=== PATIENT | female | born 1980 | race Caucasian/White ===

== ENCOUNTER → 2021-04-03 14:08 | Outpatient (BNVA) | payer MEDICAID, SELFPAY | PROVIDERS: PCP Nurse Practitioner Family; Visit Provider Nurse Practitioner Family ==

== ENCOUNTER 2021-04-04 10:14 | Outpatient (REF) | payer OTHER, SELFPAY ==
[2021-04-04 12:09] LABS: Hematocrit 38.2 % (37-47); Hemoglobin 12.6 g/dl (12.0-16.0); Mean Corpuscular Hemoglobin 31.1 pg (27.0-33.0); Mean Corpuscular Volume 94.3 fL (80-98); Mean Platelet Volume 12.5 fL (9.4-12.3); Platelet Count 119 X10*3/uL (160-400); Red Blood Count 4.05 X10*6/uL (4.20-5.50); White Blood Count 9.5 X10*3/uL (4.8-10.8)
[2021-04-04 12:19] LABS: Estimated Average Glucose 111 mg/dL; Hemoglobin A1c % 5.5 %
[2021-04-04 12:59] LABS: TSH reflex Free T4 1.53 uIU/mL (0.32-4.0)
[2021-04-04 13:25] LABS: Carbon Dioxide 26 mmol/L (22-29)
[2021-04-04 13:26] LABS: Alanine Aminotransferase 176 U/L (0-31); Albumin Level 3.8 g/dL (3.5-5.0); Alkaline Phosphatase 69 U/L (39-117); Anion Gap 12 (12-20); Aspartate Amino Transferase 150 U/L (5-31); Bilirubin Total 0.4 mg/dL (0.0-1.0); Blood Urea Nitrogen 12 mg/dL (9-16); Calcium 8.7 mg/dL (8.4-10.2); Chloride 103 mmol/L (96-108); Estimated Glomerular Filt Rate > 60; Glucose Random 134 mg/dL (60-115); Lipase 25 U/L (8-78); Potassium 3.5 mmol/L (3.3-5.1); Sodium 137 mmol/L (135-145); Total Protein 6.5 g/dL (6.5-8.0)
[2021-04-05 22:37] LABS: Transglutaminase Ab IgG 1 U/mL; Transglutaminase IgA 1 U/mL
== END 2021-04-04 10:15 | disposition home or self-care (01) ==
LOC: HO.LAB 10:14
PROVIDERS: Visit Provider Nurse Practitioner Family
DX: R10.11 Right upper quadrant pain (principal); E11.9 Type 2 diabetes mellitus without complications; R19.7 Diarrhea, unspecified; K21.9 Gastro-esophageal reflux disease without esophagitis; Z11.0 Encounter for screening for intestinal infectious diseases; Z83.79 Family history of other diseases of the digestive system
CPT/HCPCS: 36415; 80053; 83036; 83516; 83690; 84443; 85027; 87338

== ENCOUNTER → 2021-05-31 13:24 | Outpatient (BNVA) | payer MEDICAID, SELFPAY | PROVIDERS: PCP Nurse Practitioner Family; Visit Provider Nurse Practitioner Family ==

== ENCOUNTER 2021-07-31 09:32 | Outpatient (REF) | payer MEDICAID, SELFPAY ==
[2021-07-31 11:32] LABS: Prothrombin Time 11.7 SEC (9.9-13.0)
[2021-07-31 11:52] LABS: C Reactive Protein 1.76 mg/dL (< or = 0.50)
[2021-07-31 12:54] LABS: Ferritin 181 ng/mL (10-250)
[2021-08-01 08:32] LABS: HBS Num1 0.41 mIU/mL (0-7.99); HBc Num1 0.06 S/CO (0.00-0.79); HIV AB/AG Nonreactive (Nonreactive); HIV Num 1 0.06 S/CO (0.00-0.99); Hepatitis B Core Antibody Nonreactive (Nonreactive); ~Hepatitis B Surface Antibody NONREACTIVE (Nonreactive); ~Hepatitis C Antibody Nonreactive (Nonreactive)
[2021-08-01 08:33] LABS: HBsAGNum1 0.15 S/CO (0.00-0.99); Hepatitis B Surface Antigen Negative (Negative)
[2021-08-02 08:11] LABS: Hepatitis A Antibody IgM 0.12 Index (0-0.79); ~Hepatitis A Antibody IgM Nonreactive (Nonreactive)
[2021-08-02 13:46] LABS: Ceruloplasmin 35 mg/dL (18-53)
[2021-08-05 13:27] LABS: Alpha Fetoprotein 5.5 ng/mL
[2021-08-05 14:52] LABS: Mitochondrial Antibodies NEGATIVE (NEGATIVE)
[2021-08-05 21:26] LABS: Smooth Muscle Antibody <20 U (<20)
== END 2021-07-31 09:33 | disposition home or self-care (01) ==
LOC: HO.LAB 09:32
PROVIDERS: PCP Registered Nurse Community Health; Referring Provider Registered Nurse Community Health; Visit Provider Nurse Practitioner Family
DX: R74.8 Abnormal levels of other serum enzymes (principal); R14.0 Abdominal distension (gaseous); R79.89 Other specified abnormal findings of blood chemistry; K58.9 Irritable bowel syndrome, unspecified
CPT/HCPCS: 36415; 82105; 82390; 82728; 85610; 86140; 86255; 86256; 86704; 86706; 86709; 86803; 87340; 87389; 99212

== ENCOUNTER 2021-08-21 09:33 | Outpatient (REF) | payer MEDICAID, SELFPAY ==
--- NOTE | ~2021-08-21 | US_ITS ---
EXAMINATION: US COMPLETE ABDOMEN WITH LIVER ELASTOGRAPHY CLINICAL INFORMATION: Abnormal liver function tests. COMPARISON: None. TECHNIQUE: Real-time imaging of the abdominal viscera. Noninvasive ultrasound liver fibrosis assessment is performed using Guido ElastPQ point quantification shear wave elastography (pSWE) with a C5-2 MHz transducer. Multiple elastography samples are obtained. FINDINGS: PANCREAS: The visualized pancreatic head and body are normal in appearance. The remainder of the pancreas is obscured from visualization by the overlying bowel gas. ABDOMINAL AORTA: The proximal, middle, and distal aortic segments are normal in caliber. INFERIOR VENA CAVA: Visualized portions are normal. LIVER: Liver echotexture is increased. The liver is enlarged. The liver contour is normal. No focal lesion or intrahepatic biliary duct dilatation. The right lobe measures 20 cm in length. The left lobe measures 14 cm in length. Portal flow is normal/hepatopedal Shear wave liver elastography median stiffness is 1.2 m/s (reference: normal median stiffness is 1.3 m/s or less). IQR/median stiffness to assess sampling precision is 0.13 (reference: good quality data set is IQR/median stiffness of 0.15 or less). GALLBLADDER: Normal. The gallbladder is physiologically distended without evidence of stones, sludge, polyps, wall thickening or pericholecystic fluid. COMMON BILE DUCT: Normal in caliber measuring 0.5 cm in diameter. RIGHT KIDNEY: Normal. No hydronephrosis. No renal calculi or focal parenchymal lesions. The kidney measures 11 cm in maximum dimension. LEFT KIDNEY: Normal. No hydronephrosis. No renal calculi or focal parenchymal lesions. The kidney measures 11 cm in maximum dimension. SPLEEN: Normal. The spleen measures 10 cm in maximum dimension. FREE FLUID: None. US/US abdomen comp w elastography IMPRESSION: 1. Impression: Enlarged echogenic liver probably representing fatty infiltration. Limited visualization of the tail of the pancreas. 2. Liver elastography: Adequate liver sampling. Normal liver stiffness. REFERENCE: Society of Radiologists in Ultrasound Liver Stiffness Thresholds (2020): LIVER STIFFNESS THRESHOLDS: *Liver Stiffness equal or less than 1.3 m/s: High probability of being normal. *Liver Stiffness less than 1.7 m/s: In the absence of other known clinical signs, rules out compensated advanced chronic liver disease. *Liver Stiffness 1.7-2.1 m/s: Suggestive of compensated advanced chronic liver disease but need further test for confirmation. *Liver Stiffness over 2.1 m/s: Rules in compensated advanced chronic liver disease. *Liver Stiffness over 2.4 m/s: Suggestive of clinically significant portal hypertension. QUALITY OF DATA SET: *IQR/Median value equal or less than 0.15 implies a quality data set. *IQR/Median value over 0.15 implies a poor quality data set. SIGNIFICANT CHANGE FROM PRIOR EXAM: Significant change if liver stiffness measurement is 10% or greater from prior exam. OTHER CONSIDERATIONS: The stage of liver fibrosis may be overestimated in the setting of acute hepatitis, liver inflammation, elevated liver function tests, hepatic vascular congestion, obstructive cholestasis, non-fasting state, and infiltrative diseases such as amyloidosis and lymphoma. In some patients with NAFLD, the liver stiffness thresholds for compensated advanced chronic liver disease may be lower. In causes other than viral hepatitis and NAFLD, liver stiffness thresholds are not well established.
== END 2021-08-21 09:34 | disposition home or self-care (01) ==
LOC: HO.US 09:33
PROVIDERS: PCP Registered Nurse Community Health; Visit Provider Surgery
DX: R79.89 Other specified abnormal findings of blood chemistry (principal)
CPT/HCPCS: 76705; 76981

== ENCOUNTER → 2021-09-11 09:55 | Outpatient (BNVA) | payer MEDICAID, SELFPAY | PROVIDERS: PCP Registered Nurse Community Health; Referring Provider Registered Nurse Community Health; Visit Provider Nurse Practitioner Family | DX: K59.04 Chronic idiopathic constipation (principal); K58.1 Irritable bowel syndrome with constipation; K21.9 Gastro-esophageal reflux disease without esophagitis; R06.02 Shortness of breath; R07.89 Other chest pain | CPT/HCPCS: 99212 ==

== ENCOUNTER 2021-10-22 09:42 | Outpatient (REF) | payer MEDICAID, SELFPAY ==
[2021-10-22 11:10] LABS: MANUAL DIFF FLAG NO
[2021-10-22 11:35] LABS: Basophils Absolute Auto 0.1 X10*3/uL (0.0-0.2); Basophils Percent Auto 0.6 % (0-2); Eosinophils Absolute Auto 0.1 X10*3/uL (0.0-0.4); Eosinophils Percent Auto 0.8 % (0-4); Hematocrit 44.7 % (37.0-47.0); Hemoglobin 14.6 g/dl (12.0-16.0); Imm Gran Abs Auto 0.04 X10*3/uL (0.00-0.03); Imm Gran Pct Auto 0.4 % (0.0-0.4); Lymphocytes Percent Auto 18.1 % (20-40); Mean Corpuscular HGB Conc 32.7 g/dl (31.0-35.0); Mean Corpuscular Hemoglobin 30.4 pg (27.0-33.0); Mean Corpuscular Volume 93.1 fL (80.0-98.0); Mean Platelet Volume 11.8 fL (9.4-12.3); Monocytes Absolute Auto 0.6 X10*3/uL (0.1-1.2); Monocytes Percent Auto 5.5 % (2-11); Neutrophils Absolute Auto 8.4 x10*3/uL (2.0-8.3); Neutrophils Percent Auto 74.6 % (45-73); Platelet Count 253 X10*3/uL (160-400); White Blood Count 11.2 X10*3/uL (4.8-10.8)
[2021-10-22 12:22] LABS: Anion Gap 15 (12-20); Blood Urea Nitrogen 7 mg/dL (9-16); Calcium 9.3 mg/dL (8.4-10.2); Carbon Dioxide 23 mmol/L (22-29); Chloride 105 mmol/L (96-108); Estimated Glomerular Filt Rate > 60; Glucose Random 123 mg/dL (60-115); Iron 60 mcg/dL (30-160); Percent Iron Saturation 13 % (15-50); Sodium 139 mmol/L (135-145); Total Iron Binding Capacity 452 mcg/dL (228-428); Unsaturated Iron Binding 392 ug/dL
[2021-10-22 12:39] LABS: TSH reflex Free T4 1.31 uIU/mL (0.32-4.0)
[2021-10-22 12:48] LABS: Erythrocyte Sedimentation Rate 7 MM/HR (0-20)
[2021-10-22 12:51] LABS: Ferritin 165 ng/mL (10-250)
== END 2021-10-22 09:43 | disposition home or self-care (01) ==
LOC: HO.LAB 09:42
PROVIDERS: PCP Registered Nurse Community Health; Visit Provider Hospitalist
DX: Z23 Encounter for immunization (principal); R40.0 Somnolence; R53.82 Chronic fatigue, unspecified; J45.40 Moderate persistent asthma, uncomplicated; G47.33 Obstructive sleep apnea (adult) (pediatric)
CPT/HCPCS: 36415; 80048; 82728; 82785; 83540; 84443; 85025; 85652; 86003; 90686; 99202

== ENCOUNTER 2021-11-14 14:42 | Outpatient (REF) | payer OTHER, SELFPAY | END 2021-11-14 14:43 | disposition home or self-care (01) | LOC: HO.LAB 14:42 | PROVIDERS: Visit Provider Internal Medicine | DX: Z13.89 Encounter for screening for other disorder (principal) ==

== ENCOUNTER 2021-12-03 10:30 | Outpatient (REF) | payer MEDICAID, SELFPAY ==
[2021-12-03 12:30] LABS: Alanine Aminotransferase 45 U/L (0-31); Albumin Level 4.5 g/dL (3.5-5.0); Alkaline Phosphatase 79 U/L (39-117); Aspartate Amino Transferase 30 U/L (5-31); Bilirubin Direct < 0.2 mg/dL (0.0-0.5); Bilirubin Total 0.4 mg/dL (0.0-1.0); Total Protein 7.9 g/dL (6.5-8.0)
== END 2021-12-03 10:31 | disposition home or self-care (01) ==
LOC: HO.LAB 10:30
PROVIDERS: PCP Registered Nurse Community Health; Referring Provider Registered Nurse Community Health; Visit Provider Nurse Practitioner Family
DX: E66.9 Obesity, unspecified (principal); K63.89 Other specified diseases of intestine; K42.9 Umbilical hernia without obstruction or gangrene; K21.9 Gastro-esophageal reflux disease without esophagitis; R10.11 Right upper quadrant pain
CPT/HCPCS: 36415; 80076; 99212

== ENCOUNTER → 2021-12-24 09:19 | Outpatient (BNVA) | payer MEDICAID, SELFPAY | PROVIDERS: PCP Registered Nurse Community Health; Referring Provider Registered Nurse Community Health; Visit Provider Surgery | DX: R10.9 Unspecified abdominal pain (principal) | CPT/HCPCS: 99202 ==

== ENCOUNTER 2022-01-30 11:03 | Outpatient (REF) | payer MEDICAID, SELFPAY ==
--- NOTE | ~2022-01-30 | US_ITS ---
EXAMINATION: US PELVIS CLINICAL INFORMATION: Lower abdominal pain and cramping; the last menstrual period is not specified. COMPARISON: Abdominal ultrasound dated 08/21/2021. TECHNIQUE: Ultrasound of the pelvis is performed using both transabdominal and transvaginal transducers along with Doppler. Transvaginal imaging is performed due to inadequate visualization transabdominally. FINDINGS: Uterus: The uterus is surgically absent. Adnexa: The right ovary measures 3.0 x 2.5 x 1.7 cm, volume 6.7 mL. The right ovary contains a 1.9 x 1.6 x 1.4 cm simple cyst. There is normal Doppler flow to the right ovary. The left ovary is not identified. No pelvic free fluid is seen. There is no adnexal mass. US/US pelvic and transvaginal IMPRESSION: 1. The uterus is surgically absent. 2. A 1.9 cm simple right ovarian cyst is incidentally noted. This is a benign finding, for which no ultrasound follow-up is recommended. 3. The left ovary is not visualized.
== END 2022-01-30 11:04 | disposition home or self-care (01) ==
LOC: HO.US 11:03
PROVIDERS: Visit Provider Registered Nurse Community Health
DX: R10.30 Lower abdominal pain, unspecified (principal); Z90.710 Acquired absence of both cervix and uterus
CPT/HCPCS: 76830; 76856

== ENCOUNTER 2022-02-24 13:01 | Outpatient (REF) | payer MEDICAID, SELFPAY ==
--- NOTE | ~2022-02-24 | CT_ITS ---
EXAMINATION: CT ABDOMEN AND PELVIS WITH CONTRAST CLINICAL INFORMATION: Unspecified abdominal pain COMPARISON: Ultrasound abdomen 08/21/2021, ultrasound pelvis 01/30/2022 TECHNIQUE: Multidetector volumetric images were obtained from the superior aspect of the liver through the pubic symphysis following administration 85 mL of Omnipaque 350 intravenous contrast. Sagittal and coronal reformatted images were obtained on the technologist's workstation. Oral contrast: Yes This CT examination was performed using dose optimization techniques as appropriate, variously including the following: *Automated exposure control *Adjustment of mA and/or kV according to patient size (this includes techniques or standardized protocols for targeted exams where dose is matched to indication/reason for exam; i.e. extremities or head) *Use of iterative reconstruction technique DLP: 621 mGy-cm FINDINGS: LUNG BASES: The visualized lung bases are unremarkable. LIVER, GALLBLADDER, AND BILIARY TREE: The liver is mildly enlarged, 19.8 cm craniocaudal diffusely reduced in attenuation likely representing fatty infiltration. No focal hepatic lesions are identified and there is no intra or extrahepatic duct dilation. The gallbladder is surgically absent. PANCREAS: Unremarkable. SPLEEN: Unremarkable. ADRENAL GLANDS: Unremarkable. KIDNEYS AND URETERS: The kidneys are normal in size, shape, and attenuation. No hydronephrosis, hydroureter, or calculi seen. No perinephric stranding. BLADDER: Unremarkable. GASTROINTESTINAL TRACT: The small and large bowel are unremarkable. The appendix is unremarkable. ABDOMINAL WALL: No significant hernia is appreciated. There is moderate rectus diastases. LYMPH NODES: Normal. VASCULAR: Unremarkable. PELVIC VISCERA: The uterus is surgically absent. In the right adnexa there is a 2.5 cm low-attenuation structure (image 588, series 6) as well as a similar 1.5 cm structure (image 564, series 4). No left adnexal lesions. OSSEOUS STRUCTURES: There is disc degenerative change at L5-S1 and corresponding mild endplate change. There are mild degenerative changes of the sacroiliac joints. No acute or aggressive bony abnormality is identified. CT/CT abdomen pelvis w con IMPRESSION: There is hepatomegaly and steatosis. There are 2 low-attenuation structures within the right adnexa. Prior ultrasound demonstrated a single 1.9 cm cyst. Each of the structures within the adnexa measure greater than fluid attenuation. Further characterization with ultrasound could be considered if clinically warranted. Fleischner guidelines were followed.
[2022-02-24] MEDS: iohexoL 350 MG/ML 100 ML INFUS..BTL IV (16:45)
[2022-02-24] MEDS: Barium Sulfate Oral (Mocha) 450 ML ORAL.SUSP 900 ML PO (16:49)
== END 2022-02-24 13:02 | disposition home or self-care (01) ==
LOC: HO.CT 13:01
PROVIDERS: PCP Registered Nurse Community Health; Visit Provider Surgery
DX: R10.9 Unspecified abdominal pain (principal); J45.40 Moderate persistent asthma, uncomplicated; G47.33 Obstructive sleep apnea (adult) (pediatric); R40.0 Somnolence; R53.82 Chronic fatigue, unspecified
CPT/HCPCS: 74177; 99212; Q9967

== ENCOUNTER → 2022-04-21 09:06 | Outpatient (BNVA) | payer MEDICAID, SELFPAY | PROVIDERS: PCP Registered Nurse Community Health; Visit Provider Nurse Practitioner Family | DX: R10.33 Periumbilical pain (principal); K21.9 Gastro-esophageal reflux disease without esophagitis; K59.04 Chronic idiopathic constipation; K58.1 Irritable bowel syndrome with constipation; M62.08 Separation of muscle (nontraumatic), other site | CPT/HCPCS: 99212 ==

== ENCOUNTER 2022-07-23 07:20 | Day surgery (SDC) | payer MEDICAID, SELFPAY ==
[2022-07-14 11:06] VITALS: BMI 35.2
--- NOTE | 2022-07-23 06:53 | P.HPSUR_ITS ---
Pre-Procedural Eval Section A Date of Service: 07/23/22 Section B Chief Complaint: Periumbilical pain,reflux disease Relevant Family History (Specify if Yes): No Relevant Social History: Tobacco Use Present Medications: see Short Stay Collaborative assessment Medical History: Significant History (Abdominal pain Asthma Drowsiness Fatigue DAVID (obstructive sleep apnea)) History of Previous Operations: Relevant previous surgery/procedure and date(s) (History of cholecystectomy History of hysterectomy) Allergies: Allergies Allergy/AdvReac Type Severity Reaction Status Date / Time No Known Allergies Allergy Verified 04/21/22 09:42 Review of Systems Sugical H&P ROS: Negative: Constitution, Cardiovascular, Respiratory, Neurological, Psychiatric, Hem-Onc, Allergic/Immunologic, Gastrointestinal, Genitourinary, Musculoskeletal, Integumentary, Endocrine and E yes/Ears/Nose/Throat Exam Surgical H&P Exam: Normal: HEENT, Normal: Heart, Normal: Lungs, Normal: Extremities, Normal: Abdomen, Normal: Skin and Normal: Neurological Plan Diagnosis/Plan: Unchanged I have reviewed the history and physical and performed a pertinent physical examination on my patient. No changes have occurred unless specified.
[2022-07-23 07:49] VITALS: BP 132/81; PULSE 96; RESP 16; TEMP 36.1; O2SAT 97; BMI 36.8
--- NOTE | 2022-07-23 08:24 | HO.ANESPROP2 ---
[facility] Active Problems Active Problems: All Active Problems (Updated 04/21/22 @ 10:19 by [facility]) Abdominal pain (Acute) DAVID (obstructive sleep apnea) (Acute) Asthma (Acute) Drowsiness (Acute) Fatigue (Acute) Past Medical History Medical History Abdominal pain Asthma Drowsiness Fatigue DAVID (obstructive sleep apnea) Family History Family History Paternal Grandfather Liver cancer Maternal Grandfather Prostate cancer Family history of problems with anesthesia: No Surgical History Surgical History History of cholecystectomy History of hysterectomy History of Problems with Anesthesia: No Social History Social History Household Members: None Alcohol intake: current Alcohol intake frequency: holidays/special occasions only Patient Tobacco Use Status: Current everyday Tobacco user Tobacco use type: Cigarette Cigarette Packs Per Day: 3 Cigarettes Per Day: 3 Date Education Initiated: 07/23/22 Use of substances other than those prescribed or required for medical reasons: No Are you DNR?: No Advance Directives: No Advance Directives Information Provided: Yes Meds Allergies Allergy/AdvReac Type Severity Reaction Status Date / Time No Known Allergies Allergy Verified 04/21/22 09:42 Active Medications: Current Medications Lactated Ringer's (Lr) 1,000 mls @ 50 mls/hr IVCONT .Q20H FORMERLY [facility], 1928–1983 Home Medications Medication Instructions Recorded Confirmed Last Taken Type alprazolam 1 mg tablet 1 mg PO BID 04/03/21 12/24/21 Unknown History cyclobenzaprine 5 mg tablet 5 mg PO BEDTIME 04/03/21 12/24/21 Unknown History loratadine 5 mg chewable tablet 5 mg PO BID 04/03/21 12/24/21 Unknown History (Children's Claritin) nicotine 7 mg/24 hr daily 1 patch transdermal Q24H 04/03/21 12/24/21 Unknown History transdermal patch omega-3 fatty acids 1,000 mg 1,000 mg PO DAILY 04/03/21 12/24/21 Unknown History capsule (Fish Oil Concentrate) trazodone 50 mg tablet 50 mg PO DAILY 04/03/21 12/24/21 Unknown History fluoxetine 20 mg capsule (Prozac) 20 mg PO DAILY 10/22/21 12/24/21 Unknown History zolpidem 5 mg tablet (Ambien) 10 mg PO BEDTIME PRN 12/03/21 12/24/21 Unknown History Exam Exam Date and Time: July 23, 2022 0824 Height,Weight and Vital Signs: Height 5 ft 7 in Weight 106.594 kg Last Vital Signs Temp 96.9 F 07/23/22 07:49 Pulse 96 07/23/22 07:49 Resp 16 07/23/22 07:49 BP 132/81 07/23/22 07:49 Pulse Ox 97 07/23/22 07:49 O2 Del Method 07/23/22 07:49 Airway Mallampati Class: II TM Dist: >3cm Neck ROM: Full Heart: rrr Lungs: cta Assessment and Plan Assessment Anesthesia Assessment: Anesthesia Plan Discussed and Chart Reviewed Final Anesthetic Review Family History of Problems with Anesthesia: No History of Problems with Anesthesia: No NPO: Yes ASA Class: III Final Preanesthetic Review: No Changes in Pt Med Stat, Meds/Allgs Chart Reviewed and Consent Obtained/Reviewed Patient Risk: Intermediate Procedure Risk: Intermediate Anesthetic Plan Anesthetic Plan: MAC: Disposition: Standard PACU
--- NOTE | 2022-07-23 08:38 | W.PM.OPN ---
Operative Note Operative Note Date of Service: 07/23/22 Narrative: Procedure Description: EGD Indication: [] Anesthesia: MAC FLEXIBLE TRANSORAL UPPER GASTROINTESTINAL ENDOSCOPY UPPER ENDOSCOPY Consent: Indications for the procedure and potential complications of bleeding, perforation, reaction to medications and missed diagnosis were discussed with the patient and informed consent was obtained. Instrument: Olympus GIF H 190 J mid size upper endoscope Monitoring: Vital signs and clinical assessment, continuous EKG monitoring, Pulse oximetry, Carbon Dioxide monitoring and blood pressure monitoring were done throughout the procedure. Procedure: The patient was placed in the left lateral decubitis position and pre-procedure medications were administered and a bite block was placed. The endoscope was inserted into the mouth and advanced under direct vision to the third part of duodenum. A careful inspection was made as the upper endoscope was withdrawn including a retroflexed examination of the proximal stomach; Findings and interventions are described below. Findings: Larynx:normal Esophagus: GE junction at 38 cm, diaphragm hiatus at 38 cm, bx taken from GEj and random esophagus but esophagus looked normal Stomach: Patchy gastric erythema, inflammed fold close to the antrum with some superficial erosions. Biopsies were obtained. Grade 2 flap valve on retroflexed examination of the cardia. Some retained food noted in stomach. Duodenum: Normal bulb and descending duodenum, bx taken Intervention: Biopsies as noted above Impression/Findings: gastritis possible gastroparesis PLAN: await bx results consider gastric emptying study
[2022-07-23 08:58] VITALS: BP 115/72; PULSE 93; RESP 16; TEMP 36.2; O2SAT 93
[2022-07-23 09:13] VITALS: BP 121/85; PULSE 85; RESP 18; TEMP 36.6; O2SAT 96
[2022-07-23 09:50] LABS: Glucose, Whole Blood 184 mg/dL (60-115)
== END 2022-07-23 10:08 | disposition home or self-care (01) ==
PROVIDERS: PCP Registered Nurse; Visit Provider Internal Medicine Gastroenterology
PROC: 0DJ08ZZ Inspection of Upper Intestinal Tract, Via Natural or Artificial Opening Endoscopic (ICD-10-PCS; CPT 43235; principal; 2022-07-23 08:30)
DX: K21.9 Gastro-esophageal reflux disease without esophagitis (principal); K29.70 Gastritis, unspecified, without bleeding; K29.80 Duodenitis without bleeding; K44.9 Diaphragmatic hernia without obstruction or gangrene; G47.33 Obstructive sleep apnea (adult) (pediatric); J45.909 Unspecified asthma, uncomplicated; R40.0 Somnolence; R53.83 Other fatigue; Z79.899 Other long term (current) drug therapy; Z90.49 Acquired absence of other specified parts of digestive tract; F17.210 Nicotine dependence, cigarettes, uncomplicated
CPT/HCPCS: 43239; 82947; 88305; 88342

== ENCOUNTER → 2022-07-30 10:10 | Outpatient (BNVA) | payer MEDICAID, SELFPAY | PROVIDERS: PCP Registered Nurse; Visit Provider Nurse Practitioner Family | DX: K21.9 Gastro-esophageal reflux disease without esophagitis (principal); K58.1 Irritable bowel syndrome with constipation; K59.04 Chronic idiopathic constipation; R14.0 Abdominal distension (gaseous) | CPT/HCPCS: 99212 ==

== ENCOUNTER → 2022-08-15 20:30 | Outpatient (REF) | payer MEDICAID, SELFPAY | LOC: HO.SL 20:30 | PROVIDERS: Visit Provider Registered Nurse | DX: R06.83 Snoring (principal); R09.02 Hypoxemia | CPT/HCPCS: 95810 ==

== ENCOUNTER 2022-08-26 09:16 | Outpatient (REF) | payer MEDICAID, SELFPAY ==
--- NOTE | ~2022-08-26 | MR_ITS ---
EXAMINATION: MR BRAIN WITHOUT CONTRAST CLINICAL INFORMATION: Migraines with aura. COMPARISON: None. TECHNIQUE: Multiplanar, multisequence imaging of the brain was performed without contrast. FINDINGS: No diffusion abnormalities are identified to suggest an acute or subacute infarct. The ventricles are normal in size. No mass effect or midline shift is seen. No brain parenchymal signal abnormality is noted. No extra-axial fluid collections are seen. The brainstem and cerebellum are normal. The gradient refocused acquisition is normal. The craniovertebral junction, marrow signal, and midline structures are normal. The major intracranial flow voids at the level of the [place] of [place] are preserved. The dural venous sinus flow voids are maintained. The mastoid air cells and paranasal sinuses are well aerated. There is an incidental nonspecific left parietal scalp soft tissue thickening which could be correlated with findings on direct visual inspection. There is what may represent focal scar tissue also at the high left parietal vertex. MR/MR head/brain wo con IMPRESSION: Normal MRI of the brain. No acute process. Nonspecific left parietal scalp soft tissue thickening which could be correlated with findings on direct visual inspection. Additional questionable left parietal vertex scalp scarring with mild skin retraction.
== END 2022-08-26 09:17 | disposition home or self-care (01) ==
LOC: HO.MRI 09:16
PROVIDERS: Visit Provider Registered Nurse
DX: G43.009 Migraine without aura, not intractable, without status migrainosus (principal); Z91.81 History of falling
CPT/HCPCS: 70551

== ENCOUNTER → 2022-10-21 08:52 | Outpatient (BNVA) | payer MEDICAID, SELFPAY | PROVIDERS: PCP Registered Nurse; Visit Provider Physician Assistant Surgical | DX: Z13.89 Encounter for screening for other disorder (principal) ==

== ENCOUNTER → 2022-11-07 10:01 | Outpatient (BNVA) | payer MEDICAID, SELFPAY | PROVIDERS: PCP Registered Nurse; Visit Provider Physician Assistant Surgical | DX: E66.9 Obesity, unspecified (principal); Z68.36 Body mass index [BMI] 36.0-36.9, adult | CPT/HCPCS: 99202 ==

== ENCOUNTER → 2022-12-04 07:43 | Outpatient (REF) | payer MEDICAID, SELFPAY ==
--- NOTE | ~2022-12-04 | NM_ITS ---
EXAMINATION: TN RADIONUCLIDE SOLID FOOD GASTRIC EMPTYING 4-HOUR STUDY CLINICAL INFORMATION: Gastritis. CT of the abdomen and pelvis done on 02/24/2022. COMPARISON: None TECHNIQUE: A standard meal consisting of 4 oz of Egg Beaters brand tagged with 990 microcuries Tc-99m Sulfur Colloid, 8 oz water and 2 slices of toast with jelly was administered orally to the patient. Images were obtained using a dual head gamma camera in the anterior and posterior projections over of the stomach immediately post ingestion and at hourly intervals up to 4 hours post ingestion. The anterior and posterior counts at each time interval were averaged using the geometric mean and expressed as percentage of the immediate post ingestion counts. FINDINGS: There is good visualization of activity in the stomach immediately post ingestion. As the study progresses, there is rapid clearance of activity from the stomach and visualization of progressively increasing small bowel activity. By the end of the study, there is almost no retention noted in the stomach. Retention in the stomach at each time interval was: 1 hour 24% (normal 37%-90%) 2 hours 13% (normal 30%-60%) 3 hours 11% 4 hours 2% (normal 0%-10%) TN/TN gastric emptying study IMPRESSION: Abnormal study. Rapid gastric emptying. (For solid meal, rapid gastric emptying is less than 30% at 60 minutes. Delayed gastric emptying criteria is more than 60% remaining at 120 minutes or more than 10% at 240 minutes. The 4-hour value is the best discriminator of a normal or abnormal result).
== END ==
LOC: HO.NUCMED 07:43
PROVIDERS: PCP Registered Nurse; Visit Provider Nurse Practitioner Family
DX: K29.70 Gastritis, unspecified, without bleeding (principal)
CPT/HCPCS: 78264; A9541

== ENCOUNTER → 2022-12-16 13:17 | Outpatient (BNVA) | payer MEDICAID, SELFPAY | PROVIDERS: PCP Registered Nurse; Visit Provider Physician Assistant Surgical | DX: E66.9 Obesity, unspecified (principal); Z68.33 Body mass index [BMI] 33.0-33.9, adult | CPT/HCPCS: 99212 ==

== ENCOUNTER → 2022-12-23 09:46 | Outpatient (BNVA) | payer MEDICAID, SELFPAY | PROVIDERS: PCP Registered Nurse; Visit Provider Dietitian, Registered | DX: E66.9 Obesity, unspecified (principal) | CPT/HCPCS: 97802 ==

== ENCOUNTER 2023-02-06 12:13 | Emergency (ER) | payer MEDICAID, SELFPAY ==
--- NOTE | ~2023-02-06 | CT_ITS ---
EXAMINATION: CT ABDOMEN AND PELVIS WITH CONTRAST CLINICAL INFORMATION: Right lower quadrant abdominal pain. COMPARISON: CT abdomen pelvis 02/24/2022 TECHNIQUE: Multidetector volumetric images were obtained from the superior aspect of the liver through the pubic symphysis following administration 85 mL of Omnipaque 350 intravenous contrast. Sagittal and coronal reformatted images were obtained on the technologist's workstation. Oral contrast: No This CT examination was performed using dose optimization techniques as appropriate, variously including the following: *Automated exposure control *Adjustment of mA and/or kV according to patient size (this includes techniques or standardized protocols for targeted exams where dose is matched to indication/reason for exam; i.e. extremities or head) *Use of iterative reconstruction technique DLP: 740 mGy-cm FINDINGS: LUNG BASES: The visualized lung bases are unremarkable. LIVER, GALLBLADDER, AND BILIARY TREE: The liver is mildly enlarged in size, normal shape, and diffuse hypo-attenuation. Liver measures 19 seen in length. No focal hepatic lesion or biliary ductal dilatation is present. The gallbladder has been surgically removed. PANCREAS: Unremarkable. SPLEEN: Unremarkable. ADRENAL GLANDS: Unremarkable. KIDNEYS AND URETERS: The kidneys are normal in size, shape, and attenuation. No hydronephrosis, hydroureter, or calculi seen. No perinephric stranding. BLADDER: Unremarkable. GASTROINTESTINAL TRACT: There is scattered stool and gas seen throughout the colon without any significant distention. The small bowel loops are normal caliber. The stomach is nondistended. Appendix is normal caliber. No inflammatory process in the right lower quadrant. ABDOMINAL WALL: There is a small umbilical hernia containing fat. LYMPH NODES: Normal. VASCULAR: Unremarkable. PELVIC VISCERA: There is a 1.6 cm round hypodensity right adnexa likely ovarian cyst. This was present on the previous exam as well. OSSEOUS STRUCTURES: There is loss of L5-S1 disc level with vacuum disc phenomena and mild spondylosis. Rest the disc heights are normal. No aggressive lytic or sclerotic process seen. CT/CT abdomen pelvis w IV con IMPRESSION: 1. No acute intra-abdominal process seen. 2. Mild constipation. 3. Small umbilical hernia containing fat. 4. Diffuse fatty infiltration of liver with mild hepatomegaly similar findings were seen on previous study Fleischner guidelines were followed.
[2023-02-06 12:24] VITALS: BP 126/80; PULSE 92; RESP 16; TEMP 36.6; O2SAT 100; BMI 33.2
--- NOTE | 2023-02-06 12:26 | ED_ITS ---
HPI - General Adult General Chief complaint: Abdominal Pain <KIARA Craig - Last Filed: 02/06/23 12:26> Stated complaint: mulpitle complaints vomiting diarrhea headache <KIARA Craig - Last Filed: 02/06/23 12:26> Time Seen by Provider: 02/06/23 13:34 <KIARA Craig - Last Filed: 02/06/23 12:26> Source: patient <Bernabe Estrella MD - Last Filed: 02/06/23 15:27> Mode of arrival: ambulatory <Bernabe Estrella MD - Last Filed: 02/06/23 15:27> Limitations: no limitations <Bernabe Estrella MD - Last Filed: 02/06/23 15:27> History of Present Illness HPI narrative: 42-year-old female presents with abdominal pain. She has right-sided abdominal pain. The symptoms are an 8/10. She describes the pain as sharp and crampy. The pain does not radiate. She notices the pain is worse immediately when getting ready to vomit. She has had multiple episodes of nausea and vomiting. It has been nonbilious and nonbloody. She has also had some diarrhea. There has been some slight blood in the stools that is bright red. She reports history of hemorrhoids. Patient denies any fevers or chills. She denies any sick contacts. She was sent in by her primary care doctor today. Symptoms started 2 days ago <Bernabe Estrella MD - Last Filed: 02/06/23 15:27> Related Data Home medications: Previous Rx's Medication Instructions Recorded dicyclomine 20 mg tablet 20 mg PO TID PRN abdominal 02/06/23 discomfort #20 tabs famotidine 20 mg tablet 20 mg PO BID #30 tabs 02/06/23 ondansetron 4 mg disintegrating 4 mg PO Q8H PRN nausea and 02/06/23 tablet vomiting #10 tabs <KIARA Craig - Last Filed: 02/06/23 12:26> Allergies/adverse reactions: Allergies Allergy/AdvReac Type Severity Reaction Status Date / Time No Known Allergies Allergy Unverified 07/19/20 19:34 [No Known Allergies*] <KIARA Craig - Last Filed: 02/06/23 12:26> [facility] Social History Social History: Social History Advance Directives: No Advance Directives Information Provided: Yes <KIARA Craig - Last Filed: 02/06/23 12:26> Physical Exam ED Vital Signs: Vital Signs - 24 hr 02/06/23 12:24 02/06/23 12:42 Temperature 98 F 97.5 F Pulse Rate 92 84 Respiratory Rate 16 18 Blood Pressure 126/80 107/61 Pulse Oximetry 100 98 Oxygen Delivery Method Room Air Room Air BMI result Body Mass Index 33.2 <KIARA Craig - Last Filed: 02/06/23 12:26> Vital Signs - 24 hr 02/06/23 12:24 02/06/23 12:42 Temperature 98 F 97.5 F Pulse Rate 92 84 Respiratory Rate 16 18 Blood Pressure 126/80 107/61 Pulse Oximetry 100 98 Oxygen Delivery Method Room Air Room Air BMI result Body Mass Index 33.2 <Bernabe Estrella MD - Last Filed: 02/06/23 15:27> GEN: Well developed, no acute distress, alert, oriented HEENT: Normocephalic, atraumatic, normal external ears, nose appears normal, no oropharyngeal edema or exudates Eyes: Normal to appearance Neck: Supple, no lymphadenopathy Respiratory: Talks in complete sentences, no respiratory distress, clear to auscultation bilaterally Cardiovascular: Regular rate and rhythm, no murmurs rubs or gallops Abdomen: Soft, nontender, nondistended, no guarding, no rebound, negative Mckinley sign, negative McBurney's point tenderness Back: No CVA tenderness Extremities: No clubbing cyanosis or edema Neurologic: No focal neurologic deficits, cranial nerves 2-12 intact, strength is 5/5 bilaterally, gait normal Skin: No rash <Bernabe Estrella MD - Last Filed: 02/06/23 15:27> Course Course Course Narrative: RME performed by Rebeka Salas PA-C. Patient is a 42 year old assigned female at presenting to the emergency department with abdominal pain. Labs, imaging, and a swab ordered. Patient placed back in the waiting room pending room availability and results. <KIARA Craig Last Filed: 02/06/23 12:26> Reevaluation(s) Reevaluation #1: Patient is feeling better. Discussed all results with patient. Will start the patient on dicyclomine, Zofran and Pepcid. Patient will follow-up with primary care provider early next week. <Bernabe Estrella MD - Last Filed: 02/06/23 15:27> Time: 15: <Bernabe Estrella MD - Last Filed: 02/06/23 15:27> Medications Administered Discontinued Medications Generic Name Dose Route Start Last Admin Trade Name Freq PRN Reason Stop Dose Admin Iohexol 85 ml 02/06/23 13:55 02/06/23 13:57 Iohexol 350 Mg/Ml 100 Ml Infus..Btl IV 02/06/23 13:56 85 ml ONCE ONE Administration Ketorolac Tromethamine 15 mg 02/06/23 14:34 02/06/23 15:01 Ketorolac Tromethamine 15 Mg/Ml Vial IVPUSH 02/06/23 14:35 15 mg ONCE ONE Administration <KIARA Craig - Last Filed: 02/06/23 12:26> Medications Administered Discontinued Medications Generic Name Dose Route Start Last Admin Trade Name Freq PRN Reason Stop Dose Admin Iohexol 85 ml 02/06/23 13:55 02/06/23 13:57 Iohexol 350 Mg/Ml 100 Ml Infus..Btl IV 02/06/23 13:56 85 ml ONCE ONE Administration Ketorolac Tromethamine 15 mg 02/06/23 14:34 02/06/23 15:01 Ketorolac Tromethamine 15 Mg/Ml Vial IVPUSH 02/06/23 14:35 15 mg ONCE ONE Administration <Bernabe Estrella MD - Last Filed: 02/06/23 15:27> Medical Decision Making Medical Decision Making MDM Narrative: 42-year-old female presents with right-sided abdominal pain. The pain is moderate in nature. The pain does not radiate. Examination revealed negative McBurney's point tenderness negative Mckinley sign. She has no CVA tenderness no urinary complaints. Suspect gastroenteritis given the diarrhea as well. Cannot rule out appendicitis or cholecystitis cell imaging studies are complete. <Bernabe Estrella MD - Last Filed: 02/06/23 15:27> Differential Diagnosis Differential Diagnoses: The differential diagnosis associated with the presentation includes (Abdominal pain, gastroenteritis, cholecystitis, appendicitis, epiploic appendagitis, mesenteric adenitis, IBD, IBS, bacterial overgrowth) <Bernabe Estrella MD - Last Filed: 02/06/23 15:27> Admission/Observation Consideration of admission/observation: Escalation of care including admission/observation considered <Bernabe Estrella MD - Last Filed: 02/06/23 15:27> Lab Data MDM Lab Attestation statement: I reviewed the patient's lab results. <Bernabe Estrella MD - Last Filed: 02/06/23 15:27> Result Diagrams: 02/06/23 12:56 02/06/23 12:56 <KIARA Craig - Last Filed: 02/06/23 12:26> Labs: Lab Results 02/06/23 02/06/23 02/06/23 Range/Units 12:31 12:31 12:31 WBC (4.8-10.8) X10*3/uL RBC (4.20-5.50) X10*6/uL Hgb (12.0-16.0) g/dl Hct (37.0-47.0) % MCV (80.0-98.0) fL MCH (27.0-33.0) pg MCHC (31.0-35.0) g/dl RDW (11.0-16.0) % Plt Count (160-400) X10*3/uL MPV (9.4-12.3) fL Immature Gran % (Auto) (0.0-0.4) % Neut % (Auto) (45-73) % Lymph % (Auto) (20-40) % Morehouse % (Auto) (2-11) % Eos % (Auto) (0-4) % Baso % (Auto) (0-2) % Lymph # (Auto) (1.2-4.9) X10*3/uL Morehouse # (Auto) (0.1-1.2) X10*3/uL Eos # (Auto) (0.0-0.4) X10*3/uL Baso # (Auto) (0.0-0.2) X10*3/uL Abs Immat Gran (auto) (0.00-0.03) X10*3/uL Absolute Neuts (auto) (2.0-8.3) x10*3/uL Absolute Nucleated RBC (0.0-0.012) X10*3/uL Nucleated RBC % (auto) (0.0-0.2) /100WBC Sodium (135-145) mmol/L Potassium (3.3-5.1) mmol/L Chloride (96-108) mmol/L Carbon Dioxide (22-29) mmol/L Anion Gap (12-20) BUN (9-16) mg/dL Creatinine (0.5-1.4) mg/dL Estim Creat Clear Calc Estimated GFR Random Glucose (60-115) mg/dL Calcium (8.4-10.2) mg/dL Magnesium (1.6-2.6) mg/dL Total Bilirubin (0.0-1.0) mg/dL AST (5-31) U/L ALT (0-31) U/L Alkaline Phosphatase (39-117) U/L Total Protein (6.5-8.0) g/dL Albumin (3.5-5.0) g/dL Urine Color Dark Yellow Urine Appearance Cloudy Urine pH 6.0 (5.0-9.0) Ur Specific Bryce 1.020 (1.005-1.025) Urine Protein Negative (Neg-Trace) mg/dL Urine Glucose (UA) Negative (Negative) mg/dL Urine Ketones 15 (Negative) mg/dL Urine Blood Negative (Negative) Urine Nitrite Negative (Negative) Ur Leukocyte Esterase Negative (Negative) Urine Test NEGATIVE (NEGATIVE) COVID-19 (ARLYN) Negative (Negative) COVID-19 Clin Com See Note 02/06/23 02/06/23 Range/Units 12:56 12:56 WBC 11.5 H (4.8-10.8) X10*3/uL RBC 4.68 (4.20-5.50) X10*6/uL Hgb 14.0 (12.0-16.0) g/dl Hct 42.5 (37.0-47.0) % MCV 90.8 (80.0-98.0) fL MCH 29.9 (27.0-33.0) pg MCHC 32.9 (31.0-35.0) g/dl RDW 14.9 (11.0-16.0) % Plt Count 268 (160-400) X10*3/uL MPV 11.5 (9.4-12.3) fL Immature Gran % (Auto) 0.4 (0.0-0.4) % Neut % (Auto) 78.8 H (45-73) % Lymph % (Auto) 14.5 L (20-40) % Morehouse % (Auto) 4.8 (2-11) % Eos % (Auto) 0.7 (0-4) % Baso % (Auto) 0.8 (0-2) % Lymph # (Auto) 1.7 (1.2-4.9) X10*3/uL Morehouse # (Auto) 0.6 (0.1-1.2) X10*3/uL Eos # (Auto) 0.1 (0.0-0.4) X10*3/uL Baso # (Auto) 0.1 (0.0-0.2) X10*3/uL Abs Immat Gran (auto) 0.05 H (0.00-0.03) X10*3/uL Absolute Neuts (auto) 9.1 H (2.0-8.3) x10*3/uL Absolute Nucleated RBC 0.000 (0.0-0.012) X10*3/uL Nucleated RBC % (auto) 0.0 (0.0-0.2) /100WBC Sodium 139 (135-145) mmol/L Potassium 4.0 (3.3-5.1) mmol/L Chloride 99 (96-108) mmol/L Carbon Dioxide 28 (22-29) mmol/L Anion Gap 16 (12-20) BUN 6 L (9-16) mg/dL Creatinine 0.74 (0.5-1.4) mg/dL Estim Creat Clear Calc 115.5 Estimated GFR > 60 Random Glucose 125 H (60-115) mg/dL Calcium 8.9 (8.4-10.2) mg/dL Magnesium 2.0 (1.6-2.6) mg/dL Total Bilirubin 0.8 (0.0-1.0) mg/dL AST 55 H (5-31) U/L ALT 52 H (0-31) U/L Alkaline Phosphatase 84 (39-117) U/L Total Protein 7.1 (6.5-8.0) g/dL Albumin 4.2 (3.5-5.0) g/dL Urine Color Urine Appearance Urine pH (5.0-9.0) Ur Specific Bryce (1.005-1.025) Urine Protein (Neg-Trace) mg/dL Urine Glucose (UA) (Negative) mg/dL Urine Ketones (Negative) mg/dL Urine Blood (Negative) Urine Nitrite (Negative) Ur Leukocyte Esterase (Negative) Urine Test (NEGATIVE) COVID-19 (ARLYN) (Negative) COVID-19 Clin Com <KIARA Craig - Last Filed: 02/06/23 12:26> Lab Results 02/06/23 02/06/23 02/06/23 Range/Units 12:31 12:31 12:31 WBC (4.8-10.8) X10*3/uL RBC (4.20-5.50) X10*6/uL Hgb (12.0-16.0) g/dl Hct (37.0-47.0) % MCV (80.0-98.0) fL MCH (27.0-33.0) pg MCHC (31.0-35.0) g/dl RDW (11.0-16.0) % Plt Count (160-400) X10*3/uL MPV (9.4-12.3) fL Immature Gran % (Auto) (0.0-0.4) % Neut % (Auto) (45-73) % Lymph % (Auto) (20-40) % Morehouse % (Auto) (2-11) % Eos % (Auto) (0-4) % Baso % (Auto) (0-2) % Lymph # (Auto) (1.2-4.9) X10*3/uL Morehouse # (Auto) (0.1-1.2) X10*3/uL Eos # (Auto) (0.0-0.4) X10*3/uL Baso # (Auto) (0.0-0.2) X10*3/uL Abs Immat Gran (auto) (0.00-0.03) X10*3/uL Absolute Neuts (auto) (2.0-8.3) x10*3/uL Absolute Nucleated RBC (0.0-0.012) X10*3/uL Nucleated RBC % (auto) (0.0-0.2) /100WBC Sodium (135-145) mmol/L Potassium (3.3-5.1) mmol/L Chloride (96-108) mmol/L Carbon Dioxide (22-29) mmol/L Anion Gap (12-20) BUN (9-16) mg/dL Creatinine (0.5-1.4) mg/dL Estim Creat Clear Calc Estimated GFR Random Glucose (60-115) mg/dL Calcium (8.4-10.2) mg/dL Magnesium (1.6-2.6) mg/dL Total Bilirubin (0.0-1.0) mg/dL AST (5-31) U/L ALT (0-31) U/L Alkaline Phosphatase (39-117) U/L Total Protein (6.5-8.0) g/dL Albumin (3.5-5.0) g/dL Urine Color Dark Yellow Urine Appearance Cloudy Urine pH 6.0 (5.0-9.0) Ur Specific Bryce 1.020 (1.005-1.025) Urine Protein Negative (Neg-Trace) mg/dL Urine Glucose (UA) Negative (Negative) mg/dL Urine Ketones 15 (Negative) mg/dL Urine Blood Negative (Negative) Urine Nitrite Negative (Negative) Ur Leukocyte Esterase Negative (Negative) Urine Test NEGATIVE (NEGATIVE) COVID-19 (ARLYN) Negative (Negative) COVID-19 Clin Com See Note 02/06/23 02/06/23 Range/Units 12:56 12:56 WBC 11.5 H (4.8-10.8) X10*3/uL RBC 4.68 (4.20-5.50) X10*6/uL Hgb 14.0 (12.0-16.0) g/dl Hct 42.5 (37.0-47.0) % MCV 90.8 (80.0-98.0) fL MCH 29.9 (27.0-33.0) pg MCHC 32.9 (31.0-35.0) g/dl RDW 14.9 (11.0-16.0) % Plt Count 268 (160-400) X10*3/uL MPV 11.5 (9.4-12.3) fL Immature Gran % (Auto) 0.4 (0.0-0.4) % Neut % (Auto) 78.8 H (45-73) % Lymph % (Auto) 14.5 L (20-40) % Morehouse % (Auto) 4.8 (2-11) % Eos % (Auto) 0.7 (0-4) % Baso % (Auto) 0.8 (0-2) % Lymph # (Auto) 1.7 (1.2-4.9) X10*3/uL Morehouse # (Auto) 0.6 (0.1-1.2) X10*3/uL Eos # (Auto) 0.1 (0.0-0.4) X10*3/uL Baso # (Auto) 0.1 (0.0-0.2) X10*3/uL Abs Immat Gran (auto) 0.05 H (0.00-0.03) X10*3/uL Absolute Neuts (auto) 9.1 H (2.0-8.3) x10*3/uL Absolute Nucleated RBC 0.000 (0.0-0.012) X10*3/uL Nucleated RBC % (auto) 0.0 (0.0-0.2) /100WBC Sodium 139 (135-145) mmol/L Potassium 4.0 (3.3-5.1) mmol/L Chloride 99 (96-108) mmol/L Carbon Dioxide 28 (22-29) mmol/L Anion Gap 16 (12-20) BUN 6 L (9-16) mg/dL Creatinine 0.74 (0.5-1.4) mg/dL Estim Creat Clear Calc 115.5 Estimated GFR > 60 Random Glucose 125 H (60-115) mg/dL Calcium 8.9 (8.4-10.2) mg/dL Magnesium 2.0 (1.6-2.6) mg/dL Total Bilirubin 0.8 (0.0-1.0) mg/dL AST 55 H (5-31) U/L ALT 52 H (0-31) U/L Alkaline Phosphatase 84 (39-117) U/L Total Protein 7.1 (6.5-8.0) g/dL Albumin 4.2 (3.5-5.0) g/dL Urine Color Urine Appearance Urine pH (5.0-9.0) Ur Specific Bryce (1.005-1.025) Urine Protein (Neg-Trace) mg/dL Urine Glucose (UA) (Negative) mg/dL Urine Ketones (Negative) mg/dL Urine Blood (Negative) Urine Nitrite (Negative) Ur Leukocyte Esterase (Negative) Urine Test (NEGATIVE) COVID-19 (ARLYN) (Negative) COVID-19 Clin Com <Bernabe Estrella MD - Last Filed: 02/06/23 15:27> Independent Interpretation I performed an independent interpretation of an: CT Scan <Bernabe Estrella MD - Last Filed: 02/06/23 15:27> Radiology Impression Discussion of test interpretation with radiology: I have reviewed the radiologist's reading. <Bernabe Estrella MD - Last Filed: 02/06/23 15:27> Tests considered The following testing was considered but not selected: Ultrasound <Bernabe Estrella MD - Last Filed: 02/06/23 15:27> Prescription Management I considered prescription management with: Pain Medication <Bernabe Estrella MD - Last Filed: 02/06/23 15:27> Discharge Plan Discharge Clinical Impression: Abdominal pain, Hernia, umbilical, Fatty liver <KIARA Craig - Last Filed: 02/06/23 12:26> Patient Disposition: Home, Self-Care <KIARA Craig - Last Filed: 02/06/23 12:26> Instructions: Umbilical Hernia (ED), Non-Alcoholic Fatty Liver Disease (ED), Abdominal Pain (ED) <KIARA Craig - Last Filed: 02/06/23 12:26> Prescriptions: New famotidine 20 mg tablet 20 mg PO BID Qty: 30 0RF ondansetron 4 mg tablet,disintegrating 4 mg PO Q8H PRN (Reason: nausea and vomiting) Qty: 10 0RF dicyclomine 20 mg tablet 20 mg PO TID PRN (Reason: abdominal discomfort) Qty: 20 0RF <KIARA Craig - Last Filed: 02/06/23 12:26> Referrals: Physician,Unknown J [Primary Care Provider] - 3 days <KIARA Craig - Last Filed: 02/06/23 12:26>
[2023-02-06 12:42] VITALS: BP 107/61; PULSE 84; RESP 18; TEMP 36.4; O2SAT 98
[2023-02-06 13:00] LABS: MANUAL DIFF FLAG NO
[2023-02-06 13:03] LABS: Appearance Urine Cloudy; Color Urine Dark Yellow; Glucose Urine UA Negative (Negative); Leukocyte Esterase Urine Negative (Negative); Nitrite Urine Negative (Negative); Urine Blood Negative (Negative); Urine Ketones 15 mg/dL (Negative); Urine Protein Negative (Neg-Trace)
[2023-02-06 13:04] LABS: Basophils Absolute Auto 0.1 X10*3/uL (0.0-0.2); Basophils Percent Auto 0.8 % (0-2); Eosinophils Absolute Auto 0.1 X10*3/uL (0.0-0.4); Eosinophils Percent Auto 0.7 % (0-4); Hematocrit 42.5 % (37.0-47.0); Imm Gran Abs Auto 0.05 X10*3/uL (0.00-0.03); Imm Gran Pct Auto 0.4 % (0.0-0.4); Lymphocytes Absolute Auto 1.7 X10*3/uL (1.2-4.9); Lymphocytes Percent Auto 14.5 % (20-40); Mean Corpuscular HGB Conc 32.9 g/dl (31.0-35.0); Mean Corpuscular Hemoglobin 29.9 pg (27.0-33.0); Mean Corpuscular Volume 90.8 fL (80.0-98.0); Mean Platelet Volume 11.5 fL (9.4-12.3); Monocytes Absolute Auto 0.6 X10*3/uL (0.1-1.2); Monocytes Percent Auto 4.8 % (2-11); Neutrophils Absolute Auto 9.1 x10*3/uL (2.0-8.3); Neutrophils Percent Auto 78.8 % (45-73); Platelet Count 268 X10*3/uL (160-400); Red Blood Count 4.68 X10*6/uL (4.20-5.50); Red Cell Distribution Width 14.9 % (11.0-16.0); White Blood Count 11.5 X10*3/uL (4.8-10.8)
[2023-02-06 13:18] LABS: COVID-19 Test Negative (Negative); IDNOW Serial# 08D9AD1C; UPreg QC Valid YES; Urine Pregnancy NEGATIVE (NEGATIVE)
--- OUTSIDE RECORDS SUMMARY | 2023-02-06 13:21 | XMS_ITS | Continuity of Care Document ---
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 Name Role Phone Esther Tang DO Primary Care Julian bustillos Encounter [facility] [place] Date(s): 03/10/20 - 03/10/[address] [address]- [facility] Encounter Diagnosis Suspected COVID-19 virus infection(Final) - 03/10/20 Discharge Disposition: A-D/C Home Attending Physician: Andrew Clement DO Admitting Physician: Andrew Clement DO Referring Physician: Not on Staff, Referring MD Allergies, Adverse Reactions, Alerts No Known Medication Allergies Substance Reaction Severity Status NKA Active Immunizations Given and Recorded Vaccine Date Status Refusal Reason tetanus/diphtheria/pertussis, acel(Tdap) 11/04/18 Given pneumococcal 23-valent vaccine 04/01/18 Given Pneumococcal Vaccine (oldterm) 11/29/07 Given influenza virus vaccine, inactivated 11/29/07 Give n Medications Zofran 4 mg oral tablet 1 tablet = 4 mg, By Mouth, Every 8 hours, # 9 tablet, 0 Refills, Maintenance, 03/10/20 15:51:00 EDT, Tablet, [id number], 170.2, cm, 04/01/18 11:11:00 EDT, Height, 91.2, kg, 11/07/18 15:59:00 EST, Dry Weight Start Date: 03/10/20 Stop Date: 03/13/20 Status: Ordered Vital Signs Most recent to oldest [Reference Range]: 1 2 3 Oxygen Saturation [94-100 %] 96 % (03/10/20 4:31 PM) 99 % (03/10/20 3:47 PM) 97 % (03/10/20 2:20 PM) Pulse Rate [55-90 bpm] 67 bpm (03/10/20 4:31 PM) 54 bpm *L* (03/10/20 3:47 PM) 61 bpm (03/10/20 2:20 PM) Blood Pressure [90-138/55-84 mm Hg] 123/61mm Hg (03/10/20 4:31 PM) 106/74mm Hg (03/10/20 3:47 PM) 114/79mm Hg (03/10/20 2:20 PM) Respiratory Rate [16-30 br/min] 18 br/min (03/10/20 4:31 PM) 20 br/min (03/10/20 3:47 PM) 14 br/min *L* (03/10/20 2:20 PM) Temperature [96.8-100.4 DegF] 98.1 DegF (03/10/20 4:31 PM) 98.8 DegF (03/10/20 12:25 PM) Mode of Delivery (Oxygen) Room air (03/10/20 4:31 PM) Room air (03/10/20 3:47 PM) Room air (03/10/20 2:20 PM) Blood pressure sites Arm, left (03/10/20 3:47 PM) Arm, right (03/10/20 2:20 PM) Arm, left (03/10/20 12:25 PM) Temperature Route Oral (03/10/20 4:31 PM) Oral (03/10/20 12:25 PM)
--- OUTSIDE RECORDS SUMMARY | 2023-02-06 13:21 | XMS_ITS | Continuity of Care Document ---
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 Name Role Phone Chantell CoeanaEsther cochran DO Primary Care Julian bustillos [id number] Date(s): [facility]/14[facility] - 01[facility]21/[facility]e Sw[facility] [address] [place] [address]- Attending Physician: Klarissa DOWNS, Liz Toro Referring Physician: Tamiko Aceves NP Allergies, Adverse Reactions, Alerts No Known Allergies Immunizations Given and Recorded Vaccine Date Status Refusal Reason influenza virus vaccine, inactivated 12/31/20 Give n influenza virus vaccine, inactivated 11/29/07 Give n tetanus/diphtheria/pertussis, acel(Tdap) 11/04/18 Given pneumococcal 23-valent vaccine 04/01/18 Given Pneumococcal Vaccine (oldterm) 11/29/07 Given Medications ALPRAZolam 1 mg oral tablet TAKE 1 TABLET BY MOUTH THREE TIMES DAILY NEEDED Start Date: 12/31/21 Status: Ordered Ambien 5 mg oral tablet 1 tablet = 5 mg, By Mouth, Daily at bedtime, PRN as needed for insomnia, 0 Refills, Maintenance, 05/27/21 10:48:00 EDT, Tablet, Partial fill upon patient request if the prescription is for a scheduleII opioid drug. Start Date: 05/27/21 Status: Ordered FLUoxetine 20 mg oral capsule TAKE 3 CAPSULES BY MOUTH EVERY MORNING Start Date: 12/31/21 Status: Ordered folic acid 1 mg oral tablet 1 mg, 1, tablet, By Mouth, Daily, Refills 0, Maintenance, 05/27/21 10:45:00 EDT, Partial fill upon patient request if the prescription is for a schedule II opioid drug. Start Date: 05/27/21 Status: Ordered omeprazole 20 mg oral enteric coated capsule TAKE 1 CAPSULE BY MOUTH ONCE DAILY - JOHN UN COMPRIMIDO CADA MANANA 30 MINUTOS ANTES DEL DESAYUNO Start Date: 12/31/21 Status: Ordered prazosin 1 mg oral capsule 1 mg, 1, capsule, By Mouth, 3 times a day, Refills 0, Maintenance, 05/27/21 10:47:00 EDT, Partial fill upon patient request if the prescription is for a schedule II opioid drug. Start Date: 05/27/21 Status: Ordered prazosin 1 mg oral capsule TAKE 1 CAPSULE BY MOUTH AT BEDTIME Start Date: 12/31/21 Status: Ordered sucralfate 1 gm oral tablet 1 Gm, 1, tablet, By Mouth, 3 times a day before meals and bedtime, Refills 0, Maintenance, 05/27/2110:45:00 EDT, Partial fill upon patient request if the prescription is for a schedule II opioid drug. Start Date: 05/27/21 Status: Ordered Topamax 25 mg oral tablet 2 tablet = 50 mg, By Mouth, Daily, # 60 tablet, 0 Refills, Maintenance, 05/27/21 10:45:00 EDT, Tablet, Partial fill upon patient request if the prescription is for a schedule II opioid drug. Start Date: 05/27/21 Status: Ordered traZODone 100 mg oral tablet 100 mg, 1, tablet, By Mouth, 2 times a day, Refills 0, Maintenance, 05/27/21 10:47:00 EDT, Partial fill upon patient request if the prescription is for a schedule II opioid drug. Start Date: 05/27/21 Status: Ordered traZODone 100 mg oral tablet TAKE 2 TABLETS BY MOUTH AT BEDTIME NEEDED Start Date: 12/31/21 Status: Ordered Problem List Condition Confirmation Course Effective Dates Status Health St atus Informant Diabetes Confirmed Active Psychogenic nonepileptic seizure Confirmed Active High cholesterol Confirmed Active Obese class I Confirmed Active Procedures Procedure Date Related Diagnosis Body Site Status Bilateral tubal ligation Completed Insertion of single incision mid-urethral mini-sling Completed Vital Signs Most recent to oldest [Reference Range]: 1 Height 170 cm (01/14/23 11:15 AM) Weight 98.18 kg (01/14/23 11:15 AM) Body Mass Index [18.5-24.99 kg/m2] 33.97 kg/m2 *>HHI* (01/14/23 11:15 AM) Blood Pressure [90-138/55-84 mm Hg] 100/ 70mm Hg (01/14/23 11:15 AM) Blood pressure sites Arm, left (01/14/23 11:15 AM) Weight Obtained Via Standing scale (01/14/23 11:15 AM) Social History Social History Type Response Smoking Status Never (less than 100 in lifetime) entered on: 12/31/21 Sex Patient Care team information Care Team Personnel Name: Anna Marie Johnson RN Position: [facility] AMB Nurse Member Role: Primary Care Nurse Name: Esther Tang DO Position: [facility] Physician (General Medicine) Member Role: PCP Address: Address: [address] [place] [address] Name: Annemarie Victoria RN Position: [facility] RN Member Role: Primary Care Nurse Name: Danny Victoria RN Position: [facility] RN Member Role: Primary Care Nurse Care Team Related Persons Name: BAYLEE STERLING Address: home [address] [place] [address] Name: DARIN STERLING Address: [place] [address] Name: CLARK BUTLER Address: [place] [address] Name: NANCY FRIEDMAN Address: home [address] [place] [address] Name: ADRIANA MELCHOR Address: home [address] [place] [address]
--- OUTSIDE RECORDS SUMMARY | 2023-02-06 13:21 | XMS_ITS | Continuity of Care Document ---
Author Name Unknown Organization [facility] ter Address [address] [place] [address]- Care Team Providers Care Organic Lab Worker Name Role Phone AndersonEsther Martini DO Primary Care Julian bustillos Encounter [facility] [place] Date(s): 12/29/20 - 12/31/[address] [address] Discharge Disposition: A-D/C Home Attending Physician: Maria Isabel Orantes MD Admitting Physician: Jared Garcia MD Referring Physician: Not on Staff, Referring MD Allergies, Adverse Reactions, Alerts No Known Medication Allergies Substance Reaction Severity Status NKA Active Immunizations Given and Recorded Vaccine Date Status Refusal Reason influenza virus vaccine, inactivated 12/31/20 Give n influenza virus vaccine, inactivated 11/29/07 Give n tetanus/diphtheria/pertussis, acel(Tdap) 11/04/18 Given pneumococcal 23-valent vaccine 04/01/18 Given Pneumococcal Vaccine (oldterm) 11/29/07 Given Medications vancomycin 125 mg oral capsule 1 capsule = 125 mg, By Mouth, Every 6 hours, for 10 days, # 40 capsule, 0 Refills, Acute 01/10/21 9:05:00 EST, 12/31/20 9:05:00 EST, Capsule, [facility] #[id number], Partial fill upon patient request if the prescription is for a schedule II opioi... Start Date: 12/31/20 Stop Date: 01/10/21 Status: Ordered Zofran 4 mg oral tablet 1 tablet = 4 mg, By Mouth, Every 8 hours, # 9 tablet, 0 Refills, Maintenance, 03/10/20 15:51:00 EDT, Tablet, [email or web address] #[id number], 170.2, cm, 04/01/18 11:11:00 EDT, Height, 91.2, kg, 11/07/18 15:59:00 EST, Dry Weight Start Date: 03/10/20 Stop Date: 03/13/20 Status: Ordered Results Orders for Microbiology Reports Name Date Stool Culture 12/29/20 Microbiology Reports TEST:Stool Culture STATUS:Unauthenticated BODY SITE: SOURCE:STOOL COLLECTED DATE/TIME:12/30/20 1:14 AM Stool Culture SPECIMEN DESCRIPTION : STOOL NOT IN RAFIA DAGOBERTO PRESERVATIVE SPECIAL REQUESTS : NONE CULTURE : SPECIMEN NOT RECEIVED IN [facility]SP[facility]IA, UNABLE TO TEST FOR SHIGA TOXIN. CONTACT [facility] FOR COLLECTION AND TRANSPORT INSTRUCTION AND SUPPLIES NORMAL SO FAR REPORT STATUS : PRELIMINARY REPORT Radiology Reports * Exam Date Time Procedure Performing Provider Status 12/29/20 11:04 AM Chest Portable Johann Villa (Verified) Notes: (Chest Portable) Reason For Exam: Shortness of Breath RESULT: Chest Portable Chest Portable HX OF PRESENT ILLNESS: n v d abdominal painx x 2 days with acute onset chest pain today; Reason: Shortness of Breath; Clinical Question(s): CHF / CHF COMPARISON: 03/17/2019 FINDINGS: LINES AND TUBES: None. LUNGS AND PLEURA: Clear lungs. Normal pulmonary vascularity. No pleural effusion. No pneumothorax. HEART, MEDIASTINUM AND DAYSI: Heart is normal in size. Normal mediastinal and hilar contour. BONES AND SOFT TISSUES: No acute abnormality. IMPRESSION: No evidence of acute abnormality. WSN: [id number] Ordering Physician: Lurdes Maldonado Dictated By: Sundeep Garcia MD Dictated Date/Time: 12/29/20 11:24 a Reviewed By: Sundeep Garcia MD Signed By: Sundeep Garcia MD Signed Date/Time: 12/29/20 11:24 am Transcribed By: JONI Transcribed Date/Time: 12/29/20 11:23 am Vital Signs Most recent to oldest [Reference Range]: 1 2 3 Height 170 cm (12/31/20 8:54 AM) 170 cm (12/31/20 4:00 AM) 170 cm (12/30/20 8:27 PM) Weight 95 kg (12/30/20 1:11 PM) 95 kg (12/30/20 10:06 AM) 95 kg (12/30/20 7:19 AM) Oxygen Saturation [94-100 %] 100 % (12/31/20 8:54 AM) 100 % (12/31/20 4:00 AM) 100 % (12/30/20 8:27 PM) Pulse Rate [55-90 bpm] 87 bpm (12/31/20 8:54 AM) 88 bpm (12/31/20 4:00 AM) 95 bpm *H* (12/30/20 8:27 PM) Body Mass Index [18.5-24.99] 32.87 *>HHI* (12/30/20 1:11 PM) 32.87 *>HHI* (12/30/20 10:06 AM) 32.87 *>HHI* (12/30/20 7:19 AM) Blood Pressure [90-138/55-84 mm Hg] 114/87mm Hg (12/31/20 8:54 AM) 118/62mm Hg (12/31/20 4:00 AM) 124/75mm Hg (12/30/20 8:27 PM) Respiratory Rate [16-30 br/min] 18 br/min (12/31/20 8:54 AM) 18 br/min (12/31/20 4:00 AM) 18 br/min (12/30/20 8:27 PM) Temperature [96.8-100.4 DegF] 98.1 DegF (12/31/20 8:54 AM) 98.1 DegF (12/31/20 4:00 AM) 98.4 DegF (12/30/20 8:27 PM) Mode of Delivery (Oxygen) Room air (12/31/20 8:54 AM) Room air (12/31/20 4:00 AM) Room air (12/30/20 8:27 PM) Blood pressure sites Arm, left (12/31/20 8:54 AM) Arm, left (12/31/20 4:00 AM) Arm, left (12/30/20 8:27 PM) Temperature Route Oral (12/31/20 8:54 AM) Oral (12/31/20 4:00 AM) Oral (12/30/20 8:27 PM) Dry Weight 95 kg (12/30/20 1:11 PM) 95 kg (12/30/20 10:06 AM) 95 kg (12/30/20 7:19 AM)
--- OUTSIDE RECORDS SUMMARY | 2023-02-06 13:21 | XMS_ITS | Continuity of Care Document ---
Author Name Unknown Organization [facility] Address [address] [place] [address]- Care Team Providers Care Sql Programmer Name Role Phone BobwalkerEsther Dumont DO Primary Care Julian bustillos Encounter [facility] Date(s): 03/07/21 - 04/06/21 [facility] De Becky [address] [place] [address]- Allergies, Adverse Reactions, Alerts No Known Medication Allergies Substance Reaction Severity Status NKA Active Immunizations Given and Recorded Vaccine Date Status Refusal Reason influenza virus vaccine, inactivated 12/31/20 Give n influenza virus vaccine, inactivated 11/29/07 Give n tetanus/diphtheria/pertussis, acel(Tdap) 11/04/18 Given pneumococcal 23-valent vaccine 04/01/18 Given Pneumococcal Vaccine (oldterm) 11/29/07 Given Medications Zofran 4 mg oral tablet 1 tablet = 4 mg, By Mouth, Every 8 hours, # 9 tablet, 0 Refills, Maintenance, 03/10/20 15:51:00 EDT, Tablet, [facility] #[id number], 170.2, cm, 04/01/18 11:11:00 EDT, Height, 91.2, kg, 11/07/18 15:59:00 EST, Dry Weight Start Date: 03/10/20 Stop Date: 03/13/20 Status: Ordered
--- OUTSIDE RECORDS SUMMARY | 2023-02-06 13:21 | XMS_ITS | Continuity of Care Document ---
Author Name Unknown Organization [facility] ter Address [address] [place] [address]- Care Team Providers Care Palliative Care Physician Name Role Phone Esther Tang DO Primary Care Julian bustillos [place] [facility] [place] Date(s): 03/20/20 - 03/20/[address] [address] [facility] Discharge Disposition: A-D/C Walkout Attending Physician: Not on Staff, Attending MD Admitting Physician: Not on Staff, Admitting MD Referring Physician: Not on Staff, Referring [...] 0 Refills, Maintenance, 03/10/20 15:51:00 EDT, Tablet, [facility] #[id number], 170.2, cm, 04/01/18 11:11:00 EDT, Height, 91.2, kg, 11/07/18 15:59:00 EST, Dry Weight Start Date: 03/10/20 Stop Date: 03/13/20 Status: Ordered Vital Signs Most recent to oldest [Reference Range]: 1 Oxygen Saturation [94-100 %] 97 % (03/20/20 6:21 PM) Pulse Rate [55-90 bpm] 101 bpm *H* (03/20/20 6:21 PM) Blood Pressure [90-138/55-84 mm Hg] 115/ 75mm Hg (03/20/20 6:21 PM) Respiratory Rate [16-30 br/min] 18 br/mi n (03/20/20 6:21 PM) Temperature [96.8-100.4 DegF] 98.1 DegF (03/20/20 6:21 PM) Mode of Delivery (Oxygen) Room air (03/20/20 6:21 PM) Blood pressure sites Arm, left (03/20/20 6:21 PM) Temperature Route Oral (03/20/20 6:21 PM)
--- OUTSIDE RECORDS SUMMARY | 2023-02-06 13:21 | XMS_ITS | Continuity of Care Document ---
Author Name Unknown Organization [facility] ter Address [address] [place] [address]- Care Team Providers Care Diamond Mounter Name Role Phone Not on Staff, PCP Primary Care Physician Unavail able Encounter [facility] [place] Date(s): 12/30/21 - 01/01/[address] [address]- Discharge Disposition: A-D/C Home Attending Physician: Carmencita Melissa MD Admitting Physician: Chayito Lozano MD Referring Physician: Not on Staff, Referring MD Allergies, Adverse Reactions, Alerts No Known Medication Allergies Medications ALPRAZolam 1 mg oral tablet TAKE 1 TABLET BY MOUTH THREE TIMES DAILY NEEDED Start Date: 12/31/21 Status: Ordered FLUoxetine 20 mg oral capsule TAKE 3 CAPSULES BY MOUTH EVERY MORNING Start Date: 12/31/21 Status: Ordered Linzess 145 mcg oral capsule TAKE 1 CAPSULE BY MOUTH DAILY Start Date: 12/31/21 Status: Ordered omeprazole 20 mg oral enteric coated capsule TAKE 1 CAPSULE BY MOUTH ONCE DAILY - JOHN UN COMPRIMIDO CADA MANANA 30 MINUTOS ANTES DEL DESAYUNO Start Date: 12/31/21 Status: Ordered prazosin 1 mg oral capsule TAKE 1 CAPSULE BY MOUTH AT BEDTIME Start Date: 12/31/21 Status: Ordered traZODone 100 mg oral tablet TAKE 2 TABLETS BY MOUTH AT BEDTIME NEEDED Start Date: 12/31/21 Status: Ordered Problem List Condition Effective Dates Status Health Status Inform ant Obese class II(Confirmed) Active Procedures Procedure Date Related Diagnosis Body Site Status Cholecystectomy Completed Hysterectomy Completed Vital Signs Most recent to oldest [Reference Range]: 1 2 3 Height 170 cm (01/01/22 7:53 AM) 170 cm (01/01/22 3:32 AM) 170 cm (12/31/21 10:28 PM) Weight 102 kg (12/31/21 9:48 AM) Oxygen Saturation [94-100 %] 100 % (01/01/22 7:53 AM) 100 % (01/01/22 3:32 AM) 95 % (12/31/21 10:28 PM) Pulse Rate [55-90 bpm] 77 bpm (01/01/22 7:53 AM) 80 bpm (01/01/22 3:32 AM) 57 bpm (12/31/21 10:28 PM) Body Mass Index [18.5-24.99] 35.29 *>HHI* (12/31/21 9:48 AM) Blood Pressure [90-138/55-84 mm Hg] 106/66mm Hg (01/01/22 7:53 AM) 133/89mm Hg (01/01/22 3:32 AM) 113/78mm Hg (12/31/21 10:28 PM) Respiratory Rate [16-30 br/min] 18 br/min (01/01/22 8:49 AM) 18 br/min (01/01/22 7:53 AM) 18 br/min (01/01/22 3:32 AM) Temperature [96.8-100.4 DegF] 98.3 DegF (01/01/22 7:53 AM) 98.0 DegF (01/01/22 3:32 AM) 98.3 DegF (12/31/21 10:28 PM) Mode of Delivery (Oxygen) Room air (01/01/22 7:53 AM) Room air (01/01/22 3:32 AM) Room air (12/31/21 10:28 PM) Blood pressure sites Arm, left (01/01/22 7:53 AM) Arm, right (01/01/22 3:32 AM) Arm, right (12/31/21 10:28 PM) Temperature Route Oral (01/01/22 7:53 AM) Oral (01/01/22 3:32 AM) Oral (12/31/21 10:28 PM) Dry Weight 102 kg (12/31/21 9:48 AM) Social History Social History Type Response Smoking Status Never (less than 100 in lifetime) entered on: 12/31/21 Sex
--- OUTSIDE RECORDS SUMMARY | 2023-02-06 13:21 | XMS_ITS | Continuity of Care Document ---
Author Name Unknown Organization [facility] ter Address [address] [place] [address]- Care Team Providers Care Counter Intelligence Agent Name Role Phone Esther Tang DO Primary Care Julian bustillos [place] [facility] [place] 03/13/20 - 03/13/[address] [address]- [facility] Discharge Disposition: A-D/C Walkout Attending Physician: Not [...] 0 Refills, Maintenance, 03/10/20 15:51:00 EDT, Tablet, [facility] #[id number], 170.2, cm, 04/01/18 11:11:00 EDT, Height, 91.2, kg, 11/07/18 15:59:00 EST, Dry Weight Start Date: 03/10/20 Stop Date: 03/13/20 Status: Ordered Vital Signs Most recent to oldest [Reference Range]: 1 Oxygen Saturation [94-100 %] 99 % (03/13/20 12:59 PM) Pulse Rate [55-90 bpm] 80 bpm (03/13/20 12:59 PM) Mode of Delivery (Oxygen) Room air (03/13/20 12:59 PM)
--- OUTSIDE RECORDS SUMMARY | 2023-02-06 13:21 | XMS_ITS | Continuity of Care Document ---
Author Name Unknown Organization [facility] Address [address] [place] [address]- Care Team Providers Care Modular Home Crew Member Name Role Phone BoblaurenEsther Martini DO Primary Care Julian bustillos Encounter [facility] [place] Date(s): 03/11/21 - 05/30/21 [facility]/[address] [address]- Attending Physician: Not on Staff, Attending MD Allergies, Adverse Reactions, Alerts No Known Medication Allergies Substance Reaction Severity Status NKA Active Immunizations Given and Recorded Vaccine Date Status Refusal Reason influenza virus vaccine, inactivated 12/31/20 Give n influenza virus vaccine, inactivated 11/29/07 Give n tetanus/diphtheria/pertussis, acel(Tdap) 11/04/18 Given pneumococcal 23-valent vaccine 04/01/18 Given Pneumococcal Vaccine (oldterm) 11/29/07 Given Medications Ambien 5 mg oral tablet 1 tablet = 5 mg, By Mouth, Daily at bedtime, PRN as needed for insomnia, 0 Refills, Maintenance, 05/27/21 10:48:00 EDT, Tablet, Partial fill upon patient request if the prescription is for a scheduleII opioid drug. Start Date: 05/27/21 Status: Ordered benzonatate 100 mg oral capsule 1 capsule = 100 mg, By Mouth, 3 times a day, 0 Refills, Maintenance, 05/27/21 10:44:00 EDT, Partialfill upon patient request if the prescription is for a schedule II opioid drug. Start Date: 05/27/21 Status: Ordered BuSpar 10 mg oral tablet 10 mg, By Mouth, 2 times a day, Refills 0, Maintenance, 05/27/21 10:48:00 EDT, Partial fill upon patient request if the prescription is for a schedule II opioid drug. Start Date: 05/27/21 Status: Ordered folic acid 1 mg oral tablet 1 mg, 1, tablet, By Mouth, Daily, Refills 0, Maintenance, 05/27/21 10:45:00 EDT, Partial fill upon patient request if the prescription is for a schedule II opioid drug. Start Date: 05/27/21 Status: Ordered omeprazole 20 mg oral enteric coated capsule 1 capsule = 20 mg, By Mouth, Daily, 0 Refills, Maintenance, 05/27/21 10:45:00 EDT, Partial fill upon patient request if the prescription is for a schedule II opioid drug. Start Date: 05/27/21 Status: Ordered PARoxetine 10 mg oral tablet 10 mg, 1, tablet, By Mouth, Daily, Refills 0, Maintenance, 05/27/21 10:47:00 EDT, Partial fill uponpatient request if the prescription is for a schedule II opioid drug. Start Date: 05/27/21 Status: Ordered prazosin 1 mg oral capsule 1 mg, 1, capsule, By Mouth, 3 times a day, Refills 0, Maintenance, 05/27/21 10:47:00 EDT, Partial fill upon patient request if the prescription is for a schedule II opioid drug. Start Date: 05/27/21 Status: Ordered sucralfate 1 gm oral tablet 1 Gm, 1, tablet, By Mouth, 3 times a day before meals and bedtime, Refills 0, Maintenance, 05/27/2110:45:00 EDT, Partial fill upon patient request if the prescription is for a schedule II opioid drug. Start Date: 05/27/21 Status: Ordered thiamine 100 mg oral tablet 100 mg, 1, tablet, By Mouth, Daily, Refills 0, Maintenance, 05/27/21 10:44:00 EDT, Partial fill upon patient request if [...] opioid drug. Start Date: 05/27/21 Status: Ordered Xanax 1 mg oral tablet 1 tablet = 1 mg, By Mouth, 3 times a day, 0 Refills, Maintenance, 05/27/21 10:47:00 EDT, Partial fill upon patient request if the prescription is for a schedule II opioid drug. Start Date: 05/27/21 Status: Ordered Zofran 4 mg oral tablet 1 tablet = 4 mg, By Mouth, Every 8 hours, PRN as needed for nausea/vomiting, 0 Refills, Maintenance, 05/27/21 10:48:00 EDT, Tablet, Partial fill upon patient request if the prescription is for a schedule II opioid drug. Start Date: 05/27/21 Status: Ordered Zofran 4 mg oral tablet 1 tablet = 4 mg, By Mouth, Every 8 hours, # 9 tablet, 0 Refills, Maintenance, 03/10/20 15:51:00 EDT, Tablet, [facility] #[id number], 170.2, cm, 04/01/18 11:11:00 EDT, Height, 91.2, kg, 11/07/18 15:59:00 EST, Dry Weight Start Date: 03/10/20 Stop Date: 03/13/20 Status: Ordered
--- OUTSIDE RECORDS SUMMARY | 2023-02-06 13:21 | XMS_ITS | Continuity of Care Document ---
Author Name Unknown Organization [facility] ter Address [address] [place] [address]- Care Team Providers Care Metal Washing Machine Operator Name Role Phone BoblaurenEsther Martini DO Primary Care Julian bustillos [place] [facility] [place] Date(s): 02/21/21 - 02/21/[address] [address]- Discharge Disposition: A-D/C Walkout Attending Physician: Not [...] 0 Refills, Maintenance, 03/10/20 15:51:00 EDT, Tablet, [facility] #[id number], 170.2, cm, 04/01/18 11:11:00 EDT, Height, 91.2, kg, 11/07/18 15:59:00 EST, Dry Weight Start Date: 03/10/20 Stop Date: 03/13/20 Status: Ordered Vital Signs Most recent to oldest [Reference Range]: 1 2 Oxygen Saturation [94-100 %] 97 % (02/21/21 11:06 AM) 100 % (02/21/21 10:51 AM) Pulse Rate [55-90 bpm] 86 bpm (02/21/21 11:06 AM) 90 bpm (02/21/21 10:51 AM) Blood Pressure [90-138/55-84 mm Hg] 114/ 66mm Hg (02/21/21 11:06 AM) Respiratory Rate [16-30 br/min] 16 br/mi n (02/21/21 11:06 AM) Temperature [96.8-100.4 DegF] 98.2 DegF (02/21/21 11:06 AM) Mode of Delivery (Oxygen) Room air (02/21/21 11:06 AM) Blood pressure sites Arm, right (02/21/21 11:06 AM) Temperature Route Oral (02/21/21 11:06 AM)
--- OUTSIDE RECORDS SUMMARY | 2023-02-06 13:21 | XMS_ITS | Continuity of Care Document ---
Author Name Unknown Organization [facility] ter Address [address] [place] [address]- Care Team Providers Care Glass Furnace Operator Name Role Phone BoblaurenEsther Martini DO Primary Care Julian bustillos En[place] [facility] [place] Date(s): 05/27/21 - 05/27/[address] [address]- Encounter Diagnosis Migraine(Final) - 05/27/21 Discharge Disposition: A-D/C Home Attending Physician: Caroline Coburn MD Admitting Physician: Caroline Coburn MD Referring Physician: Not on Staff, Referring [...] 0 Refills, Maintenance, 03/10/20 15:51:00 EDT, Tablet, [facility] #[id number], 170.2, cm, 04/01/18 11:11:00 EDT, Height, 91.2, kg, 11/07/18 15:59:00 EST, Dry Weight Start Date: 03/10/20 Stop Date: 03/13/20 Status: Ordered Results Radiology Reports * Exam Date Time Procedure Performing Provider Status 05/27/21 10:46 AM Chest 2 Views Frontal and Lat Inocencia Heaton; Auth (Verified) Notes: (Chest 2 Views Frontal and Lat) Reason For Exam: Angina RESULT: Chest 2 Views Frontal and Lat Chest 2 Views Frontal and Lat INDICATION/CLINICAL QUESTION: Chest pressure. TECHNIQUE: Frontal and lateral views of the chest. COMPARISON: 12/29/2020. FINDINGS: LINES AND TUBES: None. LUNGS AND PLEURA: RIGHT CHEST: The right lung is clear and there is no right effusion. LEFT CHEST: The left lung is clear and there is no left effusion. HEART, MEDIASTINUM AND NAYLA: The heart is of normal size. The mediastinum and nayla are normal. BONES AND SOFT TISSUES: No acute bony abnormality. IMPRESSION: 1. No active disease in chest. WSN: [id number] Ordering Physician: Hipolito Ramirez Dictated By: Dontrell Ovalle MD Dictated Date/Time: 05/27/21 10:47 a Reviewed By: Dontrell Ovalle MD Signed By: Dontrell Ovalle MD Signed Date/Time: 05/27/21 10:47 am Transcribed By: JONI Transcribed Date/Time: 05/27/21 10:46 am Vital Signs Most recent to oldest [Reference Range]: 1 Weight 98 kg (05/27/21 10:21 AM) Oxygen Saturation [94-100 %] 94 % (05/27/21 10:21 AM) Pulse Rate [55-90 bpm] 88 bpm (05/27/21 10:21 AM) Blood Pressure [90-138/55-84 mm Hg] 111/ 75mm Hg (05/27/21 10:21 AM) Respiratory Rate [16-30 br/min] 16 br/mi n (05/27/21 10:21 AM) Temperature [96.8-100.4 DegF] 98.4 DegF (05/27/21 10:21 AM) Mode of Delivery (Oxygen) Nasal cannula (05/27/21 10:21 AM) Blood pressure sites Arm, left (05/27/21 10:21 AM) Temperature Route Oral (05/27/21 10:21 AM)
--- OUTSIDE RECORDS SUMMARY | 2023-02-06 13:21 | XMS_ITS | Continuity of Care Document ---
Author Name Unknown Organization [facility] Loree wilkinsons [facility] Address [address], [address] [place] [address]- Care Team Providers Care Surveyor Geodetic Name Role Phone BoblaurenEsther Martini DO Primary Care Julian bustillos [id number] Date(s[facility] 12/22/22 - 01/21/23 [facility] [address], [address] [place] [address]- Allergies, Adverse Reactions, Alerts No Known Allergies [...] Confirmed Active Obese class I Confirmed Active Social History Social History Type Response Smoking Status Never (less than 100 in lifetime) entered on: 12/31/21 Sex Patient Care team information Care Team Personnel Name: Anna Marie Johnson RN Position: [facility] AMB Nurse Member Role: Primary Care Nurse Name: Esther Tang DO Position: [facility] Physician (General Medicine) Member Role: PCP Address: Address: [address] [place] [address]- [place] Name: Annemarie Victoria RN Position: S RN Member Role: Primary Care Nurse Name: Danny Victoria RN Position: S RN Member Role: Primary Care Nurse Care Team Related Persons Name: BAYLEE STERLING Address: home [address] [place] [address] Name: DARIN STERLING Address: [place] [address] Name: CLARK BUTLER Address: [place] [address] Name: NANCY FRIEDMAN Address: home [address] [place] [address] Name: ADRIANA MELCHOR Address: home [address] [place] [address]
--- OUTSIDE RECORDS SUMMARY | 2023-02-06 13:21 | XMS_ITS | Continuity of Care Document ---
Author Name Unknown Organization [facility] ter Address [address] [place] [address]- Care Team Providers Care Watch Supervisor Name Role Phone Chantell Librado IVORY Esther Primary Care Juilan bustillos [place] [facility] [place] - 08/19/[address] [address]- Discharge Disposition: A-D/C Walkout Attending Physician: Not on Staff, Attending MD Admitting Physician: Not on Staff, Admitting MD Referring Physician: Not on Staff, Referring MD Allergies, Adverse Reactions, Alerts No Known Allergies [...] opioid drug. Start Date: 05/27/21 Status: Ordered Linzess 145 mcg oral capsule [...] DEL DESAYUNO Start Date: 12/31/21 Status: Ordered PARoxetine 10 mg oral tablet [...] BEDTIME NEEDED Start Date: 12/31/21 Status: Ordered Xanax 1 mg oral tablet [...] 0 Refills, Maintenance, 03/10/20 15:51:00 EDT, Tablet, [facility] #[id number], 170.2, cm, 04/01/18 11:11:00 EDT, Height, 91.2, kg, 11/07/18 15:59:00 EST, Dry Weight Start Date: 03/10/20 Stop Date: 03/13/20 Status: Ordered Problem List Condition Confirmation Course Effective Dates Status Health St atus Informant Obese class II Confirmed Active Vital Signs Most recent to oldest [Reference Range]: 1 2 3 Oxygen Saturation [94-100 %] 100 % (08/19/22 12:50 PM) 99 % (08/19/22 11:01 AM) 98 % (08/19/22 9:09 AM) Pulse Rate [55-90 bpm] 99 bpm *H* (08/19/22 12:50 PM) 108 bpm *H* (08/19/22 11:01 AM) 98 bpm *H* (08/19/22 9:09 AM) Blood Pressure [90-138/55-84 mm Hg] 134/90mm Hg (08/19/22 12:50 PM) 136/83mm Hg (08/19/22 11:01 AM) 140/81mm Hg *H* (08/19/22 9:09 AM) Respiratory Rate [16-30 br/min] 18 br/min (08/19/22 12:50 PM) 18 br/min (08/19/22 11:01 AM) 18 br/min (08/19/22 9:09 AM) Temperature [96.8-100.4 DegF] 99.8 DegF (08/19/22 12:50 PM) 99.3 DegF (08/19/22 11:01 AM) 98.7 DegF (08/19/22 9:09 AM) Mode of Delivery (Oxygen) Room air (08/19/22 12:50 PM) Room air (08/19/22 11:01 AM) Room air (08/19/22 9:09 AM) Blood pressure sites Arm, left (08/19/22 12:50 PM) Arm, left (08/19/22 11:01 AM) Arm, left (08/19/22 9:09 AM) Temperature Route Oral (08/19/22 12:50 PM) Oral (08/19/22 11:01 AM) Oral (08/19/22 9:09 AM) Social History Social History Type Response Smoking Status Never (less than 100 in lifetime) entered on: 12/31/21 Sex Patient Care team information Personnel Name: Esther Tang DO Address: Address: [address] [place] [address]
--- OUTSIDE RECORDS SUMMARY | 2023-02-06 13:21 | XMS_ITS | Continuity of Care Document ---
Author Name Unknown Organization [facility] ter Address [address] [place] [id number] Care Team Providers Care Residential Leasing Manager Name Role Phone Esther Tang DO Primary Care Julian bustillos [place] [facility] [place] - 11/26/[address] [id number]- [facility] Encounter Diagnosis Abscess(Final) - 11/26/19 Discharge Disposition: A-D/C Home Attending Physician: Gregg Curran MD Admitting Physician: Gregg Curran MD Referring Physician: Not on Staff, Referring MD Allergies, Adverse Reactions, Alerts No Known Medication Allergies Substance Reaction Severity Status NKA Active Immunizations Given and Recorded Vaccine Date Status Refusal Reason tetanus/diphtheria/pertussis, acel(Tdap) 11/04/18 Given pneumococcal 23-valent vaccine 04/01/18 Given Pneumococcal Vaccine (oldterm) 11/29/07 Given influenza virus vaccine, inactivated 11/29/07 Give n Medications Bactrim DS 800 mg-160 mg oral tablet 1 tablet, By Mouth, 2 times a day, for 5 days, # 10 tablet, 0 Refills, Acute 12/01/19 19:04:00 EST,11/26/19 19:04:00 EST, Tablet, [facility] [address], 1 tablet By Mouth 2 times a day,x5 days, 170.2, cm, 04/01/18 11:11:00 EDT, Height, 91.2, kg, 0... Start Date: 11/26/19 Stop Date: 12/01/19 Status: Ordered Vital Signs Most recent to oldest [Reference Range]: 1 2 Oxygen Saturation [94-100 %] 98 % (11/26/19 5:55 PM) 95 % (11/26/19 12:18 PM) Pulse Rate [55-90 bpm] 94 bpm *H* (11/26/19 5:55 PM) 94 bpm *H* (11/26/19 12:18 PM) Blood Pressure [90-138/55-84 mm Hg] 126/ 68mm Hg (11/26/19 5:55 PM) 111/81mm Hg (11/26/19 12:18 PM) Respiratory Rate [16-30 br/min] 18 br/mi n (11/26/19 5:55 PM) 18 br/min (11/26/19 12:18 PM) Temperature [96.8-100.4 DegF] 98.7 DegF (11/26/19 5:55 PM) 98.3 DegF (11/26/19 12:18 PM) Mode of Delivery (Oxygen) Room air (11/26/19 5:55 PM) Room air (11/26/19 12:18 PM) Blood pressure sites Arm, right (11/26/19 5:55 PM) Arm, right (11/26/19 12:18 PM) Temperature Route Oral (11/26/19 5:55 PM) Oral (11/26/19 12:18 PM)
[2023-02-06 13:23] LABS: Alanine Aminotransferase 52 U/L (0-31); Albumin Level 4.2 g/dL (3.5-5.0); Alkaline Phosphatase 84 U/L (39-117); Anion Gap 16 (12-20); Aspartate Amino Transferase 55 U/L (5-31); Bilirubin Total 0.8 mg/dL (0.0-1.0); Blood Urea Nitrogen 6 mg/dL (9-16); Calcium 8.9 mg/dL (8.4-10.2); Carbon Dioxide 28 mmol/L (22-29); Chloride 99 mmol/L (96-108); Creatinine Clr Calc Pharmacy 115.5; Estimated Glomerular Filt Rate > 60; Glucose Random 125 mg/dL (60-115); Sodium 139 mmol/L (135-145); Total Protein 7.1 g/dL (6.5-8.0)
[2023-02-06] MEDS: iohexoL 350 MG/ML 100 ML INFUS..BTL 85 ML IV (13:57)
[2023-02-06] MEDS: Ketorolac Tromethamine 15 MG/ML VIAL IVPUSH (15:01)
== END 2023-02-06 16:01 | disposition home or self-care (01) ==
PROVIDERS: Physician Assistant Medical; Emergency Provider Emergency Medicine
DX: K42.9 Umbilical hernia without obstruction or gangrene (principal); K76.0 Fatty (change of) liver, not elsewhere classified; Z20.822 Contact with and (suspected) exposure to COVID-19; Z20.828 Contact with and (suspected) exposure to other viral communicable diseases; Z79.899 Other long term (current) drug therapy
CPT/HCPCS: 74177; 80053; 81003; 81025; 83735; 85025; 87635; 96374; 99283; 99284; J1885; Q9967

== ENCOUNTER 2023-07-17 16:12 | Inpatient (IN) | payer MEDICAID, SELFPAY ==
--- NOTE | ~2023-07-17 | XR_ITS ---
EXAMINATION: XR FOOT, LEFT CLINICAL INFORMATION: Infection, prior injury. COMPARISON: None available. TECHNIQUE: AP, lateral, and oblique views of the left foot. FINDINGS: No evidence of acute fractures or subluxation. No focal erosive changes or cortical disruption to suspect osteomyelitis by radiograph. No unexpected radiopaque foreign bodies. Nonspecific diffuse soft tissue thickening. XR/XR foot LT min 3V IMPRESSION: 1. No acute fractures or subluxation. 2. No definite radiographic evidence of osteomyelitis. However, early osteomyelitis can be radiographically occult and if clinical suspicious for osteomyelitis, correlation with an MR is recommended.
--- NOTE | ~2023-07-17 | MR_ITS ---
EXAMINATION: MR left foot without and with contrast. CLINICAL INFORMATION: Osteomyelitis. Clinical history of infection, prior injury. COMPARISON: X-ray 07/17/2023 TECHNIQUE: MRI in a high-field magnet without and with contrast. 10 cc gadolinium. FINDINGS: Soft tissue swelling on the dorsal aspect of the foot. In the dorsal subcutaneous tissues, is an area of bright T2, low T1 signal with peripheral enhancement. This is in the midfoot, extending proximally from the level of the navicular, to the level of the mid metatarsal. This measures approximately 6.5 cm in length, measuring up to approximately 0.5 m transverse, 1.2 cm AP. Findings are suspicious for abscess. There could be a component of phlegmon present. There is otherwise dorsal soft tissue swelling and subcutaneous tenderness edema/cellulitis. No evidence of acute fracture. Bony alignment is anatomic. Tarsometatarsal alignment is maintained. No MRI findings to suggest definite osteomyelitis. Visualized tendons intact. No appreciable tenosynovitis. Visualized plantar aponeurosis is intact. MR/MR foot LT wo/w con IMPRESSION: Complex fluid collection with peripheral enhancement in the dorsal soft tissue/subcutaneous tissues measuring 6.5 x 2.5 x 1.2 cm, suspicious for an abscess/phlegmon.. Clinically correlate and manage. No MRI findings to suggest definite osteomyelitis.
[2023-07-17 16:36] VITALS: BP 106/68; BP 108/80; PULSE 88; PULSE 95; RESP 17; TEMP 36.1; O2SAT 97; O2SAT 98; BMI 33.8
--- NOTE | 2023-07-17 16:38 | ED_ITS ---
HPI - General Adult General Chief complaint: Wound/Laceration Stated complaint: POSSIBLE L FOOT INFECTION Time Seen by Provider: 07/17/23 21:27 Source: patient Mode of arrival: ambulatory Limitations: no limitations History of Present Illness HPI narrative: Patient diabetic with history of hypertension and epilepsy ability injured her left foot about a month ago she had the seizure initially had only bruise which got infected 10 days of antibiotic without much response now she comes in with open which is not healing with purulent discharge also feel numbness of the 3 toes no fever no chills Related Data Home Medications Medication Instructions Recorded Confirmed alprazolam 1 mg tablet 1 mg PO BID 04/03/21 07/17/23 trazodone 50 mg tablet 100 mg PO DAILY 04/03/21 07/17/23 zolpidem 5 mg tablet (Ambien) 5 mg PO BEDTIME PRN Insomnia 12/03/21 07/17/23 metformin 500 mg tablet 500 mg PO BID 10/21/22 07/17/23 citalopram 10 mg tablet 10 mg PO QAM 07/17/23 07/17/23 hydroxyzine pamoate 25 mg capsule 25 mg PO BEDTIME PRN Anxiety 07/17/23 07/17/23 prazosin 1 mg capsule 1 mg PO BEDTIME 07/17/23 07/17/23 Previous Rx's Medication Instructions Recorded fluticasone propionate 50 2 spray intranasal DAILY 30 days 02/24/22 mcg/actuation nasal #15.8 mL spray,suspension atorvastatin 20 mg tablet 20 mg PO DAILY #1 tab 10/21/22 losartan 50 mg tablet 50 mg PO DAILY #1 tab 10/21/22 Allergies Allergy/AdvReac Type Severity Reaction Status Date / Time No Known Allergies Allergy Verified 07/17/23 23:31 Review of Systems 2 Review of Systems: Yes all other systems are reviewed and are negative [facility] Past Medical History Medical History Abdominal pain DAVID (obstructive sleep apnea) Asthma Drowsiness Fatigue Surgical History History of esophagogastroduodenoscopy (EGD) History of cholecystectomy History of hysterectomy Family History Family History Paternal Grandfather Liver cancer Maternal Grandfather Prostate cancer Social History Social History Household Members: None Alcohol intake: never Patient Tobacco Use Status: Never used Tobacco Tobacco use type: Cigarette Cigarette Packs Per Day: 3 Cigarettes Per Day: 3 Smoked in Last 30 Days: Yes Use of substances other than those prescribed or required for medical reasons: No Advance Directives: No Advance Directives Information Provided: No Nutrition Risks: No Nutritional Risk Patient : No Physical Exam ED Vital Signs: Vital Signs - 24 hr 07/17/23 16:36 07/17/23 20:20 07/17/23 21:30 Temperature 96.9 F 97.9 F Pulse Rate 95 89 89 Respiratory Rate 17 14 12 Blood Pressure 106/68 103/66 119/72 Pulse Oximetry 97 98 96 Oxygen Delivery Method Room Air Room Air BMI result Body Mass Index 33.8 Appearance: Alert. Oriented X3. No acute distress. Eyes: PERRLA, No Nystagmus ENT: Pharynx normal. Oral Mucosa moist Neck: Normal inspection. Neck supple. CVS: Normal heart rate and rhythm. Pulses normal. Respiratory: No respiratory distress. Equal air entry bilateral, no wheezing/rales/rhonchi Abdomen: Soft and nontender. Bowel sounds are present, no mass palpable, no CVA tenderness Skin: Skin warm and dry. Normal skin color. Normal skin turgor. Extremities: No lower extremity edema. No calf tenderness Neuro: Oriented X 3. No motor deficit. No sensory deficit.No cerebellar signs , cranial nerves II-XII intact Course Course Course Narrative: This is a rapid medical exam: Additional HPI, ROS, PE not included below will be deferred to primary provider. Patient is a 43-year-old female with history of DM, HTN, HLD, DAVID, asthma presenting with complaint of 10/10 left foot pain. Fell down the stairs on 06/16 and was seen at [facility], had negative x-ray and CT at that time. Developed subsequent infection 10 days after initial injury and was started on a 14 day course of Augmentin but complains of ongoing redness, pain, swelling and purulent drainage. Patient has open wound to dorsum of left foot draining purulent fluid with surrounding erythema, pitting edema. Plan: x-ray, labs including blood cultures and lactic Medications Administered Generic Name Dose Route Start Last Admin Trade Name Freq PRN Reason Stop Dose Admin Enoxaparin Sodium 40 mg 07/17/23 23:00 07/17/23 23:19 Enoxaparin Sodium 40 Mg/0.4 Ml Syringe SUBCUT 40 mg Q24H PRANEETH Administration Sodium Chloride 3 ml 07/18/23 00:00 07/17/23 23:23 0.9 % Sodium Chloride Flush 3 Ml Syringe IVFLUSH Not Given QSHIFT PRANEETH Discontinued Medications Generic Name Dose Route Start Last Admin Trade Name Freq PRN Reason Stop Dose Admin Piperacillin Sod/Tazobactam 50 mls @ 100 mls/hr 07/17/23 22:32 07/17/23 23:44 Sod 3.375 gm/ Sodium Chloride IV 07/17/23 23:01 Infused ONCE ONE Infusion Vancomycin HCl 2,000 mg in 500 mls @ 250 mls/hr 07/17/23 22:45 07/17/23 23:22 Vancomycin/Ns IV 07/18/23 00:44 250 mls/hr ONCE ONE Administration Sodium Chloride 1,000 mls @ 999 mls/hr 07/17/23 23:00 07/18/23 00:23 Ns IV 07/18/23 00:00 Infused .Q1H1M PRANEETH Infusion Medical Decision Making Medical Decision Making [facility] Narrative: Patient nonhealing wound on the left dorsum of the foot failed outpatient antibiotics will admit patient for IV antibiotics x-ray negative for bone erosion Differential Diagnosis Differential Diagnoses: The differential diagnosis associated with the presentation includes Cellulitis/osteomyelitis/necrotizing fasciitis Admission/Observation Consideration of admission/observation: Escalation of care including admission/observation considered Consult Healthcare Provider Management of the patient was discussed with: Hospitalist Lab Data [facility] Lab Attestation statement: I reviewed the patient's lab results. 07/17/23 18:27 07/17/23 18:27 Labs: Lab Results 07/17/23 07/17/23 07/17/23 Range/Units 17:51 18:27 21:37 WBC 13.9 H (4.8-10.8) X10*3/uL RBC 4.66 (4.20-5.50) X10*6/uL Hgb 14.2 (12.0-16.0) g/dl Hct 43.2 (37.0-47.0) % MCV 92.7 (80.0-98.0) fL MCH 30.5 (27.0-33.0) pg MCHC 32.9 (31.0-35.0) g/dl RDW 14.5 (11.0-16.0) % Plt Count 341 D (160-400) X10*3/uL MPV 11.6 (9.4-12.3) fL Immature Gran % (Auto) 0.6 H (0.0-0.4) % Neut % (Auto) 70.3 (45-73) % Lymph % (Auto) 21.5 (20-40) % [place] % (Auto) 5.3 (2-11) % Eos % (Auto) 1.4 (0-4) % Baso % (Auto) 0.9 (0-2) % Lymph # (Auto) 3.0 (1.2-4.9) X10*3/uL [place] # (Auto) 0.7 (0.1-1.2) X10*3/uL Eos # (Auto) 0.2 (0.0-0.4) X10*3/uL Baso # (Auto) 0.1 (0.0-0.2) X10*3/uL Abs Immat Gran (auto) 0.09 H (0.00-0.03) X10*3/uL Absolute Neuts (auto) 9.8 H (2.0-8.3) x10*3/uL Absolute Nucleated RBC 0.000 (0.0-0.012) X10*3/uL Nucleated RBC % (auto) 0.0 (0.0-0.2) /100WBC Sodium 139 (135-145) mmol/L Potassium 4.2 (3.3-5.1) mmol/L Chloride 102 (96-108) mmol/L Carbon Dioxide 26 (22-29) mmol/L Anion Gap 15 (12-20) BUN 10 (9-16) mg/dL Creatinine 0.68 (0.5-1.4) mg/dL Estim Creat Clear Calc 125.5 Estimated GFR > 60 POC Glucose 156 H 273 H (60-115) mg/dL Random Glucose 129 H (60-115) mg/dL Lactic Acid 2.0 (0.5-2.0) mmol/L Calcium 10.0 D (8.4-10.2) mg/dL Total Bilirubin 0.2 (0.0-1.0) mg/dL AST 65 H (5-31) U/L ALT 64 H (0-31) U/L Alkaline Phosphatase 87 (39-117) U/L Total Protein 7.8 (6.5-8.0) g/dL Albumin 4.2 (3.5-5.0) g/dL Discharge Plan Discharge Clinical Impression: Infected wound, Cellulitis Patient Disposition: Admitted As Inpatient
[2023-07-17 17:55] LABS: Glucose, Whole Blood 156 mg/dL (60-115)
[2023-07-17 18:39] LABS: MANUAL DIFF FLAG NO
[2023-07-17 18:42] LABS: Basophils Absolute Auto 0.1 X10*3/uL (0.0-0.2); Basophils Percent Auto 0.9 % (0-2); Eosinophils Absolute Auto 0.2 X10*3/uL (0.0-0.4); Eosinophils Percent Auto 1.4 % (0-4); Hematocrit 43.2 % (37.0-47.0); Hemoglobin 14.2 g/dl (12.0-16.0); Imm Gran Abs Auto 0.09 X10*3/uL (0.00-0.03); Imm Gran Pct Auto 0.6 % (0.0-0.4); Lymphocytes Percent Auto 21.5 % (20-40); Mean Corpuscular HGB Conc 32.9 g/dl (31.0-35.0); Mean Corpuscular Hemoglobin 30.5 pg (27.0-33.0); Mean Corpuscular Volume 92.7 fL (80.0-98.0); Mean Platelet Volume 11.6 fL (9.4-12.3); Monocytes Absolute Auto 0.7 X10*3/uL (0.1-1.2); Monocytes Percent Auto 5.3 % (2-11); Neutrophils Absolute Auto 9.8 x10*3/uL (2.0-8.3); Neutrophils Percent Auto 70.3 % (45-73); Platelet Count 341 X10*3/uL (160-400); Red Blood Count 4.66 X10*6/uL (4.20-5.50); Red Cell Distribution Width 14.5 % (11.0-16.0); White Blood Count 13.9 X10*3/uL (4.8-10.8)
[2023-07-17 18:54] LABS: Alanine Aminotransferase 64 U/L (0-31); Albumin Level 4.2 g/dL (3.5-5.0); Alkaline Phosphatase 87 U/L (39-117); Anion Gap 15 (12-20); Aspartate Amino Transferase 65 U/L (5-31); Bilirubin Total 0.2 mg/dL (0.0-1.0); Blood Urea Nitrogen 10 mg/dL (9-16); Carbon Dioxide 26 mmol/L (22-29); Chloride 102 mmol/L (96-108); Creatinine Clr Calc Pharmacy 125.5; Estimated Glomerular Filt Rate > 60; Glucose Random 129 mg/dL (60-115); Potassium 4.2 mmol/L (3.3-5.1); Sodium 139 mmol/L (135-145); Total Protein 7.8 g/dL (6.5-8.0)
[2023-07-17 20:20] VITALS: BP 103/66; PULSE 89; RESP 14; O2SAT 98
--- NOTE | 2023-07-17 20:24 | PC.NURSE ---
according to NETWORK INTELLIGENCE ANALYST- ok for patient to take her own medication
[2023-07-17 21:30] VITALS: BP 119/72; PULSE 89; RESP 12; TEMP 36.6; O2SAT 96
[2023-07-17 21:40] LABS: Glucose, Whole Blood 273 mg/dL (60-115)
--- NOTE | 2023-07-17 22:07 | PC.NURSE ---
20g iv placed in RH
--- NOTE | 2023-07-17 22:51 | P.HPHOSP_ITS ---
History of Present Illness Date of Service: 07/17/23 Chief Complaint: Foot infection This is a 43-year-old female with pertinent history mood disorder, onl-ummsbll-wouiunpst diabetes mellitus, mixed hyperlipidemia, essential hypertension, gastroesophageal reflux disease who presents to the emergency department for evaluation of left foot infection. Patient states that about a month ago she had a seizure when she fell and hit her left foot. Initially it was bruised which subsequently got infected. Patient completed a ten-day course of Augmentin prescribed by PCP. Patient states the p.o. antibiotic did not help and she have progressed. It is also associated with intermittent foul-smelling purulent discharge. Admits fevers and chills. No nausea, vomiting, chest discomfort, palpitations, shortness of breath, abdominal pain, changes in urinary or bowel habits. In the emergency department, patient was found to be septic and x-ray concerning for osteomyelitis. Review of Systems 2 Constitutional: Constitutional: Reports chills, Reports fatigue and Reports fever(s) Cardiovascular: Cardiovascular: Reports no additional cardiovascular complaints Respiratory: Respiratory: Reports no additional respiratory complaints Gastrointestinal: Gastrointestinal: Reports no additional gastrointestinal complaints Genitourinary: Genitourinary: Reports no additional female genitourinary complaints Endocrine: Endocrine: Reports fatigue PMFSH Medical History Abdominal pain DAVID (obstructive sleep apnea) Asthma Drowsiness Fatigue Family History Paternal Grandfather Liver cancer Maternal Grandfather Prostate cancer Surgical History History of esophagogastroduodenoscopy (EGD) History of cholecystectomy History of hysterectomy Social History Household Members: None Alcohol intake: never Patient Tobacco Use Status: Never used Tobacco Tobacco use type: Cigarette Cigarette Packs Per Day: 3 Cigarettes Per Day: 3 Smoked in Last 30 Days: Yes Use of substances other than those prescribed or required for medical reasons: No Advance Directives: No Advance Directives Information Provided: No Nutrition Risks: No Nutritional Risk Patient : No Meds Allergies Allergy/AdvReac Type Severity Reaction Status Date / Time No Known Allergies Allergy Verified 07/17/23 23:31 Active Medications: Current Medications Piperacillin Sod/Tazobactam (Sod 3.375 gm/ Sodium Chloride) 50 mls @ 100 mls/hr IV ONCE ONE Stop: 07/17/23 23:01 Vancomycin HCl (Vancomycin/Ns) 2,000 mg in 500 mls @ 250 mls/hr IV ONCE ONE Stop: 07/18/23 00:44 Home Medications Medication Instructions Recorded Confirmed Last Taken Type alprazolam 1 mg tablet 1 mg PO BID 04/03/21 07/17/23 07/16/23 History trazodone 50 mg tablet 100 mg PO DAILY 04/03/21 07/17/23 07/16/23 History zolpidem 5 mg tablet (Ambien) 5 mg PO BEDTIME PRN Insomnia 12/03/21 07/17/23 07/16/23 History metformin 500 mg tablet 500 mg PO BID 10/21/22 07/17/23 07/16/23 History citalopram 10 mg tablet 10 mg PO QAM 07/17/23 07/17/23 07/16/23 History hydroxyzine pamoate 25 mg capsule 25 mg PO BEDTIME PRN Anxiety 07/17/23 07/17/23 07/16/23 History prazosin 1 mg capsule 1 mg PO BEDTIME 07/17/23 07/17/23 07/16/23 History Physical Exam 2 Vital Signs and Narrative: Vital Signs: Last Vital Signs Temp 97.9 F 07/17/23 21:30 Pulse 89 07/17/23 21:30 Resp 12 07/17/23 21:30 BP 119/72 07/17/23 21:30 Pulse Ox 96 07/17/23 21:30 O2 Del Method Room Air 07/17/23 21:30 BMI result Body Mass Index 33.8 Middle-aged female lying in bed in no distress Neck supple, no JVD Regular rate and rhythm, S1-S2 heard Regular breath sounds bilaterally, no wheezing or crackles appreciated Abdomen soft nontender, no guarding, no rigidity Patient is awake, alert and oriented to self, place, time and person ; no focal motor deficit Musculoskeletal: Left foot with erythema, purulent discharge from open wound, warmth Psych: Normal mood No pedal edema Results Labs 07/17/23 18:27 07/17/23 18:27 Labs: Laboratory Results - last 24 hr 07/17/23 07/17/23 07/17/23 17:51 18:27 21:37 MCV 92.7 MCH 30.5 MCHC 32.9 RDW 14.5 Plt Count 341 D MPV 11.6 Immature Gran % (Auto) 0.6 H Neut % (Auto) 70.3 Lymph % (Auto) 21.5 [place] % (Auto) 5.3 Eos % (Auto) 1.4 Baso % (Auto) 0.9 Lymph # (Auto) 3.0 [place] # (Auto) 0.7 Eos # (Auto) 0.2 Baso # (Auto) 0.1 Abs Immat Gran (auto) 0.09 H Absolute Neuts (auto) 9.8 H Absolute Nucleated RBC 0.000 Nucleated RBC % (auto) 0.0 Anion Gap 15 Estim Creat Clear Calc 125.5 Estimated GFR > 60 POC Glucose 156 H 273 H Random Glucose 129 H Lactic Acid 2.0 Calcium 10.0 D Total Bilirubin 0.2 AST 65 H ALT 64 H Alkaline Phosphatase 87 Total Protein 7.8 Albumin 4.2 Imaging Radiologist's Impressions: Impressions Foot X-Ray 07/17/23 17:16 IMPRESSION: 1. No acute fractures or subluxation. 2. No definite radiographic evidence of osteomyelitis. However, early osteomyelitis can be radiographically occult and if clinical suspicious for osteomyelitis, correlation with an MR is recommended. Assessment and Plan (1) Sepsis due to cellulitis: Status: Acute Plan This is a 43-year-old female with pertinent history mood disorder, ydc-ufcddno-nbhjjszfx diabetes mellitus, mixed hyperlipidemia, essential hypertension, gastroesophageal reflux disease who presents to the emergency department for evaluation of left foot infection #. Sepsis due to diabetic foot infection and purulent cellulitis. Imaging concerning for osteomyelitis. Will admit patient and initiate empiric IV antibiotics. Resuscitated with IV crystalloids. Lactic acid obtained. Blood culture pending. Obtaining MRI of the foot to delineate underlying anatomy. #. Essential hypertension. Hold antihypertensives in the setting of sepsis. Resume as appropriate #. Mixed hyperlipidemia. On statin #. Mood disorder. Continue home mood stabilizers #. Hmg-slrwyvf-ozpydzcun diabetes mellitus with hyperglycemia. Initiating Accu-Cheks with sliding scale insulin DVT prophylaxis: Lico Full code Admit as inpatient and will require two night minimum hospital stay for IV antibiotics Time Spent With Patient Time: Total time managing care of this patient today ____ minutes. Quality Stroke Does the patient have a stroke diagnosis?: No VTE Prior VTE?: No VTE Risk Level:: Medical - moderate - high VTE Device Contraindication: Treatment Not Indicated VTE Drug Contraindication: N/A - Med Ordered
[2023-07-17] MEDS: Piperacillin Sodium/Tazobactam 3.375 GM in 0.9 % Sodium Chloride 50 ML IV (22:56)
[2023-07-17] MEDS: Enoxaparin Sodium 40 MG/0.4 ML SYRINGE SUBCUT (23:19)
[2023-07-17] MEDS: 0.9 % Sodium Chloride 1,000 ML 999 ML IV (23:21)
[2023-07-17] MEDS: vancomycin/NS 2,000 MG/500 ML PLAST..BAG 250 MG IV (23:22)
[2023-07-17 23:25] VITALS: BP 115/79; PULSE 81; RESP 19; TEMP 36.6; O2SAT 97
--- NOTE | 2023-07-18 02:27 | PC.NURSE ---
patient sleeping at this time, respirations even and unlabored, skin pwd, no apparent distress. awaiting bed assignment
[2023-07-18] MEDS: oxyCODONE HCl Immed Release 5 MG TABLET PO (04:05)
[2023-07-18 04:34] VITALS: BP 94/56; PULSE 90; RESP 20; TEMP 36.6; O2SAT 97
[2023-07-18 05:46] LABS: Alanine Aminotransferase 45 U/L (0-31); Albumin Level 3.3 g/dL (3.5-5.0); Alkaline Phosphatase 75 U/L (39-117); Anion Gap 12 (12-20); Aspartate Amino Transferase 39 U/L (5-31); Bilirubin Total 0.2 mg/dL (0.0-1.0); Blood Urea Nitrogen 9 mg/dL (9-16); Calcium 8.8 mg/dL (8.4-10.2); Carbon Dioxide 24 mmol/L (22-29); Chloride 106 mmol/L (96-108); Estimated Glomerular Filt Rate > 60; Glucose Random 242 mg/dL (60-115); Potassium 3.8 mmol/L (3.3-5.1); Sodium 138 mmol/L (135-145); Total Protein 6.3 g/dL (6.5-8.0)
[2023-07-18] MEDS: Piperacillin Sodium/Tazobactam 4.5 GM in 0.9 % Sodium Chloride 100 ML IV ×3 (06:43→22:15)
[2023-07-18 07:52] LABS: Glucose, Whole Blood 162 mg/dL (60-115)
[2023-07-18 07:58] VITALS: BP 101/63; PULSE 78; RESP 18; TEMP 36.1; O2SAT 97
--- NOTE | 2023-07-18 08:47 | PHA.MEDREC ---
Pharmacy Consult ? Medication Reconciliation Pharmacy has completed the medication reconciliation.
[2023-07-18] MEDS: 0.9 % Sodium Chloride Flush 3 ML SYRINGE IVFLUSH ×3 (08:50→21:22)
--- NOTE | 2023-07-18 09:52 | P.PNIM_ITS ---
Subjective Subjective Date of Service: 07/18/23 Review of Systems Follow up left foot cellulitis slowly improving pain with ambulation Physical Exam 2 Vital Signs: Vital Signs: Last Vital Signs Temp 97.0 F 07/18/23 07:58 Pulse 78 07/18/23 07:58 Resp 18 07/18/23 07:58 BP 101/63 07/18/23 07:58 Pulse Ox 97 07/18/23 07:58 O2 Del Method Room Air 07/18/23 07:58 BMI result Body Mass Index 33.8 Appearing in no acute distress lung sounds are clear to auscultation heart regular rate rhythm, clear S1, S2 positive bowel sounds, abdomen is soft, nontender neuro patient is alert x3, no focal deficits Objective Data Active Medications Acetaminophen (Acetaminophen 325 Mg Tablet) 650 mg PO Q6H PRN PRN Reason: Pain, Mild (Pain Scale 1-3) Acetaminophen (Acetaminophen Supp 650 Mg Supp.Rect) 650 mg [place] Q6H PRN PRN Reason: Pain, Mild (Pain Scale 1-3) Dextrose (Dextrose 50 % 25 Gm/50 Ml Syringe) 25 gm IVPUSH Q15M PRN; Protocol PRN Reason: per Hypoglycemia Standing Ord. Enoxaparin Sodium (Enoxaparin Sodium 40 Mg/0.4 Ml Syringe) 40 mg SUBCUT Q24H [facility] Last Admin: 07/17/23 23:19 Dose: 40 mg Documented By: RADHA Glucose (Glucose Gel 15 Gm Gel..Gram.) 15 gm PO Q15M PRN; Protocol PRN Reason: per Hypoglycemia Standing Ord. Piperacillin Sod/Tazobactam (Sod 4.5 gm/ Sodium Chloride) 100 mls @ 200 mls/hr IV Q6H [facility] Last Infusion: 07/18/23 07:40 Dose: Infused Documented By: WALI Insulin Human Lispro (Insulin Lispro 100 Unit/Ml 3 Ml Vial) 0 unit SUBCUT QIDACHS [facility]; Protocol Last Admin: 07/18/23 08:51 Dose: Not Given Documented By: WALI Non-Admin Reason: pt. refused med Melatonin (Melatonin 3 Mg Tablet) 6 mg PO BEDTIME PRN PRN Reason: Insomnia Pharmacy Consult (Consult Rx Vancomycin Dosing) 1 each MISCELLANE DAILY PRN PRN Reason: Consult order Sodium Chloride (0.9 % Sodium Chloride Flush 3 Ml Syringe) 3 ml IVFLUSH QSHIFT [facility] Last Admin: 07/18/23 08:50 Dose: 3 ml Documented By: WALI Labs 07/17/23 18:27 07/18/23 04:49 Labs: Laboratory Results - last 24 hr 07/17/23 07/17/23 07/17/23 17:51 18:27 21:37 MCV 92.7 MCH 30.5 MCHC 32.9 RDW 14.5 Plt Count 341 D MPV 11.6 Immature Gran % (Auto) 0.6 H Neut % (Auto) 70.3 Lymph % (Auto) 21.5 [place] % (Auto) 5.3 Eos % (Auto) 1.4 Baso % (Auto) 0.9 Lymph # (Auto) 3.0 [place] # (Auto) 0.7 Eos # (Auto) 0.2 Baso # (Auto) 0.1 Abs Immat Gran (auto) 0.09 H Absolute Neuts (auto) 9.8 H Absolute Nucleated RBC 0.000 Nucleated RBC % (auto) 0.0 Anion Gap 15 Estim Creat Clear Calc 125.5 Estimated GFR > 60 POC Glucose 156 H 273 H Random Glucose 129 H Lactic Acid 2.0 Calcium 10.0 D Total Bilirubin 0.2 AST 65 H ALT 64 H Alkaline Phosphatase 87 Total Protein 7.8 Albumin 4.2 07/18/23 07/18/23 04:49 07:38 MCV MCH MCHC RDW Plt Count MPV Immature Gran % (Auto) Neut % (Auto) Lymph % (Auto) [place] % (Auto) Eos % (Auto) Baso % (Auto) Lymph # (Auto) [place] # (Auto) Eos # (Auto) Baso # (Auto) Abs Immat Gran (auto) Absolute Neuts (auto) Absolute Nucleated RBC Nucleated RBC % (auto) Anion Gap 12 Estim Creat Clear Calc 122.0 Estimated GFR > 60 POC Glucose 162 H Random Glucose 242 H Lactic Acid Calcium 8.8 D Total Bilirubin 0.2 AST 39 H ALT 45 H Alkaline Phosphatase 75 Total Protein 6.3 L Albumin 3.3 L Assessment and Plan (1) Cellulitis: Status: Acute Plan This is a 43-year-old female with pertinent history mood disorder, pio-kipzsib-niliwjzig diabetes mellitus, mixed hyperlipidemia, essential hypertension, gastroesophageal reflux disease who presents to the emergency department for evaluation of left foot infection Sepsis due to diabetic foot infection and purulent cellulitis. Imaging concerning for osteomyelitis. empiric IV antibiotics. Resuscitated with IV crystalloids. Blood culture pending. MRI of the foot to delineate underlying anatomy pending Essential hypertension. Hold antihypertensives in the setting of sepsis and low BP Mixed hyperlipidemia. On statin Mood disorder. Continue home mood stabilizers Vzy-pazncdi-ttnxobsgc diabetes mellitus with hyperglycemia. ss, ada diet DVT prophylaxis: Lovenox attending Dr. Olivier Full code Continue hospitalization for treatment of sepsis secondary to diabetic foot infection requiring IV antibiotics Time Spent With Patient Time: Total time managing care of this patient today ____ minutes. Quality Stroke Does the patient have a stroke diagnosis?: No VTE Prior VTE?: No VTE Risk Level:: Medical - moderate - high VTE Device Contraindication: Treatment Not Indicated VTE Drug Contraindication: N/A - Med Ordered
--- NOTE | 2023-07-18 10:35 | PHA.PROG ---
Admission Date/Time: July 17, 2023 22:50 Indication: skin/sepsis Weight in k.976 kg Adjusted body weight in Kg: [place] body weight in Kg: Obesity Dosing Indication % IBW: Serum Creatinine - Last 168 Hours 07/17/23 07/18/23 18:27 04:49 Creatinine 0.68 0.70 Estimated CrCl and GFR - Last 168 Hours 07/17/23 07/18/23 18:27 04:49 Estim Creat Clear Calc 125.5 122.0 Estimated GFR > 60 > 60 Vancomycin Loading Dose: 2000mg Current Vancomycin Dosing Regimen: 1250mg Q12H Vancomycin Monitoring using AUC goal of 400 - 600 range with trough as surrogate marker: 461 mg/L Date and Time for next Vancomycin Level to be drawn: 07/19 @0900 Pharmacist Comments on Vancomycin Plan: Will continue to monitor renal function and adjust accordingly Vancomycin dosing will take advantage of [employer] as a clinical decision support tool that uses Bayesian modeling to calculate individual patient's pharmacokinetic parameters and forecast the patient's drug concentration time course with the target goal AUC 24 range of 400 - 600 mg/L/hr.
[2023-07-18 11:29] LABS: Glucose, Whole Blood 138 mg/dL (60-115)
[2023-07-18] MEDS: Loratadine 10 MG TABLET PO (11:58)
[2023-07-18] MEDS: Escitalopram Oxalate 5 MG TABLET PO (11:58)
[2023-07-18] MEDS: Omeprazole 20 MG CAPSULE.DR PO ×2 (11:58→17:07)
[2023-07-18] MEDS: vancomycin HCL 1,250 MG in 0.9 % Sodium Chloride 250 ML 166.67 MG IV ×2 (11:58→23:31)
[2023-07-18] MEDS: gadobutroL 10 ML VIAL IVPUSH (13:59)
[2023-07-18 15:14] LABS: MRSA Nasal PCR NEGATIVE (Negative); SA Nasal PCR NEGATIVE (Negative)
[2023-07-18 15:48] VITALS: BP 116/67; PULSE 67; RESP 18; TEMP 36.6; O2SAT 96
[2023-07-18 16:55] LABS: Glucose, Whole Blood 141 mg/dL (60-115)
[2023-07-18] MEDS: Acetaminophen 325 MG TABLET 650 MG PO (17:08)
[2023-07-18 19:50] VITALS: BP 109/63; PULSE 75; RESP 20; TEMP 36.3; O2SAT 95
--- NOTE | 2023-07-18 20:41 | P.EN_ITS ---
Event Note Date of Service: 07/18/23 Event Note: Foot MRI concerning for abscess. Will consult surgery. Patient on broad- spectrum antibiotics Time Spent With Patient Time: Total time managing care of this patient today ____ minutes.
[2023-07-18 21:01] LABS: Glucose, Whole Blood 175 mg/dL (60-115)
[2023-07-18] MEDS: traMADoL HCL 50 MG TABLET PO (21:21)
[2023-07-18] MEDS: Prazosin HCL 1 MG CAPSULE PO (21:21)
[2023-07-18] MEDS: Melatonin 3 MG TABLET 6 MG PO (21:21)
[2023-07-18] MEDS: ALPRAZolam 0.5 MG TABLET 1 MG PO (21:22)
[2023-07-18] MEDS: Albuterol Sulfate 90 MCG 8 GM INHALER 2 PUFF INHALE (23:19)
[2023-07-18 23:20] VITALS: PULSE 92; RESP 18; O2SAT 94
[2023-07-18] MEDS: Enoxaparin Sodium 40 MG/0.4 ML SYRINGE SUBCUT (23:44)
[2023-07-19 03:50] VITALS: BP 104/62; PULSE 67; RESP 20; TEMP 36.6; O2SAT 95
[2023-07-19] MEDS: Piperacillin Sodium/Tazobactam 4.5 GM in 0.9 % Sodium Chloride 100 ML IV ×4 (04:30→21:29)
[2023-07-19] MEDS: Omeprazole 20 MG CAPSULE.DR PO ×2 (05:40→16:22)
[2023-07-19 06:37] LABS: Creatinine Clr Calc Pharmacy 133.4; Estimated Glomerular Filt Rate > 60
[2023-07-19 07:39] VITALS: BP 110/57; PULSE 78; RESP 18; TEMP 36.4; O2SAT 98
[2023-07-19 07:41] LABS: Glucose, Whole Blood 145 mg/dL (60-115)
[2023-07-19] MEDS: Albuterol Sulfate 90 MCG 8 GM INHALER 2 PUFF INHALE (08:24)
[2023-07-19 08:27] VITALS: PULSE 78; RESP 18; O2SAT 98
[2023-07-19] MEDS: Loratadine 10 MG TABLET PO (09:21)
[2023-07-19] MEDS: 0.9 % Sodium Chloride Flush 3 ML SYRINGE IVFLUSH ×3 (09:21→21:23)
[2023-07-19] MEDS: ALPRAZolam 0.5 MG TABLET 1 MG PO ×2 (09:21→21:22)
[2023-07-19] MEDS: Acetaminophen 325 MG TABLET 650 MG PO ×2 (09:21→16:22)
[2023-07-19] MEDS: Escitalopram Oxalate 5 MG TABLET PO (09:22)
[2023-07-19 09:40] LABS: Vancomycin Trough 12.2 mcg/mL (10.0-20.0)
[2023-07-19 11:07] LABS: Glucose, Whole Blood 248 mg/dL (60-115)
--- NOTE | 2023-07-19 11:41 | P.PNIM_ITS ---
Subjective Subjective Date of Service: 07/19/23 Review of Systems Follow up left foot cellulitis slowly improving pain with ambulation Physical Exam 2 Vital Signs: Vital Signs: Last Vital Signs Temp 97.6 F 07/19/23 07:39 Pulse 78 07/19/23 08:27 Resp 18 07/19/23 08:27 BP 110/57 L 07/19/23 07:39 Pulse Ox 98 07/19/23 07:39 O2 Del Method Room Air 07/19/23 07:39 BMI result Body Mass Index 33.8 Appearing in no acute distress lung sounds are clear to auscultation heart regular rate rhythm, clear S1, S2 positive bowel sounds, abdomen is soft, nontender neuro patient is alert x3, no focal deficits Objective Data Active Medications Acetaminophen (Acetaminophen 325 Mg Tablet) 650 mg PO Q6H PRN PRN Reason: Pain, Mild (Pain Scale 1-3) Last Admin: 07/19/23 09:21 Dose: 650 mg Documented By: WALI Acetaminophen (Acetaminophen Supp 650 Mg Supp.Rect) 650 mg [place] Q6H PRN PRN Reason: Pain, Mild (Pain Scale 1-3) Albuterol Sulfate (Albuterol Sulfate 90 Mcg 8 Gm Inhaler) 2 puff INHALE RQ4H [facility] Last Admin: 07/19/23 11:18 Dose: Not Given Documented By: ALEXYS Non-Admin Reason: Patient Refused Alprazolam (Alprazolam 0.5 Mg Tablet) 1 mg PO BID [facility] Last Admin: 07/19/23 09:21 Dose: 1 mg Documented By: WALI Dextrose (Dextrose 50 % 25 Gm/50 Ml Syringe) 25 gm IVPUSH Q15M PRN; Protocol PRN Reason: per Hypoglycemia Standing Ord. Enoxaparin Sodium (Enoxaparin Sodium 40 Mg/0.4 Ml Syringe) 40 mg SUBCUT Q24H [facility] Last Admin: 07/18/23 23:44 Dose: 40 mg Documented By: SEBASTIÁN Escitalopram Oxalate (Escitalopram Oxalate 5 Mg Tablet) 5 mg PO DAILY [facility] Last Admin: 07/19/23 09:22 Dose: 5 mg Documented By: WALI Fluticasone Propionate (Fluticasone Propionate Nasal 16 Gm [place]) 2 spray NOSTRIL-B DAILY [facility] Last Admin: 07/19/23 09:30 Dose: Not Given Documented By: WALI Non-Admin Reason: Patient Refused Glucose (Glucose Gel 15 Gm Gel..Gram.) 15 gm PO Q15M PRN; Protocol PRN Reason: per Hypoglycemia Standing Ord. Hydroxyzine HCl (Hydroxyzine Hcl 25 Mg Tablet) 25 mg PO BEDTIME PRN PRN Reason: Anxiety Vancomycin HCl 1,250 mg/ (Sodium Chloride) 250 mls @ 166.667 mls/hr IV Q12H [facility] Last Infusion: 07/19/23 01:19 Dose: Infused Documented By: SEBASTIÁN Piperacillin Sod/Tazobactam (Sod 4.5 gm/ Sodium Chloride) 100 mls @ 200 mls/hr IV Q6H [facility] Last Infusion: 07/19/23 10:23 Dose: Infused Documented By: WALI Insulin Human Lispro (Insulin Lispro 100 Unit/Ml 3 Ml Vial) 0 unit SUBCUT QIDACHS [facility]; Protocol Last Admin: 07/19/23 08:20 Dose: Not Given Documented By: WALI Non-Admin Reason: No Insulin Coverage Loratadine (Loratadine 10 Mg Tablet) 10 mg PO DAILY [facility] Last Admin: 07/19/23 09:21 Dose: 10 mg Documented By: WALI Melatonin (Melatonin 3 Mg Tablet) 6 mg PO BEDTIME PRN PRN Reason: Insomnia Last Admin: 07/18/23 21:21 Dose: 6 mg Documented By: SEBASTIÁN Nicotine (Nicotine 14 Mg Patch.Td24) 14 mg TRANSDERMA DAILY [facility] Last Admin: 07/18/23 21:36 Dose: Not Given Documented By: SEBASTIÁN Non-Admin Reason: Patient Refused Omeprazole (Omeprazole 20 Mg Capsule.) 20 mg PO BID@0630,1630 [facility] Last Admin: 07/19/23 05:40 Dose: 20 mg Documented By: SEBASTIÁN Pharmacy Consult (Consult Rx Vancomycin Dosing) 1 each MISCELLANE DAILY PRN PRN Reason: Consult order Prazosin HCl (Prazosin Hcl 1 Mg Capsule) 1 mg PO BEDTIME [facility]; Protocol Last Admin: 07/18/23 21:21 Dose: 1 mg Documented By: SEBASTIÁN Sodium Chloride (0.9 % Sodium Chloride Flush 3 Ml Syringe) 3 ml IVFLUSH QSHIFT [facility] Last Admin: 07/19/23 09:21 Dose: 3 ml Documented By: WALI Tramadol HCl (Tramadol Hcl 50 Mg Tablet) 50 mg PO Q4H PRN PRN Reason: Pain, Moderate(Pain Scale 4-6) Last Admin: 07/18/23 21:21 Dose: 50 mg Documented By: SEBASTIÁN Trazodone HCl (Trazodone Hcl 100 Mg Tablet) 200 mg PO DAILY [facility] Last Admin: 07/19/23 09:30 Dose: Not Given Documented By: WALI Non-Admin Reason: Patient Refused Zolpidem Tartrate (Zolpidem Tartrate 5 Mg Tablet) 5 mg PO BEDTIME PRN PRN Reason: Insomnia Labs 07/17/23 18:27 07/19/23 05:34 Labs: Laboratory Results - last 24 hr 07/18/23 07/18/23 07/18/23 09:16 16:51 20:56 Estim Creat Clear Calc Estimated GFR POC Glucose 141 H 175 H Nasal Screen MRSA (PCR) NEGATIVE Nasal S. aureus Screen NEGATIVE Nasal MRSA/S.aureus Interp SEE NOTE Vancomycin Trough 07/19/23 07/19/23 07/19/23 05:34 07:36 09:10 Estim Creat Clear Calc 133.4 Estimated GFR > 60 POC Glucose 145 H Nasal Screen MRSA (PCR) Nasal S. aureus Screen Nasal MRSA/S.aureus Interp Vancomycin Trough 12.2 07/19/23 10:56 Estim Creat Clear Calc Estimated GFR POC Glucose 248 H Nasal Screen MRSA (PCR) Nasal S. aureus Screen Nasal MRSA/S.aureus Interp Vancomycin Trough Microbiology Microbiology Results: Microbiology 07/17/23 18:28 Blood Culture - Preliminary Blood - Venous No growth after 24 hours. 07/17/23 18:27 Blood Culture - Preliminary Blood - Venous No growth after 24 hours. Assessment and Plan (1) Cellulitis: Status: Acute Plan This is a 43-year-old female with pertinent history mood disorder, pcr-iogbxgw-anhbarywp diabetes mellitus, mixed hyperlipidemia, essential hypertension, gastroesophageal reflux disease who presents to the emergency department for evaluation of left foot infection Sepsis due to diabetic foot infection and purulent cellulitis. Imaging concerning for osteomyelitis. continue vanco and zosyn Resuscitated with IV crystalloids. Blood culture neg after 24 hrs MRI of the foot showing abscess gen surg consult pending ID consult pending Essential hypertension. Hold antihypertensives in the setting of sepsis and low BP Mixed hyperlipidemia. On statin Mood disorder. Continue home mood stabilizers Pgy-pptumzs-irhaxkgry diabetes mellitus with hyperglycemia. ss, ada diet DVT prophylaxis: Lovenox attending Dr. Olivier Full code Continue hospitalization for treatment of sepsis secondary to diabetic foot infection requiring IV antibiotics Time Spent With Patient Time: Total time managing care of this patient today ____ minutes. Quality Stroke Does the patient have a stroke diagnosis?: No VTE Prior VTE?: No VTE Risk Level:: Medical - moderate - high VTE Device Contraindication: Treatment Not Indicated VTE Drug Contraindication: N/A - Med Ordered
[2023-07-19] MEDS: Insulin Lispro 100 UNIT/ML 3 ML VIAL SUBCUT (11:55)
[2023-07-19] MEDS: vancomycin HCL 1,250 MG in 0.9 % Sodium Chloride 250 ML 166.67 MG IV ×2 (11:55→22:03)
[2023-07-19] MEDS: traMADoL HCL 50 MG TABLET PO ×2 (14:40→21:22)
--- NOTE | 2023-07-19 15:13 | P.CONGS_ITS ---
History of Present Illness Consult details Consult date: 07/19/23 Narrative: Consult for dorsum of left foot open wound with surrounding cellulitis and edema. Patient sustained trauma to this area approximate month ago. She claims that developed into a blister which since opened and has developed this wound with surrounding redness and swelling. Chart was reviewed patient evaluated [facility] Past Medical History Medical History Abdominal pain DAVID (obstructive sleep apnea) Asthma Drowsiness Fatigue Family History Family History Paternal Grandfather Liver cancer Maternal Grandfather Prostate cancer Surgical History Surgical History History of esophagogastroduodenoscopy (EGD) History of cholecystectomy History of hysterectomy Social History Social History Household Members: None Housing: Apartment Alcohol intake: never Patient Tobacco Use Status: Never used Tobacco Tobacco use type: Cigarette Cigarette Packs Per Day: 3 Cigarettes Per Day: 3 Meds Allergies Allergy/AdvReac Type Severity Reaction Status Date / Time No Known Allergies Allergy Verified 07/17/23 23:31 Active Medications: Current Medications Acetaminophen (Acetaminophen 325 Mg Tablet) 650 mg PO Q6H PRN PRN Reason: Pain, Mild (Pain Scale 1-3) Last Admin: 07/19/23 09:21 Dose: 650 mg Acetaminophen (Acetaminophen Supp 650 Mg Supp.Rect) 650 mg [place] Q6H PRN PRN Reason: Pain, Mild (Pain Scale 1-3) Albuterol Sulfate (Albuterol Sulfate 90 Mcg 8 Gm Inhaler) 2 puff INHALE RQ4H [facility] Last Admin: 07/19/23 11:18 Dose: Not Given Alprazolam (Alprazolam 0.5 Mg Tablet) 1 mg PO BID [facility] Last Admin: 07/19/23 09:21 Dose: 1 mg Dextrose (Dextrose 50 % 25 Gm/50 Ml Syringe) 25 gm IVPUSH Q15M PRN; Protocol PRN Reason: per Hypoglycemia Standing Ord. Enoxaparin Sodium (Enoxaparin Sodium 40 Mg/0.4 Ml Syringe) 40 mg SUBCUT Q24H [facility] Last Admin: 07/18/23 23:44 Dose: 40 mg Escitalopram Oxalate (Escitalopram Oxalate 5 Mg Tablet) 5 mg PO DAILY [facility] Last Admin: 07/19/23 09:22 Dose: 5 mg Fluticasone Propionate (Fluticasone Propionate Nasal 16 Gm [place]) 2 spray NOSTRIL-B DAILY [facility] Last Admin: 07/19/23 09:30 Dose: Not Given Glucose (Glucose Gel 15 Gm Gel..Gram.) 15 gm PO Q15M PRN; Protocol PRN Reason: per Hypoglycemia Standing Ord. Hydroxyzine HCl (Hydroxyzine Hcl 25 Mg Tablet) 25 mg PO BEDTIME PRN PRN Reason: Anxiety Vancomycin HCl 1,250 mg/ (Sodium Chloride) 250 mls @ 166.667 mls/hr IV Q12H [facility] Last Infusion: 07/19/23 14:01 Dose: Infused Piperacillin Sod/Tazobactam (Sod 4.5 gm/ Sodium Chloride) 100 mls @ 200 mls/hr IV Q6H [facility] Last Infusion: 07/19/23 10:23 Dose: Infused Insulin Human Lispro (Insulin Lispro 100 Unit/Ml 3 Ml Vial) 0 unit SUBCUT QIDACHS [facility]; Protocol Last Admin: 07/19/23 11:55 Dose: 4 unit Loratadine (Loratadine 10 Mg Tablet) 10 mg PO DAILY [facility] Last Admin: 07/19/23 09:21 Dose: 10 mg Melatonin (Melatonin 3 Mg Tablet) 6 mg PO BEDTIME PRN PRN Reason: Insomnia Last Admin: 07/18/23 21:21 Dose: 6 mg Nicotine (Nicotine 14 Mg Patch.Td24) 14 mg TRANSDERMA DAILY [facility] Last Admin: 07/18/23 21:36 Dose: Not Given Nicotine (Nicotine 14 Mg Patch.Td24) 14 mg TRANSDERMA DAILY [facility] Omeprazole (Omeprazole 20 Mg Capsule.Dr) 20 mg PO BID@0630,1630 [facility] Last Admin: 07/19/23 05:40 Dose: 20 mg Pharmacy Consult (Consult Rx Vancomycin Dosing) 1 each MISCELLANE DAILY PRN PRN Reason: Consult order Prazosin HCl (Prazosin Hcl 1 Mg Capsule) 1 mg PO BEDTIME [facility]; Protocol Last Admin: 07/18/23 21:21 Dose: 1 mg Sodium Chloride (0.9 % Sodium Chloride Flush 3 Ml Syringe) 3 ml IVFLUSH QSHIFT [facility] Last Admin: 07/19/23 09:21 Dose: 3 ml Tramadol HCl (Tramadol Hcl 50 Mg Tablet) 50 mg PO Q4H PRN PRN Reason: Pain, Moderate(Pain Scale 4-6) Last Admin: 07/19/23 14:40 Dose: 50 mg Trazodone HCl (Trazodone Hcl 100 Mg Tablet) 200 mg PO DAILY [facility] Last Admin: 07/19/23 09:30 Dose: Not Given Zolpidem Tartrate (Zolpidem Tartrate 5 Mg Tablet) 5 mg PO BEDTIME PRN PRN Reason: Insomnia Home Medications Medication Instructions Recorded Confirmed Last Taken Type alprazolam 1 mg tablet 1 mg PO BID 04/03/21 07/17/23 07/16/23 History trazodone 50 mg tablet 200 mg PO DAILY 04/03/21 07/18/23 07/16/23 History zolpidem 5 mg tablet (Ambien) 5 mg PO BEDTIME PRN Insomnia 12/03/21 07/17/23 07/16/23 History metformin 500 mg tablet 500 mg PO BID 10/21/22 07/17/23 07/16/23 History citalopram 10 mg tablet 10 mg PO QAM 07/17/23 07/17/23 07/16/23 History hydroxyzine pamoate 25 mg capsule 25 mg PO BEDTIME PRN Anxiety 07/17/23 07/17/23 07/16/23 History prazosin 1 mg capsule 1 mg PO BEDTIME 07/17/23 07/17/23 07/16/23 History albuterol sulfate 90 mcg/actuation 2 puff inhalation Q4H 07/18/23 07/18/23 Unknown History aerosol inhaler (Ventolin HFA) loratadine 10 mg tablet 10 mg PO QAM 07/18/23 07/18/23 Unknown History Physical Exam 2 Vital Signs: Vital Signs: Last Vital Signs Temp 97.6 F 07/19/23 07:39 Pulse 78 07/19/23 08:27 Resp 18 07/19/23 08:27 BP 110/57 L 07/19/23 07:39 Pulse Ox 98 07/19/23 07:39 O2 Del Method Room Air 07/19/23 07:39 BMI result Body Mass Index 33.8 Extrem: Other: Dorsum left foot moderate edema. Extremities grossly neurovascularly intact. Patient has approximately quarter-sized wound with granulating tissue and mild erythema surrounding it. Wound is open and draining. No obvious necrosis or abscess. Results Labs 07/17/23 18:27 07/19/23 05:34 Labs: Abnormal lab results 07/18/23 07/18/23 07/19/23 Range/Units 16:51 20:56 07:36 POC Glucose 141 H 175 H 145 H (60-115) mg/dL 07/19/23 Range/Units 10:56 POC Glucose 248 H (60-115) mg/dL BMP 07/19/23 05:34 Creatinine 0.64 All other labs normal. Assessment and Plan (1) Cellulitis: Status: Acute Plan I reviewed case with patient's hospitalist. Current recommendation is to elevate the extremity, she may shower and actually remove the dressing and have the area clean by the shower. Dressing changes. Consider Wound Center consult. At this time, no acute surgical issues. Will follow-up p.r.n.. Time Spent With Patient Time: Total time managing care of this patient today ____ minutes. Procedures Date of Service Date of Service: 07/19/23
[2023-07-19 15:42] VITALS: BP 110/68; PULSE 65; RESP 18; TEMP 36.1; O2SAT 97
--- NOTE | 2023-07-19 15:58 | MHC.CM.PN ---
CM MET WITH PT WITH A [employer] PT REPORTS SHE LIVES ALONE AND IS INDEPENDENT WITH CARE SHE USES A CANE TO AMBULATE AND HAS NO OTHER DME PT REPORTS SHE HAS NO SERVICES BUT FEELS SHE WOULD BENEFIT FROM A [facility] PT DECLINES TO COMPLETE A HCP BUT DID ACCEPT THE INFORMATION AND BLANK DOCUMENT SHE IS AWARE CM CAN ASSIST AT ANY TIME DURING ADMISSION IF SHE DECIDES SHE WANTS TO COMPLETE A HCP PCP: BIJAN MORAES DCP: HOME ? [facility] FRIEND TO TRANSPORT
[2023-07-19] MEDS: Nicotine 14 MG PATCH.TD24 TRANSDERMA (16:22)
[2023-07-19 16:45] LABS: Glucose, Whole Blood 111 mg/dL (60-115)
[2023-07-19 19:52] VITALS: BP 134/85; PULSE 61; RESP 18; TEMP 36.7; O2SAT 98
[2023-07-19 20:05] LABS: Glucose, Whole Blood 142 mg/dL (60-115)
[2023-07-19] MEDS: Prazosin HCL 1 MG CAPSULE PO (21:23)
[2023-07-19] MEDS: Enoxaparin Sodium 40 MG/0.4 ML SYRINGE SUBCUT (22:03)
--- NOTE | 2023-07-19 23:32 | P.CNID_ITS ---
History of Present Illness Data of Consult Service Date: 07/18/23 Requesting physician: Feli Wasserman Primary Care Provider: TABBY Ardon HPI Reason for consult: left foot erythema,blister dorsum She says she had seizure and tripped and fell on 06/16. She then scraped her left foot. She says dorsum of foot had redness and blister like areas. She took 10 days Augmentin and did not improve much. On ER arrival she has WBC over 13,000 and tachycardia to 95. She did not have fever. Review of Systems 2 Review of Systems: Yes all other systems are reviewed and are negative [facility] Past Medical History Medical History Abdominal pain DAVID (obstructive sleep apnea) Asthma Drowsiness Fatigue Family History Family History Paternal Grandfather Liver cancer Maternal Grandfather Prostate cancer Family history: reviewed and not pertinent Surgical History Surgical History History of esophagogastroduodenoscopy (EGD) History of cholecystectomy History of hysterectomy Social History Social History Household Members: None Housing: Apartment Alcohol intake: never Patient Tobacco Use Status: Never used Tobacco Tobacco use type: Cigarette Cigarette Packs Per Day: 3 Cigarettes Per Day: 3 service: No Meds Allergies Allergy/AdvReac Type Severity Reaction Status Date / Time No Known Allergies Allergy Verified 07/17/23 23:31 Active Medications: Current Medications Acetaminophen (Acetaminophen 325 Mg Tablet) 650 mg PO Q6H PRN PRN Reason: Pain, Mild (Pain Scale 1-3) Last Admin: 07/19/23 16:22 Dose: 650 mg Acetaminophen (Acetaminophen Supp 650 Mg Supp.Rect) 650 mg [place] Q6H PRN PRN Reason: Pain, Mild (Pain Scale 1-3) Albuterol Sulfate (Albuterol Sulfate 90 Mcg 8 Gm Inhaler) 2 puff INHALE RQ4H [facility] Last Admin: 07/19/23 19:21 Dose: Not Given Alprazolam (Alprazolam 0.5 Mg Tablet) 1 mg PO BID [facility] Last Admin: 07/19/23 21:22 Dose: 1 mg Dextrose (Dextrose 50 % 25 Gm/50 Ml Syringe) 25 gm IVPUSH Q15M PRN; Protocol PRN Reason: per Hypoglycemia Standing Ord. Enoxaparin Sodium (Enoxaparin Sodium 40 Mg/0.4 Ml Syringe) 40 mg SUBCUT Q24H [facility] Last Admin: 07/19/23 22:03 Dose: 40 mg Escitalopram Oxalate (Escitalopram Oxalate 5 Mg Tablet) 5 mg PO DAILY [facility] Last Admin: 07/19/23 09:22 Dose: 5 mg Fluticasone Propionate (Fluticasone Propionate Nasal 16 Gm [place]) 2 spray NOSTRIL-B DAILY [facility] Last Admin: 07/19/23 09:30 Dose: Not Given Glucose (Glucose Gel 15 Gm Gel..Gram.) 15 gm PO Q15M PRN; Protocol PRN Reason: per Hypoglycemia Standing Ord. Hydroxyzine HCl (Hydroxyzine Hcl 25 Mg Tablet) 25 mg PO BEDTIME PRN PRN Reason: Anxiety Vancomycin HCl 1,250 mg/ (Sodium Chloride) 250 mls @ 166.667 mls/hr IV Q12H [facility] Last Admin: 07/19/23 22:03 Dose: 166.67 mls/hr Piperacillin Sod/Tazobactam (Sod 4.5 gm/ Sodium Chloride) 100 mls @ 200 mls/hr IV Q6H [facility] Last Infusion: 07/19/23 22:02 Dose: Infused Insulin Human Lispro (Insulin Lispro 100 Unit/Ml 3 Ml Vial) 0 unit SUBCUT QIDACHS [facility]; Protocol Last Admin: 07/19/23 21:15 Dose: Not Given Loratadine (Loratadine 10 Mg Tablet) 10 mg PO DAILY [facility] Last Admin: 07/19/23 09:21 Dose: 10 mg Melatonin (Melatonin 3 Mg Tablet) 6 mg PO BEDTIME PRN PRN Reason: Insomnia Last Admin: 07/18/23 21:21 Dose: 6 mg Nicotine (Nicotine 14 Mg Patch.Td24) 14 mg TRANSDERMA DAILY [facility] Last Admin: 07/18/23 21:36 Dose: Not Given Nicotine (Nicotine 14 Mg Patch.Td24) 14 mg TRANSDERMA DAILY [facility] Last Admin: 07/19/23 16:22 Dose: 14 mg Omeprazole (Omeprazole 20 Mg Capsule.Dr) 20 mg PO BID@0630,1630 [facility] Last Admin: 07/19/23 16:22 Dose: 20 mg Pharmacy Consult (Consult Rx Vancomycin Dosing) 1 each MISCELLANE DAILY PRN PRN Reason: Consult order Prazosin HCl (Prazosin Hcl 1 Mg Capsule) 1 mg PO BEDTIME [facility]; Protocol Last Admin: 07/19/23 21:23 Dose: 1 mg Sodium Chloride (0.9 % Sodium Chloride Flush 3 Ml Syringe) 3 ml IVFLUSH QSHIFT [facility] Last Admin: 07/19/23 21:23 Dose: 3 ml Tramadol HCl (Tramadol Hcl 50 Mg Tablet) 50 mg PO Q4H PRN PRN Reason: Pain, Moderate(Pain Scale 4-6) Last Admin: 07/19/23 21:22 Dose: 50 mg Trazodone HCl (Trazodone Hcl 100 Mg Tablet) 200 mg PO DAILY [facility] Last Admin: 07/19/23 09:30 Dose: Not Given Zolpidem Tartrate (Zolpidem Tartrate 5 Mg Tablet) 5 mg PO BEDTIME PRN PRN Reason: Insomnia Home Medications Medication Instructions Recorded Confirmed Last Taken Type alprazolam 1 mg tablet 1 mg PO BID 04/03/21 07/17/23 07/16/23 History trazodone 50 mg tablet 200 mg PO DAILY 04/03/21 07/18/23 07/16/23 History zolpidem 5 mg tablet (Ambien) 5 mg PO BEDTIME PRN Insomnia 12/03/21 07/17/23 07/16/23 History metformin 500 mg tablet 500 mg PO BID 10/21/22 07/17/23 07/16/23 History citalopram 10 mg tablet 10 mg PO QAM 07/17/23 07/17/23 07/16/23 History hydroxyzine pamoate 25 mg capsule 25 mg PO BEDTIME PRN Anxiety 07/17/23 07/17/23 07/16/23 History prazosin 1 mg capsule 1 mg PO BEDTIME 07/17/23 07/17/23 07/16/23 History albuterol sulfate 90 mcg/actuation 2 puff inhalation Q4H 07/18/23 07/18/23 Unknown History aerosol inhaler (Ventolin HFA) loratadine 10 mg tablet 10 mg PO QAM 07/18/23 07/18/23 Unknown History Physical Exam 2 Vital Signs: Vital Signs: Last Vital Signs Temp 98.0 F 07/19/23 19:52 Pulse 61 07/19/23 19:52 Resp 18 07/19/23 19:52 BP 134/85 07/19/23 19:52 Pulse Ox 98 07/19/23 19:52 O2 Del Method Room Air 07/19/23 19:52 BMI result Body Mass Index 33.8 Const: General: cooperative HEENT: Head: Yes normal to inspection Face and sinus: Yes normal facial exam Mouth: Normal oral and palatal mucosa present Teeth and gingiva: d entition normal Eyes: General: appearance normal, both eyes and all related structures P upils: Equal, round and reactive pupils present Resp: Effort & Inspection: normal respiratory effort Cardio: Rate: regular rate Rhythm: regular rhythm GI: Palpation (GI): Soft to palpation and nontender : General: Yes no CVA tenderness Back/Spine/Pelvis: Back: no CVA tenderness Skin: General skin exam: no rashes or lesions noted Neuro: General: moves all extremities Cranial nerves: Yes Equal, round and reactive pupils present Extrem: Other: left foot erythema dorsum and blister area neuropathy feet Psych: Appearance: grossly normal Results Labs 07/17/23 18:27 07/19/23 05:34 Labs: BMP 07/19/23 05:34 Creatinine 0.64 Microbiology Microbiology Results: Microbiology 07/17/23 18:27 Blood - Venous Blood Culture - Preliminary No growth after 48 hours. 07/17/23 18:28 Blood - Venous Blood Culture - Preliminary No growth after 48 hours. Assessment and Plan (1) Cellulitis: Status: Acute (2) Sepsis due to cellulitis: Status: Acute There may be some gram positive such as MRSA since not responding to Augmentin. She also could have abscess or abrasion. (3) Diabetes: Status: Acute Plan Vancomycin and Zosyn appropriate Await MRI. If no OM Linezolid preferably or Doxycycline for 10 days Follow with PCP at [facility]. Time Spent With Patient Time: Total time managing care of this patient today ____ minutes.
[2023-07-20] VITALS (8 sets, daily range): BP systolic 100–107; BP diastolic 54–72; PULSE 63–73; RESP 16–19; TEMP 35.8–36.4; O2SAT 94–96
[2023-07-20] MEDS: Piperacillin Sodium/Tazobactam 4.5 GM in 0.9 % Sodium Chloride 100 ML IV ×4 (03:38→20:36)
[2023-07-20] MEDS: Omeprazole 20 MG CAPSULE.DR PO ×2 (05:42→16:26)
[2023-07-20 06:22] LABS: Creatinine Clr Calc Pharmacy 113.8; Estimated Glomerular Filt Rate > 60
[2023-07-20 07:41] LABS: Glucose, Whole Blood 146 mg/dL (60-115)
[2023-07-20] MEDS: Albuterol Sulfate 90 MCG 8 GM INHALER 2 PUFF INHALE ×2 (08:03→20:38)
[2023-07-20] MEDS: Nicotine 14 MG PATCH.TD24 TRANSDERMA (08:10)
[2023-07-20] MEDS: Acetaminophen 325 MG TABLET 650 MG PO ×2 (08:10→15:06)
[2023-07-20] MEDS: Escitalopram Oxalate 5 MG TABLET PO (08:10)
[2023-07-20] MEDS: ALPRAZolam 0.5 MG TABLET 1 MG PO ×2 (08:10→20:39)
[2023-07-20] MEDS: Loratadine 10 MG TABLET PO (08:10)
[2023-07-20] MEDS: traMADoL HCL 50 MG TABLET PO ×3 (08:10→20:53)
[2023-07-20] MEDS: Fluticasone Propionate Nasal 16 GM SPRAY 2 SPRAY NOSTRIL-B (08:11)
[2023-07-20] MEDS: 0.9 % Sodium Chloride Flush 3 ML SYRINGE IVFLUSH ×3 (08:11→20:37)
--- NOTE | 2023-07-20 09:07 | P.PNGS_ITS ---
Subjective Subjective Date of Service: 07/20/23 Interval history: Patient complaining of persistent left foot pain. No improvement. Physical Exam 2 Vital Signs: Vital Signs: Last Vital Signs Temp 96.8 F 07/20/23 08:00 Pulse 69 07/20/23 08:05 Resp 16 07/20/23 08:05 BP 102/72 07/20/23 08:00 Pulse Ox 96 07/20/23 08:00 O2 Del Method Room Air 07/20/23 08:00 BMI result Body Mass Index 33.8 Extrem: Other: Edema and marked tenderness over eschar of dorsum left foot. Objective Data Active Medications Acetaminophen (Acetaminophen 325 Mg Tablet) 650 mg PO Q6H PRN PRN Reason: Pain, Mild (Pain Scale 1-3) Last Admin: 07/20/23 08:10 Dose: 650 mg Documented By: KENDY Acetaminophen (Acetaminophen Supp 650 Mg Supp.Rect) 650 mg IN Q6H PRN PRN Reason: Pain, Mild (Pain Scale 1-3) Albuterol Sulfate (Albuterol Sulfate 90 Mcg 8 Gm Inhaler) 2 puff INHALE RQ4H [facility] Last Admin: 07/20/23 08:03 Dose: 2 puff Documented By: KENYATTA Alprazolam (Alprazolam 0.5 Mg Tablet) 1 mg PO BID [facility] Last Admin: 07/20/23 08:10 Dose: 1 mg Documented By: KENDY Dextrose (Dextrose 50 % 25 Gm/50 Ml Syringe) 25 gm IVPUSH Q15M PRN; Protocol PRN Reason: per Hypoglycemia Standing Ord. Enoxaparin Sodium (Enoxaparin Sodium 40 Mg/0.4 Ml Syringe) 40 mg SUBCUT Q24H [facility] Last Admin: 07/19/23 22:03 Dose: 40 mg Documented By: RICARDO Escitalopram Oxalate (Escitalopram Oxalate 5 Mg Tablet) 5 mg PO DAILY [facility] Last Admin: 07/20/23 08:10 Dose: 5 mg Documented By: KENDY Fluticasone Propionate (Fluticasone Propionate Nasal 16 Gm [place]) 2 spray NOSTRIL-B DAILY [facility] Last Admin: 07/20/23 08:11 Dose: 2 spray Documented By: KENDY Glucose (Glucose Gel 15 Gm Gel..Gram.) 15 gm PO Q15M PRN; Protocol PRN Reason: per Hypoglycemia Standing Ord. Hydroxyzine HCl (Hydroxyzine Hcl 25 Mg Tablet) 25 mg PO BEDTIME PRN PRN Reason: Anxiety Vancomycin HCl 1,250 mg/ (Sodium Chloride) 250 mls @ 166.667 mls/hr IV Q12H [facility] Last Infusion: 07/19/23 23:49 Dose: Infused Documented By: RICARDO Piperacillin Sod/Tazobactam (Sod 4.5 gm/ Sodium Chloride) 100 mls @ 200 mls/hr IV Q6H [facility] Last Infusion: 07/20/23 05:06 Dose: Infused Documented By: RICARDO Insulin Human Lispro (Insulin Lispro 100 Unit/Ml 3 Ml Vial) 0 unit SUBCUT QIDACHS [facility]; Protocol Last Admin: 07/20/23 07:43 Dose: Not Given Documented By: KENDY Non-Admin Reason: No Insulin Coverage Loratadine (Loratadine 10 Mg Tablet) 10 mg PO DAILY [facility] Last Admin: 07/20/23 08:10 Dose: 10 mg Documented By: KENDY Melatonin (Melatonin 3 Mg Tablet) 6 mg PO BEDTIME PRN PRN Reason: Insomnia Last Admin: 07/18/23 21:21 Dose: 6 mg Documented By: SEBASTIÁN Nicotine (Nicotine 14 Mg Patch.Td24) 14 mg TRANSDERMA DAILY [facility] Last Admin: 07/20/23 08:11 Dose: Not Given Documented By: KENDY Non-Admin Reason: Duplicate Order Nicotine (Nicotine 14 Mg Patch.Td24) 14 mg TRANSDERMA DAILY [facility] Last Admin: 07/20/23 08:10 Dose: 14 mg Documented By: KENDY Omeprazole (Omeprazole 20 Mg Capsule.) 20 mg PO BID@0630,1630 [facility] Last Admin: 07/20/23 05:42 Dose: 20 mg Documented By: RICARDO Pharmacy Consult (Consult Rx Vancomycin Dosing) 1 each MISCELLANE DAILY PRN PRN Reason: Consult order Prazosin HCl (Prazosin Hcl 1 Mg Capsule) 1 mg PO BEDTIME [facility]; Protocol Last Admin: 07/19/23 21:23 Dose: 1 mg Documented By: RICARDO Sodium Chloride (0.9 % Sodium Chloride Flush 3 Ml Syringe) 3 ml IVFLUSH QSHIFT [facility] Last Admin: 07/20/23 08:11 Dose: 3 ml Documented By: COTDENIS Tramadol HCl (Tramadol Hcl 50 Mg Tablet) 50 mg PO Q4H PRN PRN Reason: Pain, Moderate(Pain Scale 4-6) Last Admin: 07/20/23 08:10 Dose: 50 mg Documented By: COTEMA Trazodone HCl (Trazodone Hcl 100 Mg Tablet) 200 mg PO DAILY [facility] Last Admin: 07/20/23 08:13 Dose: Not Given Documented By: COTEMA Non-Admin Reason: Patient Refused Zolpidem Tartrate (Zolpidem Tartrate 5 Mg Tablet) 5 mg PO BEDTIME PRN PRN Reason: Insomnia Labs 07/17/23 18:27 07/20/23 05:44 Labs: Laboratory Results - last 24 hr 07/19/23 07/19/23 07/19/23 09:10 10:56 16:41 Estim Creat Clear Calc Estimated GFR POC Glucose 248 H 111 Vancomycin Trough 12.2 07/19/23 07/20/23 07/20/23 19:57 05:44 07:36 Estim Creat Clear Calc 113.8 Estimated GFR > 60 POC Glucose 142 H 146 H Vancomycin Trough Microbiology Microbiology Results: Microbiology 07/17/23 18:27 Blood Culture - Preliminary Blood - Venous No growth after 48 hours. 07/17/23 18:28 Blood Culture - Preliminary Blood - Venous No growth after 48 hours. Procedures Date of Service Date of Service: 07/20/23 Progress Note: A&P Assessment and plan (1) Cellulitis: Status: Acute Plan Because of progression of symptoms, will schedule for I and D of dorsum left foot wound for today. Time Spent With Patient Time: Total time managing care of this patient today ____ minutes. Quality Stroke Does the patient have a stroke diagnosis?: No VTE Prior VTE?: No VTE Risk Level:: Medical - moderate - high VTE Device Contraindication: Treatment Not Indicated VTE Drug Contraindication: N/A - Med Ordered
[2023-07-20] MEDS: vancomycin HCL 1,250 MG in 0.9 % Sodium Chloride 250 ML 166.67 MG IV ×2 (11:08→22:40)
[2023-07-20 11:50] LABS: Glucose, Whole Blood 148 mg/dL (60-115)
--- NOTE | 2023-07-20 12:28 | P.PNIM_ITS ---
Subjective Subjective Date of Service: 07/20/23 Review of Systems Follow up left foot cellulitis slowly improving pain with ambulation Physical Exam 2 Vital Signs: Vital Signs: Last Vital Signs Temp 96.8 F 07/20/23 08:00 Pulse 69 07/20/23 08:05 Resp 16 07/20/23 08:05 BP 102/72 07/20/23 08:00 Pulse Ox 96 07/20/23 08:00 O2 Del Method Room Air 07/20/23 08:00 BMI result Body Mass Index 33.8 Appearing in no acute distress lung sounds are clear to auscultation heart regular rate rhythm, clear S1, S2 positive bowel sounds, abdomen is soft, nontender neuro patient is alert x3, no focal deficits Objective Data Active Medications Acetaminophen (Acetaminophen 325 Mg Tablet) 650 mg PO Q6H PRN PRN Reason: Pain, Mild (Pain Scale 1-3) Last Admin: 07/20/23 08:10 Dose: 650 mg Documented By: KENDY Acetaminophen (Acetaminophen Supp 650 Mg Supp.Rect) 650 mg [place] Q6H PRN PRN Reason: Pain, Mild (Pain Scale 1-3) Albuterol Sulfate (Albuterol Sulfate 90 Mcg 8 Gm Inhaler) 2 puff INHALE RQ4H [facility] Last Admin: 07/20/23 11:48 Dose: Not Given Documented By: KENYATTA Non-Admin Reason: Patient Refused Alprazolam (Alprazolam 0.5 Mg Tablet) 1 mg PO BID [facility] Last Admin: 07/20/23 08:10 Dose: 1 mg Documented By: KENDY Dextrose (Dextrose 50 % 25 Gm/50 Ml Syringe) 25 gm IVPUSH Q15M PRN; Protocol PRN Reason: per Hypoglycemia Standing Ord. Enoxaparin Sodium (Enoxaparin Sodium 40 Mg/0.4 Ml Syringe) 40 mg SUBCUT Q24H [facility] Last Admin: 07/19/23 22:03 Dose: 40 mg Documented By: RICARDO Escitalopram Oxalate (Escitalopram Oxalate 5 Mg Tablet) 5 mg PO DAILY [facility] Last Admin: 07/20/23 08:10 Dose: 5 mg Documented By: KENDY Fluticasone Propionate (Fluticasone Propionate Nasal 16 Gm [place]) 2 spray NOSTRIL-B DAILY [facility] Last Admin: 07/20/23 08:11 Dose: 2 spray Documented By: KENDY Glucose (Glucose Gel 15 Gm Gel..Gram.) 15 gm PO Q15M PRN; Protocol PRN Reason: per Hypoglycemia Standing Ord. Hydroxyzine HCl (Hydroxyzine Hcl 25 Mg Tablet) 25 mg PO BEDTIME PRN PRN Reason: Anxiety Vancomycin HCl 1,250 mg/ (Sodium Chloride) 250 mls @ 166.667 mls/hr IV Q12H [facility] Last Admin: 07/20/23 11:08 Dose: 166.67 mls/hr Documented By: KENDY Piperacillin Sod/Tazobactam (Sod 4.5 gm/ Sodium Chloride) 100 mls @ 200 mls/hr IV Q6H [facility] Last Infusion: 07/20/23 11:11 Dose: Infused Documented By: KENDY Insulin Human Lispro (Insulin Lispro 100 Unit/Ml 3 Ml Vial) 0 unit SUBCUT QIDACHS [facility]; Protocol Last Admin: 07/20/23 11:52 Dose: Not Given Documented By: KENDY Non-Admin Reason: No Insulin Coverage Loratadine (Loratadine 10 Mg Tablet) 10 mg PO DAILY [facility] Last Admin: 07/20/23 08:10 Dose: 10 mg Documented By: KENDY Melatonin (Melatonin 3 Mg Tablet) 6 mg PO BEDTIME PRN PRN Reason: Insomnia Last Admin: 07/18/23 21:21 Dose: 6 mg Documented By: SEBASTIÁN Nicotine (Nicotine 14 Mg Patch.Td24) 14 mg TRANSDERMA DAILY [facility] Last Admin: 07/20/23 08:11 Dose: Not Given Documented By: KENDY Non-Admin Reason: Duplicate Order Nicotine (Nicotine 14 Mg Patch.Td24) 14 mg TRANSDERMA DAILY [facility] Last Admin: 07/20/23 08:10 Dose: 14 mg Documented By: KENDY Omeprazole (Omeprazole 20 Mg Capsule.) 20 mg PO BID@0630,1630 [facility] Last Admin: 07/20/23 05:42 Dose: 20 mg Documented By: RICARDO Pharmacy Consult (Consult Rx Vancomycin Dosing) 1 each MISCELLANE DAILY PRN PRN Reason: Consult order Prazosin HCl (Prazosin Hcl 1 Mg Capsule) 1 mg PO BEDTIME [facility]; Protocol Last Admin: 07/19/23 21:23 Dose: 1 mg Documented By: RICARDO Sodium Chloride (0.9 % Sodium Chloride Flush 3 Ml Syringe) 3 ml IVFLUSH QSHIFT [facility] Last Admin: 07/20/23 08:11 Dose: 3 ml Documented By: KENDY Tramadol HCl (Tramadol Hcl 50 Mg Tablet) 50 mg PO Q4H PRN PRN Reason: Pain, Moderate(Pain Scale 4-6) Last Admin: 07/20/23 08:10 Dose: 50 mg Documented By: COTEMA Trazodone HCl (Trazodone Hcl 100 Mg Tablet) 200 mg PO DAILY [facility] Last Admin: 07/20/23 08:13 Dose: Not Given Documented By: COTDENIS Non-Admin Reason: Patient Refused Zolpidem Tartrate (Zolpidem Tartrate 5 Mg Tablet) 5 mg PO BEDTIME PRN PRN Reason: Insomnia Labs 07/17/23 18:27 07/20/23 05:44 Labs: Laboratory Results - last 24 hr 07/19/23 07/19/23 07/20/23 16:41 19:57 05:44 Estim Creat Clear Calc 113.8 Estimated GFR > 60 POC Glucose 111 142 H 07/20/23 07/20/23 07:36 11:46 Estim Creat Clear Calc Estimated GFR POC Glucose 146 H 148 H Microbiology Microbiology Results: Microbiology 07/17/23 18:27 Blood Culture - Preliminary Blood - Venous No growth after 48 hours. 07/17/23 18:28 Blood Culture - Preliminary Blood - Venous No growth after 48 hours. Assessment and Plan (1) Cellulitis: Status: Acute Plan This is a 43-year-old female with pertinent history mood disorder, [id number] diabetes mellitus, mixed hyperlipidemia, essential hypertension, gastroesophageal reflux disease who presents to the emergency department for evaluation of left foot infection Sepsis due to diabetic foot infection and purulent cellulitis. Imaging concerning for osteomyelitis. continue vanco and zosyn Resuscitated with IV crystalloids. Blood culture neg after 48 hrs MRI of the foot showing abscess gen surg consult> going to OR today for I&D ID consult pending Essential hypertension. Hold antihypertensives in the setting of sepsis and low BP Mixed hyperlipidemia. On statin Mood disorder. Continue home mood stabilizers Wcx-[id number] diabetes mellitus with hyperglycemia. ss, ada diet DVT prophylaxis: Lovenox attending Dr. Mccollum Full code Continue hospitalization for treatment of sepsis secondary to diabetic foot infection requiring IV antibiotics Time Spent With Patient Time: Total time managing care of this patient today ____ minutes. Quality Stroke Does the patient have a stroke diagnosis?: No VTE Prior VTE?: No VTE Risk Level:: Medical - moderate - high VTE Device Contraindication: Treatment Not Indicated VTE Drug Contraindication: N/A - Med Ordered
--- NOTE | 2023-07-20 13:43 | PC.NURSE ---
Addendum entered by Joan Eldridge RN 07/20/23 13:47: Leaking IV access was removed. No issues. Original Note: 10am Patient IV access in right hand was leaking. New IV access started today (07/20/23) #22 left forearm.
--- NOTE | 2023-07-20 14:59 | W.PM.OPN ---
Operative Note Operative Note Date of Service: 07/20/23 Narrative: Preoperative diagnosis: [] Dorsum left foot abscess Postop diagnosis: [] Dorsum left foot infected hematoma Procedure [] I and D dorsum left foot infected hematoma Surgeon: [] Maximiliano Screw Machine Setter: [] Type of Anesthesia: [] Local Indication for surgery: [] Localized collection of infected blood/abscess involving dorsum of left lateral forefoot. Cultures were obtained. Findings: [] Patient brought to the operating room, placed on operative table in supine position, after adequate level of local anesthesia was induced, after the left lower extremity is prepped and draped in usual sterile fashion. A longitudinal incision was made over the most fluctuant area of the mid lateral left forefoot. Infected hematoma was entered. Cultures were obtained. Wound was evacuated the old blood, wound was irrigated, secured hemostasis, and packed and a sterile dressing applied. Cavity measured approximately 5 x 2 cm and was superficial Patient tolerated procedure well. Sponge, needle, instrument counts reported correct. Patient tolerated procedure and emerged to recovery room stable condition. EBL minimal
[2023-07-20] MEDS: Morphine Sulfate 4 MG/ML CARTRIDGE 2 MG IVPUSH (16:25)
[2023-07-20 17:03] LABS: Glucose, Whole Blood 213 mg/dL (60-115)
[2023-07-20] MEDS: Insulin Lispro 100 UNIT/ML 3 ML VIAL SUBCUT ×2 (17:24→20:37)
[2023-07-20 20:26] LABS: Glucose, Whole Blood 206 mg/dL (60-115)
[2023-07-20] MEDS: Prazosin HCL 1 MG CAPSULE PO (20:39)
[2023-07-20 21:36] LABS: Vancomycin Trough 11.9 mcg/mL (10.0-20.0)
[2023-07-20] MEDS: Enoxaparin Sodium 40 MG/0.4 ML SYRINGE SUBCUT (22:39)
[2023-07-21] VITALS (10 sets, daily range): BP systolic 104–121; BP diastolic 59–82; PULSE 71–76; RESP 16–19; TEMP 35.8–36.1; O2SAT 92–97
[2023-07-21] MEDS: Morphine Sulfate 4 MG/ML CARTRIDGE 2 MG IVPUSH ×6 (00:19→21:49)
[2023-07-21] MEDS: Piperacillin Sodium/Tazobactam 4.5 GM in 0.9 % Sodium Chloride 100 ML IV ×2 (03:40→09:34)
[2023-07-21] MEDS: Omeprazole 20 MG CAPSULE.DR PO ×2 (05:52→16:36)
[2023-07-21 06:40] LABS: Creatinine Clr Calc Pharmacy 113.8; Estimated Glomerular Filt Rate > 60
--- NOTE | 2023-07-21 06:59 | HE.PHANOTE ---
RE VANCO INCREASED VANCO TO 1500 MG Q12H, AUC 486, TROUGH 13.7. NEXT LEVEL DUE 07/22 @0900 ELKE
[2023-07-21 07:40] LABS: Glucose, Whole Blood 142 mg/dL (60-115)
--- NOTE | 2023-07-21 08:22 | HO.PM.IMPN ---
Subjective Subjective Date of Service: 07/21/23 Review of Systems Follow up left foot cellulitis slowly improving pain with ambulation Physical Exam Vital Signs: Vital Signs: Last Vital Signs Temp 96.9 F 07/21/23 07:29 Pulse 71 07/21/23 07:29 Resp 18 07/21/23 07:29 BP 121/77 07/21/23 07:29 Pulse Ox 94 07/21/23 07:29 O2 Del Method Room Air 07/21/23 07:29 BMI result Body Mass Index 33.8 Appearing in no acute distress lung sounds are clear to auscultation heart regular rate rhythm, clear S1, S2 positive bowel sounds, abdomen is soft, nontender neuro patient is alert x3, no focal deficits Left foot dressing intact Objective Data Active Medications Acetaminophen (Acetaminophen 325 Mg Tablet) 650 mg PO Q6H PRN PRN Reason: Pain, Mild (Pain Scale 1-3) Last Admin: 07/20/23 15:06 Dose: 650 mg Documented By: JEROME Albuterol Sulfate (Albuterol Sulfate 90 Mcg 8 Gm Inhaler) 2 puff INHALE RQ4H [facility] Last Admin: 07/21/23 07:58 Dose: Not Given Documented By: OSKAR Non-Admin Reason: Patient Refused Alprazolam (Alprazolam 0.5 Mg Tablet) 1 mg PO BID [facility] Last Admin: 07/20/23 20:39 Dose: 1 mg Documented By: RICARDO Dextrose (Dextrose 50 % 25 Gm/50 Ml Syringe) 25 gm IVPUSH Q15M PRN; Protocol PRN Reason: per Hypoglycemia Standing Ord. Enoxaparin Sodium (Enoxaparin Sodium 40 Mg/0.4 Ml Syringe) 40 mg SUBCUT Q24H [facility] Last Admin: 07/20/23 22:39 Dose: 40 mg Documented By: RICARDO Escitalopram Oxalate (Escitalopram Oxalate 5 Mg Tablet) 5 mg PO DAILY [facility] Last Admin: 07/20/23 08:10 Dose: 5 mg Documented By: DESIREEEMA Fluticasone Propionate (Fluticasone Propionate Nasal 16 Gm [place]) 2 spray NOSTRIL-B DAILY [facility] Last Admin: 07/20/23 08:11 Dose: 2 spray Documented By: DESIREEEMA Glucose (Glucose Gel 15 Gm Gel..Gram.) 15 gm PO Q15M PRN; Protocol PRN Reason: per Hypoglycemia Standing Ord. Hydroxyzine HCl (Hydroxyzine Hcl 25 Mg Tablet) 25 mg PO BEDTIME PRN PRN Reason: Anxiety Piperacillin Sod/Tazobactam (Sod 4.5 gm/ Sodium Chloride) 100 mls @ 200 mls/hr IV Q6H [facility] Last Infusion: 07/21/23 04:58 Dose: Infused Documented By: RICARDO Vancomycin HCl 1,500 mg/ (Sodium Chloride) 500 mls @ 333.333 mls/hr IV Q12H [facility] Insulin Human Lispro (Insulin Lispro 100 Unit/Ml 3 Ml Vial) 0 unit SUBCUT QIDACHS [facility]; Protocol Last Admin: 07/21/23 07:50 Dose: Not Given Documented By: KENDY Non-Admin Reason: No Insulin Coverage Loratadine (Loratadine 10 Mg Tablet) 10 mg PO DAILY [facility] Last Admin: 07/20/23 08:10 Dose: 10 mg Documented By: KENDY Melatonin (Melatonin 3 Mg Tablet) 6 mg PO BEDTIME PRN PRN Reason: Insomnia Last Admin: 07/18/23 21:21 Dose: 6 mg Documented By: SEBASTIÁN Morphine Sulfate (Morphine Sulfate 4 Mg/Ml Cartridge) 2 mg IVPUSH Q4H PRN; Protocol PRN Reason: Pain, Severe (Pain Scale 7-10) Last Admin: 07/21/23 04:16 Dose: 2 mg Documented By: RICARDO Nicotine (Nicotine 14 Mg Patch.Td24) 14 mg TRANSDERMA DAILY [facility] Last Admin: 07/21/23 07:10 Dose: Not Given Documented By: KENDY Non-Admin Reason: Duplicate Order Nicotine (Nicotine 14 Mg Patch.Td24) 14 mg TRANSDERMA DAILY [facility] Last Admin: 07/20/23 08:10 Dose: 14 mg Documented By: KENDY Omeprazole (Omeprazole 20 Mg Capsule.) 20 mg PO BID@0630,1630 [facility] Last Admin: 07/21/23 05:52 Dose: 20 mg Documented By: RICARDO Pharmacy Consult (Consult Rx Vancomycin Dosing) 1 each MISCELLANE DAILY PRN PRN Reason: Consult order Prazosin HCl (Prazosin Hcl 1 Mg Capsule) 1 mg PO BEDTIME [facility]; Protocol Last Admin: 07/20/23 20:39 Dose: 1 mg Documented By: RICARDO Sodium Chloride (0.9 % Sodium Chloride Flush 3 Ml Syringe) 3 ml IVFLUSH QSHIFT [facility] Last Admin: 07/20/23 20:37 Dose: 3 ml Documented By: RICARDO Tramadol HCl (Tramadol Hcl 50 Mg Tablet) 50 mg PO Q4H PRN PRN Reason: Pain, Moderate(Pain Scale 4-6) Last Admin: 07/20/23 20:53 Dose: 50 mg Documented By: RICARDO Trazodone HCl (Trazodone Hcl 100 Mg Tablet) 200 mg PO BEDTIME [facility] Zolpidem Tartrate (Zolpidem Tartrate 5 Mg Tablet) 5 mg PO BEDTIME PRN PRN Reason: Insomnia Labs 07/17/23 18:27 07/21/23 06:15 Labs: Laboratory Results - last 24 hr 07/20/23 07/20/23 07/20/23 11:46 16:59 20:19 Estim Creat Clear Calc Estimated GFR POC Glucose 148 H 213 H 206 H Vancomycin Trough 07/20/23 07/21/23 07/21/23 21:17 06:15 07:29 Estim Creat Clear Calc 113.8 Estimated GFR > 60 POC Glucose 142 H Vancomycin Trough 11.9 Assessment and Plan (1) Cellulitis: Status: Acute Plan This is a 43-year-old female with pertinent history mood disorder, [id number]-[id number] diabetes mellitus, mixed hyperlipidemia, essential hypertension, gastroesophageal reflux disease who presents to the emergency department for evaluation of left foot infection Sepsis due to diabetic foot infection and purulent cellulitis. sepsis resolved nasal MRSA swab neg s/p vanco and zosyn Blood culture neg after 48 hrs MRI of the foot showing abscess, no osteo gen surg consult> s/p I&D 07/20/23 ID following>rec doxycycline 10 days Essential hypertension. Hold antihypertensives in the setting of sepsis and low BP Mixed hyperlipidemia. On statin Mood disorder. Continue home mood stabilizers Iia-eumteoi-wgmmllham diabetes mellitus with hyperglycemia. ss, ada diet DVT prophylaxis: [facility] attending Dr. Mccollum Full code Continue hospitalization for treatment of sepsis secondary to diabetic foot infection requiring IV antibiotics Time Spent With Patient Time: Total time managing care of this patient today ____ minutes. Quality Stroke Does the patient have a stroke diagnosis?: No VTE Prior VTE?: No VTE Risk Level:: Medical - moderate - high VTE Device Contraindication: Treatment Not Indicated VTE Drug Contraindication: N/A - Med Ordered
[2023-07-21] MEDS: ALPRAZolam 0.5 MG TABLET 1 MG PO ×2 (08:23→20:18)
[2023-07-21] MEDS: Escitalopram Oxalate 5 MG TABLET PO (08:23)
[2023-07-21] MEDS: Loratadine 10 MG TABLET PO (08:23)
[2023-07-21] MEDS: 0.9 % Sodium Chloride Flush 3 ML SYRINGE IVFLUSH ×3 (08:24→20:18)
[2023-07-21] MEDS: Nicotine 14 MG PATCH.TD24 TRANSDERMA (08:24)
[2023-07-21] MEDS: traMADoL HCL 50 MG TABLET PO (11:23)
[2023-07-21] MEDS: Acetaminophen 325 MG TABLET 650 MG PO ×2 (11:24→19:41)
[2023-07-21] MEDS: vancomycin HCL 1,500 MG in 0.9 % Sodium Chloride 500 ML 333.33 MG IV (11:24)
[2023-07-21 11:36] LABS: Glucose, Whole Blood 204 mg/dL (60-115)
--- NOTE | 2023-07-21 11:56 | P.PNGS_ITS ---
Subjective Subjective Date of Service: 07/21/23 Interval history: Patient states she is doing well but experiencing pain with walker-assisted ambulation and inability to ambulate beyond door to hallway. She has been given morphine and Tramadol as needed for pain but states Tramadol does not work as well. She did not sleep well last night due to pain and mentions discomfort with wound drainage. Disposition is uncertain at this time as patient believes she may be going to short term rehab but wishes to go home. Expresses uncertainty about dressing changes and pain management at home. Physical Exam 2 Vital Signs: Vital Signs: Last Vital Signs Temp 96.9 F 07/21/23 07:29 Pulse 71 07/21/23 07:29 Resp 19 07/21/23 08:24 BP 121/77 07/21/23 07:29 Pulse Ox 94 07/21/23 07:29 O2 Del Method Room Air 07/21/23 07:29 BMI result Body Mass Index 33.8 Const: General: cooperative, no acute distress, alert and awake O rientation/consciousness: patient oriented x3 Neuro: General: patient oriented x3 Extrem: Other: Dorsolateral aspect of left foot reveals open I&D site with packing intact and moderate drainage serosanguineous and mild erythema which is improved, no evidence of tissue necrosis. Objective Data Active Medications Acetaminophen (Acetaminophen 325 Mg Tablet) 650 mg PO Q6H PRN PRN Reason: Pain, Mild (Pain Scale 1-3) Last Admin: 07/21/23 11:24 Dose: 650 mg Documented By: KENDY Albuterol Sulfate (Albuterol Sulfate 90 Mcg 8 Gm Inhaler) 2 puff INHALE RQ4H [facility] Last Admin: 07/21/23 07:58 Dose: Not Given Documented By: OSKAR Non-Admin Reason: Patient Refused Alprazolam (Alprazolam 0.5 Mg Tablet) 1 mg PO BID [facility] Last Admin: 07/21/23 08:23 Dose: 1 mg Documented By: KENDY Dextrose (Dextrose 50 % 25 Gm/50 Ml Syringe) 25 gm IVPUSH Q15M PRN; Protocol PRN Reason: per Hypoglycemia Standing Ord. Enoxaparin Sodium (Enoxaparin Sodium 40 Mg/0.4 Ml Syringe) 40 mg SUBCUT Q24H [facility] Last Admin: 07/20/23 22:39 Dose: 40 mg Documented By: RICARDO Escitalopram Oxalate (Escitalopram Oxalate 5 Mg Tablet) 5 mg PO DAILY [facility] Last Admin: 07/21/23 08:23 Dose: 5 mg Documented By: KENDY Fluticasone Propionate (Fluticasone Propionate Nasal 16 Gm [place]) 2 spray NOSTRIL-B DAILY [facility] Last Admin: 07/21/23 08:26 Dose: Not Given Documented By: KENDY Non-Admin Reason: Patient Refused Glucose (Glucose Gel 15 Gm Gel..Gram.) 15 gm PO Q15M PRN; Protocol PRN Reason: per Hypoglycemia Standing Ord. Hydroxyzine HCl (Hydroxyzine Hcl 25 Mg Tablet) 25 mg PO BEDTIME PRN PRN Reason: Anxiety Piperacillin Sod/Tazobactam (Sod 4.5 gm/ Sodium Chloride) 100 mls @ 200 mls/hr IV Q6H [facility] Last Infusion: 07/21/23 10:16 Dose: Infused Documented By: KENDY Vancomycin HCl 1,500 mg/ (Sodium Chloride) 500 mls @ 333.333 mls/hr IV Q12H [facility] Last Admin: 07/21/23 11:24 Dose: 333.33 mls/hr Documented By: KENDY Insulin Human Lispro (Insulin Lispro 100 Unit/Ml 3 Ml Vial) 0 unit SUBCUT QIDACHS [facility]; Protocol Last Admin: 07/21/23 07:50 Dose: Not Given Documented By: KENDY Non-Admin Reason: No Insulin Coverage Loratadine (Loratadine 10 Mg Tablet) 10 mg PO DAILY [facility] Last Admin: 07/21/23 08:23 Dose: 10 mg Documented By: KENDY Melatonin (Melatonin 3 Mg Tablet) 6 mg PO BEDTIME PRN PRN Reason: Insomnia Last Admin: 07/18/23 21:21 Dose: 6 mg Documented By: SEBASTIÁN Morphine Sulfate (Morphine Sulfate 4 Mg/Ml Cartridge) 2 mg IVPUSH Q4H PRN; Protocol PRN Reason: Pain, Severe (Pain Scale 7-10) Last Admin: 07/21/23 08:24 Dose: 2 mg Documented By: KENDY Nicotine (Nicotine 14 Mg Patch.Td24) 14 mg TRANSDERMA DAILY [facility] Last Admin: 07/21/23 07:10 Dose: Not Given Documented By: HO.COTEMA Non-Admin Reason: Duplicate Order Nicotine (Nicotine 14 Mg Patch.Td24) 14 mg TRANSDERMA DAILY [facility] Last Admin: 07/21/23 08:24 Dose: 14 mg Documented By: COTEMA Omeprazole (Omeprazole 20 Mg Capsule.) 20 mg PO BID@0630,1630 [facility] Last Admin: 07/21/23 05:52 Dose: 20 mg Documented By: RICARDO Pharmacy Consult (Consult Rx Vancomycin Dosing) 1 each MISCELLANE DAILY PRN PRN Reason: Consult order Prazosin HCl (Prazosin Hcl 1 Mg Capsule) 1 mg PO BEDTIME [facility]; Protocol Last Admin: 07/20/23 20:39 Dose: 1 mg Documented By: RICARDO Sodium Chloride (0.9 % Sodium Chloride Flush 3 Ml Syringe) [address] [facility] Last Admin: 07/21/23 08:24 Dose: 3 ml Documented By: COTEMA Tramadol HCl (Tramadol Hcl 50 Mg Tablet) 50 mg PO Q4H PRN PRN Reason: Pain, Moderate(Pain Scale 4-6) Last Admin: 07/21/23 11:23 Dose: 50 mg Documented By: COTEMA Trazodone HCl (Trazodone Hcl 100 Mg Tablet) 200 mg PO BEDTIME [facility] Zolpidem Tartrate (Zolpidem Tartrate 5 Mg Tablet) 5 mg PO BEDTIME PRN PRN Reason: Insomnia Labs 07/17/23 18:27 07/21/23 06:15 Labs: Laboratory Results - last 24 hr 07/20/23 07/20/23 07/20/23 16:59 20:19 21:17 Estim Creat Clear Calc Estimated GFR POC Glucose 213 H 206 H Vancomycin Trough 11.9 07/21/23 07/21/23 07/21/23 06:15 07:29 11:27 Estim Creat Clear Calc 113.8 Estimated GFR > 60 POC Glucose 142 H 204 H Vancomycin Trough Microbiology Microbiology Results: Microbiology 07/20/23 15:08 Gram Stain - Final Foot Left Routine Culture - Preliminary No growth to date. Procedures Date of Service Date of Service: 07/21/23 Progress Note: A&P Assessment and plan (1) Cellulitis: Status: Acute Plan 43 y/o female POD 1 s/p incision and drainage of left foot abscess under local. Patient doing well at this time with complaints of moderate pain and difficulty ambulating, wound overall clean with improving surrounding cellulitis. Wound gently packed with wet to dry fluff followed by dry fluffs and kerlix roll, to be changed daily. Continue antibiotics and pain management. Continue to work with physical therapy to ambulate as tolerated. Reeval tomorrow for likely discharge to home on oral antibiotics, home vs STR. Time Spent With Patient Time: Total time managing care of this patient today ____ minutes. Quality Stroke Does the patient have a stroke diagnosis?: No VTE Prior VTE?: No VTE Risk Level:: Medical - moderate - high VTE Device Contraindication: Treatment Not Indicated VTE Drug Contraindication: N/A - Med Ordered
[2023-07-21] MEDS: Insulin Lispro 100 UNIT/ML 3 ML VIAL SUBCUT ×2 (12:37→21:50)
[2023-07-21] MEDS: Doxycycline Hyclate 100 MG in 0.9 % Sodium Chloride 250 ML 166.67 MG IV ×2 (13:05→23:54)
[2023-07-21 16:58] LABS: Glucose, Whole Blood 102 mg/dL (60-115)
[2023-07-21] MEDS: oxyCODONE HCl Immed Release 5 MG TABLET PO (19:42)
[2023-07-21] MEDS: Albuterol Sulfate 90 MCG 8 GM INHALER 2 PUFF INHALE (19:57)
[2023-07-21] MEDS: traZODone HCL 100 MG TABLET 200 MG PO (20:18)
[2023-07-21] MEDS: Prazosin HCL 1 MG CAPSULE PO (20:18)
[2023-07-21 21:39] LABS: Glucose, Whole Blood 183 mg/dL (60-115)
[2023-07-21] MEDS: Enoxaparin Sodium 40 MG/0.4 ML SYRINGE SUBCUT (21:50)
[2023-07-22] MEDS: traMADoL HCL 50 MG TABLET PO ×2 (01:34→07:34)
[2023-07-22] MEDS: Morphine Sulfate 4 MG/ML CARTRIDGE 2 MG IVPUSH ×4 (04:46→20:57)
[2023-07-22] MEDS: Omeprazole 20 MG CAPSULE.DR PO ×2 (04:47→17:45)
[2023-07-22 06:49] LABS: Creatinine Clr Calc Pharmacy 120.3; Estimated Glomerular Filt Rate > 60
[2023-07-22 06:50] LABS: Anion Gap 11 (12-20); Blood Urea Nitrogen 9 mg/dL (9-16); Calcium 9.1 mg/dL (8.4-10.2); Carbon Dioxide 26 mmol/L (22-29); Chloride 108 mmol/L (96-108); Creatinine Clr Calc Pharmacy 120.3; Estimated Glomerular Filt Rate > 60; Glucose Random 161 mg/dL (60-115); Potassium 3.7 mmol/L (3.3-5.1); Sodium 141 mmol/L (135-145)
[2023-07-22 07:11] LABS: Glucose, Whole Blood 146 mg/dL (60-115)
[2023-07-22 07:13] VITALS: BP 98/58; PULSE 79; RESP 16; TEMP 36.6; O2SAT 93
--- NOTE | 2023-07-22 07:44 | P.PNGS_ITS ---
Subjective Subjective Date of Service: 07/22/23 Interval history: Pain overall improved, able to weight bear on foot now. Using cane to ambulate. Physical Exam 2 Vital Signs: Vital Signs: Last Vital Signs Temp 97.9 F 07/22/23 07:13 Pulse 79 07/22/23 07:13 Resp 16 07/22/23 07:13 BP 98/58 L 07/22/23 07:13 Pulse Ox 93 07/22/23 07:13 O2 Del Method Room Air 07/22/23 07:13 BMI result Body Mass Index 33.8 Const: General: comfortable, no acute distress and alert O rientation/consciousness: patient oriented x3 Resp: Effort & Inspection: normal respiratory effort Skin: General skin exam: no rashes or lesions noted Neuro: General: patient oriented x3 Extrem: Other: left foot I&D site remains open, very small amount of erythema remains but has surrounding ecchymosis, some edema; no purulent drainage noted Objective Data Active Medications Acetaminophen (Acetaminophen 325 Mg Tablet) 650 mg PO Q6H PRN PRN Reason: Pain, Mild (Pain Scale 1-3) Last Admin: 07/21/23 19:41 Dose: 650 mg Documented By: HESHAM Albuterol Sulfate (Albuterol Sulfate 90 Mcg 8 Gm Inhaler) 2 puff INHALE RQ4H [facility] Last Admin: 07/22/23 07:38 Dose: Not Given Documented By: OSKAR Non-Admin Reason: Patient Refused Alprazolam (Alprazolam 0.5 Mg Tablet) 1 mg PO BID [facility] Last Admin: 07/21/23 20:18 Dose: 1 mg Documented By: HESHAM Dextrose (Dextrose 50 % 25 Gm/50 Ml Syringe) 25 gm IVPUSH Q15M PRN; Protocol PRN Reason: per Hypoglycemia Standing Ord. Enoxaparin Sodium (Enoxaparin Sodium 40 Mg/0.4 Ml Syringe) 40 mg SUBCUT Q24H [facility] Last Admin: 07/21/23 21:50 Dose: 40 mg Documented By: HESHAM Escitalopram Oxalate (Escitalopram Oxalate 5 Mg Tablet) 5 mg PO DAILY [facility] Last Admin: 07/21/23 08:23 Dose: 5 mg Documented By: KENDY Fluticasone Propionate (Fluticasone Propionate Nasal 16 Gm [place]) 2 spray NOSTRIL-B DAILY [facility] Last Admin: 07/21/23 08:26 Dose: Not Given Documented By: KENDY Non-Admin Reason: Patient Refused Glucose (Glucose Gel 15 Gm Gel..Gram.) 15 gm PO Q15M PRN; Protocol PRN Reason: per Hypoglycemia Standing Ord. Hydroxyzine HCl (Hydroxyzine Hcl 25 Mg Tablet) 25 mg PO BEDTIME PRN PRN Reason: Anxiety Doxycycline Hyclate 100 mg/ (Sodium Chloride) 250 mls @ 166.67 mls/hr IV Q12H [facility] Last Infusion: 07/22/23 01:25 Dose: Infused Documented By: HESHAM Insulin Human Lispro (Insulin Lispro 100 Unit/Ml 3 Ml Vial) 0 unit SUBCUT QIDACHS [facility]; Protocol Last Admin: 07/21/23 21:50 Dose: 2 unit Documented By: HESHAM Loratadine (Loratadine 10 Mg Tablet) 10 mg PO DAILY [facility] Last Admin: 07/21/23 08:23 Dose: 10 mg Documented By: KENDY Melatonin (Melatonin 3 Mg Tablet) 6 mg PO BEDTIME PRN PRN Reason: Insomnia Last Admin: 07/18/23 21:21 Dose: 6 mg Documented By: SEBASTIÁN Morphine Sulfate (Morphine Sulfate 4 Mg/Ml Cartridge) 2 mg IVPUSH Q4H PRN; Protocol PRN Reason: Pain, Severe (Pain Scale 7-10) Last Admin: 07/22/23 04:46 Dose: 2 mg Documented By: HESHAM Nicotine (Nicotine 14 Mg Patch.Td24) 14 mg TRANSDERMA DAILY [facility] Last Admin: 07/21/23 07:10 Dose: Not Given Documented By: KENDY Non-Admin Reason: Duplicate Order Nicotine (Nicotine 14 Mg Patch.Td24) 14 mg TRANSDERMA DAILY [facility] Last Admin: 07/21/23 08:24 Dose: 14 mg Documented By: KENDY Omeprazole (Omeprazole 20 Mg Capsule.) 20 mg PO BID@0630,1630 [facility] Last Admin: 07/22/23 04:47 Dose: 20 mg Documented By: HESHAM Oxycodone HCl (Oxycodone Hcl Immed Release 5 Mg Tablet) 5 mg PO Q4H PRN PRN Reason: Pain, Moderate(Pain Scale 4-6) Last Admin: 07/21/23 19:42 Dose: 5 mg Documented By: HESHAM Pharmacy Consult (Consult Rx Vancomycin Dosing) 1 each MISCELLANE DAILY PRN PRN Reason: Consult order Prazosin HCl (Prazosin Hcl 1 Mg Capsule) 1 mg PO BEDTIME [facility]; Protocol Last Admin: 07/21/23 20:18 Dose: 1 mg Documented By: HESHAM Sodium Chloride (0.9 % Sodium Chloride Flush 3 Ml Syringe) 3 ml IVFLUSH QSHIFT [facility] Last Admin: 07/21/23 20:18 Dose: 3 ml Documented By: HESHAM Sodium Chloride (0.9 % Sodium Chloride Flush 3 Ml Syringe) [facility] Last Admin: 07/22/23 00:36 Dose: Not Given Documented By: HESHAM Non-Admin Reason: Duplicate Order Tramadol HCl (Tramadol Hcl 50 Mg Tablet) 50 mg PO Q4H PRN PRN Reason: Pain, Moderate(Pain Scale 4-6) Last Admin: 07/22/23 07:34 Dose: 50 mg Documented By: ALFREDO Trazodone HCl (Trazodone Hcl 100 Mg Tablet) 200 mg PO BEDTIME [facility] Last Admin: 07/21/23 20:18 Dose: 200 mg Documented By: HESHAM Zolpidem Tartrate (Zolpidem Tartrate 5 Mg Tablet) 5 mg PO BEDTIME PRN PRN Reason: Insomnia Labs 07/17/23 18:27 07/22/23 05:44 Labs: Laboratory Results - last 24 hr 07/21/23 07/21/23 07/21/23 11:27 16:53 21:34 Anion Gap Estim Creat Clear Calc Estimated GFR POC Glucose 204 H 102 183 H Random Glucose Calcium 07/22/23 07/22/23 07/22/23 05:44 05:44 05:44 Anion Gap 11 L Estim Creat Clear Calc 120.3 120.3 Estimated GFR > 60 > 60 POC Glucose Random Glucose 161 H Calcium 9.1 07/22/23 06:59 Anion Gap Estim Creat Clear Calc Estimated GFR POC Glucose 146 H Random Glucose Calcium Microbiology Microbiology Results: Microbiology 07/20/23 15:08 Gram Stain - Final Foot Left Routine Culture - Preliminary No growth to date. Procedures Date of Service Date of Service: 07/22/23 Progress Note: A&P Assessment and plan (1) Cellulitis: Status: Acute Plan POD #2 s/p I&D left foot infected hematoma. Site remains open, nonpurulent drainage, overall clean appearing with improving cellulitic changes, surrounding ecchymosis. Stable for dc on PO abx with [facility] services for dressing changes if comfortable on PO analgesics, can f/u in office in 1 week. Time Spent With Patient Time: Total time managing care of this patient today ____ minutes. Quality Stroke Does the patient have a stroke diagnosis?: No VTE Prior VTE?: No VTE Risk Level:: Medical - moderate - high VTE Device Contraindication: Treatment Not Indicated VTE Drug Contraindication: N/A - Med Ordered
[2023-07-22] MEDS: Nicotine 14 MG PATCH.TD24 TRANSDERMA (08:35)
[2023-07-22] MEDS: ALPRAZolam 0.5 MG TABLET 1 MG PO ×2 (08:36→20:55)
[2023-07-22] MEDS: Escitalopram Oxalate 5 MG TABLET PO (08:37)
[2023-07-22] MEDS: Loratadine 10 MG TABLET PO (08:37)
[2023-07-22] MEDS: 0.9 % Sodium Chloride Flush 3 ML SYRINGE IVFLUSH ×3 (08:39→23:41)
[2023-07-22] MEDS: polyethylene glycoL 3350 17 GM POWD.PACK PO (08:47)
[2023-07-22] MEDS: Docusate Sodium 100 MG CAPSULE PO ×2 (08:47→20:55)
[2023-07-22 09:33] LABS: Vancomycin Random 4.9 mcg/mL (15-20)
[2023-07-22 11:03] VITALS: BP 130/76; PULSE 71; RESP 16; TEMP 36; O2SAT 91
[2023-07-22 11:04] LABS: Glucose, Whole Blood 156 mg/dL (60-115)
[2023-07-22] MEDS: Doxycycline Hyclate 100 MG in 0.9 % Sodium Chloride 250 ML 166.7 MG IV ×2 (11:33→23:35)
[2023-07-22] MEDS: Insulin Lispro 100 UNIT/ML 3 ML VIAL SUBCUT ×2 (11:54→17:39)
[2023-07-22] MEDS: oxyCODONE HCl Immed Release 5 MG TABLET PO (14:20)
[2023-07-22 15:13] VITALS: BP 100/58; PULSE 65; RESP 16; TEMP 36.3; O2SAT 94
[2023-07-22 16:14] LABS: Glucose, Whole Blood 166 mg/dL (60-115)
--- NOTE | 2023-07-22 16:55 | P.PNIM_ITS ---
Subjective Subjective Date of Service: 07/22/23 Interval History: foot cellulitis Review of Systems Follow up left foot cellulitis slowly improving pain improvin with ambulation Physical Exam 2 Vital Signs: Vital Signs: Last Vital Signs Temp 97.3 F 07/22/23 15:13 Pulse 65 07/22/23 15:13 Resp 16 07/22/23 15:13 BP 100/58 L 07/22/23 15:13 Pulse Ox 94 07/22/23 15:13 O2 Del Method Room Air 07/22/23 15:13 BMI result Body Mass Index 33.8 Appearing in no acute distress lung sounds are clear to auscultation heart regular rate rhythm, clear S1, S2 positive bowel sounds, abdomen is soft, nontender neuro patient is alert x3, no focal deficits foot area -left foot I&D site remains open, very small amount of erythema remains but has surrounding ecchymosis, some edema. Left foot dressing intact Objective Data Active Medications Acetaminophen (Acetaminophen 325 Mg Tablet) 650 mg PO Q6H PRN PRN Reason: Pain, Mild (Pain Scale 1-3) Last Admin: 07/21/23 19:41 Dose: 650 mg Documented By: HESHAM Albuterol Sulfate (Albuterol Sulfate 90 Mcg 8 Gm Inhaler) 2 puff INHALE RQ4H [facility] Last Admin: 07/22/23 15:47 Dose: Not Given Documented By: OSKAR Non-Admin Reason: Patient Refused Alprazolam (Alprazolam 0.5 Mg Tablet) 1 mg PO BID [facility] Last Admin: 07/22/23 08:36 Dose: 1 mg Documented By: ALFREDO Dextrose (Dextrose 50 % 25 Gm/50 Ml Syringe) 25 gm IVPUSH Q15M PRN; Protocol PRN Reason: per Hypoglycemia Standing Ord. Docusate Sodium (Docusate Sodium 100 Mg Capsule) 100 mg PO BID [facility] Last Admin: 07/22/23 08:47 Dose: 100 mg Documented By: ALFREDO Enoxaparin Sodium (Enoxaparin Sodium 40 Mg/0.4 Ml Syringe) 40 mg SUBCUT Q24H [facility] Last Admin: 07/21/23 21:50 Dose: 40 mg Documented By: HESHAM Escitalopram Oxalate (Escitalopram Oxalate 5 Mg Tablet) 5 mg PO DAILY [facility] Last Admin: 07/22/23 08:37 Dose: 5 mg Documented By: ALFREDO Fluticasone Propionate (Fluticasone Propionate Nasal 16 Gm [place]) 2 spray NOSTRIL-B DAILY [facility] Last Admin: 07/22/23 10:32 Dose: Not Given Documented By: ALFREDO Non-Admin Reason: Patient Refused Glucose (Glucose Gel 15 Gm Gel..Gram.) 15 gm PO Q15M PRN; Protocol PRN Reason: per Hypoglycemia Standing Ord. Hydroxyzine HCl (Hydroxyzine Hcl 25 Mg Tablet) 25 mg PO BEDTIME PRN PRN Reason: Anxiety Doxycycline Hyclate 100 mg/ (Sodium Chloride) 250 mls @ 166.67 mls/hr IV Q12H [facility] Last Infusion: 07/22/23 13:10 Dose: Infused Documented By: ALFREDO Insulin Human Lispro (Insulin Lispro 100 Unit/Ml 3 Ml Vial) 0 unit SUBCUT QIDACHS [facility]; Protocol Last Admin: 07/22/23 11:54 Dose: 2 unit Documented By: ALFREDO Loratadine (Loratadine 10 Mg Tablet) 10 mg PO DAILY [facility] Last Admin: 07/22/23 08:37 Dose: 10 mg Documented By: ALFREDO Melatonin (Melatonin 3 Mg Tablet) 6 mg PO BEDTIME PRN PRN Reason: Insomnia Last Admin: 07/18/23 21:21 Dose: 6 mg Documented By: SEBASTIÁN Morphine Sulfate (Morphine Sulfate 4 Mg/Ml Cartridge) 2 mg IVPUSH Q4H PRN; Protocol PRN Reason: Pain, Severe (Pain Scale 7-10) Last Admin: 07/22/23 16:14 Dose: 2 mg Documented By: ALFREDO Nicotine (Nicotine 14 Mg Patch.Td24) 14 mg TRANSDERMA DAILY [facility] Last Admin: 07/22/23 08:35 Dose: 14 mg Documented By: ALFREDO Nicotine (Nicotine 14 Mg Patch.Td24) 14 mg TRANSDERMA DAILY [facility] Last Admin: 07/22/23 09:25 Dose: Not Given Documented By: ALFREDO Non-Admin Reason: duplicate order Omeprazole (Omeprazole 20 Mg Capsule.) 20 mg PO BID@0630,1630 [facility] Last Admin: 07/22/23 04:47 Dose: 20 mg Documented By: HESHAM Oxycodone HCl (Oxycodone Hcl Immed Release 5 Mg Tablet) 5 mg PO Q4H PRN PRN Reason: Pain, Moderate(Pain Scale 4-6) Last Admin: 07/22/23 14:20 Dose: 5 mg Documented By: ALFREDO Pharmacy Consult (Consult Rx Vancomycin Dosing) 1 each MISCELLANE DAILY PRN PRN Reason: Consult order Polyethylene Glycol (Polyethylene Glycol 3350 17 Gm Powd.Pack) 17 gm PO DAILY PRN PRN Reason: Congestion Last Admin: 07/22/23 08:47 Dose: 17 gm Documented By: ALFREDO Prazosin HCl (Prazosin Hcl 1 Mg Capsule) 1 mg PO BEDTIME [facility]; Protocol Last Admin: 07/21/23 20:18 Dose: 1 mg Documented By: HESHAM Sodium Chloride (0.9 % Sodium Chloride Flush 3 Ml Syringe) 3 ml IVFLUSH [facility] Last Admin: 07/22/23 16:09 Dose: 3 ml Documented By: ALFREDO Sodium Chloride (0.9 % Sodium Chloride Flush 3 Ml Syringe) 3 ml IVFLUSH [facility] Last Admin: 07/22/23 10:37 Dose: Not Given Documented By: ALFREDO Non-Admin Reason: Duplicate order Tramadol HCl (Tramadol Hcl 50 Mg Tablet) 50 mg PO Q4H PRN PRN Reason: Pain, Moderate(Pain Scale 4-6) Last Admin: 07/22/23 07:34 Dose: 50 mg Documented By: ALFREDO Trazodone HCl (Trazodone Hcl 100 Mg Tablet) 200 mg PO BEDTIME [facility] Last Admin: 07/21/23 20:18 Dose: 200 mg Documented By: HESHAM Zolpidem Tartrate (Zolpidem Tartrate 5 Mg Tablet) 5 mg PO BEDTIME PRN PRN Reason: Insomnia Labs 07/17/23 18:27 07/22/23 05:44 Labs: Laboratory Results - last 24 hr 07/21/23 07/21/23 07/22/23 16:53 21:34 05:44 Anion Gap 11 L Estim Creat Clear Calc 120.3 Estimated GFR POC Glucose 102 183 H Random Glucose Calcium Random Vancomycin 07/22/23 07/22/23 07/22/23 05:44 05:44 06:59 Anion Gap Estim Creat Clear Calc 120.3 Estimated GFR > 60 > 60 POC Glucose 146 H Random Glucose 161 H Calcium 9.1 Random Vancomycin 07/22/23 07/22/23 07/22/23 09:04 11:00 16:03 Anion Gap Estim Creat Clear Calc Estimated GFR POC Glucose 156 H 166 H Random Glucose Calcium Random Vancomycin 4.9 L Microbiology Microbiology Results: Microbiology 07/20/23 15:08 Gram Stain - Final Foot Left Routine Culture - Final No growth after 2 days Assessment and Plan (1) Cellulitis: Status: Acute (2) Infected wound: Status: Acute Plan 43-year-old female with pertinent history mood disorder, hai-ipqxder-kccrrtcxg diabetes mellitus, mixed hyperlipidemia, essential hypertension, gastroesophageal reflux disease who presents to the emergency department for evaluation of left foot infection Sepsis due to diabetic foot infection and purulent cellulitis. sepsis resolved nasal MRSA swab neg s/p vanco and zosyn Blood culture neg after 48 hrs MRI of the foot showing abscess, no osteo gen surg consult> s/p I&D 07/20/23 ID following>rec doxycycline 10 days Essential hypertension. Hold antihypertensives in the setting of sepsis and low BP Mixed hyperlipidemia. On statin Mood disorder. Continue home mood stabilizers Wjw-bueiqjd-souvtyeia diabetes mellitus with hyperglycemia. ss, ada diet DVT prophylaxis: Lovenox. Continue hospitalization for treatment of sepsis secondary to diabetic foot infection requiring IV antibiotics,plan is dressing chnage /surgery follow up in am -possible discharge in am. Time Spent With Patient Time: Total time managing care of this patient today ____ minutes. Quality Stroke Does the patient have a stroke diagnosis?: No VTE Prior VTE?: No VTE Risk Level:: Medical - moderate - high VTE Device Contraindication: Treatment Not Indicated VTE Drug Contraindication: N/A - Med Ordered
[2023-07-22 19:18] VITALS: BP 118/69; PULSE 83; RESP 20; TEMP 36.8; O2SAT 95
[2023-07-22 20:39] LABS: Glucose, Whole Blood 149 mg/dL (60-115)
[2023-07-22] MEDS: Prazosin HCL 1 MG CAPSULE PO (20:56)
[2023-07-22] MEDS: Acetaminophen 325 MG TABLET 650 MG PO (20:56)
[2023-07-22] MEDS: traZODone HCL 100 MG TABLET 200 MG PO (20:57)
[2023-07-22] MEDS: Enoxaparin Sodium 40 MG/0.4 ML SYRINGE SUBCUT (23:40)
[2023-07-23] VITALS: BP 97/54; PULSE 80; RESP 16; TEMP 36; O2SAT 93
[2023-07-23] MEDS: oxyCODONE HCl Immed Release 5 MG TABLET PO ×4 (00:39→16:21)
[2023-07-23 03:28] VITALS: BP 97/70; PULSE 80; RESP 18; TEMP 36.1; O2SAT 94
[2023-07-23] MEDS: Morphine Sulfate 2 MG/ML CARTRIDGE IVPUSH ×3 (03:37→13:04)
[2023-07-23] MEDS: Omeprazole 20 MG CAPSULE.DR PO ×2 (06:14→16:27)
[2023-07-23] MEDS: Acetaminophen 325 MG TABLET 650 MG PO (06:17)
[2023-07-23 06:58] LABS: Creatinine Clr Calc Pharmacy 129.4; Estimated Glomerular Filt Rate > 60
[2023-07-23 07:22] LABS: Glucose, Whole Blood 133 mg/dL (60-115)
[2023-07-23 07:53] VITALS: BP 108/72; PULSE 85; RESP 16; TEMP 36.7; O2SAT 92
[2023-07-23] MEDS: 0.9 % Sodium Chloride Flush 3 ML SYRINGE IVFLUSH ×2 (08:36→16:22)
[2023-07-23] MEDS: Docusate Sodium 100 MG CAPSULE PO (08:41)
[2023-07-23] MEDS: ALPRAZolam 0.5 MG TABLET 1 MG PO (08:42)
[2023-07-23] MEDS: polyethylene glycoL 3350 17 GM POWD.PACK PO (08:42)
[2023-07-23] MEDS: Loratadine 10 MG TABLET PO (08:42)
[2023-07-23] MEDS: Escitalopram Oxalate 5 MG TABLET PO (08:42)
[2023-07-23] MEDS: Nicotine 14 MG PATCH.TD24 TRANSDERMA (08:47)
[2023-07-23] MEDS: Milk of Magnesia 30 ML ORAL.SUSP PO (10:56)
[2023-07-23 11:06] LABS: Glucose, Whole Blood 199 mg/dL (60-115)
[2023-07-23 11:23] VITALS: BP 102/68; PULSE 84; RESP 16; TEMP 37.1; O2SAT 95
--- NOTE | 2023-07-23 11:33 | P.DS_ITS ---
DS: Providers Provider Date of Service: 07/23/23 Date of admission: 07/17/23 22:50 Date of discharge: 07/23/23 Primary care physician: TABBY Ardon Consults: 07/18/23 09:55 Consult to Infectious Diseases Routine Consulting Provider: [facility] Infectious Disease Reason for consultation: ? osteomyelitis 07/18/23 20:40 Consult to General Surgery Routine Consulting Provider: [facility] [place] General Surgeons Reason for consultation: foot abscess DS: Diagnosis Discharge Diagnosis (1) Cellulitis: Status: Acute (2) Infected wound: Status: Acute DS: Summary Hospital Course Hospital Course: 43-year-old female with pertinent history mood disorder, bnh-khpilgt-aiteyiaug diabetes mellitus, mixed hyperlipidemia, essential hypertension, gas troesophageal reflux disease who presents to the emergency department for evaluation of left foot infection. Patient states that about a month ago she had a seizure when she fell and hit her left foot. Initially it was bruised which subsequently got infected. Patient completed a ten-day course of Augmentin prescribed by PCP. Patient states the p.o. antibiotic did not help and she have progressed. It is also associated with intermittent foul-smelling purulent discharge. Admits fevers and chills. No nausea, vomiting, chest discomfort, palpitations, shortness of breath, abdominal pain, changes in urinary or bowel habits. In the emergency department, patient was found to be septic and x-ray concerning for osteomyelitis. Hospital course: Patient was admitted for sepsis secondary to cellulitis associated with diabetes-patient was started on IV antibiotics, blood cultures sent, nasal MRSA swab also sent. Subsequently surgery was consulted-patient had I&D done - cellulitis seems to be improving significantly with above treatments, blood culture negative at 48 hour, nasal MRSA swab negative, cellulitis area is more better, no drainage. Surgery recommended patient to go home with p.o. antibiotics and VNA for dressing changes and follow-up out patiently. Patient will go home with p.o. doxycycline for 10 days. Follow-up with surgery outpatient. Time Spent with Patient Time attestation: Total time managing care of this patient today ____ minutes. Discharge coordination time: Greater than 30 minutes Quality: Safe Use of Opioids Does Pt have an Active Cancer Diagnosis on the Problem List?: No Quality: Stroke Does the patient have a stroke diagnosis?: No Physical Exam Vital Signs: Vital Signs: Last Vital Signs Temp 98.7 F 07/23/23 11:23 Pulse 84 07/23/23 11:23 Resp 16 07/23/23 11:23 BP 102/68 07/23/23 11:23 Pulse Ox 95 07/23/23 11:23 O2 Del Method Room Air 07/23/23 11:23 BMI result Body Mass Index 33.8 Appearing in no acute distress lung sounds are clear to auscultation heart regular rate rhythm, clear S1, S2 positive bowel sounds, abdomen is soft, nontender neuro patient is alert x3, no focal deficits foot area -left foot I&D site remains open, very small amount of erythema remains but has surrounding ecchymosis, some edema. Left foot dressing intact DS: Data Data Completed and Pending Labs on day of discharge: Laboratory Results - last 24 hr 07/22/23 07/22/23 07/23/23 16:03 20:35 06:28 Creatinine 0.66 Estim Creat Clear Calc 129.4 Estimated GFR > 60 POC Glucose 166 H 149 H 07/23/23 07/23/23 07:14 11:02 Creatinine Estim Creat Clear Calc Estimated GFR POC Glucose 133 H 199 H Imaging Chest x-ray: Radiologist's impression: ITS Impressions Foot X-Ray 07/17/23 17:16 IMPRESSION: 1. No acute fractures or subluxation. 2. No definite radiographic evidence of osteomyelitis. However, early osteomyelitis can be radiographically occult and if clinical suspicious for osteomyelitis, correlation with an MR is recommended. Foot MRI 07/18/23 13:50 IMPRESSION: Complex fluid collection with peripheral enhancement in the dorsal soft tissue/subcutaneous tissues measuring 6.5 x 2.5 x 1.2 cm, suspicious for an abscess/phlegmon.. Clinically correlate and manage. No MRI findings to suggest definite osteomyelitis. Discharge Plan Discharge Anticipated Discharge Date/Time: 07/23/23 11:23 Patient Disposition: Home Health Service Discharge Diagnosis: cellulitis Referrals: Amna Inman PA-C [Physician Glass Installer Technician] - 1 Week (follow up outpatient.) Tamiko Aceves FNP [Primary Care Provider] - 1 Week Discharge Medications: New doxycycline hyclate [Doxy-100] 100 mg Recon Soln 100 mg IV Q12H Qty: 20 0RF Continued citalopram 10 mg tablet 10 mg PO QAM prazosin 1 mg capsule 1 mg PO BEDTIME hydroxyzine pamoate 25 mg capsule 25 mg PO BEDTIME PRN (Reason: Anxiety) albuterol sulfate [Ventolin HFA] 90 mcg/actuation HFA aerosol inhaler 2 puff inhalation Q4H loratadine 10 mg tablet 10 mg PO QAM alprazolam 1 mg tablet 1 mg PO BID trazodone 50 mg tablet 200 mg PO DAILY zolpidem [Ambien] 5 mg tablet 5 mg PO BEDTIME PRN (Reason: Insomnia) metformin 500 mg tablet 500 mg PO BID fluticasone propionate 50 mcg/actuation spray,suspension 2 spray intranasal DAILY 30 Days Qty: 15.8 11RF Discharge Orders: Discharge Order (Routine); Ordered 07/23/23 Ordered By: Morgan Ortiz Diet: Advance to usual diet Activity on Discharge: As tolerated Stand Alone Forms: Patient Portal Discharge page Care Plan Goals: Patient was admitted for sepsis secondary to cellulitis associated with diabetes-patient was started on IV antibiotics, blood cultures sent, nasal MRSA swab also sent. Subsequently surgery was consulted-patient had I&D done - cellulitis seems to be improving significantly with above treatments, blood culture negative at 48 hour, nasal MRSA swab negative, cellulitis area is more better, no drainage. Surgery recommended patient to go home with p.o. antibiotics and VNA for dressing changes and follow-up out patiently. Patient will go home with p.o. doxycycline for 10 days. Follow-up with surgery outpatient. Health Concerns: As above. Plan of Treatment: As above. Assessment: As above.
[2023-07-23] MEDS: Insulin Lispro 100 UNIT/ML 3 ML VIAL SUBCUT (12:02)
--- NOTE | 2023-07-23 12:02 | W.MHC.F2F ---
Service Date Service Date: 07/23/23 Encounter Date of encounter: 07/23/23 Encounter: Foot cellulitis Reasons for Services Signs and symptoms assessed: And worsening of erythema or fever or any significant drainage or any new symptoms Reason for longterm: wound care, medication management, medication treatment and teach disease management MD Overseeing Care: Tamiko Aceves Homebound: Leaving the home is medically contraindicated at this time without the asist of a device and/or another person due th the listed conditions above and below. Reason homebound: weakness related to hospital stay Homebound supporting statement: Patient had foot cellulitis and had I and D and small foot wound-need help with dressing changes and appointments. Certification: Based on the above findings, I certify that this patient is confined to the home and needs intermittent longterm care, physical therapy and/or speech therapy, or continues to need occupational therapy. The patient is under my care, and I have initiated the establishment of the plan of care. The patient will be followed by a physician who will periodically review the plan of care. Time Spent With Patient Time: Total time managing care of this patient today ____ minutes.
[2023-07-23] MEDS: Doxycycline Hyclate 100 MG in 0.9 % Sodium Chloride 250 ML 166.67 MG IV (12:05)
--- NOTE | 2023-07-23 13:44 | MHC.CM.PN ---
Patient is discharged today to home with Home services. [facility] has accepted the case. All discharge information including the [facility] has been sent to the agency. Transport is booked for 4pm roll picker.
[2023-07-23 16:01] VITALS: BP 110/69; PULSE 84; RESP 20; TEMP 36.6; O2SAT 97
[2023-07-23 16:07] LABS: Glucose, Whole Blood 164 mg/dL (60-115)
== END 2023-07-23 17:53 | disposition home health service (06) | DRG 720 ==
LOC: HO.ED 21:27 → HO.EDOVER 22:57 → HO.S3 07-18 04:56
PROVIDERS: Nurse Practitioner Acute Care; Registered Nurse Emergency; Surgery; Admitting Provider Student in an Organized Health Care Education/Training Program; Emergency Provider Internal Medicine; PCP Registered Nurse; Visit Provider Internal Medicine
PROC: 0HCNXZZ Extirpation of Matter from Left Foot Skin, External Approach (ICD-10-PCS; principal; 2023-07-20 15:50)
DX: A41.9 Sepsis, unspecified organism (principal); E11.628 Type 2 diabetes mellitus with other skin complications; L03.116 Cellulitis of left lower limb; S90.32XS Contusion of left foot, sequela; W19.XXXS Unspecified fall, sequela; E78.2 Mixed hyperlipidemia; F32.9 Major depressive disorder, single episode, unspecified; E11.65 Type 2 diabetes mellitus with hyperglycemia; I10 Essential (primary) hypertension; G40.909 Epilepsy, unspecified, not intractable, without status epilepticus; Z79.84 Long term (current) use of oral hypoglycemic drugs; Z79.51 Long term (current) use of inhaled steroids; Z79.899 Other long term (current) drug therapy
CPT/HCPCS: 36415; 73630; 73720; 80048; 80053; 80202; 82565; 82947; 83605; 85025; 87040; 87070; 87205; 87640; 87641; 92950; 94640; 97116; 97162; 97530; 99285; A9585; J1650; J2270; J2543; J3370; J3371

== ENCOUNTER → 2023-07-17 22:50 | Outpatient (BNV) | payer MEDICAID, SELFPAY | PROVIDERS: Admitting Provider Student in an Organized Health Care Education/Training Program; Emergency Provider Internal Medicine; PCP Registered Nurse; Visit Provider Internal Medicine | DX: A41.9 Sepsis, unspecified organism (principal); L03.90 Cellulitis, unspecified; E11.9 Type 2 diabetes mellitus without complications | CPT/HCPCS: 99222 ==

== ENCOUNTER → 2023-07-17 22:50 | Outpatient (BNV) | payer MEDICAID, SELFPAY | PROVIDERS: Admitting Provider Student in an Organized Health Care Education/Training Program; Emergency Provider Internal Medicine; PCP Registered Nurse; Visit Provider Student in an Organized Health Care Education/Training Program | DX: T14.8XXA Other injury of unspecified body region, initial encounter (principal); L08.9 Local infection of the skin and subcutaneous tissue, unspecified | CPT/HCPCS: 99024; 99222; 99231; 99232 ==

== ENCOUNTER → 2023-07-17 22:50 | Outpatient (BNV) | payer MEDICAID, SELFPAY | PROVIDERS: Admitting Provider Student in an Organized Health Care Education/Training Program; Emergency Provider Internal Medicine; PCP Registered Nurse; Visit Provider Surgery | DX: L02.612 Cutaneous abscess of left foot (principal) | CPT/HCPCS: 10140; 99024; 99222; 99233 ==

== ENCOUNTER → 2023-08-03 14:21 | Outpatient (BNVA) | payer MEDICAID, SELFPAY | PROVIDERS: PCP Registered Nurse; Visit Provider Surgery | DX: L08.9 Local infection of the skin and subcutaneous tissue, unspecified (principal); L03.119 Cellulitis of unspecified part of limb; T14.8XXA Other injury of unspecified body region, initial encounter | CPT/HCPCS: 99211 ==

== ENCOUNTER 2023-08-11 10:46 | Outpatient (AMB) | payer MEDICAID, SELFPAY ==
[2023-08-11 11:01] VITALS: BP 113/62; PULSE 98
--- NOTE | 2023-08-11 11:01 | MHC.OFFVIS ---
Intake Vital Signs 08/11/23 11:01 Weight 219 lb BP 113/62 Blood Pressure Location Rt brachial Position Sitting Pulse 98 Intake Visit Reasons: F/u I&D Lt foot Intake Note: Patient here to f/u I&D on lt foot. Patient getting VNA daily. Reports site starting to form new skin. C/o constant pain. Taking rx pain meds. Rn Anesthetist Required: No Accompanied by: Spouse Allergies No Known Allergies Allergy (Verified 08/11/23 11:03) HPI HPI Comments History of Present Illness Details Patient presents with her significant other for a follow-up recur status post I&D of dorsum left foot infected hematoma. She has had no wound issues or complaints aside from discomfort which is improving. Patient has VNA services q.day. [facility] Medical History Abdominal pain DAIVD (obstructive sleep apnea) Asthma Drowsiness Fatigue Surgical History History of esophagogastroduodenoscopy (EGD) History of cholecystectomy History of hysterectomy Family History Paternal Grandfather Liver cancer Maternal Grandfather Prostate cancer Social History Household Members: None Housing: Apartment Alcohol intake: never Patient Tobacco Use Status: Never used Tobacco Tobacco use type: Cigarette Cigarette Packs Per Day: 3 Cigarettes Per Day: 3 service: No Physical Exam Vital Signs: Last Vital Signs Pulse 98 08/11/23 11:01 BP 113/62 08/11/23 11:01 Extrem Other: Dorsal left foot has a approximately 3 x 1 cm area of granulating tissue. There is mild edema of the surrounding foot but overall much improved from her recent hospitalization. Assessment & Plan Assessment & Plan (1) Infected wound: Code(s): T14.8XXA - Other injury of unspecified body region, initial encounter; L08.9 - Local infection of the skin and subcutaneous tissue, unspecified Plan Current plan is for the patient undergo every other day is a nurse, elevate the extremity as much as possible, and avoid strenuous activities. Patient will follow up me p.r.n.. All questions were answered. I explained to the patient that it would take approximately 3 more weeks before dorsum of left foot wound should be nearly healed with an eschar. Coding Level of Care Code Global (59942) Diagnoses Infected wound T14.8XXA; L08.9
== END 2023-08-11 11:12 | disposition home or self-care (01) ==
PROVIDERS: PCP Registered Nurse; Visit Provider Surgery
DX: T14.8XXA Other injury of unspecified body region, initial encounter (principal); L08.9 Local infection of the skin and subcutaneous tissue, unspecified
CPT/HCPCS: 99024

== ENCOUNTER → 2023-08-11 10:46 | Outpatient (BNVA) | payer MEDICAID, SELFPAY | PROVIDERS: PCP Registered Nurse; Visit Provider Surgery ==

== ENCOUNTER 2023-08-26 10:07 | Outpatient (AMB) | payer MEDICAID, SELFPAY ==
--- NOTE | 2023-08-26 10:14 | MHC.OFFVIS ---
Intake Vital Signs 08/26/23 10:22 Weight 224 lb BP 94/46 L Blood Pressure Location Rt brachial Position Sitting Pulse 104 H Intake Visit Reasons: umbilical hernia Intake Note: This patient presents for an assessment for an umbilical hernia and colonoscopy screening. Patient c/o; reports umbilical bulge, reports occasional pain, reports increased in size. Material Lister Required: Yes Material Lister Language: Oriental Rug Repairer Name: Patient declined sales operations consultant Accompanied by: Other Relationship Allergies No Known Allergies Allergy (Verified 08/11/23 11:03) HPI umbilical hernia HPI Details 43-year-old female referred for an umbilical hernia seen on CT scan. She went to the ER last January, for right lower quadrant pain. She had a CAT scan done there and this showed a small fat containing umbilical hernia She was therefore referred to me by her primary care physician. She had recently undergone surgery on the left foot because of an abscess and says that she continues to have pain on the area and uses a walker. [facility] Medical History (Updated 08/26/23 @ 10:57 by Elie Rose MD) Morbid obesity Abdominal pain DAVID (obstructive sleep apnea) Asthma Drowsiness Fatigue Surgical History History of esophagogastroduodenoscopy (EGD) History of cholecystectomy History of hysterectomy Family History Paternal Grandfather Liver cancer Maternal Grandfather Prostate cancer Social History Household Members: None Housing: Apartment Alcohol intake: never Patient Tobacco Use Status: Never used Tobacco Tobacco use type: Cigarette Cigarette Packs Per Day: 3 Cigarettes Per Day: 3 service: No Review of Systems Const Denies chills and Denies fever(s) Card Denies chest pain, Denies dyspnea and Denies dyspnea on exertion Resp Denies cough, Denies dyspnea and Denies dyspnea on exertion GI Denies hematochezia and Denies change in bowel habits Denies hematuria Musc Details: Left foot pain Denies back pain and Denies limited range of motion Neuro Denies focal weakness and Denies convulsions Psych Denies depression and Denies mood swings Physical Exam Vital Signs: Last Vital Signs Pulse 104 H 08/26/23 10:22 BP 94/46 L 08/26/23 10:22 Const Other: Uses a walker, obese General: comfortable and no acute distress Orientation/consciousness: patient oriented x3 Neck Neck: Yes no lymphadenopathy Resp Auscultation: clear to auscultation bilaterally Cardio Rhythm: regular rhythm GI Other: Unable to palpate an umbilical hernia at this time Palpation (GI): Soft to palpation, nontender and no guarding Neuro General: patient oriented x3 Assessment & Plan Assessment & Plan (1) Hernia, umbilical: Code(s): K42.9 - Umbilical hernia without obstruction or gangrene Plan: I have reviewed her CAT scan from January,. This shows a very small umbilical hernia that is fat containing. This is barely perceptible even on the CT scan. This is done palpable either I explained to her that at this time, I would not recommend proceeding with any surgery with the very small size of the hernia. She has had some vague abdominal pain that appears to be unrelated to this CT scan finding. She does state that she is going to be seen by GI for a colonoscopy. She can follow up on a p.r.n. basis. Coding Level of Care Code Est Pt Level 3 (64557) Diagnoses Hernia, umbilical K42.9
[2023-08-26 10:22] VITALS: BP 94/46; PULSE 104
== END 2023-08-26 10:53 | disposition home or self-care (01) ==
PROVIDERS: PCP Registered Nurse; Visit Provider Surgery
DX: K42.9 Umbilical hernia without obstruction or gangrene (principal)
CPT/HCPCS: 99213

== ENCOUNTER → 2023-08-26 10:07 | Outpatient (BNVA) | payer MEDICAID, SELFPAY | PROVIDERS: PCP Registered Nurse; Visit Provider Surgery | DX: K42.9 Umbilical hernia without obstruction or gangrene (principal) | CPT/HCPCS: 99212 ==

== ENCOUNTER 2023-08-30 17:55 | Emergency (ER) | payer MEDICAID, SELFPAY ==
[2023-08-30 18:18] VITALS: BP 107/55; BP 138/78; PULSE 105; PULSE 96; RESP 16; TEMP 36.6; O2SAT 94; BMI 34.3
[2023-08-30] MEDS: Amoxicillin/Potassium Clav 875 MG TABLET PO (18:47)
[2023-08-30] MEDS: Diphth,Pertus(ACell),Tet Adult 0.5 ML SYRINGE IM (18:47)
--- NOTE | 2023-08-30 18:52 | ED.WOUNDLAC ---
HPI - Wound/Laceration General Chief Complaint: Wound/Laceration Stated Complaint: CUT ON L TOE Time Seen by Provider: 08/30/23 18:10 Source: patient Mode of arrival: EMS Limitations: no limitations History of Present Illness HPI narrative: Patient apparently stepped on a sharp edge on the stairs comes in with laceration at the base of left 3rd toe patient is diabetic with history of hypertension unknown last tetanus shot Related Data Home Medications Medication Instructions Recorded Confirmed alprazolam 1 mg tablet 1 mg PO BID 04/03/21 07/17/23 trazodone 50 mg tablet 200 mg PO DAILY 04/03/21 07/18/23 zolpidem 5 mg tablet (Ambien) 5 mg PO BEDTIME PRN Insomnia 12/03/21 07/17/23 metformin 500 mg tablet 500 mg PO BID 10/21/22 07/17/23 citalopram 10 mg tablet 10 mg PO QAM 07/17/23 07/17/23 hydroxyzine pamoate 25 mg capsule 25 mg PO BEDTIME PRN Anxiety 07/17/23 07/17/23 prazosin 1 mg capsule 1 mg PO BEDTIME 07/17/23 07/17/23 albuterol sulfate 90 mcg/actuation 2 puff inhalation Q4H 07/18/23 07/18/23 aerosol inhaler (Ventolin HFA) loratadine 10 mg tablet 10 mg PO QAM 07/18/23 07/18/23 losartan 50 mg tablet 50 mg PO DAILY 08/26/23 Previous Rx's Medication Instructions Recorded fluticasone propionate 50 2 spray intranasal DAILY 30 days 02/24/22 mcg/actuation nasal #15.8 mL spray,suspension docusate sodium 100 mg capsule 100 mg PO BID #30 caps 07/23/23 doxycycline hyclate 100 mg capsule 100 mg PO BID #20 caps 07/23/23 walker (Ultra-Light Rollator misc) #1 ea 07/23/23 4x4 sterile gaze #20 ea 07/28/23 Zuleyma rolls #20 ea 07/28/23 oxycodone 5 mg tablet 5 mg PO Q8H PRN pain #10 tabs 08/05/23 bisacodyl 5 mg tablet,delayed 10 mg (2 x 5 mg) PO BEDTIME #60 08/21/23 release (Dulcolax (bisacodyl)) tabs omeprazole 20 mg capsule,delayed 20 mg PO DAILY #30 caps 08/21/23 release amoxicillin 875 mg-potassium 1 tab PO BID #20 tabs 08/30/23 clavulanate 125 mg tablet Allergies Allergy/AdvReac Type Severity Reaction Status Date / Time No Known Allergies Allergy Verified 08/11/23 11:03 Review of Systems Review of Systems: Yes all other systems are reviewed and are negative [facility] Past Medical History Medical History Morbid obesity Abdominal pain DAVID (obstructive sleep apnea) Asthma Drowsiness Fatigue Surgical History History of esophagogastroduodenoscopy (EGD) History of cholecystectomy History of hysterectomy Family History Family History Paternal Grandfather Liver cancer Maternal Grandfather Prostate cancer Social History Social History Household Members: None Housing: Apartment Alcohol intake: never Patient Tobacco Use Status: Never used Tobacco Tobacco use type: Cigarette Cigarette Packs Per Day: 3 Cigarettes Per Day: 3 Smoked in Last 30 Days: Yes Use of substances other than those prescribed or required for medical reasons: No Advance Directives: No Advance Directives Information Provided: No service: No Physical Exam Vital Signs: Vital Signs: Last Vital Signs Temp 97.8 F 08/30/23 18:18 Pulse 96 08/30/23 18:18 Resp 16 08/30/23 18:18 BP 107/55 L 08/30/23 18:18 Pulse Ox 94 08/30/23 18:18 O2 Del Method Room Air 08/30/23 18:18 BMI result Body Mass Index 34.3 Appearance: Alert. Oriented X3. No acute distress. Neck: Normal inspection. Neck supple. CVS: Normal heart rate and rhythm. Pulses normal. Respiratory: No respiratory distress. Equal air entry bilateral, Abdomen: Soft and nontender. Skin: Skin warm and dry. Superficial laceration at base of 3rd toe of left foot Extremities: No lower extremity edema. No calf tenderness Neuro: Oriented X 3. Extrem: Ankle/foot/toe images: 1. 1 cm long laceration at the base of left 3rd toe Medications Administered Discontinued Medications Generic Name Dose Route Start Last Admin Trade Name Sunitha PRN Reason Stop Dose Admin Amoxicillin/Clavulanate Potassium 875 mg 08/30/23 18:37 08/30/23 18:47 Amoxicillin/Potassium Clav 875 Mg Tablet PO 08/30/23 18:38 875 mg ONCE ONE Administration Diphtheria/Tetanus/Acell Pertussis 0.5 ml 08/30/23 18:37 08/30/23 18:47 Diphth,Pertus(Acell),Tet Adult 0.5 Ml Syringe IM 08/30/23 18:38 0.5 ml .ONCE ONE Administration Lidocaine HCl 5 ml 08/30/23 18:37 08/30/23 19:08 Lidocaine Hcl 2 % Mpf 5 Ml Vial INFILTRATI 08/30/23 18:38 5 ml ONCE ONE Administration Medical Decision Making Medical Decision Making MDM Narrative: Patient status post laceration left foot sutured Lab Data MDM Lab Attestation statement: I reviewed the patient's lab results. Labs: Lab Results 08/30/23 Range/Units 18:55 POC Glucose 149 H (60-115) mg/dL Procedures Laceration Laceration 1: Site: lower extremity Side (If applicable): left Description: linear Depth: simple, single layer Local Anesthetic: lidocaine 1% Amount of anesthesia used (mL): 4 Pre-repair: deep structures intact Skin layer closed with: nylon Size (cm): 5-0 Number of sutures: 6 Technique: simple, interrupted Discharge Plan Discharge Clinical Impression: Laceration of toe of left foot Patient Disposition: Home, Self-Care Instructions: Laceration (ED) Additional Instructions: Local care as advised Suture removal in 7-10 days Take antibiotic to avoid infection You have received tetanus shot Prescriptions: New amoxicillin-pot clavulanate 875-125 mg tablet 1 tab PO BID Qty: 20 0RF No Action (DME) 4x4 sterile gaze See Rx Instructions .Route .MEDSUPPLY Qty: 20 3RF Rx Instructions: As directed (DME) Zuleyma rolls 4 inch See Rx Instructions .Route .MEDSUPPLY Qty: 20 3RF Rx Instructions: As directed oxycodone 5 mg tablet 5 mg PO Q8H PRN (Reason: pain) Qty: 10 0RF Rx Instructions: Partial Fill upon patient request. omeprazole 20 mg capsule,delayed release(DR/EC) 20 mg PO DAILY Qty: 30 3RF bisacodyl [Dulcolax (bisacodyl)] 5 mg tablet,delayed release (DR/EC) 10 mg PO BEDTIME Qty: 60 4RF citalopram 10 mg tablet 10 mg PO QAM prazosin 1 mg capsule 1 mg PO BEDTIME hydroxyzine pamoate 25 mg capsule 25 mg PO BEDTIME PRN (Reason: Anxiety) albuterol sulfate [Ventolin HFA] 90 mcg/actuation HFA aerosol inhaler 2 puff inhalation Q4H loratadine 10 mg tablet 10 mg PO QAM (DME) Ultra-Light Rollator Misc See Rx Instructions .ROUTE .MEDSUPPLY Qty: 1 0RF Rx Instructions: As directed docusate sodium 100 mg Capsule 100 mg PO BID Qty: 30 0RF doxycycline hyclate 100 mg capsule 100 mg PO BID Qty: 20 0RF alprazolam 1 mg tablet 1 mg PO BID trazodone 50 mg tablet 200 mg PO DAILY zolpidem [Ambien] 5 mg tablet 5 mg PO BEDTIME PRN (Reason: Insomnia) metformin 500 mg tablet 500 mg PO BID fluticasone propionate 50 mcg/actuation spray,suspension 2 spray intranasal DAILY 30 Days Qty: 15.8 11RF losartan 50 mg tablet 50 mg PO DAILY Interventions: ED Discharge Assessment Last Done: 08/30/23 19:36 Discharge Date/Time: 08/30/23 19:38
--- NOTE | 2023-08-30 18:55 | PC.NURSE ---
call placed to pts sister Tracy who is currently residing in [place].
--- NOTE | 2023-08-30 18:56 | PC.NURSE ---
unable to get a hold of pts second contact Stephane - phone number was confirmed with pts sister. will re-attempt for discharge planning
[2023-08-30 18:59] LABS: Glucose, Whole Blood 149 mg/dL (60-115)
[2023-08-30] MEDS: Lidocaine HCl 2 % MPF 5 ML VIAL INFILTRATI (19:08)
--- NOTE | 2023-08-30 19:15 | PC.NURSE ---
I assumed care of the pt at 1900. Pt is in bed at this time, Dr Irizarry at bedside suturing the left foot. Pt is Sami Speaking only, appears intoxicated, slurring words and not making sense. Pt denies any alcohol use.
--- NOTE | 2023-08-30 19:25 | PC.NURSE ---
Attempted to call contact Stephane, call went right to voicemail. Pt is stating we have provided a ride home in the past. Unknown if lyfts are available.
== END 2023-08-30 19:38 | disposition home or self-care (01) ==
PROVIDERS: Emergency Provider Internal Medicine; PCP Student in an Organized Health Care Education/Training Program
DX: S91.115A Laceration without foreign body of left lesser toe(s) without damage to nail, initial encounter (principal); M79.672 Pain in left foot; X58.XXXA Exposure to other specified factors, initial encounter; Y93.9 Activity, unspecified; Y92.9 Unspecified place or not applicable; Y99.9 Unspecified external cause status; Z79.899 Other long term (current) drug therapy; Z23 Encounter for immunization
CPT/HCPCS: 12001; 82947; 90471; 90715; 99284

== ENCOUNTER 2023-09-21 12:07 | Outpatient (AMB) | payer MEDICAID, SELFPAY ==
--- NOTE | 2023-09-21 12:51 | A.OFFVIS_ITS ---
Intake Vital Signs 09/21/23 13:05 Weight 212 lb BP 137/76 Blood Pressure Location Rt brachial Position Sitting Pulse 93 Intake Visit Reasons: Umbilical hernia, wound check left toe Intake Note: F/u Lt dorsum foot wound healed well. Patient c/o let ankle pain. Feels dehydrated. C/o new lesion under lt toes. Does not have nerve sensation on the under side of foot. Having difficulty breathing. Senior Analyst Developer Required: Yes Accompanied by: friend Stephane Garcia. Allergies No Known Allergies Allergy (Verified 09/21/23 13:02) HPI HPI Comments History of Present Illness Details Patient presents with a collection of issues in complaints. She is very sad because wall greg friends is having serious health issues. Patient has nonspecific left ankle pain. She has left 4th toe pain. Patient is well known to me [facility] Medical History Morbid obesity Abdominal pain DAVID (obstructive sleep apnea) Asthma Drowsiness Fatigue Surgical History (Updated 09/21/23 @ 13:17 by Nino Viera MD) Hernia, umbilical History of esophagogastroduodenoscopy (EGD) History of cholecystectomy History of hysterectomy Family History Paternal Grandfather Liver cancer Maternal Grandfather Prostate cancer Social History Household Members: None Housing: Apartment Alcohol intake: never Patient Tobacco Use Status: Never used Tobacco Tobacco use type: Cigarette Cigarette Packs Per Day: 3 Cigarettes Per Day: 3 service: No Physical Exam Vital Signs: Last Vital Signs Pulse 93 09/21/23 13:05 BP 137/76 09/21/23 13:05 GI Other: Abdomen soft, benign. Small reducible umbilical hernia approximately 2 cm. Extrem Other: Left foot prior I&D site well healed. No gross evidence of any tunnel or dorsum or plantar foot infection. Grossly extremities neurovascularly intact. Assessment & Plan Assessment & Plan (1) Hernia, umbilical: Code(s): K42.9 - Umbilical hernia without obstruction or gangrene Plan The present time, there are no acute surgical issues. Patient is recommended to follow-up with her internal medicine doctor for variety of issues and complaints and perhaps consideration for an anaxiolytic. When all these other issues of resolved, patient will contact me regarding umbilical hernia repair Coding Level of Care Code Est Pt Level 3 (80046) Diagnoses Hernia, umbilical K42.9
[2023-09-21 13:05] VITALS: BP 137/76; PULSE 93
== END 2023-09-21 13:22 | disposition home or self-care (01) ==
PROVIDERS: PCP Student in an Organized Health Care Education/Training Program; Visit Provider Surgery
DX: K42.9 Umbilical hernia without obstruction or gangrene (principal)
CPT/HCPCS: 99213

== ENCOUNTER → 2023-09-21 12:07 | Outpatient (BNVA) | payer MEDICAID, SELFPAY | PROVIDERS: PCP Student in an Organized Health Care Education/Training Program; Visit Provider Surgery | DX: K42.9 Umbilical hernia without obstruction or gangrene (principal) | CPT/HCPCS: 99212 ==

== ENCOUNTER 2023-11-30 13:19 | Outpatient (AMB) | payer MEDICAID, SELFPAY ==
--- NOTE | 2023-11-30 13:26 | MHC.OFFVIS ---
Intake Vital Signs 11/30/23 13:27 Height 5 ft 7 in Weight 213 lb 13.574 oz BMI 33.5 BP 129/68 Blood Pressure Location Rt brachial Position Sitting Pulse 98 Intake Visit Reasons: wound check left toe, umbilical hernia Intake Note: Patient here for f/u wound on Lt toe. Patient seen at ER for bleeding episode underneath previous surgical scar. Patient c/o: loss of sensation to the last three lt toes. C/o pain along previous scar on dorsal part on lt foot. Maintenance Planning Clerk Required: No Accompanied by: Self / Same As Patient Allergies No Known Allergies Allergy (Verified 11/30/23 13:29) HPI HPI Comments History of Present Illness Details Patient presents 1. Symptomatic umbilical hernia 2. Chronic pain at her left infected foot site from a year ago. Patient is well known to me from prior visits. Longstanding history of umbilical hernia. She says it is increasing in size becoming more symptomatic. Patient has scar discomfort along the lateral aspect left foot were she had undergone prior incision and drainage of a complex left metatarsal infection. She has no other GI issues or complaints. She uses a cane. [facility] Medical History Morbid obesity Abdominal pain DAVID (obstructive sleep apnea) Asthma Drowsiness Fatigue Surgical History Hernia, umbilical History of esophagogastroduodenoscopy (EGD) History of cholecystectomy History of hysterectomy Family History Paternal Grandfather Liver cancer Maternal Grandfather Prostate cancer Social History Household Members: None Housing: Apartment Alcohol intake: never Patient Tobacco Use Status: Never used Tobacco Tobacco use type: Cigarette Cigarette Packs Per Day: 3 Cigarettes Per Day: 3 service: No Physical Exam Vital Signs: Last Vital Signs Pulse 98 11/30/23 13:27 BP 129/68 11/30/23 13:27 BMI result Body Mass Index 33.5 Chest Other: Chest breath sounds bilaterally, HS 1 in 2 GI Other: Patient was examined supine. There is an approximately 2 cm incarcerated umbilical hernia. Abdomen otherwise corpulent and benign. Extrem Other: Left lower extremity grossly neurovascularly intact. Patient has approximately 2 x 1 area of induration which he says is very painful. Tender to palpation. No evidence of any gross infection or abscess Assessment & Plan Assessment & Plan (1) Incarcerated umbilical hernia: Code(s): K42.0 - Umbilical hernia with obstruction, without gangrene (2) Scar irritation: Code(s): L90.5 - Scar conditions and fibrosis of skin Plan 1. Risks, benefits, alternatives of umbilical incarcerated hernia repair reviewed with the patient and included but not limited to bleeding, infection, recurrence, numbness, pain, scarring the patient was to proceed. 2. Patient will undergo podiatric consult regarding her chronic left foot issues. Coding Level of Care Code Est Pt Level 5 (77712) Diagnoses Incarcerated umbilical hernia K42.0 Scar irritation L90.5
[2023-11-30 13:27] VITALS: BP 129/68; PULSE 98; BMI 33.5
== END 2023-11-30 13:55 | disposition home or self-care (01) ==
PROVIDERS: PCP Student in an Organized Health Care Education/Training Program; Referring Provider Student in an Organized Health Care Education/Training Program; Visit Provider Surgery
DX: K42.0 Umbilical hernia with obstruction, without gangrene (principal); L90.5 Scar conditions and fibrosis of skin
CPT/HCPCS: 99214

== ENCOUNTER → 2023-11-30 13:19 | Outpatient (BNVA) | payer MEDICAID, SELFPAY | PROVIDERS: PCP Student in an Organized Health Care Education/Training Program; Visit Provider Surgery | DX: K42.0 Umbilical hernia with obstruction, without gangrene (principal); L90.5 Scar conditions and fibrosis of skin | CPT/HCPCS: 99212 ==

== ENCOUNTER 2023-12-03 08:33 | Outpatient (REF) | payer MEDICAID, SELFPAY ==
[2023-12-03 11:18] LABS: MANUAL DIFF FLAG NO
[2023-12-03 11:26] LABS: Basophils Absolute Auto 0.1 X10*3/uL (0.0-0.2); Basophils Percent Auto 0.9 % (0-2); Eosinophils Absolute Auto 0.1 X10*3/uL (0.0-0.4); Eosinophils Percent Auto 0.9 % (0-4); Hematocrit 43.6 % (37.0-47.0); Hemoglobin 14.5 g/dl (12.0-16.0); Imm Gran Abs Auto 0.07 X10*3/uL (0.00-0.03); Imm Gran Pct Auto 0.5 % (0.0-0.4); Lymphocytes Absolute Auto 2.9 X10*3/uL (1.2-4.9); Lymphocytes Percent Auto 22.6 % (20-40); Mean Corpuscular HGB Conc 33.3 g/dl (31.0-35.0); Mean Corpuscular Hemoglobin 29.5 pg (27.0-33.0); Mean Corpuscular Volume 88.8 fL (80.0-98.0); Mean Platelet Volume 12.2 fL (9.4-12.3); Monocytes Absolute Auto 0.8 X10*3/uL (0.1-1.2); Neutrophils Absolute Auto 8.9 x10*3/uL (2.0-8.3); Neutrophils Percent Auto 69.1 % (45-73); Platelet Count 376 X10*3/uL (160-400); Red Blood Count 4.91 X10*6/uL (4.20-5.50); Red Cell Distribution Width 14.8 % (11.0-16.0); White Blood Count 12.9 X10*3/uL (4.8-10.8)
[2023-12-03 12:13] LABS: Alanine Aminotransferase 37 U/L (0-31); Albumin Level 4.1 g/dL (3.5-5.0); Alkaline Phosphatase 96 U/L (39-117); Anion Gap 13 (12-20); Aspartate Amino Transferase 25 U/L (5-31); Bilirubin Total 0.2 mg/dL (0.0-1.0); Blood Urea Nitrogen 15 mg/dL (9-16); Calcium 10.2 mg/dL (8.4-10.2); Carbon Dioxide 25 mmol/L (22-29); Chloride 102 mmol/L (96-108); Cholesterol 274 mg/dL (<200); Estimated Glomerular Filt Rate > 60; Glucose Random 158 mg/dL (60-115); HDL Cholesterol 41 mg/dL (>40); LDL Cholesterol Calculated 193 mg/dL (<100); Potassium 3.9 mmol/L (3.3-5.1); Sodium 136 mmol/L (135-145); Total Protein 7.7 g/dL (6.5-8.0); Triglycerides 201 mg/dL (<150)
[2023-12-03 12:20] LABS: Creatinine Urine 86.22 mg/dL; Microalbumin Urine < 5.0 mg/L
== END 2023-12-03 08:34 | disposition home or self-care (01) ==
LOC: HO.HHCL 08:33
PROVIDERS: Visit Provider Nurse Practitioner
DX: R53.83 Other fatigue (principal); E66.09 Other obesity due to excess calories; Z68.34 Body mass index [BMI] 34.0-34.9, adult; E11.9 Type 2 diabetes mellitus without complications
CPT/HCPCS: 36415; 80053; 80061; 82043; 82570; 84443; 85025

== ENCOUNTER 2023-12-14 12:06 | Emergency (ER) | payer MEDICAID, SELFPAY ==
--- NOTE | ~2023-12-14 | CT_ITS ---
EXAMINATION: CT ABDOMEN AND PELVIS WITH CONTRAST CLINICAL INFORMATION: Abdominal pain. COMPARISON: CT abdomen pelvis dated 02/06/2023. TECHNIQUE: Multidetector volumetric images were obtained from the superior aspect of the liver through the pubic symphysis following administration 85 mL of Omnipaque 350 intravenous contrast. Sagittal and coronal reformatted images were obtained on the technologist's workstation. Oral contrast: No This CT examination was performed using dose optimization techniques as appropriate, variously including the following: *Automated exposure control *Adjustment of mA and/or kV according to patient size (this includes techniques or standardized protocols for targeted exams where dose is matched to indication/reason for exam; i.e. extremities or head) *Use of iterative reconstruction technique DLP: 645 mGy-cm FINDINGS: LUNG BASES: The visualized lung bases are unremarkable. LIVER, GALLBLADDER, AND BILIARY TREE: The liver is enlarged and steatotic. No focal hepatic lesion or biliary ductal dilatation is present. The gallbladder is surgically absent. PANCREAS: Unremarkable. SPLEEN: Unremarkable. ADRENAL GLANDS: Unremarkable. KIDNEYS AND URETERS: The kidneys are normal in size, shape, and attenuation. No hydronephrosis, hydroureter, or calculi seen. No perinephric stranding. BLADDER: Unremarkable. GASTROINTESTINAL TRACT: The small and large bowel are normal in caliber. There is no pericolonic inflammatory stranding. The appendix is unremarkable. ABDOMINAL WALL: No significant hernia is appreciated. LYMPH NODES: No abdominal or pelvic lymphadenopathy. VASCULAR: Unremarkable. PELVIC VISCERA: The uterus is surgically absent. There is a 2.4 x 1.8 cm right adnexal lesion that measures greater than simple fluid. On the prior examination this lesion measured 2 x 1.9 cm. OSSEOUS STRUCTURES: There is degenerative disc disease at L5-S1. CT/CT abdomen pelvis w IV con IMPRESSION: No acute intra-abdominal/intrapelvic abnormality is seen. The liver is enlarged and steatotic. There is a 2.4 x 1.8 cm right adnexal lesion that measures greater than simple fluid. On the prior examination this lesion measured 2 x 1.9 cm. Further evaluation with nonemergent pelvic ultrasound can be performed as clinically indicated. Fleischner guidelines were followed.
--- NOTE | ~2023-12-14 | XR_ITS ---
EXAMINATION: XR CHEST CLINICAL INFORMATION: Cough. COMPARISON: None available. TECHNIQUE: 2 views of the chest were obtained. FINDINGS: No significant abnormality is noted involving the heart, lungs, mediastinum, bony thorax or soft tissues. XR/XR chest 2V IMPRESSION: Unremarkable examination.
--- NOTE | 2023-12-14 12:11 | ECG_ITS ---
Test Reason : CHEST TIGHTNESS Blood Pressure : / mmHG Vent. Rate : 097 BPM Atrial Rate : 097 BPM P-R Int : 140 ms QRS Dur : 084 ms QT Int : 380 ms P-R-T Axes : 034 040 036 degrees QTc Int : 482 ms Normal sinus rhythm Low voltage QRS Prolonged QT Abnormal ECG No previous ECGs available Referred By: Generic ED Physician Electronically Signed By:Iglesia Prado
[2023-12-14 12:17] VITALS: BP 120/80; PULSE 90; O2SAT 98
[2023-12-14 12:30] VITALS: BP 112/82; PULSE 99; RESP 16; TEMP 36; O2SAT 94; BMI 34.0
--- NOTE | 2023-12-14 12:30 | ED_ITS ---
HPI - General Adult General Chief complaint: Nausea/Vomiting/Diarrhea Stated complaint: N/V/D,ABD/CHEST PAIN,WEAK, X4 DAYS,HIGH BP PER EMS Time Seen by Provider: 12/14/23 13:33 History of Present Illness HPI narrative: No presented today with having nausea vomiting diarrhea generalized malaise coughing congestion upper respiratory symptoms. Patient has been drinking for the last 2 days heavily. Feels nauseous with vomiting continuing to drink heavily yesterday. Feel very weak. Now having abdominal pain vomiting mostly food. Diarrhea is yellowish in color. Has diffuse abdominal pain worse in the upper abdomen. Patient had a hysterectomy many years ago. Coughing productive of greenish sputum. Patient claims she is vaccinated for COVID. History of hypertension, hyperlipidemia larger in size history of sleep apnea Related Data Home Medications Medication Instructions Recorded Confirmed alprazolam 1 mg tablet 1 mg PO BID 04/03/21 07/17/23 trazodone 50 mg tablet 200 mg PO DAILY 04/03/21 07/18/23 zolpidem 5 mg tablet (Ambien) 5 mg PO BEDTIME PRN Insomnia 12/03/21 07/17/23 metformin 500 mg tablet 500 mg PO BID 10/21/22 07/17/23 citalopram 10 mg tablet 10 mg PO QAM 07/17/23 07/17/23 hydroxyzine pamoate 25 mg capsule 25 mg PO BEDTIME PRN Anxiety 07/17/23 07/17/23 prazosin 1 mg capsule 1 mg PO BEDTIME 07/17/23 07/17/23 albuterol sulfate 90 mcg/actuation 2 puff inhalation Q4H 07/18/23 07/18/23 aerosol inhaler (Ventolin HFA) loratadine 10 mg tablet 10 mg PO QAM 07/18/23 07/18/23 losartan 50 mg tablet 50 mg PO DAILY 08/26/23 Previous Rx's Medication Instructions Recorded fluticasone propionate 50 2 spray intranasal DAILY 30 days 02/24/22 mcg/actuation nasal #15.8 mL spray,suspension docusate sodium 100 mg capsule 100 mg PO BID #30 caps 07/23/23 moreno (Ultra-Light Rollator misc) #1 ea 07/23/23 4x4 sterile gaze #20 ea 07/28/23 Zuleyma rolls #20 ea 07/28/23 Normal saline #1 ea 09/10/23 omeprazole 20 mg capsule,delayed 20 mg PO DAILY #30 caps 10/20/23 release bisacodyl 5 mg tablet,delayed 10 mg (2 x 5 mg) PO BEDTIME #60 11/10/23 release tabs ondansetron 4 mg disintegrating 4 mg PO TID PRN nausea and 12/14/23 tablet vomiting 5 days #10 tabs Allergies Allergy/AdvReac Type Severity Reaction Status Date / Time No Known Allergies Allergy Verified 11/30/23 13:29 Review of Systems 2 Review of Systems: Positive coughing upper respiratory symptoms Positive nausea vomiting diarrhea PMFSH Past Medical History Attestation statement: The following information was validated with the patient. Medical History Morbid obesity Abdominal pain DAVID (obstructive sleep apnea) Asthma Drowsiness Fatigue Surgical History Hernia, umbilical History of esophagogastroduodenoscopy (EGD) History of cholecystectomy History of hysterectomy Family History Family History Paternal Grandfather Liver cancer Maternal Grandfather Prostate cancer Social History Social History Household Members: None Housing: Apartment Alcohol intake: never Patient Tobacco Use Status: Never used Tobacco Tobacco use type: Cigarette Cigarette Packs Per Day: 3 Cigarettes Per Day: 3 Smoked in Last 30 Days: No Use of substances other than those prescribed or required for medical reasons: No Advance Directives: No Patient : No service: No Physical Exam ED Vital Signs: Vital Signs - 24 hr 12/14/23 12:30 12/14/23 16:24 Temperature 96.8 F 97.7 F Pulse Rate 99 79 Respiratory Rate 16 16 Blood Pressure 112/82 112/64 Pulse Oximetry 94 96 Oxygen Delivery Method Room Air Room Air BMI result Body Mass Index 34.0 Appearance: Alert. Oriented X3. No acute distress. Eyes: Pupils equal, round and reactive to light. ENT: Pharynx normal. Neck: Normal inspection. Neck supple. No lymph nodes noted. No crepitus CVS: Normal heart rate and rhythm. Pulses normal. Normal S1 and S2 Respiratory: No respiratory distress. Breath sounds normal. No Wheezing. No rales Abdomen: Soft and nontender. No rigidity. No distention. good BS x4 Skin: Skin warm and dry. Normal skin color. Normal skin turgor. Extremities: No lower extremity edema. Neurovascular intact to all extremities. No Lacerations. No Rash Neuro: Oriented X 3. No motor deficit. No sensory deficit. Moving all extermities. No slurred speech Course Course Course Narrative: RME performed by Rebeka Salas PA-C. Patient is a 43 year old assigned female at presenting to the emergency department with nausea and vomiting. Detailed physical exam and review of systems are deferred to the casino shift manager. Labs ordered. Patient placed back in the waiting room pending room availability and results. Medications Administered Discontinued Medications Generic Name Dose Route Start Last Admin Trade Name Freq PRN Reason Stop Dose Admin Al Hydroxide/Mg Hydroxide 30 ml 12/14/23 16:36 12/14/23 16:45 Magnesium Hydrox/Alum Hydrox 30 Ml Oral.Susp PO 12/14/23 16:37 30 ml ONCE ONE Administration Sodium Chloride 1,000 mls @ 999 mls/hr 12/14/23 14:45 12/14/23 16:35 Ns IV 12/14/23 15:45 Infused .Q1H1M PRANEETH Infusion Iohexol 100 ml 12/14/23 15:08 12/14/23 15:08 Iohexol 350 Mg/Ml 100 Ml Infus..Btl IV 12/14/23 15:09 85 ml ONCE ONE Administration Ondansetron HCl 4 mg 12/14/23 14:44 12/14/23 15:33 Ondansetron Hcl 4 Mg/2 Ml Vial IVPUSH 12/14/23 14:45 4 mg ONCE ONE Administration Medical Decision Making Medical Decision Making [facility] Narrative: Please see the other dictation from the same day. Lab Data 12/14/23 13:01 12/14/23 13:01 Labs: Lab Results 12/14/23 12/14/23 Range/Units 13:01 13:58 WBC 7.5 (4.8-10.8) X10*3/uL RBC 5.06 (4.20-5.50) X10*6/uL Hgb 15.1 (12.0-16.0) g/dl Hct 43.5 (37.0-47.0) % MCV 86.0 (80.0-98.0) fL MCH 29.8 (27.0-33.0) pg MCHC 34.7 (31.0-35.0) g/dl RDW 15.1 (11.0-16.0) % Plt Count 247 D (160-400) X10*3/uL MPV 11.0 (9.4-12.3) fL Immature Gran % (Auto) 0.3 (0.0-0.4) % Neut % (Auto) 57.3 (45-73) % Lymph % (Auto) 34.3 (20-40) % [place] % (Auto) 6.0 (2-11) % Eos % (Auto) 0.8 (0-4) % Baso % (Auto) 1.3 (0-2) % Lymph # (Auto) 2.6 (1.2-4.9) X10*3/uL [place] # (Auto) 0.5 (0.1-1.2) X10*3/uL Eos # (Auto) 0.1 (0.0-0.4) X10*3/uL Baso # (Auto) 0.1 (0.0-0.2) X10*3/uL Abs Immat Gran (auto) 0.02 (0.00-0.03) X10*3/uL Absolute Neuts (auto) 4.3 (2.0-8.3) x10*3/uL Absolute Nucleated RBC 0.000 (0.0-0.012) X10*3/uL Nucleated RBC % (auto) 0.0 (0.0-0.2) /100WBC Sodium 138 (135-145) mmol/L Potassium 3.9 (3.3-5.1) mmol/L Chloride 103 (96-108) mmol/L Carbon Dioxide 22 (22-29) mmol/L Anion Gap 17 (12-20) BUN 13 (9-16) mg/dL Creatinine 0.73 (0.5-1.4) mg/dL Estim Creat Clear Calc 117.3 Estimated GFR > 60 Random Glucose 156 H (60-115) mg/dL Calcium 8.1 L D (8.4-10.2) mg/dL Magnesium 2.0 (1.6-2.6) mg/dL Total Bilirubin 0.5 (0.0-1.0) mg/dL AST 32 H (5-31) U/L ALT 32 H (0-31) U/L Alkaline Phosphatase 76 (39-117) U/L Troponin I High Sens < 2.7 (<3.5-17.0) ng/L Total Protein 7.4 (6.5-8.0) g/dL Albumin 3.9 (3.5-5.0) g/dL Urine Color Yellow Urine Appearance Cloudy Urine pH 5.5 (5.0-9.0) Ur Specific [place] >= 1.030 H (1.005-1.025) Urine Protein Trace (Neg-Trace) mg/dL Urine Glucose (UA) Negative (Negative) mg/dL Urine Ketones Negative (Negative) mg/dL Urine Blood Negative (Negative) Urine Nitrite Negative (Negative) Ur Leukocyte Esterase Negative (Negative) Ethyl Alcohol 188 mg/dL COVID-19 (ARLYN) Negative (Negative) COVID-19 Clin Com See Note Influenza Type A (KALIA) Negative (Negative) Influenza Type B (KALIA) Negative (Negative) Influenza A & B Note See Note Discharge Plan Discharge Clinical Impression: Alcohol intoxication Patient Disposition: Home, Self-Care Instructions: Alcohol Intoxication (ED) Prescriptions: New ondansetron 4 mg tablet,disintegrating 4 mg PO TID PRN (Reason: nausea and vomiting) 5 Days Qty: 10 0RF No Action (DME) 4x4 sterile gaze See Rx Instructions .Route .MEDSUPPLY Qty: 20 3RF Rx Instructions: As directed (DME) Zuleyma rolls 4 inch See Rx Instructions .Route .MEDSUPPLY Qty: 20 3RF Rx Instructions: As directed (DME) Normal saline 500 cc See Rx Instructions .Route .MEDSUPPLY Qty: 1 0RF Rx Instructions: Normal saline wet to dry dressing every other day omeprazole 20 mg capsule,delayed release(DR/EC) 20 mg PO DAILY Qty: 30 3RF bisacodyl 5 mg tablet,delayed release (DR/EC) 10 mg PO BEDTIME Qty: 60 1RF citalopram 10 mg tablet 10 mg PO QAM prazosin 1 mg capsule 1 mg PO BEDTIME hydroxyzine pamoate 25 mg capsule 25 mg PO BEDTIME PRN (Reason: Anxiety) albuterol sulfate [Ventolin HFA] 90 mcg/actuation HFA aerosol inhaler 2 puff inhalation Q4H loratadine 10 mg tablet 10 mg PO QAM (DME) Ultra-Light Rollator Misc See Rx Instructions .ROUTE .MEDSUPPLY Qty: 1 0RF Rx Instructions: As directed docusate sodium 100 mg Capsule 100 mg PO BID Qty: 30 0RF alprazolam 1 mg tablet 1 mg PO BID trazodone 50 mg tablet 200 mg PO DAILY zolpidem [Ambien] 5 mg tablet 5 mg PO BEDTIME PRN (Reason: Insomnia) metformin 500 mg tablet 500 mg PO BID fluticasone propionate 50 mcg/actuation spray,suspension 2 spray intranasal DAILY 30 Days Qty: 15.8 11RF losartan 50 mg tablet 50 mg PO DAILY
[2023-12-14 13:05] LABS: MANUAL DIFF FLAG NO
[2023-12-14 13:11] LABS: Basophils Absolute Auto 0.1 X10*3/uL (0.0-0.2); Basophils Percent Auto 1.3 % (0-2); Eosinophils Absolute Auto 0.1 X10*3/uL (0.0-0.4); Eosinophils Percent Auto 0.8 % (0-4); Hematocrit 43.5 % (37.0-47.0); Hemoglobin 15.1 g/dl (12.0-16.0); Imm Gran Abs Auto 0.02 X10*3/uL (0.00-0.03); Imm Gran Pct Auto 0.3 % (0.0-0.4); Lymphocytes Absolute Auto 2.6 X10*3/uL (1.2-4.9); Lymphocytes Percent Auto 34.3 % (20-40); Mean Corpuscular HGB Conc 34.7 g/dl (31.0-35.0); Mean Corpuscular Hemoglobin 29.8 pg (27.0-33.0); Monocytes Absolute Auto 0.5 X10*3/uL (0.1-1.2); Neutrophils Absolute Auto 4.3 x10*3/uL (2.0-8.3); Neutrophils Percent Auto 57.3 % (45-73); Platelet Count 247 X10*3/uL (160-400); Red Blood Count 5.06 X10*6/uL (4.20-5.50); Red Cell Distribution Width 15.1 % (11.0-16.0); White Blood Count 7.5 X10*3/uL (4.8-10.8)
[2023-12-14 13:24] LABS: Alanine Aminotransferase 32 U/L (0-31); Albumin Level 3.9 g/dL (3.5-5.0); Alkaline Phosphatase 76 U/L (39-117); Anion Gap 17 (12-20); Aspartate Amino Transferase 32 U/L (5-31); Bilirubin Total 0.5 mg/dL (0.0-1.0); Blood Urea Nitrogen 13 mg/dL (9-16); Calcium 8.1 mg/dL (8.4-10.2); Carbon Dioxide 22 mmol/L (22-29); Chloride 103 mmol/L (96-108); Creatinine Clr Calc Pharmacy 117.3; Estimated Glomerular Filt Rate > 60; Glucose Random 156 mg/dL (60-115); Potassium 3.9 mmol/L (3.3-5.1); Sodium 138 mmol/L (135-145); Total Protein 7.4 g/dL (6.5-8.0)
--- NOTE | 2023-12-14 13:31 | PC.NURSE ---
Pt brought in to assigned room she is eating potatoe chips without nausea or vomiting. adviced to wait until seen by provider
[2023-12-14 13:33] LABS: Troponin-I High Sensitivity < 2.7 ng/L (<3.5-17.0)
[2023-12-14 13:38] LABS: COVID-19 Test Negative (Negative); IDNOW Serial# 58CA691E
--- NOTE | 2023-12-14 13:47 | ED_ITS ---
HPI - Nausea/Vomiting/Diarrhea General Chief complaint: Nausea/Vomiting/Diarrhea Stated complaint: N/V/D,ABD/CHEST PAIN,WEAK, X4 DAYS,HIGH BP PER EMS Time Seen by Provider: 12/14/23 13:33 History of Present Illness HPI Narrative: Patient is a 43-year-old female complaining of a history of fatty liver. Started to drink heavily for the last 2 days. Yesterday patient started having nausea vomiting. Continued to drink heavily. Complaining of abdominal pain. Also complaining of coughing congestion upper respiratory symptoms. Generalized malaise. No bloody stool. Vomiting mostly food. Now having some chest pain as well. Related Data Home Medications Medication Instructions Recorded Confirmed alprazolam 1 mg tablet 1 mg PO BID 04/03/21 07/17/23 trazodone 50 mg tablet 200 mg PO DAILY 04/03/21 07/18/23 zolpidem 5 mg tablet (Ambien) 5 mg PO BEDTIME PRN Insomnia 12/03/21 07/17/23 metformin 500 mg tablet 500 mg PO BID 10/21/22 07/17/23 citalopram 10 mg tablet 10 mg PO QAM 07/17/23 07/17/23 hydroxyzine pamoate 25 mg capsule 25 mg PO BEDTIME PRN Anxiety 07/17/23 07/17/23 prazosin 1 mg capsule 1 mg PO BEDTIME 07/17/23 07/17/23 albuterol sulfate 90 mcg/actuation 2 puff inhalation Q4H 07/18/23 07/18/23 aerosol inhaler (Ventolin HFA) loratadine 10 mg tablet 10 mg PO QAM 07/18/23 07/18/23 losartan 50 mg tablet 50 mg PO DAILY 08/26/23 Previous Rx's Medication Instructions Recorded fluticasone propionate 50 2 spray intranasal DAILY 30 days 02/24/22 mcg/actuation nasal #15.8 mL spray,suspension docusate sodium 100 mg capsule 100 mg PO BID #30 caps 07/23/23 walker (Ultra-Light Rollator misc) #1 ea 07/23/23 4x4 sterile gaze #20 ea 07/28/23 Zuleyma rolls #20 ea 07/28/23 Normal saline #1 ea 09/10/23 omeprazole 20 mg capsule,delayed 20 mg PO DAILY #30 caps 10/20/23 release bisacodyl 5 mg tablet,delayed 10 mg (2 x 5 mg) PO BEDTIME #60 11/10/23 release tabs ondansetron 4 mg disintegrating 4 mg PO TID PRN nausea and 12/14/23 tablet vomiting 5 days #10 tabs Allergies Allergy/AdvReac Type Severity Reaction Status Date / Time No Known Allergies Allergy Verified 11/30/23 13:29 [facility] Past Medical History Medical History Morbid obesity Abdominal pain DAVID (obstructive sleep apnea) Asthma Drowsiness Fatigue Surgical History Hernia, umbilical History of esophagogastroduodenoscopy (EGD) History of cholecystectomy History of hysterectomy Family History Family History Paternal Grandfather Liver cancer Maternal Grandfather Prostate cancer Social History Social History Household Members: None Housing: Apartment Alcohol intake: never Patient Tobacco Use Status: Never used Tobacco Tobacco use type: Cigarette Cigarette Packs Per Day: 3 Cigarettes Per Day: 3 Smoked in Last 30 Days: No Use of substances other than those prescribed or required for medical reasons: No Advance Directives: No Patient : No service: No Physical Exam 2 Vital Signs: Vital Signs: Last Vital Signs Temp 97.7 F 12/14/23 16:24 Pulse 79 12/14/23 16:24 Resp 16 12/14/23 16:24 BP 112/64 12/14/23 16:24 Pulse Ox 96 12/14/23 16:24 O2 Del Method Room Air 12/14/23 16:24 BMI result Body Mass Index 34.0 Medications Administered Discontinued Medications Generic Name Dose Route Start Last Admin Trade Name Freq PRN Reason Stop Dose Admin Al Hydroxide/Mg Hydroxide 30 ml 12/14/23 16:36 12/14/23 16:45 Magnesium Hydrox/Alum Hydrox 30 Ml Oral.Susp PO 12/14/23 16:37 30 ml ONCE ONE Administration Sodium Chloride 1,000 mls @ 999 mls/hr 12/14/23 14:45 12/14/23 15:34 Ns IV 12/14/23 15:45 999 mls/hr .Q1H1M PRANEETH Administration Iohexol 100 ml 12/14/23 15:08 12/14/23 15:08 Iohexol 350 Mg/Ml 100 Ml Infus..Btl IV 12/14/23 15:09 85 ml ONCE ONE Administration Ondansetron HCl 4 mg 12/14/23 14:44 12/14/23 15:33 Ondansetron Hcl 4 Mg/2 Ml Vial IVPUSH 12/14/23 14:45 4 mg ONCE ONE Administration Medical Decision Making Medical Decision Making [facility] Narrative: Patient presented with nausea vomiting abdominal pain question etiology positive EtOH. CT scan of the abdomen pelvis was done. I reviewed radiology's reading. There has no overt evidence of obstruction. There is an ovarian cyst noted which was there previously. Patient's alcohol is approximately 180. Likely related to patient's drinking for the last 2 days. Patient denies any fever chills. Her troponin was negative. She had nonspecific chest pain her EKG showed a sinus pattern heart rate was 100 MI QRS QTC within normal limits is no acute ST segment elevation. There is nonspecific T-wave flattening. Patient's chest x-ray was grossly negative for any acute infiltrate. Patient to be discharged home. Symptom improved after IV fluids. In stable condition. Differential Diagnosis Differential Diagnoses: The differential diagnosis associated with the presentation includes ACS, pneumonia, obstruction, alcohol intoxication, perforation Admission/Observation Consideration of admission/observation: Escalation of care including admission/observation considered Symptom improved Lab Data [facility] Lab Attestation statement: I reviewed the patient's lab results. 12/14/23 13:01 12/14/23 13:01 Labs: Lab Results 12/14/23 12/14/23 Range/Units 13:01 13:58 WBC 7.5 (4.8-10.8) X10*3/uL RBC 5.06 (4.20-5.50) X10*6/uL Hgb 15.1 (12.0-16.0) g/dl Hct 43.5 (37.0-47.0) % MCV 86.0 (80.0-98.0) fL MCH 29.8 (27.0-33.0) pg MCHC 34.7 (31.0-35.0) g/dl RDW 15.1 (11.0-16.0) % Plt Count 247 D (160-400) X10*3/uL MPV 11.0 (9.4-12.3) fL Immature Gran % (Auto) 0.3 (0.0-0.4) % Neut % (Auto) 57.3 (45-73) % Lymph % (Auto) 34.3 (20-40) % Scott % (Auto) 6.0 (2-11) % Eos % (Auto) 0.8 (0-4) % Baso % (Auto) 1.3 (0-2) % Lymph # (Auto) 2.6 (1.2-4.9) X10*3/uL Scott # (Auto) 0.5 (0.1-1.2) X10*3/uL Eos # (Auto) 0.1 (0.0-0.4) X10*3/uL Baso # (Auto) 0.1 (0.0-0.2) X10*3/uL Abs Immat Gran (auto) 0.02 (0.00-0.03) X10*3/uL Absolute Neuts (auto) 4.3 (2.0-8.3) x10*3/uL Absolute Nucleated RBC 0.000 (0.0-0.012) X10*3/uL Nucleated RBC % (auto) 0.0 (0.0-0.2) /100WBC Sodium 138 (135-145) mmol/L Potassium 3.9 (3.3-5.1) mmol/L Chloride 103 (96-108) mmol/L Carbon Dioxide 22 (22-29) mmol/L Anion Gap 17 (12-20) BUN 13 (9-16) mg/dL Creatinine 0.73 (0.5-1.4) mg/dL Estim Creat Clear Calc 117.3 Estimated GFR > 60 Random Glucose 156 H (60-115) mg/dL Calcium 8.1 L D (8.4-10.2) mg/dL Magnesium 2.0 (1.6-2.6) mg/dL Total Bilirubin 0.5 (0.0-1.0) mg/dL AST 32 H (5-31) U/L ALT 32 H (0-31) U/L Alkaline Phosphatase 76 (39-117) U/L Troponin I High Sens < 2.7 (<3.5-17.0) ng/L Total Protein 7.4 (6.5-8.0) g/dL Albumin 3.9 (3.5-5.0) g/dL Urine Color Yellow Urine Appearance Cloudy Urine pH 5.5 (5.0-9.0) Ur Specific [place] >= 1.030 H (1.005-1.025) Urine Protein Trace (Neg-Trace) mg/dL Urine Glucose (UA) Negative (Negative) mg/dL Urine Ketones Negative (Negative) mg/dL Urine Blood Negative (Negative) Urine Nitrite Negative (Negative) Ur Leukocyte Esterase Negative (Negative) Ethyl Alcohol 188 mg/dL COVID-19 (ARLYN) Negative (Negative) COVID-19 Clin Com See Note Influenza Type A (KALIA) Negative (Negative) Influenza Type B (KALIA) Negative (Negative) Influenza A & B Note See Note Independent Interpretation I performed an independent interpretation of an: CT Scan (CT scan of the abdomen pelvis showed no acute obstruction abscess perforation) Radiology Impression Discussion of test interpretation with radiology: I have reviewed the radiologist's reading. Radiologist Impression: Chest x-ray and CT scan of the abdomen External Record Review External record reviewed: Office record Clinical note reviewed Social Determinants Patient?s care significantly limited by Social Determinants of Health including: Alcoholism and drug addiction in family Discharge Plan Discharge Clinical Impression: Alcohol intoxication Patient Disposition: Home, Self-Care Instructions: Alcohol Intoxication (ED) Prescriptions: New ondansetron 4 mg tablet,disintegrating 4 mg PO TID PRN (Reason: nausea and vomiting) 5 Days Qty: 10 0RF No Action (DME) 4x4 sterile gaze See Rx Instructions .Route .MEDSUPPLY Qty: 20 3RF Rx Instructions: As directed (DME) Zuleyma rolls 4 inch See Rx Instructions .Route .MEDSUPPLY Qty: 20 3RF Rx Instructions: As directed (DME) Normal saline 500 cc See Rx Instructions .Route .MEDSUPPLY Qty: 1 0RF Rx Instructions: Normal saline wet to dry dressing every other day omeprazole 20 mg capsule,delayed release(DR/EC) 20 mg PO DAILY Qty: 30 3RF bisacodyl 5 mg tablet,delayed release (DR/EC) 10 mg PO BEDTIME Qty: 60 1RF citalopram 10 mg tablet 10 mg PO QAM prazosin 1 mg capsule 1 mg PO BEDTIME hydroxyzine pamoate 25 mg capsule 25 mg PO BEDTIME PRN (Reason: Anxiety) albuterol sulfate [Ventolin HFA] 90 mcg/actuation HFA aerosol inhaler 2 puff inhalation Q4H loratadine 10 mg tablet 10 mg PO QAM (DME) Ultra-Light Rollator Misc See Rx Instructions .ROUTE .MEDSUPPLY Qty: 1 0RF Rx Instructions: As directed docusate sodium 100 mg Capsule 100 mg PO BID Qty: 30 0RF alprazolam 1 mg tablet 1 mg PO BID trazodone 50 mg tablet 200 mg PO DAILY zolpidem [Ambien] 5 mg tablet 5 mg PO BEDTIME PRN (Reason: Insomnia) metformin 500 mg tablet 500 mg PO BID fluticasone propionate 50 mcg/actuation spray,suspension 2 spray intranasal DAILY 30 Days Qty: 15.8 11RF losartan 50 mg tablet 50 mg PO DAILY
[2023-12-14 14:01] LABS: IDNOW Serial# 9DB6401D; Influenza B2 Negative (Negative)
[2023-12-14 14:02] LABS: Influenza A Negative (Negative)
[2023-12-14 14:17] LABS: Appearance Urine Cloudy; Color Urine Yellow; Glucose Urine UA Negative (Negative); Leukocyte Esterase Urine Negative (Negative); Nitrite Urine Negative (Negative); PH 5.5 (5.0-9.0); Specific Gravity - Urine >= 1.030 (1.005-1.025); Urine Blood Negative (Negative); Urine Ketones Negative (Negative); Urine Protein Trace mg/dL (Neg-Trace)
[2023-12-14 14:36] LABS: Ethanol 188 mg/dL
[2023-12-14] MEDS: iohexoL 350 MG/ML 100 ML INFUS..BTL IV (15:08)
[2023-12-14] MEDS: ondansetron HCL 4 MG/2 ML VIAL IVPUSH (15:33)
[2023-12-14] MEDS: 0.9 % Sodium Chloride 1,000 ML 999 ML IV (15:34)
--- NOTE | 2023-12-14 15:34 | PC.NURSE ---
medication/IVF administered per provider order.
[2023-12-14 16:24] VITALS: BP 112/64; PULSE 79; RESP 16; TEMP 36.5; O2SAT 96
--- NOTE | 2023-12-14 16:25 | PC.NURSE ---
vbss and up to date at this time. pt still verbalizing feeling nauseous despite medication administration. pt requesting pain medication d/t 08/11 abd pain. will notify provider. respirations remain even and unlabored. call byrd placed within reach.
[2023-12-14] MEDS: Magnesium Hydrox/Alum Hydrox 30 ML ORAL.SUSP PO (16:45)
--- NOTE | 2023-12-14 16:45 | PC.NURSE ---
medication administered per provider order. effectiveness pending at this time. will reassess.
== END 2023-12-14 19:25 | disposition home or self-care (01) ==
PROVIDERS: Physician Assistant Medical; Emergency Provider Emergency Medicine Emergency Medical Services
DX: R11.2 Nausea with vomiting, unspecified (principal); R07.89 Other chest pain; R53.1 Weakness; R10.2 Pelvic and perineal pain; F10.129 Alcohol abuse with intoxication, unspecified; Y90.6 Blood alcohol level of 120-199 mg/100 ml; Z11.52 Encounter for screening for COVID-19; Z79.899 Other long term (current) drug therapy
CPT/HCPCS: 71046; 74177; 80053; 80307; 81003; 83735; 84484; 85025; 87502; 87635; 93005; 96361; 96374; 99284; 99285; J2405; Q9967

== ENCOUNTER → 2023-12-14 12:11 | Outpatient (BNV) | payer MEDICAID, SELFPAY | PROVIDERS: Emergency Provider Emergency Medicine Emergency Medical Services; Visit Provider Internal Medicine Cardiovascular Disease | DX: R94.31 Abnormal electrocardiogram [ECG] [EKG] (principal) | CPT/HCPCS: 93010 ==

== ENCOUNTER 2023-12-28 11:12 | Outpatient (AMB) | payer MEDICAID, SELFPAY ==
[2023-12-28 11:38] VITALS: BP 118/67; PULSE 84; BMI 35.1
--- NOTE | 2023-12-28 11:38 | MHC.OFFVIS ---
Intake Vital Signs 12/28/23 11:38 Height 5 ft 7 in Weight 224 lb 6.889 oz BMI 35.1 BP 118/67 Blood Pressure Location Lt brachial Position Sitting Pulse 84 Intake Visit Reasons: Follow up Constipation PT N/S last appt Intake Note: Patient returns in follow up of constipation. CC: She c/o nausea, constipation, diarrhea, and abdominal pain. She states that Ondansetron does not help with symptoms of nausea. 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 Patient can continue current PPI treatment. Patient will go for gastric emptying study to rule out gastroparesis. IBS (irritable bowel syndrome) Postprandial abdominal bloating and cramping. Patient does not move her bowels well. Was taking Linzess, however that was making her stools very loose and then she was constipated. Continue avoiding dietary triggers. Will rule out pancreatic insufficiency. Chronic idiopathic constipation Patient was stop Linzess. Patient will start taking Dulcolax tablets with docusate sodium in the evening. Patient will call me if this not going to be effective. Postprandial abdominal bloating Postprandial abdominal bloating. Will send patient for gastric emptying study. I will see her in 3 weeks, sooner on as needed basis. Ritchie is agreeable to this plan and verbalizes understanding of instructions. She was given the opportunity to ask questions and all questions answered. ? Thank you for allowing me to participate in her care Plan Orders Orders NM gastric emptying study Today K29.70 Pancreatic Elastase-1 Today R10.9 Medications New bisacodyl (Dulcolax (bisacodyl)) 10 mg (2 x 5 mg) PO BEDTIME 180 tabs 4RF docusate sodium 100 mg PO BEDTIME 90 caps 3RF K59.00 Discontinued linaclotide (Linzess) Discontinued Reason: Doctor's Order 145 mcg PO DAILY 90 caps 2RF TODAY'S VISIT: Patient is here today for requested visit. I have not seen patient since July of 2022. Patient reports that she no longer is using omeprazole. Patient ran out of it. She is not moving her bowels every day. Currently is not taking anything. Sometimes no BM for 2-3 days. Sometimes patient will have diarrhea. Patient reports postprandial abdominal cramping and bloating. Epigastric discomfort postprandially. Patient denies eating late at night. Patient denies any melena, hematochezia, unintentional weight loss or ribbon like stools. Patient reports dyspepsia without dysphagia or odynophagia. Patient will undergo surgical procedure next month to repair umbilical hernia. [facility] Medical History Morbid obesity Abdominal pain DAVID (obstructive sleep apnea) Asthma Drowsiness Fatigue Surgical History Hernia, umbilical History of esophagogastroduodenoscopy (EGD) History of cholecystectomy History of hysterectomy Family History Paternal Grandfather Liver cancer Maternal Grandfather Prostate cancer Social History Household Members: None Housing: Apartment Alcohol intake: never Patient Tobacco Use Status: Never used Tobacco Tobacco use type: Cigarette Cigarette Packs Per Day: 3 Cigarettes Per Day: 3 service: No Review of Systems Const Denies weight gain and Denies weight loss ENT Reports no additional complaints, Denies dysphagia and Denies odynophagia Card Reports no additional complaints Resp Reports no additional complaints GI Reports abdominal pain, Denies belching, Denies melena, Reports bloating, Denies change in bowel habits, Reports constipation, Denies dysphagia, Denies excessive flatus, Denies dyspepsia, Reports heartburn, Denies diarrhea, Denies loose stools, Reports nausea, Denies odynophagia and Denies vomiting Reports no additional complaints Musc Reports no additional complaints Neuro Reports no additional complaints Psych Reports no additional complaints Endo Reports no additional complaints Physical Exam Vital Signs: Last Vital Signs Pulse 84 12/28/23 11:38 BP 118/67 12/28/23 11:38 BMI result Body Mass Index 35.1 Const General: healthy appearing, no acute distress and well developed Nutritional Appearance: obese Orientation/consciousness: patient oriented x3 Resp Effort & Inspection: normal respiratory effort, able to speak in complete sentences, no tracheal deviation and symmetric chest movement Auscultation: clear to auscultation bilaterally Cardio Rate: regular rate GI Inspection: Yes normal to inspection, No distended and Yes obesity Palpation (GI): Soft to palpation, not firm, nontender and No hepatosplenomegaly present Auscultation: normal bowel sounds General: Yes no CVA tenderness Back/Spine/Pelvis Back: no CVA tenderness Skin General skin exam: elasticity normal, turgor normal and dry skin Neuro General: patient oriented x3 Psych Appearance: grossly normal Mental Status: mental status grossly normal Assessment & Plan Assessment & Plan (1) GERD (gastroesophageal reflux disease): Code(s): K21.9 - Gastro-esophageal reflux disease without esophagitis Qualifiers: Esophagitis presence: esophagitis presence not specified Qualified Code(s): K21.9 - Gastro-esophageal reflux disease without esophagitis (2) IBS (irritable bowel syndrome): Code(s): K58.9 - Irritable bowel syndrome without diarrhea Qualifiers: Irritable bowel syndrome type: with both diarrhea and constipation Qualified Code(s): K58.2 - Mixed irritable bowel syndrome (3) Chronic idiopathic constipation: Code(s): K59.04 - Chronic idiopathic constipation (4) Postprandial abdominal bloating: Code(s): R14.0 - Abdominal distension (gaseous) Plan Patient will start taking famotidine at bedtime and pantoprazole in the morning half an hour before breakfast. Patient will try take Citrucel daily in the morning with full glass of water and senna to help her eliminate her bowels completely. Patient will call the office if she will continue to be constipated. Patient will return in 4-5 weeks so we can discuss going for upper endoscopy and possible colonoscopy. Patient is agreeable to current plan and verbalizes understanding of instructions. She was given the opportunity to ask questions and all questions answered. Thank you for allowing me to participate in her care Medications: New famotidine (Pepcid) 20 mg PO BEDTIME 30 tabs 3RF K21.9 - Gastro-esophageal reflux disease without esophagitis pantoprazole take one tablet half an hour before breakfast 40 mg PO DAILY 30 tabs 2RF K21.9 - Gastro-esophageal reflux disease without esophagitis methylcellulose (laxative) (Citrucel) 500 mg PO DAILY 30 tabs 2RF K59.00 - Constipation, unspecified sennosides (Natural Senna Laxative) 17.2 mg (2 x 8.6 mg) PO BEDTIME 60 tabs 3RF constipation K59.00 - Constipation, unspecified Discontinued omeprazole Discontinued Reason: Doctor's Order 20 mg PO DAILY 30 caps 3RF K21.9 - Gastro-esophageal reflux disease without esophagitis bisacodyl Discontinued Reason: Patient no longer taking 10 mg (2 x 5 mg) PO BEDTIME 60 tabs 1RF Coding Level of Care Code Est Pt Level 4 (80486) Diagnoses Gastroesophageal reflux disease, unspecified whether esophagitis present K21.9 Esophagitis presence: esophagitis presence not specified Irritable bowel syndrome with both constipation and diarrhea K58.2 Irritable bowel syndrome type: with both diarrhea and constipation Chronic idiopathic constipation K59.04 Postprandial abdominal bloating R14.0 Time Spent (min) 35 Comment 20 minutes spent with patient and additional 15 minutes spent reviewing her records
== END 2023-12-28 12:33 | disposition home or self-care (01) ==
PROVIDERS: PCP Student in an Organized Health Care Education/Training Program; Visit Provider Nurse Practitioner Family
DX: K21.9 Gastro-esophageal reflux disease without esophagitis (principal); K58.2 Mixed irritable bowel syndrome; K59.04 Chronic idiopathic constipation; R14.0 Abdominal distension (gaseous)
CPT/HCPCS: 99214

== ENCOUNTER → 2023-12-28 11:12 | Outpatient (BNVA) | payer MEDICAID, SELFPAY | PROVIDERS: PCP Student in an Organized Health Care Education/Training Program; Visit Provider Nurse Practitioner Family | DX: K21.9 Gastro-esophageal reflux disease without esophagitis (principal); K58.2 Mixed irritable bowel syndrome; K59.04 Chronic idiopathic constipation; R14.0 Abdominal distension (gaseous) | CPT/HCPCS: 99212 ==

== ENCOUNTER 2024-04-14 13:28 | Emergency (ER) | payer MEDICAID, SELFPAY ==
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
--- NOTE | ~2024-04-14 | XR_ITS ---
EXAMINATION: XR CHEST CLINICAL INFORMATION: Possible aspiration COMPARISON: None available. TECHNIQUE: Frontal view of the chest was obtained. FINDINGS: Lungs clear. Heart and pulmonary vessels normal. There is degenerative change in the right glenohumeral joint. XR/XR chest 1V IMPRESSION: No active disease.
--- NOTE | ~2024-04-14 | CT_ITS ---
EXAMINATION: CT HEAD WITHOUT CONTRAST CLINICAL INFORMATION: Head trauma COMPARISON: MRI brain 08/26/2022 TECHNIQUE: Contiguous axial imaging was performed from the skull base to vertex without intravenous administration of contrast. This CT examination was performed using dose optimization techniques as appropriate, variously including the following: *Automated exposure control *Adjustment of mA and/or kV according to patient size (this includes techniques or standardized protocols for targeted exams where dose is matched to indication/reason for exam; i.e. extremities or head) *Use of iterative reconstruction technique DLP: 800.11 mGy-cm FINDINGS: Prominence to the sulci and ventricles. No intra or extra-axial fluid collection or hemorrhage, mass, or mass effect. Calvarium intact. Scalp hematoma overlies the left posterior parietal region. CT/CT head/brain wo IV con IMPRESSION: No acute intracranial pathology.
[2024-04-14 13:50] VITALS: BP 103/73; BP 93/63; PULSE 79; PULSE 84; RESP 16; TEMP 36.5; O2SAT 90; O2SAT 97; BMI 39.0
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
[2024-04-14 15:24] LABS: MANUAL DIFF FLAG NO
[2024-04-14 15:33] LABS: Basophils Absolute Auto 0.1 X10*3/uL (0.0-0.2); Basophils Percent Auto 1.5 % (0-2); Eosinophils Absolute Auto 0.1 X10*3/uL (0.0-0.4); Eosinophils Percent Auto 0.9 % (0-4); Hematocrit 42.1 % (37.0-47.0); Hemoglobin 14.2 g/dl (12.0-16.0); Imm Gran Pct Auto 1.3 % (0.0-0.4); Lymphocytes Absolute Auto 2.9 X10*3/uL (1.2-4.9); Lymphocytes Percent Auto 36.9 % (20-40); Mean Corpuscular HGB Conc 33.7 g/dl (31.0-35.0); Mean Corpuscular Hemoglobin 32.1 pg (27.0-33.0); Mean Platelet Volume 10.7 fL (9.4-12.3); Monocytes Absolute Auto 0.5 X10*3/uL (0.1-1.2); Neutrophils Absolute Auto 4.2 x10*3/uL (2.0-8.3); Neutrophils Percent Auto 53.4 % (45-73); Platelet Count 221 X10*3/uL (160-400); Red Blood Count 4.43 X10*6/uL (4.20-5.50); Red Cell Distribution Width 16.6 % (11.0-16.0); White Blood Count 7.9 X10*3/uL (4.8-10.8)
[2024-04-14 15:41] LABS: Alanine Aminotransferase 140 U/L (0-31); Albumin Level 3.8 g/dL (3.5-5.0); Alkaline Phosphatase 89 U/L (39-117); Anion Gap 14 (12-20); Aspartate Amino Transferase 175 U/L (5-31); Bilirubin Direct < 0.2 mg/dL (0.0-0.5); Bilirubin Total 0.2 mg/dL (0.0-1.0); Blood Urea Nitrogen 9 mg/dL (9-16); Calcium 8.9 mg/dL (8.4-10.2); Carbon Dioxide 32 mmol/L (22-29); Chloride 101 mmol/L (96-108); Creatinine Clr Calc Pharmacy 105.7; Estimated Glomerular Filt Rate > 60; Ethanol 305 mg/dL; Glucose Random 108 mg/dL (60-115); Sodium 143 mmol/L (135-145); Total Protein 7.2 g/dL (6.5-8.0)
[2024-04-14 16:17] VITALS: O2SAT 87; O2SAT 96
[2024-04-14 16:19] LABS: Amphetamine Screen Urine Not Detected (Not Detect); Barbiturates, Urine Not Detected (Not Detect); Benzodiazepines Screen Urine POSITIVE (Not Detect); Buprenorphine Scr Not Detected (Not Detect); Cannabinoid Screen Urine POSITIVE (Not Detect); Cocaine Screen Urine Not Detected (Not Detect); Fentanyl, urine Not Detected (Not Detect); Methadone Screen, Urine Not Detected (Not Detect); Opiate Screen Urine Not Detected (Not Detect); Oxycodone Screen Urine Not Detected (Not Detect); Phencyclidine Screen Urine Not Detected (Not Detect)
--- NOTE | 2024-04-14 16:37 | PC.NURSE ---
pt dips below 90% on RA. Pt taken off oxygen as tril, has maintained 97% RA. Pt is sleepy, arousable to name
[2024-04-14 16:38] VITALS: BP 98/61; PULSE 79; RESP 16; TEMP 36.2; O2SAT 97
[2024-04-14 18:05] VITALS: BP 101/60; PULSE 75; RESP 18; TEMP 36.3; O2SAT 95
[2024-04-14] MEDS: Acetaminophen 325 MG TABLET 650 MG PO (19:49)
[2024-04-14 20:34] VITALS: BP 101/60; PULSE 75; RESP 18; TEMP 36.3; O2SAT 95
== END 2024-04-14 20:36 | disposition home or self-care (01) ==
PROVIDERS: Emergency Provider Emergency Medicine
DX: F10.129 Alcohol abuse with intoxication, unspecified (principal); Y90.8 Blood alcohol level of 240 mg/100 ml or more; S09.90XA Unspecified injury of head, initial encounter; I10 Essential (primary) hypertension; E11.9 Type 2 diabetes mellitus without complications; F41.9 Anxiety disorder, unspecified; Z79.899 Other long term (current) drug therapy; W19.XXXA Unspecified fall, initial encounter; Y93.9 Activity, unspecified; Y92.9 Unspecified place or not applicable; Y99.9 Unspecified external cause status
CPT/HCPCS: 36415; 70450; 71045; 72125; 80048; 80076; 80307; 85025; 99284

== ENCOUNTER 2024-06-13 14:13 | Outpatient (AMB) | payer MEDICAID, SELFPAY ==
--- NOTE | 2024-06-13 14:18 | A.OFFVIS_ITS ---
Vital Signs 06/13/24 14:21 Height 5 ft 3 in Weight 220 lb 7.396 oz BMI 39.0 Pulse 72 Intake Visit Reasons: Discuss hernia Intake Note: Patient is seen in office to discuss hernia surgery. Pt c/o: admits to continued increase pain at all times, was not able to have surgery in December due to transportation, she is ready to get schedule now Envelope Machine Adjuster Required: No Accompanied by: Self / Same As Patient Allergies No Known Allergies Allergy (Verified 06/13/24 14:19) HPI Comments Details: Patient is a 38 year old female whom I know from the past, who was to have umbilical hernia repair scheduled for a few different occasions and for variety of reasons patient did not have the procedure / cancelled the surgery. She presents today because she clamps were umbilical hernia symptomatic and w ould like to once again attempt scheduling this for umbilical hernia repair. [facility] Medical History Diabetes GERD (gastroesophageal reflux disease) Elevated cholesterol HTN (hypertension) Morbid obesity Abdominal pain DAVID (obstructive sleep apnea) Asthma Drowsiness Fatigue Surgical History History of esophagogastroduodenoscopy (EGD) History of cholecystectomy History of hysterectomy Family History Paternal Grandfather Liver cancer Maternal Grandfather Prostate cancer Social History Household Members: None Housing: Apartment Alcohol intake: current Alcohol intake frequency: 3 or more drinks per day Tobacco use type: Cigarette Cigarette Packs Per Day: 3 Cigarettes Per Day: 3 service: No Physical Exam Vital Signs: Last Vital Signs Pulse 72 06/13/24 14:21 BMI result Body Mass Index 39.0 Chest Other: Exam essentially status quo. Chest breath sounds bilaterally, HS 1 in 2 GI Other: Abdomen corpulent, soft. Roughly 2 cm irreducible umbilical hernia. Assessment & Plan Assessment & Plan (1) Incarcerated umbilical hernia: Code(s): K42.0 - Umbilical hernia with obstruction, without gangrene Category: Surgical Plan Risks, benefits, alternatives open umbilical hernia repair with mesh were reviewed with the patient and included but not limited to bleeding, infection, recurrence, numbness, pain, scarring, bowel injury and the patient wishes to proceed. Again, arrangements were made for this on a day which is convenient for the patient. All questions answered. Coding Level of Care Code Est Pt Level 5 (05756) Diagnoses Incarcerated umbilical hernia K42.0
[2024-06-13 14:21] VITALS: PULSE 72; BMI 39.0
== END 2024-06-13 14:32 | disposition home or self-care (01) ==
PROVIDERS: Visit Provider Surgery
DX: K42.0 Umbilical hernia with obstruction, without gangrene (principal)
CPT/HCPCS: 99214

== ENCOUNTER → 2024-06-13 14:13 | Outpatient (BNVA) | payer MEDICAID, SELFPAY | PROVIDERS: Visit Provider Surgery | DX: K42.0 Umbilical hernia with obstruction, without gangrene (principal) | CPT/HCPCS: 99212 ==

== ENCOUNTER 2024-07-01 09:23 | Day surgery (SDC) | payer MEDICAID, SELFPAY ==
[2024-06-21 12:48] VITALS: BMI 37.6
--- NOTE | 2024-06-21 13:03 | HO.ANESPROP2 ---
Documented by User: Kaylan Mejias NP 06/21/24 13:06 HPI - Anesthesia Eval Consult details Narrative: 44yo F for Incarcerated Umbilical Hernia with mesh, 07/01/24 ETOH abuse and sedative polypharm Pt unable to arrange transportation for PAT. Chart review only PMFSH Active Problems Active Problems: All Active Problems Scar irritation (Acute) Incarcerated umbilical hernia (Acute) Cellulitis (Acute) Infected wound (Acute) Sepsis due to cellulitis (Acute) Obesity (BMI 30-39.9) (Acute) HLD (hyperlipidemia) (Acute) HTN (hypertension) (Acute) Diabetes (Acute) Morbid obesity (Acute) Abdominal pain (Acute) DAVID (obstructive sleep apnea) (Acute) Asthma (Acute) Drowsiness (Acute) Fatigue (Acute) Past Medical History Medical History Insomnia Sciatica Psychogenic nonepileptic seizure Seizure-like activity Vitamin D deficiency Smoker PTSD (post-traumatic stress disorder) Microalbuminuria due to type 2 diabetes mellitus Anxiety Depression Migraine Mass of shoulder region History of alcohol abuse Calcified granuloma of lung Falls Diabetes GERD (gastroesophageal reflux disease) Elevated cholesterol HTN (hypertension) Morbid obesity Abdominal pain DAVID (obstructive sleep apnea) Asthma Drowsiness Fatigue Family History Family History Paternal Grandfather Liver cancer Maternal Grandfather Prostate cancer Family history of problems with anesthesia: No Surgical History Surgical History Hx of foot surgery History of esophagogastroduodenoscopy (EGD) History of cholecystectomy History of hysterectomy History of Problems with Anesthesia: No Social History Social History Household Members: None Housing: Apartment Are you a primary ambulatory care to a significant other at home: No Do you presently have visiting nurse or other home services: No Alcohol intake: current Alcohol intake frequency: does not drink Patient Tobacco Use Status: Current everyday Tobacco user Tobacco use type: Cigarette Cigarette Packs Per Day: 3 Cigarettes Per Day: 3 Use of substances other than those prescribed or required for medical reasons: No Have you been hit, kicked, punched, or otherwise hurt by someone within the past year? If so, by whom?: No Are you DNR?: No Advance Directives: No Advance Directives Information Provided: Yes Advance Directives on File: No Recently lost weight without trying: No Eating poorly because of decreased appetite: No Nutrition Risks: No Nutritional Risk Patient : No : No Poor oral hygiene: Yes (missing teeth) service: No Meds Allergies Allergy/AdvReac Type Severity Reaction Status Date / Time No Known Allergies Allergy Verified 07/01/24 11:08 Home Medications ?Medication ?Instructions ?Recorded ?Confirmed ?Last Taken ?Type alprazolam 1 mg tablet 1 mg PO BID 04/03/21 06/21/24 07/16/23 History metformin 500 mg tablet 500 mg PO BID 10/21/22 06/21/24 07/16/23 History citalopram 10 mg tablet 10 mg PO QAM 07/17/23 06/21/24 07/01/24 History hydroxyzine pamoate 25 mg capsule 25 mg PO BEDTIME PRN Anxiety 07/17/23 06/21/24 07/16/23 History albuterol sulfate 90 mcg/actuation 2 puff inhalation Q4H PRN 07/18/23 06/21/24 Unknown History aerosol inhaler (Ventolin HFA) Shortness Of Breath Or Wheezing loratadine 10 mg tablet 10 mg PO QAM PRN Allergy Symptoms 07/18/23 06/21/24 Unknown History trazodone 100 mg tablet 200 mg PO BEDTIME PRN Insomnia 12/28/23 06/21/24 Unknown History docusate sodium 100 mg capsule 100 mg PO BID PRN Constipation 06/21/24 06/21/24 Unknown History fluticasone propionate 50 2 spray intranasal DAILY PRN 06/21/24 06/21/24 Unknown History mcg/actuation nasal Allergy Symptoms spray,suspension sennosides 8.6 mg tablet (Natural 17.2 mg PO BEDTIME PRN constipation 06/21/24 06/21/24 Unknown History Senna Laxative) Exam Height,Weight and Vital Signs: Height 5 ft 7 in Weight 108.862 kg Pertinent Lab Results Pertinent Lab Results: Laboratory Tests 04/14/24 15:19 WBC 7.9 Hgb 14.2 Hct 42.1 Plt Count 221 Sodium 143 Potassium 4.0 Chloride 101 Carbon Dioxide 32 H BUN 9 Creatinine 0.75 Laboratory Tests 04/14/24 15:19 Calcium 8.9 D Total Bilirubin 0.2 Direct Bilirubin < 0.2 AST 175 H ALT 140 H Alkaline Phosphatase 89 Total Protein 7.2 Albumin 3.8 Narrative Narrative: EKG 12/2023 Vent. Rate : 097 BPM Atrial Rate : 097 BPM P-R Int : 140 ms QRS Dur : 084 ms QT Int : 380 ms P-R-T Axes : 034 040 036 degrees QTc Int : 482 ms Normal sinus rhythm Low voltage QRS Prolonged QT Abnormal ECG No previous ECGs available Assessment and Plan Assessment Anesthesia Assessment: Chart Reviewed Final Anesthetic Review Family History of Problems with Anesthesia: No History of Problems with Anesthesia: No Documented by User: Dora Varghese MD 07/01/24 14:16 PMFSH Active Problems Active Problems: All Active Problems Scar irritation (Acute) Incarcerated umbilical hernia (Acute) Cellulitis (Acute) Infected wound (Acute) Sepsis due to cellulitis (Acute) Obesity (BMI 30-39.9) (Acute) HLD (hyperlipidemia) (Acute) HTN (hypertension) (Acute) Diabetes (Acute) Morbid obesity (Acute) Abdominal pain (Acute) DAVID (obstructive sleep apnea) (Acute)- patient denies Asthma (Acute)- inhaler prn Drowsiness (Acute) Fatigue (Acute) Past Medical History Medical History Insomnia Sciatica Psychogenic nonepileptic seizure Seizure-like activity Vitamin D deficiency Smoker PTSD (post-traumatic stress disorder) Microalbuminuria due to type 2 diabetes mellitus Anxiety Depression Migraine Mass of shoulder region History of alcohol abuse Calcified granuloma of lung Falls Diabetes GERD (gastroesophageal reflux disease) Elevated cholesterol HTN (hypertension) Morbid obesity Abdominal pain DAVID (obstructive sleep apnea) Asthma Drowsiness Fatigue Family History Family History Paternal Grandfather Liver cancer Maternal Grandfather Prostate cancer Family history of problems with anesthesia: No Surgical History Surgical History Hx of foot surgery History of esophagogastroduodenoscopy (EGD) History of cholecystectomy History of hysterectomy History of Problems with Anesthesia: No Social History Social History Household Members: None Housing: Apartment Are you a primary ambulatory care to a significant other at home: No Do you presently have visiting nurse or other home services: No Alcohol intake: current Alcohol intake frequency: does not drink Patient Tobacco Use Status: Current everyday Tobacco user Tobacco use type: Cigarette Cigarette Packs Per Day: 3 Cigarettes Per Day: 3 Use of substances other than those prescribed or required for medical reasons: No Have you been hit, kicked, punched, or otherwise hurt by someone within the past year? If so, by whom?: No Are you DNR?: No Advance Directives: No Advance Directives Information Provided: Yes Advance Directives on File: No Recently lost weight without trying: No Eating poorly because of decreased appetite: No Nutrition Risks: No Nutritional Risk Patient : No : No Poor oral hygiene: Yes (missing teeth) service: No Meds Allergies Allergy/AdvReac Type Severity Reaction Status Date / Time No Known Allergies Allergy Verified 07/01/24 11:08 Home Medications ?Medication ?Instructions ?Recorded ?Confirmed ?Last Taken ?Type alprazolam 1 mg tablet 1 mg PO BID 04/03/21 06/21/24 07/16/23 History metformin 500 mg tablet 500 mg PO BID 10/21/22 06/21/24 07/16/23 History citalopram 10 mg tablet 10 mg PO QAM 07/17/23 06/21/24 07/01/24 History hydroxyzine pamoate 25 mg capsule 25 mg PO BEDTIME PRN Anxiety 07/17/23 06/21/24 07/16/23 History albuterol sulfate 90 mcg/actuation 2 puff inhalation Q4H PRN 07/18/23 06/21/24 Unknown History aerosol inhaler (Ventolin HFA) Shortness Of Breath Or Wheezing loratadine 10 mg tablet 10 mg PO QAM PRN Allergy Symptoms 07/18/23 06/21/24 Unknown History trazodone 100 mg tablet 200 mg PO BEDTIME PRN Insomnia 12/28/23 06/21/24 Unknown History docusate sodium 100 mg capsule 100 mg PO BID PRN Constipation 06/21/24 06/21/24 Unknown History fluticasone propionate 50 2 spray intranasal DAILY PRN 06/21/24 06/21/24 Unknown History mcg/actuation nasal Allergy Symptoms spray,suspension sennosides 8.6 mg tablet (Natural 17.2 mg PO BEDTIME PRN constipation 06/21/24 06/21/24 Unknown History Senna Laxative) Exam Height,Weight and Vital Signs: Height 5 ft 7 in Weight 108.862 kg Vital Signs Temp Pulse Resp BP Pulse Ox O2 Del Method 07/01/24 11:04 97.8 F 93 18 108/71 96 Room Air Pertinent Lab Results Pertinent Lab Results: Laboratory Tests 04/14/24 15:19 WBC 7.9 Hgb 14.2 Hct 42.1 Plt Count 221 Sodium 143 Potassium 4.0 Chloride 101 Carbon Dioxide 32 H BUN 9 Creatinine 0.75 Laboratory Tests 04/14/24 15:19 Calcium 8.9 D Total Bilirubin 0.2 Direct Bilirubin < 0.2 AST 175 H ALT 140 H Alkaline Phosphatase 89 Total Protein 7.2 Albumin 3.8 Lab Results 07/01/24 07/01/24 Range/Units 11:06 13:26 POC Glucose 171 H 158 H (60-115) mg/dL Airway Mallampati Class: III TM Dist: >3cm Neck ROM: Full Loose/Missing/Broken Teeth: Yes (Missing molars. Denies broken or loose teeth) Heart: RRR Lungs: CTAB Assessment and Plan Assessment Anesthesia Assessment: Anesthesia Plan Discussed and Chart Reviewed Final Anesthetic Review Family History of Problems with Anesthesia: No History of Problems with Anesthesia: No NPO: Yes ASA Class: III Final Preanesthetic Review: No Changes in Pt Med Stat, Meds/Allgs Chart Reviewed, Consent Obtained/Reviewed and Anes Risks/Benef Reviewed Patient Risk: Intermediate Procedure Risk: Low Assessment/Block/Sedation in SS: Assess/Block/Sedation-SS Anesthetic Plan Anesthetic Plan: GA and TIVA Disposition: Standard PACU
--- NOTE | 2024-06-30 12:15 | MHC.SHP ---
Pre-Procedural Eval Section A - 24 Hr Update-Section A only Date of Service: 07/01/24 The patient is an INPATIENT: No Changes since office visit: No Cold of Flu in the past 2 weeks, No New Medical Problems, No Changes in Medication and No Patient answered all questions Section B - Complete if H&P > 30 days Chief Complaint: Umbilical hernia with obstruction, without gangren Allergies: Allergies Allergy/AdvReac Type Severity Reaction Status Date / Time No Known Allergies Allergy Verified 06/13/24 14:19 Review of Systems Sugical H&P ROS: Negative: Constitution, Cardiovascular, Respiratory, Neurological, Psychiatric, Hem-Onc, Allergic/Immunologic, Gastrointestinal, Genitourinary, Musculoskeletal, Integumentary, Endocrine and Eyes/Ears/Nose/Throat Exam Surgical H&P Exam: Normal: HEENT, Normal: Heart, Normal: Lungs, Normal: Extremities, Normal: Abdomen, Normal: Skin and Normal: Neurological Plan I have reviewed the history and physical and performed a pertinent physical examination on my patient. No changes have occurred unless specified. Time Spent With Patient Time: Total time managing care of this patient today ____ minutes.
[2024-07-01] MEDS: Lactated Ringers 1,000 ML 100 ML IVCONT (11:00)
[2024-07-01 11:04] VITALS: BP 108/71; PULSE 93; RESP 18; TEMP 36.6; O2SAT 96
[2024-07-01 11:10] LABS: Glucose, Whole Blood 171 mg/dL (60-115)
[2024-07-01 11:20] VITALS: BMI 34.3
[2024-07-01 13:30] LABS: Glucose, Whole Blood 158 mg/dL (60-115)
[2024-07-01 14:55] VITALS: BP 116/78; PULSE 83; RESP 16; TEMP 36.1; O2SAT 97
--- NOTE | 2024-07-01 15:06 | P.OP_ITS ---
Operative Note Operative Note Date of Service: 07/01/24 Narrative: Preoperative diagnosis: [] Incarcerated umbilical hernia Postop diagnosis: [] The same Procedure [] open umbilical herniorrhaphy with Bard mesh incarcerated hernia Surgeon: [] Maximiliano Rock Splitter: [] Henny Type of Anesthesia: [] LMA Indication for surgery: [] Roughly 3 cm incarcerated umbilical hernia with omental contents. Very corpulent abdomen Findings: [] Patient brought to the operating room, placed on operative table in supine position, after an adequate level of general anesthesia was induced, the patient's abdomen is prepped and draped in usual sterile fashion using an infraumbilical curvilinear incision, this carried down through skin, subcutaneous tissue, were large hernia sac was identified and circumferentially dissected around from the posterior aspect of the umbilicus down to the fascia and opened. Incarcerated omental contents and omentum were amputated using Bovie. Fascia margins were circumferentially cleared. A Bard dual mesh was placed in this defect and the superficial layer of the mesh was circumferentially sutured to the surrounding fascia using interrupted 0 Ethibond suture. At completion of the procedure, mesh was in good position with no gaps. Wound was irrigated, secured hemostasis, and closed in the following manner; posterior aspect of the umbilicus was tacked to the wound floor using interrupted 3-0 Vicryl sutures. Skin was closed using interrupted inverted dermal 3-0 Vicryl sutures followed by Steri-Strips and sterile dressings. Wound was infiltrated at the beginning at the end with 0.5% Marcaine/1% lidocaine. Sponge, needle, and instrument counts reported correct. Patient tolerated the procedure well and emerged from anesthesia stable condition. EBL minimal
[2024-07-01 15:10] VITALS: BP 125/81; PULSE 82; RESP 18; O2SAT 93
[2024-07-01 15:20] VITALS: RESP 18
[2024-07-01] MEDS: fentaNYL citrate/PF 100 MCG/2 ML VIAL 50 MCG IVPUSH (15:20)
[2024-07-01 15:25] VITALS: BP 113/77; PULSE 78; RESP 16; O2SAT 92
[2024-07-01 15:40] VITALS: BP 121/72; PULSE 79; RESP 18; TEMP 36.6; O2SAT 94
== END 2024-07-01 16:25 | disposition home or self-care (01) ==
PROVIDERS: Visit Provider Surgery
PROC: (CPT 49592; principal; 2024-07-01 13:00)
DX: K42.0 Umbilical hernia with obstruction, without gangrene (principal); K21.9 Gastro-esophageal reflux disease without esophagitis; I10 Essential (primary) hypertension; E11.9 Type 2 diabetes mellitus without complications; J45.909 Unspecified asthma, uncomplicated; G47.33 Obstructive sleep apnea (adult) (pediatric); E66.01 Morbid (severe) obesity due to excess calories; Z68.39 Body mass index [BMI] 39.0-39.9, adult; Z79.51 Long term (current) use of inhaled steroids; Z79.84 Long term (current) use of oral hypoglycemic drugs; Z79.899 Other long term (current) drug therapy; F17.210 Nicotine dependence, cigarettes, uncomplicated
CPT/HCPCS: 49592; 82947; 88304; C1781; J0690; J1100; J2250; J2405; J2704; J2795; J3010

== ENCOUNTER → 2024-07-01 09:23 | Outpatient (BNV) | payer MEDICAID, SELFPAY | PROVIDERS: Visit Provider Surgery | DX: K42.0 Umbilical hernia with obstruction, without gangrene (principal) | CPT/HCPCS: 49594 ==

== ENCOUNTER 2024-07-12 12:51 | Outpatient (AMB) | payer MEDICAID, SELFPAY ==
[2024-07-12 12:59] VITALS: BP 101/75; PULSE 96; BMI 34.6
--- NOTE | 2024-07-12 12:59 | A.OFFVIS_ITS ---
Vital Signs 07/12/24 12:59 Height 5 ft 7 in Weight 221 lb BMI 34.6 BP 101/75 Blood Pressure Location Lt brachial Position Sitting Pulse 96 Intake Visit Reasons: S/P incarcerated umbilical hernia w/mesh Intake Note: Patient S/P incarcerated umbilical hernia w/mesh Patient cc: abdominal pain at the hernia surgery area with some inflammation Human Resources Benefits Assistant Required: Yes Human Resources Benefits Assistant Name: Lizbeth SURGEON DEPT Accompanied by: Self / Same As Patient Allergies No Known Allergies Allergy (Verified 07/12/24 12:59) Medication List - Last Reconciled 07/12/24 by Eliot Hardy MD [4x4 sterile gaze As directed] albuterol sulfate 90 mcg/actuation (Ventolin HFA) 2 puffs inhalation Q4H PRN alprazolam 1 mg PO BID citalopram 10 mg PO QAM docusate sodium 100 mg PO BID PRN famotidine (Pepcid) 20 mg PO BEDTIME 90 days fluticasone propionate 50 mcg/actuation 2 sprays intranasal DAILY PRN hydrocodone-acetaminophen 5-325 mg 1 tab PO Q4-6H PRN hydroxyzine pamoate 25 mg PO BEDTIME PRN [Zuleyma rolls As directed] loratadine 10 mg PO QAM PRN metformin 500 mg PO BID [Normal saline Normal saline wet to dry dressing every other day] pantoprazole 40 mg PO DAILY sennosides (Natural Senna Laxative) 17.2 mg PO BEDTIME PRN trazodone 200 mg PO BEDTIME PRN walker (Ultra-Light Rollator misc) As directed HPI Comments Details: 44-year-old female patient status post repair of an incarcerated umbilical hernia repaired with mesh on 07/01/2024. She returns today for postoperative evaluation. She does report some soreness in the right periumbilical skin with underlying hardness. Denies any bleeding or discharge from the incision. [facility] Medical History Incarcerated umbilical hernia (07/01/24) Insomnia Sciatica Psychogenic nonepileptic seizure Seizure-like activity Vitamin D deficiency Smoker PTSD (post-traumatic stress disorder) Microalbuminuria due to type 2 diabetes mellitus Anxiety Depression Migraine Mass of shoulder region History of alcohol abuse Calcified granuloma of lung [place] Diabetes GERD (gastroesophageal reflux disease) Elevated cholesterol HTN (hypertension) Morbid obesity Abdominal pain DAVID (obstructive sleep apnea) Asthma Drowsiness Fatigue Surgical History Hx of foot surgery History of esophagogastroduodenoscopy (EGD) History of cholecystectomy History of hysterectomy Family History Paternal Grandfather Liver cancer Maternal Grandfather Prostate cancer Social History Household Members: None Housing: Apartment Are you a primary animal caregiver to a significant other at home: No Do you presently have visiting nurse or other home services: No Alcohol intake: current Alcohol intake frequency: does not drink Patient Tobacco Use Status: Current everyday Tobacco user Tobacco use type: Cigarette Cigarette Packs Per Day: 3 Cigarettes Per Day: 3 service: No Physical Exam Vital Signs: Last Vital Signs Pulse 96 07/12/24 12:59 BP 101/75 07/12/24 12:59 BMI result Body Mass Index 34.6 Const General: no acute distress Nutritional Appearance: well nourished Orientation/consciousness: patient oriented x3 Resp Effort & Inspection: normal respiratory effort, no audible wheezes, no cough and no respiratory distress GI Other: Well-healed umbilical incision without redness or discharge. No hernia noted with Valsalva maneuvers. There is some tenderness to palpation in the right abdomen lateral to the umbilicus. No changes noted with Valsalva maneuvers. No evidence of infection. Skin Other: Warm, dry, no rash Neuro General: patient oriented x3 Extrem General: No edema Assessment & Plan Assessment & Plan (1) Incarcerated umbilical hernia: Code(s): K42.0 - Umbilical hernia with obstruction, without gangrene Category: Surgical Plan Status post repair of an incarcerated umbilical hernia with mesh. Wounds are clean and intact without evidence of hernia or infection. She should continue to avoid lifting greater than 10 lb and return approximately [address] Viera. She should call sooner for any new concerns. Coding Level of Care Code Global (27776) Diagnoses Incarcerated umbilical hernia K42.0
== END 2024-07-12 13:12 | disposition home or self-care (01) ==
PROVIDERS: PCP Internal Medicine; Visit Provider Surgery
DX: K42.0 Umbilical hernia with obstruction, without gangrene (principal)
CPT/HCPCS: 99212

== ENCOUNTER → 2024-07-12 12:51 | Outpatient (BNVA) | payer MEDICAID, SELFPAY | PROVIDERS: PCP Internal Medicine; Visit Provider Surgery | DX: K42.0 Umbilical hernia with obstruction, without gangrene (principal) | CPT/HCPCS: 99212 ==

== ENCOUNTER 2024-08-10 13:45 | Outpatient (REF) | payer MEDICAID, SELFPAY ==
--- NOTE | ~2024-08-10 | US_ITS ---
EXAMINATION: US TRIPLEX LOWER EXTREMITY, LEFT CLINICAL INFORMATION: Left lower extremity edema COMPARISON: None available. TECHNIQUE: Color-flow triplex imaging with spectral analysis and compression Doppler were performed on the left lower extremity. FINDINGS: Respiratory variation, normal compression and augmented flow are noted throughout the left lower extremity. The visualized common femoral vein, superficial femoral vein, profunda femoral vein, popliteal vein and midcalf peroneal and posterior tibial venous segments show no evidence of deep venous thrombosis. There is no Lopez's cyst. Lymph node is seen in the popliteal fossa measuring about 1 cm. Prominent lymph node seen in the left groin measuring 4.0 x 0.5 x 2.6 cm. Both lymph nodes demonstrate echogenic fatty hilum consistent with reactive lymphadenopathy US/US venous duplex LE LT IMPRESSION: No evidence of deep venous thrombosis involving the left lower extremity. Electronically signed by: Bharath Talley MD 08/10/2024 03:47 PM EDT
== END 2024-08-10 13:46 | disposition home or self-care (01) ==
LOC: HO.US 13:45
PROVIDERS: PCP Nurse Practitioner Primary Care; Visit Provider Nurse Practitioner Primary Care
DX: M79.89 Other specified soft tissue disorders (principal)
CPT/HCPCS: 93971

== ENCOUNTER 2024-08-16 12:52 | Outpatient (AMB) | payer MEDICAID, SELFPAY ==
--- NOTE | 2024-08-16 13:20 | MHC.OFFVIS ---
Intake Visit Reasons: FOLLOW UP Intake Note: Patient here s/p umbilical hernia on 07-01-2024. Patient c/o: swollen legs. On and off pain at surgical site. Denies bleeding, oozing. Commissioning Engineer Required: No Accompanied by: Self / Same As Patient Allergies No Known Allergies Allergy (Verified 08/16/24 13:24) HPI Comments Details: Patient presents 1. Follow-up status post umbilical hernia repair 2. Patient had cellulitis of her left lower extremity would like me to look this over. Umbilical hernia repairs doing well. She is tolerating a diet. A low initially constipated this has resolved. She is increasing her activity level. She has no incisional discomfort. The cellulitis commenced 0 2 weeks ago. She was seen in a walk-in clinic where she was given antibiotics, analgesics and local wound instructions. Show me pictures for from when this originally happened compared to now, she has marked improvement. [facility] Medical History Incarcerated umbilical hernia (07/01/24) Insomnia Sciatica Psychogenic nonepileptic seizure Seizure-like activity Vitamin D deficiency Smoker PTSD (post-traumatic stress disorder) Microalbuminuria due to type 2 diabetes mellitus Anxiety Depression Migraine Mass of shoulder region History of alcohol abuse Calcified granuloma of lung [place] Diabetes GERD (gastroesophageal reflux disease) Elevated cholesterol HTN (hypertension) Morbid obesity Abdominal pain DAVID (obstructive sleep apnea) Asthma Drowsiness Fatigue Surgical History Hx of foot surgery History of esophagogastroduodenoscopy (EGD) History of cholecystectomy History of hysterectomy Family History Paternal Grandfather Liver cancer Maternal Grandfather Prostate cancer Social History Household Members: None Housing: Apartment Are you a primary early breastfeeding care specialist to a significant other at home: No Do you presently have visiting nurse or other home services: No Alcohol intake: current Alcohol intake frequency: does not drink Patient Tobacco Use Status: Current everyday Tobacco user Tobacco use type: Cigarette Cigarette Packs Per Day: 3 Cigarettes Per Day: 3 service: No Physical Exam GI Other: Abdomen is soft. Incision well healed. Extrem Other: Left lower extremity grossly neurovascularly intact. Patient has resolving cellulitic changes involving the forefoot and ankle area. Again compared to the prior photos which he showed me, this is markedly receded and has decrease in redness. Patient has modest lower extremity edema here which she says is also improved Assessment & Plan Assessment & Plan (1) Status post umbilical hernia repair, follow-up exam: Code(s): Z09 - Encounter for follow-up examination after completed treatment for conditions other than malignant neoplasm Category: Surgical (2) Left leg cellulitis: Code(s): L03.116 - Cellulitis of left lower limb Category: Surgical Plan Patient has been given local instructions regarding the hernia. She is continue local wound care as well at complete her antibiotic course and elevation of the left lower leg. Patient will otherwise follow-up p.r.n.. All questions answered. She is also follow up with her medical doctor regarding the cellulitis. Coding Level of Care Code Est Pt Level 3 (13481) Global (35035) Diagnoses Status post umbilical hernia repair, follow-up exam Z09 Left leg cellulitis L03.116
== END 2024-08-16 13:23 | disposition home or self-care (01) ==
PROVIDERS: PCP Internal Medicine; Visit Provider Surgery
DX: Z09 Encounter for follow-up examination after completed treatment for conditions other than malignant neoplasm (principal); L03.116 Cellulitis of left lower limb
CPT/HCPCS: 99213

== ENCOUNTER → 2024-08-16 12:52 | Outpatient (BNVA) | payer MEDICAID, SELFPAY | PROVIDERS: PCP Internal Medicine; Visit Provider Surgery | DX: L03.116 Cellulitis of left lower limb (principal); Z09 Encounter for follow-up examination after completed treatment for conditions other than malignant neoplasm; Z87.19 Personal history of other diseases of the digestive system; Z98.890 Other specified postprocedural states | CPT/HCPCS: 99212 ==

== ENCOUNTER 2024-08-26 11:02 | Outpatient (AMB) | payer MEDICAID, SELFPAY ==
--- NOTE | 2024-08-26 11:03 | MHC.OFFVIS ---
Vital Signs 08/26/24 11:05 Height 5 ft 7 in Weight 214 lb 4.629 oz BMI 33.6 BP 116/70 Blood Pressure Location Rt brachial Position Sitting Pulse 94 Pulse Source Pulse Oximeter Pulse Oximetry (%) 94 Oxygen Delivery Method Room Air Intake Visit Reasons: Discuss [place] and EGD Intake Note: Relevant Flags or Indicators ? Requires Cutter Operator Tile? Y. Pt no showed last appt. Pt has elevated lab markers for both EToH and recreational drug use. Funmilayo presents in office today for a scheduled 3 mos FUV. CC; Since last visit; labs ordered ? done 06/2024. Rx ordered ? none. Diagnostics/images ordered ? Pt reports having recent ultrasound for Lower Extremity Edema. Relevant GI Sx as reported per pt? Nausea ? Reflux -- Worse at night. Pt has been making changes to their diet/lifestyle which has had mixed results. ? Fecal abnormalities o?? Discolored? No discoloration to the stool, however; pt does have hemorrhoids and does see occasional blood when wiping. o?? Constipation ? Hx of any recent surgeries? None Cutter Operator Tile Required: Yes Cutter Operator Tile Services: Cutter Operator Tile Present Cutter Operator Tile Name: [id number] Barriga. Information Interpreted: non-clinical & clinical Accompanied by: Self / Same As Patient Allergies No Known Allergies Allergy (Verified 08/26/24 11:03) HPI HPI Discuss Butterfield and EGD: Details: LAST VISIT GERD (gastroesophageal reflux disease) IBS (irritable bowel syndrome) Chronic idiopathic constipation Postprandial abdominal bloating Plan Patient will start taking famotidine at bedtime and pantoprazole in the morning half an hour before breakfast. Patient will try take Citrucel daily in the morning with full glass of water and senna to help her eliminate her bowels completely. Patient will call the office if she will continue to be constipated. Patient will return in 4-5 weeks so we can discuss going for upper endoscopy and possible colonoscopy. Patient is agreeable to current plan and verbalizes understanding of instructions. She was given the opportunity to ask questions and all questions answered. ? Thank you for allowing me to participate in her care Medications New famotidine (Pepcid) 20 mg PO BEDTIME 30 tabs 3RF K21.9 pantoprazole take one tablet half an hour before breakfast 40 mg PO DAILY 30 tabs 2RF K21.9 methylcellulose (laxative) (Citrucel) 500 mg PO DAILY 30 tabs 2RF K59.00 sennosides (Natural Senna Laxative) 17.2 mg (2 x 8.6 mg) PO BEDTIME 60 tabs 3RF constipation K59.00 Discontinued omeprazole Discontinued Reason: Doctor's Order 20 mg PO DAILY 30 caps 3RF K21.9 bisacodyl Discontinued Reason: Patient no longer taking 10 mg (2 x 5 mg) PO BEDTIME 60 tabs 1RF TODAY'S VISIT Patient is here today for follow-up. Patient reports that she has been doing fairly well since last time I have seen her. Patient states that she is taking pantoprazole in the morning and famotidine at bedtime and for the most part symptoms are suppressed. Occasional epigastric pain postprandially depending on what she eats. Patient reports that she was taking Senokot and she is able to move her bowels without any issues. Patient denies any melena, hematochezia, unintentional weight loss or ribbon like stools. Patient had umbilical hernia repair with Dr. Viera, had appointment with him in the beginning of this month. Patient reports still having some tenderness around the umbilical area. Patient denies any nausea or vomiting. History of endoscopy in the past in 2021. Shows some mild gastritis and suspicion for gastroparesis. Gastric emptying study done and it was normal. [facility] Medical History Incarcerated umbilical hernia (07/01/24) Insomnia Sciatica Psychogenic nonepileptic seizure Seizure-like activity Vitamin D deficiency Smoker PTSD (post-traumatic stress disorder) Microalbuminuria due to type 2 diabetes mellitus Anxiety Depression Migraine Mass of shoulder region History of alcohol abuse Calcified granuloma of lung Falls Diabetes GERD (gastroesophageal reflux disease) Elevated cholesterol HTN (hypertension) Morbid obesity Abdominal pain DAVID (obstructive sleep apnea) Asthma Drowsiness Fatigue Surgical History Hx of foot surgery History of esophagogastroduodenoscopy (EGD) History of cholecystectomy History of hysterectomy Family History Paternal Grandfather Liver cancer Maternal Grandfather Prostate cancer Social History Household Members: None Housing: Apartment Are you a primary respiratory care program director to a significant other at home: No Do you presently have visiting nurse or other home services: No Alcohol intake: current Alcohol intake frequency: does not drink Patient Tobacco Use Status: Current everyday Tobacco user Tobacco use type: Cigarette Cigarette Packs Per Day: 3 Cigarettes Per Day: 3 service: No Review of Systems Const Denies weight gain and Denies weight loss ENT Reports no additional complaints, Denies dysphagia and Denies odynophagia Card Reports no additional complaints Resp Reports no additional complaints GI Denies abdominal pain, Denies belching, Denies melena, Reports bloating, Denies change in bowel habits, Reports constipation, Denies dysphagia, Denies excessive flatus, Denies dyspepsia, Reports heartburn, Denies diarrhea, Reports loose stools, Denies nausea, Denies odynophagia and Denies vomiting Reports no additional complaints Musc Reports no additional complaints Neuro Reports no additional complaints Psych Reports no additional complaints Endo Reports no additional complaints Physical Exam Vital Signs: Last Vital Signs Pulse 94 08/26/24 11:05 BP 116/70 08/26/24 11:05 Pulse Ox 94 08/26/24 11:05 Oxygen Delivery Method Room Air 08/26/24 11:05 BMI result Body Mass Index 33.6 Const General: healthy appearing, no acute distress and well developed Nutritional Appearance: obese Orientation/consciousness: patient oriented x3 Resp Effort & Inspection: normal respiratory effort, able to speak in complete sentences, no tracheal deviation and symmetric chest movement Auscultation: clear to auscultation bilaterally Cardio Rate: regular rate GI Inspection: Yes normal to inspection, No distended and Yes obesity Palpation (GI): Soft to palpation, not firm, nontender and No hepatosplenomegaly present Auscultation: normal bowel sounds General: Yes no CVA tenderness Back/Spine/Pelvis Back: no CVA tenderness Skin General skin exam: elasticity normal, turgor normal and dry skin Neuro General: patient oriented x3 Psych Appearance: grossly normal Mental Status: mental status grossly normal Assessment & Plan Assessment & Plan (1) GERD (gastroesophageal reflux disease): Code(s): K21.9 - Gastro-esophageal reflux disease without esophagitis Qualifiers: Esophagitis presence: esophagitis presence not specified Qualified Code(s): K21.9 - Gastro-esophageal reflux disease without esophagitis (2) IBS (irritable bowel syndrome): Code(s): K58.9 - Irritable bowel syndrome, unspecified Qualifiers: Irritable bowel syndrome type: without diarrhea Qualified Code(s): K58.9 - Irritable bowel syndrome, unspecified (3) Chronic idiopathic constipation: Code(s): K59.04 - Chronic idiopathic constipation (4) Postprandial abdominal bloating: Code(s): R14.0 - Abdominal distension (gaseous) (5) Screen for colon cancer: Code(s): Z12.11 - Encounter for screening for malignant neoplasm of colon Plan Continue pantoprazole in the morning and famotidine at bedtime. Avoid dietary triggers and late night snacking. Staying upright for minimum 3 hours after meals discussed with patient. Patient will be starting GLP 1 today and weekly every Thursday. She will have follow-up appointment with her PCP next month to evaluate how she is doing. Patient denies any melena, hematochezia, unintentional weight loss or ribbon like stools. Message sent to surgical schedulers to schedule upper endoscopy and colonoscopy. Patient will return in 2 months to discuss the prep. Continue taking Senokot. Increase fluid intake and activity to promote better bowel motility. Patient is agreeable to current plan of care and verbalizes understanding of instructions. She was given the opportunity to ask questions and all questions answered. Thank you for allowing me to participate in her care Medications: New sennosides (Natural Senna Laxative) 17.2 mg (2 x 8.6 mg) PO BEDTIME PRN 60 tabs 3RF constipation bisacodyl (Dulcolax (bisacodyl)) take 4 tabs at noon the day before your colonoscopy 20 mg (4 x 5 mg) PO ONCE 4 tabs 0RF 1 day Z12.11 - Encounter for screening for malignant neoplasm of colon polyethylene glycol 3350 (Miralax) As directed by gastroenterology department at [facility] 238 grams PO ONCE 238 grams 0RF Z12.11 - Encounter for screening for malignant neoplasm of colon Refilled famotidine (Pepcid) 20 mg PO BEDTIME 90 tabs 3RF 90 days K21.9 - Gastro-esophageal reflux disease without esophagitis pantoprazole take one tablet half an hour before breakfast 40 mg PO DAILY 90 tabs 2RF K21.9 - Gastro-esophageal reflux disease without esophagitis Coding Level of Care Code Est Pt Level 3 (25257) Diagnoses Gastroesophageal reflux disease, unspecified whether esophagitis present K21.9 Esophagitis presence: esophagitis presence not specified Irritable bowel syndrome without diarrhea K58.9 Irritable bowel syndrome type: without diarrhea Chronic idiopathic constipation K59.04 Postprandial abdominal bloating R14.0 Screen for colon cancer Z12.11 Time Spent (min) 30 Comment 20 minutes spent with patient and additional 10 minutes spent reviewing her records
[2024-08-26 11:05] VITALS: BP 116/70; PULSE 94; O2SAT 94; BMI 33.6
== END 2024-08-26 11:46 | disposition home or self-care (01) ==
PROVIDERS: Visit Provider Nurse Practitioner Family
DX: K21.9 Gastro-esophageal reflux disease without esophagitis (principal); K58.9 Irritable bowel syndrome, unspecified; K59.04 Chronic idiopathic constipation; R14.0 Abdominal distension (gaseous); Z12.11 Encounter for screening for malignant neoplasm of colon
CPT/HCPCS: 99213

== ENCOUNTER → 2024-08-26 11:02 | Outpatient (BNVA) | payer MEDICAID, SELFPAY | PROVIDERS: Visit Provider Nurse Practitioner Family | DX: Z12.11 Encounter for screening for malignant neoplasm of colon (principal); K21.9 Gastro-esophageal reflux disease without esophagitis; K58.9 Irritable bowel syndrome, unspecified; K59.04 Chronic idiopathic constipation; R14.0 Abdominal distension (gaseous) | CPT/HCPCS: 99212 ==

== ENCOUNTER 2024-09-06 09:55 | Outpatient (REF) | payer MEDICAID, SELFPAY ==
[2024-09-06 11:17] LABS: MANUAL DIFF FLAG NO
[2024-09-06 11:24] LABS: Basophils Absolute Auto 0.1 X10*3/uL (0.0-0.2); Basophils Percent Auto 0.8 % (0-2); Eosinophils Absolute Auto 0.1 X10*3/uL (0.0-0.4); Hematocrit 43.4 % (37.0-47.0); Hemoglobin 14.7 g/dl (12.0-16.0); Imm Gran Abs Auto 0.06 X10*3/uL (0.00-0.03); Imm Gran Pct Auto 0.4 % (0.0-0.4); Lymphocytes Absolute Auto 3.1 X10*3/uL (1.2-4.9); Lymphocytes Percent Auto 21.6 % (20-40); Mean Corpuscular HGB Conc 33.9 g/dl (31.0-35.0); Mean Corpuscular Hemoglobin 30.1 pg (27.0-33.0); Mean Corpuscular Volume 88.9 fL (80.0-98.0); Mean Platelet Volume 12.3 fL (9.4-12.3); Monocytes Absolute Auto 0.7 X10*3/uL (0.1-1.2); Neutrophils Absolute Auto 10.3 x10*3/uL (2.0-8.3); Neutrophils Percent Auto 71.2 % (45-73); Platelet Count 269 X10*3/uL (160-400); Red Blood Count 4.88 X10*6/uL (4.20-5.50); Red Cell Distribution Width 13.9 % (11.0-16.0); White Blood Count 14.5 X10*3/uL (4.8-10.8)
[2024-09-06 12:21] LABS: Alanine Aminotransferase 49 U/L (0-31); Albumin Level 4.4 g/dL (3.5-5.0); Alkaline Phosphatase 89 U/L (39-117); Anion Gap 18 (12-20); Aspartate Amino Transferase 37 U/L (5-31); Bilirubin Total 0.4 mg/dL (0.0-1.0); Blood Urea Nitrogen 8 mg/dL (9-16); Calcium 10.1 mg/dL (8.4-10.2); Carbon Dioxide 25 mmol/L (22-29); Chloride 101 mmol/L (96-108); Cholesterol 244 mg/dL (<200); Estimated Glomerular Filt Rate > 60; Glucose Random 89 mg/dL (60-115); HDL Cholesterol 47 mg/dL (>40); LDL Cholesterol Calculated 175 mg/dL (<100); Potassium 3.5 mmol/L (3.3-5.1); Sodium 140 mmol/L (135-145); Total Protein 7.9 g/dL (6.5-8.0); Triglycerides 112 mg/dL (<150)
[2024-09-06 12:39] LABS: TSH reflex Free T4 2.13 uIU/mL (0.32-4.0); Vitamin D 25-OH Total 17.8 ng/mL (>30)
== END 2024-09-06 09:56 | disposition home or self-care (01) ==
LOC: HO.HHCL 09:55
PROVIDERS: Visit Provider Nurse Practitioner
DX: E11.9 Type 2 diabetes mellitus without complications (principal); R53.83 Other fatigue
CPT/HCPCS: 36415; 80053; 80061; 82306; 84443; 85025

== ENCOUNTER 2024-09-27 12:59 | Outpatient (AMB) | payer MEDICAID, SELFPAY ==
[2024-09-27 13:03] VITALS: BMI 33.5
--- NOTE | 2024-09-27 13:03 | MHC.OFFVIS ---
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 Pt states she had injury to her left ankle in Jul 2023 and developed a hematoma and has had pain since. Also has hx of right ankle sprain but not so bad. 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 Complaints include pain over varicosities, swelling of lower extremities, cramping, fatigue, and heaviness of the lower extremities. It has been affecting their daily activities including walking, standing, and physical activity. It is noted in both her lower extremities. She does smoke 3 cigarettes a day. She is a diabetic her last A1c was 8.5%. Patient denies any previous venous surgery or injections. Patient denies any history of DVT/ PE. Patient denies any history of phlebitis. Trial of compression includes - elevation, which she states helps a little bit. She is working on getting compression stockings. They now present for vascular evaluation regarding their varicose veins. [facility] Medical History Incarcerated umbilical hernia (07/01/24) Insomnia Sciatica Psychogenic nonepileptic seizure Seizure-like activity Vitamin D deficiency Smoker PTSD (post-traumatic stress disorder) Microalbuminuria due to type 2 diabetes mellitus Anxiety Depression Migraine Mass of shoulder region History of alcohol abuse Calcified granuloma of lung [place] Diabetes GERD (gastroesophageal reflux disease) Elevated cholesterol HTN (hypertension) Morbid obesity Abdominal pain DAVID (obstructive sleep apnea) Asthma Drowsiness Fatigue Surgical History Hx of foot surgery History of esophagogastroduodenoscopy (EGD) History of cholecystectomy History of hysterectomy Family History Paternal Grandfather Liver cancer Maternal Grandfather Prostate cancer Social History Household Members: None Housing: Apartment Are you a primary rn long term care to a significant other at home: No Do you presently have visiting nurse or other home services: No Alcohol intake: current Alcohol intake frequency: does not drink Patient Tobacco Use Status: Current everyday Tobacco user Tobacco use type: Cigarette Cigarette Packs Per Day: 3 Cigarettes Per Day: 3 service: No Review of Systems Const Reports as per HPI and Denies weakness ENT Reports Normal hearing present and Denies dizziness Card Reports as per HPI, Denies chest pain, Denies chest pain at rest, Denies chest pain with activity, Denies dyspnea and Denies dyspnea on exertion Resp Reports as per HPI, Denies cough, Denies dyspnea and Denies dyspnea on exertion GI Reports as per HPI, Denies abdominal pain, Denies nausea and Denies vomiting Musc Denies numbness Skin/Breast Reports as per HPI, Denies erythema and Denies wounds Neuro Reports Normal hearing present, Denies dizziness, Denies numbness, Denies Sensory deficit (Neuro) and Denies weakness Psych Reports no additional complaints Endo Reports no additional complaints Physical Exam Vital Signs: BMI result Body Mass Index 33.5 Const General: healthy appearing and no acute distress Orientation/consciousness: patient oriented x3 HEENT Head: Yes normal to inspection Ears: hearing grossly normal bilaterally Mouth: Normal oral and palatal mucosa present Resp Effort & Inspection: normal respiratory effort and able to speak in complete sentences Auscultation: clear to auscultation bilaterally Cardio Jugular venous distension: no JVD Rate: regular rate Rhythm: regular rhythm Heart sounds: S1 normal heart sound present and S2 normal heart sound present Bruits: no abdominal aortic bruits, no carotid bruits, no femoral bruits and no renal bruits Peripheral pulses: Peripheral pulses 2+ throughout GI Inspection: Yes normal to inspection Palpation (GI): No Abdominal aortic bruit present Skin General skin exam: no rashes or lesions noted Wounds: no wounds Hair: normal Neuro General: patient oriented x3 Cranial nerves: Yes Normal hearing present Cognition (Neuro): normal cognition Gait exam (Neuro): Normal gait present Motor exam (neuro): 5/5 motor strength present throughout Sensory Exam: No Sensory deficit (Neuro) Extrem Other: Bilateral lower extremities: Pain upon palpation throughout the extremities. Plus one peripheral edema noted bilaterally. No discoloration noted. Palpable DP pulses. CEAP: C - 3 E - primary A - superficial P - reflux General: Yes normal to inspection, Yes full ROM, Yes capillary refill normal and Yes normal gait Assessment & Plan Assessment & Plan (1) Varicose veins of both lower extremities with inflammation: Code(s): I83.11 - Varicose veins of right lower extremity with inflammation; I83.12 - Varicose veins of left lower extremity with inflammation Category: Medical Plan: Funmilayo is presenting as a referral from her PCP for ongoing bilateral lower extremity swelling and pain. In short, the patient has evidence of venous insufficiency. I have discussed the pathophysiology with the patient. In addition I have provided informational material regarding venous disease to the patient. We have discussed conservative measures including compression, elevation, and exercise. The patient states that her primary care has ordered compression stockings, she is just waiting to pick them up. I have taken the liberty of ordering venous insufficiency testing with the patient. They will follow up with me after testing. The patient had an opportunity to ask questions regarding the treatment plan. All questions were answered. No major barriers to understanding were identified. The patient expressed understanding and agreement with the above treatment plan. The patient is aware they should contact our office by phone for worsening of the current condition or the appearance of new symptoms. Thank you for allowing me to participate in the vascular care of this patient. If you have any questions or concerns regarding the treatment for the above condition please do not hesitate to contact me. The office telephone contact is [phone]. This note is constructed using voice recognition software. While every effort has been made to ensure accuracy, hydro pneumatic tester errors may have been included. Thank you for allowing me to participate in the care of your patient. Yours sincerely, KIARA Cloud Orders: Orders US venous duplex LE BI 1 Week I83.11 - Varicose veins of right lower extremity with inflammation, I83.12 - Varicose veins of left lower extremity with inflammation Coding Level of Care Code New Pt Level 4 (06252) Diagnoses Varicose veins of both lower extremities with inflammation I83.11; I83.12
== END 2024-09-27 13:33 | disposition home or self-care (01) ==
PROVIDERS: PCP Nurse Practitioner; Visit Provider Physician Assistant Surgical
DX: I83.11 Varicose veins of right lower extremity with inflammation (principal); I83.12 Varicose veins of left lower extremity with inflammation
CPT/HCPCS: 99204

== ENCOUNTER → 2024-09-27 12:59 | Outpatient (BNVA) | payer MEDICAID, SELFPAY | PROVIDERS: PCP Nurse Practitioner; Visit Provider Physician Assistant Surgical | DX: I83.11 Varicose veins of right lower extremity with inflammation (principal); I83.12 Varicose veins of left lower extremity with inflammation | CPT/HCPCS: 99212 ==

== ENCOUNTER 2025-03-08 13:45 | Outpatient (REF) | payer MEDICAID, SELFPAY ==
--- NOTE | ~2025-03-08 | US_ITS ---
CLINICAL HISTORY: INGUINAL LYMPHADENOPATHY --- Additional Notes or Special Instructions: LYMPHADENOPA THY LT INGUINAL AREA, AUGUST 2024 US, RECHECK RESOLUTION Ultrasound left groin Comparison: None Findings: 3 x 2 cm lymph node with benign fatty hilum. 1.3 cm node also noted. No other significant abnormality. Impression: Benign nodes as above This document has been electronically signed by: Jeffry Kelly MD on 03/08/2025 18:25:48
--- OUTSIDE RECORDS SUMMARY | 2025-03-08 15:02 | XMS_ITS | Encounter Summary ---
Author Organization [employer] Address [address] [place] [address] Care Team Providers Care Barmaid Name Role Phone Chante Yusuf SOLAR PROCESS ENGINEER Primary Care Provider [phone] Encounter Details Date Type Department Care Team (Late st Contact Info) Description 08/19/2024 Orders Only [facility] [address] [place] [address] Keyana Vasquez PharmD [address] [place] [address] Social History Tobacco Use Types Packs/Day Years Used Date Smoking Tobacco: Every Day Cigarettes Smokeless Tobacco: Never Alcohol Use Standard Drinks/Week Comments Not Currently 0 (1 standard drink = 0.6 oz pur e alcohol) Depression Answer Date Recorded Patient Health Questionnaire-9 Score 24 11/18/2023 Patient Health Questionnaire-9 Score 24 11/18/2023 Last PHQ-9: Questionnaire Data Not on file 0 11/18/2023 Housing Stability Answer Date Recorded What is your housing situation today? I have hubert george 08/18/[address] you li ve. Do you have problems with any of the following? None of the above 08/18/2023 Food Insecurity Answer Date Recorded Within the past 12 months, y ou worried that your food would run out before you got money to buy more: Often true 08/18/2023 Within the past 12 months,th e food you bought just didn't last and you didn't have enough money to get more: Often true Transportation Answer Date Recorded In the past 12 months, has l ack of transportation kept you from medical appts, meetings, work or from getting things needed for daily living? No 08/18/2023 Utilities Answer Date Recorded In the past 12 months, has t he electric, gas, oil or water company threatened to shut off services in your home? No 08/18/2023 Depression Answer Date Recorded Patient Health Questionnaire-2 Score 6 11/18/2023 Comments Unknown Sex and Gender Information Value Date Recorded Sex Assigned at Female 09/01/2022 10:26 AM EDT Legal Sex Female 10:26 AM EDT Gender Identity Female 09/01/2022 10:26 AM EDT Sexual Orientation Straight 09/01/2022 10 :26 AM EDT documented as of this encounter Plan of Treatment Upcoming Encounters Date Type Department Care Team (Late st Contact Info) Description 03/14/2025 1:30 PM EDT Telemedicine [facility] [address] [place] [address] Micki Olea, PharmD [address] [place] [address] documented as of this encounter Visit Diagnoses Not on filedocumented in this encounter Additional Health Concerns Assessment Noted Time PHQ-9 Depression Total Score: 24 024 10:37 AM EST documented as of this encounter Care Teams Barmaid Relationship Specialty Start Date End Date Chante Yusuf NP [address] [place] [address] PCP - General Family Medicine 10/13/23 Veronica Snow Pad [employer] Manager 09/15/24 [facility] 09/16/24 documented as of this encounter
--- OUTSIDE RECORDS SUMMARY | 2025-03-08 15:02 | XMS_ITS | Clinical Summary ---
Author Organization [facility] Address [address] [place] [id number] Care Team Providers Care Cloth Stretcher Name Role Phone Unavailable Primary Care Provider Unavailabl e Surgical History Surgery Date Site/Laterality Comments HYSTERECTOMY 12/16/2012 PROCEDURE: HISTORICAL VAGINAL HYSTERECTOMY W/O BSO; COMMENT: bleeding, pain, dyspareunia. Partial L oophorectomy CHOLECYSTECTOMY PROCEDURE: HISTORICAL CHOLECYSTECTOMY; COMMENT: laparoscopic TUBAL LIGATION PROCEDURE: HISTORICAL TUBAL LIGATION ENDOMETRIAL ABLATION 2011 PROCEDURE: FL ENDOMETRIAL ABLTJ THERMAL W/O HYSTEROSCOPIC GUID; COMMENT: Novasure CYSTOSCOPY PROCEDURE: FL CYSTOURETHROSCOPY BLADDER SURGERY 2014 PROCEDURE: HISTORICAL BLADDER SURGERY; COMMENT: mid-urethral sling, Dr. Quesada, for incontinence Medical History Medical History Date Comments Major depression in partial remission ([facility] V24) DX:Major depression in parti al remission (HCC); COMMENT: dr magno heller Asthma DX:Asthma Back pain, chronic DX:Back pain, chronic Tobacco use DX:Tobacco use History of opioid abuse ([facility] V24, [facility] V28) DX:History of opioid abuse ( HCC); COMMENT: on suboxone Drug withdrawal seizure ([facility] V24, [facility] V28) 03/2019 DX:Drug withdrawal seizure ( HCC); COMMENT: benzo Alcohol abuse 05/31/2021 DX:Alcohol abuse Anxiety 05/31/2021 DX:Anxiety Family History Medical History Relation Name Comments Other cancer Aunt question uterin e cancer Colon cancer Maternal Grandfather Hypertension Mother Breast cancer Paternal Grandmother Relation Name Status Comments Aunt Maternal Grandfather Mother Paternal Grandmother Social History Tobacco Use Types Packs/Day Years Used Date Smoking Tobacco: Every Day Cigarettes Smokeless Tobacco: Never Alcohol Use Standard Drinks/Week Comments Yes 0 (1 standard drink = 0.6 oz pur e alcohol) Comments Unknown Sex and Gender Information Value Date Recorded Sex Assigned at Not on file Legal Sex Female 9:07 AM EST Gender Identity Not on file Sexual Orientation Not on file Obstetrics History Last Filed Vital Signs Vital Sign Reading Time Taken Comments Blood Pressure - - Pulse - - Temperature - - Respiratory Rate - - Oxygen Saturation - - Inhaled Oxygen Concentration - - Weight 107 kg (235 lb) 11/06/2022 11:17 AM EST Height 170.2 cm (5' 7 ) 11/06/2022 11:17 AM EST Body Mass Index 36.81 11/06/2022 11:17 AM EST Plan of Treatment Health Maintenance Due Date Last Done Comments Hepatitis A Vaccines (1 of 2 - Risk 2-dose series) 1997 Hepatitis B Vaccines (1 of 3 - 19+ 3-dose series) 1997 Pneumococcal Vaccine: Pediat rics (0 to 5 Years) and At-Risk Patients (6 to 64 Years) (2 of 2 - PCV) 08/15/2017 08/15/2016 Breast Cancer Screening 04/09/2019 04/09/2017 Colorectal Cancer Screening: Colonoscopy 10/05/2022 Depression Screening 10/05/2022 HIV Screening 10/05/2022 Hepatitis C Screening 10/05/2022 Social Influencers of Health Screening 10/05/2022 COVID-19 Vaccine (1 - 2023-2 5 season) 2024 Influenza Vaccine (Season Ended) 2025 08/16/20 15 DTaP,Tdap,and Td Vaccines (2 - Td or Tdap) 11/10/2026 11/10/2016 HIB Vaccines Aged Out No longer eligi ble based on patient's age to complete this topic HPV Vaccines Aged Out No longer eligi ble based on patient's age to complete this topic IPV Vaccines Aged Out No longer eligi ble based on patient's age to complete this topic MMR Vaccines Aged Out No longer eligi ble based on patient's age to complete this topic Meningococcal ACWY Vaccine Aged Out N o longer eligible based on patient's age to complete this topic Meningococcal B Vaccine Aged Out No l onger eligible based on patient's age to complete this topic RSV Immunization Patients Un suzie 20 months Aged Out No longer eligible b ased on patient's age to complete this topic Varicella Vaccines Aged Out No longer eligible based on patient's age to complete this topic Procedures Procedure Name Priority Date/Time Associated Diagnosis Comments DX MAMMO INCL CAD BI Routine 04/09/2017 2:26 PM EDT Mastodynia Breast lump Family history of malignant neoplasm of breast from Last 3 Months or Most Recently Relevant to Health Maintenance Results * DX MAMMO INCL CAD BI (04/09/2017 2:26 PM EDT) Anatomical Region Laterality Modality Mammography 03/27/2017 1:45 PM EDT Narrative 04/09/2017 7:14 PM EDT This is a summary report. The complete report is available in the patient's medical record. If you cannot access the medical record, please contact the sending organization for a detailed fax or copy. Bilateral digital diagnostic mammogram Indication: Right breast pain with possible palpable mass found by clinician. Comparison: None available. Technique: Bilateral CC and MLO projections were obtained along with a true 90?? mediolateral view of the right breast. Exaggerated CC views were also obtained bilaterally. CAD software was used with images interpretation. Findings: ??The breasts are composed of fatty and fibroglandular tissue. ??No suspicious mass, architectural distortion or suspicious calcifications are identified. IMPRESSION: : No mammographic evidence of malignancy. Sonographic evaluation to follow. Right breast ultrasound Indication: Palpable right breast mass. Comparison: None available. Findings: Focused sonographic evaluation of the retroareolar right breast demonstrates mild ductal prominence with no solid mass identified. At the 12:00 axis, an anechoic, simple cyst measures 0.6 x 0.3 x 0.3 cm, with expected posterior acoustic enhancement. No drainable fluid collection identified. Impression: Small simple cyst at the 12:00 axis of the retroareolar right breast measures maximally 0.6 cm. No solid masses identified. Further management of palpable abnormality should be based on clinical grounds. BI-RADS 2-benign. 5 year breast cancer risk assessment 0.3 % Lifetime breast cancer risk assessment 5.7 % Breast cancer risk category Low (<15%) Procedure Note Emily Carter DO - 12/04/2023 This is a summary report. The complete report is available in thepatient's medical record. If you cannot access the medical record, pleasecontact the sending organization for a detailed fax or copy. Bilateral digital diagnostic mammogram Indication: Right breast pain with possible palpable mass found byclinician. Comparison: None available. Technique: Bilateral CC and MLO projections were obtained along with atrue 90?? mediolateral view of the right breast. Exaggerated CC views werealso obtained bilaterally. CAD software was used with imagesinterpretation. Findings: The breasts are composed of fatty and fibroglandular tissue.No suspicious mass, architectural distortion or suspicious calcificationsare identified. IMPRESSION: : No mammographic evidence of malignancy. Sonographic evaluation tofollow. Right breast ultrasound Indication: Palpable right breast mass. Comparison: None available. Findings: Focused sonographic evaluation of the retroareolar right breastdemonstrates mild ductal prominence with no solid mass identified. At the12:00 axis, an anechoic, simple cyst measures 0.6 x 0.3 x 0.3 cm, withexpected posterior acoustic enhancement. No drainable fluid collectionidentified. Impression: Small simple cyst at the 12:00 axis of the retroareolar rightbreast measures maximally 0.6 cm. No solid masses identified. Furthermanagement of palpable abnormality should be based on clinical grounds. BI-RADS 2-benign. 5 year breast cancer risk assessment 0.3 % Lifetime breast cancer risk assessment 5.7 % Breast cancer risk category Low (<15%) Michael CRAIG IMG BI PROCEDURES Final Result from Last 3 Months or Most Recently Relevant to Health Maintenance
--- OUTSIDE RECORDS SUMMARY | 2025-03-08 15:03 | XMS_ITS | Encounter Summary ---
Author Organization [employer] Address [address] [facility] 7[address] [place] [address] Care Team Providers Care Access Rep Name Role Phone Tamiko Aceves Primary Care Provider [phone] Maddy Ahumada MD Primary Care Pro vider Chante Yusuf NP Primary Care Provider [phone] Reason for Visit * Reason Onset Date Comments Hospital Follow-up 05/18/2023 Encounter Details Date Type Department Care Team (Late st Contact Info) Description 05/18/2023 Telephone [facility] [address] [place] [phone] Tamiko Aceves, PAPER CUTTING MACHINE OPERATOR [address] [facility] Dept [place] [address] Hospital Follow-up Social History Tobacco Use Types Packs/Day Years Used Date Smoking Tobacco: Every Day Cigarettes Smokeless Tobacco: Never Alcohol Use Standard Drinks/Week Comments Not Currently 0 (1 standard drink = 0.6 oz pur e alcohol) Depression Answer Date Recorded Patient Health Questionnaire-9 Score 0 01/09/2023 Depression Answer Date Recorded Patient Health Questionnaire-2 Score 0 01/09/2023 Comments Unknown Sex and Gender Information Value Date Recorded Sex Assigned at Female 09/01/2022 10:26 AM EDT Legal Sex Female 10:26 AM EDT Gender Identity Female 09/01/2022 10:26 AM EDT Sexual Orientation Straight 09/01/2022 10 :26 AM EDT documented as of this encounter Miscellaneous Notes * Telephone Encounter - Carlcintia MathewsHuertamitch Gant - 05/18/2023 3:11 PM EDT Kevin Nieves with [facility] care partners requesting a HDF follow up with provider. Pt was at [facility] on 05/13/2023 and discharge on 05/15/2023, pt was diagnose with Seizures and Dehydration due to a hernia. Please contact pt at [phone] Mohawk Speaker documented in this encounter Plan of Treatment Upcoming Encounters Date Type Department Care Team (Late st Contact Info) Description 03/14/2025 1:30 PM EDT Telemedicine [facility] [address] [place] [address] Micki Olea PharmD [address] [place] [address] documented as of this encounter Visit Diagnoses Not on filedocumented in this encounter Additional Health Concerns Assessment Noted Time PHQ-9 Depression Total Score: 0 01/10/20 23 2:38 PM EST documented as of this encounter Care Teams Access Rep Relationship Specialty Start Date End Date Tamiko Aceves FNP PCP - General Family Medicine 07/01/22 07/26/23 Maddy Ahumada MD [address] [place] [id number] PCP - General Internal Medicine 07/27/23 10/12/23 Chante Yusuf NP [address] [place] [id number] PCP - General Family Medicine 10/13/23 Veronica Snow Cartridge Loading OperatorStudent Assistance Counselor 09/15/24 [facility] 09/16/24 documented as of this encounter
--- OUTSIDE RECORDS SUMMARY | 2025-03-08 15:03 | XMS_ITS | Encounter Summary ---
Author Organization [employer] Address [address] [facility] 7t [place] [address] Care Team Providers Care Salvage Supervisor Name Role Phone Chante Yusuf KWAKU Primary Care Provider [phone] Reason for Referral * Consultation (Routine) - Authorized Specialty Diagnoses / Procedures Referred By Tana hanley Referred To Contact Pharmacy Diagnoses Type 2 diabetes mellitus with hyperlipidemia (CMS/HCC) (CMS/HCC) Liliya Britton MD [address] [place] [phone] Phone: tel: fax: Referral ID Status Reason Start Date Expiration Date Visits Requested Visits Authorized [id number] Authorized Consult and Treat 01/13/2025 01/13/2026 6 6 Encounter Details Date Type Department Care Team (Late st Contact Info) Description 01/13/2025 Orders Only [facility] [address] [place] [address] [phone] Liliya Britton MD [address] [place] [phone] Microalbuminuria due to type 2 diabetes mellitus (CMS/HCC) (CMS/HCC) (Primary Dx); Type 2 diabetes mellitus with hyperlipidemia (CMS/HCC) (CMS/HCC) Social History Tobacco Use Types Packs/Day Years Used Date Smoking Tobacco: Every Day Cigarettes Smokeless Tobacco: Never Alcohol Use Standard Drinks/Week Comments Not Currently 0 (1 standard drink = 0.6 oz pur e alcohol) Depression Answer Date Recorded Patient Health Questionnaire-9 Score 14 10/03/2024 Patient Health Questionnaire-9 Score 14 10/03/2024 Last PHQ-9: Questionnaire Data Not on file 1 12/04/2023 Housing Stability Answer Date Recorded What is your housing situation today? I have hubert george 10/03/[address] you li ve. Do you have problems with any of the following? Inadequate heat 10/03/2024 Food Insecurity Answer Date Recorded Within the past 12 months, y ou worried that your food would run out before you got money to buy more: Sometimes True 2023 Within the past 12 months,th e food you bought just didn't last and you didn't have enough money to get more: Sometimes True 10/03/2024 Transportation Answer Date Recorded In the past 12 months, has l ack of transportation kept you from medical appts, meetings, work or from getting things needed for daily living? Yes, it has kept me from medical appointments or getting medications. 10/03/2024 Utilities Answer Date Recorded In the past 12 months, has t he electric, gas, oil or water company threatened to shut off services in your home? No 10/03/2024 Depression Answer Date Recorded Patient Health Questionnaire-2 Score 2 10/03/2024 Internet Access Answer Date Recorded Internet Access Q1 No 10/03/2024 Internet Access Q2 My internet/Wi-Fi ac cess is not consistent or reliable 10/03/2024 Comments Unknown Sex and Gender Information Value Date Recorded Sex Assigned at Female 09/01/2022 10:26 AM EDT Legal Sex Female 10:26 AM EDT Gender Identity Female 09/01/2022 10:26 AM EDT Sexual Orientation Straight 09/01/2022 10 :26 AM EDT documented as of this encounter Plan of Treatment Upcoming Encounters Date Type Department Care Team (Late st Contact Info) Description 03/14/2025 1:30 PM EDT Telemedicine [facility] [address] [place] [address] Micki Olea, PharmD [address] [place] [address] Scheduled Referrals Name Type Priority Associated Diagnoses Orde r Schedule Referral to Pharmacy CDTM Outpatient Referral Routine Type 2 diabetes mellitus with hyperlipidemia (CMS/HCC) (CMS/HCC) Ordered: 01/13/2025 documented as of this encounter Visit Diagnoses Diagnosis Microalbuminuria due to type 2 diabetes mellitus (CMS/HCC) (CMS/HCC)- Primary Type 2 diabetes mellitus with hyperlipidemia (CMS/HCC) (CMS/HCC) documented in this encounter Additional Health Concerns Assessment Noted Time PHQ-9 Depression Total Score: 14 024 11:15 AM EST documented as of this encounter Care Teams Salvage Supervisor Relationship Specialty Start Date End Date Chante Yusuf NP [address] [place] [phone] PCP - General Family Medicine 10/13/23 Veronica Snow Bath Design Sales ConsultantBack Up Machine Operator 09/15/24 [facility] 09/16/24 documented as of this encounter
--- OUTSIDE RECORDS SUMMARY | 2025-03-08 15:03 | XMS_ITS | Encounter Summary ---
Author Organization [employer] Address [address] [facility] 7t [place] [address] Care Team Providers Care Green Marketer Name Role Phone Tamiko Aceves Primary Care Provider [phone] Maddy Ahumada MD Primary Care Pro vider Chante Yusuf NP Primary Care Provider [phone] Reason for Visit * Reason Onset Date Comments Appointment Request 02/23/2023 Encounter Details Date Type Department Care Team (Late st Contact Info) Description 02/23/2023 Telephone [facility] [address] [place] [address] Tamiko Aceves, MOTOR TRANSPORT INSPECTOR [address] [facility] Dept [place] [address] Appointment Request Social History Tobacco Use Types Packs/Day Years [...] Orientation Straight 09/01/2022 10 :26 AM EDT COVID-19 Exposure Response Date Recorded In the last 10 days, have yo u been in contact with someone who was confirmed or suspected to have Coronavirus/COVID-19? No / Unsure 02/25/2023 11:24 AM EDT documented as of this encounter Miscellaneous Notes * Telephone Encounter - Zackery Gant - 02/23/2023 11:54 AM EDT Tc from pt requesting to r/s appt for New Derm on 02/23/2023 pt has not transportation. Please contact pt at [phone] documented in this encounter Plan of Treatment Upcoming Encounters Date Type Department Care Team (Late st Contact Info) Description 03/14/2025 1:30 PM EDT Telemedicine [facility] [address] [place] [address] [phone] Micki Olea PharmD [address] [place], [place] [phone] documented as of this encounter Visit Diagnoses Not on filedocumented in this encounter Additional Health Concerns Assessment Noted Time PHQ-9 Depression Total Score: 0 01/10/20 23 2:38 PM EST documented as of this encounter Care Teams Green Marketer Relationship Specialty Start Date End Date Tamiko Aceves FNP PCP - General Family Medicine 07/01/22 07/26/23 Maddy Ahumada MD [address] [place] [address] [phone] PCP - General Internal Medicine 07/27/23 10/12/23 Chante Yusuf NP [address] [place] [address] PCP - General Family Medicine 10/13/23 Veronica Snow Blood Bank Laboratory ProfessionalLead Former 09/15/24 [facility] 09/16/24 documented as of this encounter
--- OUTSIDE RECORDS SUMMARY | 2025-03-08 15:03 | XMS_ITS | Encounter Summary ---
Author Organization [employer] Address [address] [facility] 7t [place] [address] Care Team Providers Care Experimental Welder Name Role Phone Tamiko Aceves Primary Care Provider [phone] Maddy Ahumada MD Primary Care Pro vider Chante Yusuf NP Primary Care Provider [phone] Reason for Visit * Reason Onset Date Comments Triage 02/23/2023 Encounter Details Date Type Department Care Team (Late st Contact Info) Description 02/23/2023 Telephone [facility] [address] [place] [phone] Tamiko Aceves, AUTOMOTIVE PRODUCT ENGINEER [address] [facility] Dept [place] [address] Triage Social History Tobacco Use Types Packs/Day Years [...] encounter Miscellaneous Notes * Telephone Encounter - Julianna Pena RN - 02/23/2023 12:22 PM EDT Second attempt to patient for triage regarding ankle pain. No answer, Lvm to return call to [facility] triage line. Pt to follow up PRN. * Telephone Encounter - Julianna Pena RN - 02/23/2023 12:04 PM EDT Call returned to patient for triage. No answer LVM to return call to [facility] triage line. * Telephone Encounter - Zackery Gant - 02/23/2023 11:54 AM EDT Symptoms: Foot or Ankle Pain - Not From Injury, Foot or Ankle Swelling Outcome: Schedule an urgent appointment (within 1 hour) or talk to a nurse or provider soon Reason: Severe pain now The caller accepted this outcome Please contact pt at [phone] Bengali Speaker documented in this encounter Plan of Treatment Upcoming Encounters Date Type Department Care Team (Late st Contact Info) Description 03/14/2025 1:30 PM EDT Telemedicine [facility] [address] [place] [address] Micki Olea, PharmD [address] [place] [address] documented as of this encounter Visit Diagnoses Not on filedocumented in this encounter Additional Health Concerns Assessment Noted Time PHQ-9 Depression Total Score: 0 01/10/20 23 2:38 PM EST documented as of this encounter Care Teams Experimental Welder Relationship Specialty Start Date End Date Tamiko Aceves FNP PCP - General Family Medicine 07/01/22 07/26/23 Maddy Ahumada MD [address] [place] [address] PCP - General Internal Medicine 07/27/23 10/12/23 Chante Yusuf NP [address] [place] [address] PCP - General Family Medicine 10/13/23 Veronica Snow Executive Vice President And Chief Financial OfficerSenior Financial Reporting Analyst 09/15/24 [facility] 09/16/24 documented as of this encounter
--- OUTSIDE RECORDS SUMMARY | 2025-03-08 15:03 | XMS_ITS | Clinical Summary ---
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 Fundraising Consultant Relationship Specialty Start Date End Date Chante Yusuf NP [address] [place] [address] PCP - General Family Medicine 10/13/23 Veronica Snow Car SupplierBrush Trimming Machine Setter 09/15/24 [facility] 09/16/24
--- OUTSIDE RECORDS SUMMARY | 2025-03-08 15:03 | XMS_ITS | Encounter Summary ---
Author Organization [employer] Address [address] [facility] [address] 7t [place] [address] Care Team Providers Care Senior Sustainability Advisor Name Role Phone Chante Yusuf LIFE MANAGER Primary Care Provider [phone] Reason for Visit * Reason Onset Date Comments OT Discharge 10/19/2023 Encounter Details Date Type Department Care Team ([facility] st Contact Info) Description 10/19/2023 Telephone [facility] MEDICINE [address] [place] [address] Chante Yusuf NP [address] [place] [address] OT Discharge Social History Tobacco Use Types Packs/Day Years Used Date Smoking Tobacco: Every Day Cigarettes Smokeless Tobacco: Never Alcohol Use Standard Drinks/Week Comments Not Currently 0 (1 standard drink = 0.6 oz pur e alcohol) Depression Answer Date Recorded Patient Health Questionnaire-9 Score 0 01/09/2023 Housing Stability Answer Date Recorded What is [...] encounter Miscellaneous Notes * Telephone Encounter - Chante Yusuf NP - 10/20/2023 11:20 AM EST Ok! Thank you * Telephone Encounter - Serenity Regan - 10/19/2023 2:58 PM EST Tc [facility] to inform PCP pt get discharge from Occupational Therapy on 10/16/2023. Any questions contact Crystal [phone] documented in this encounter Plan of Treatment Upcoming Encounters Date Type Department Care Team (Late st Contact Info) Description 03/14/2025 1:30 PM EDT Telemedicine [facility] MEDICINE [address] [place] [address] RosaiaMicki, PharmD [address] [place] [address] documented as of this encounter Visit Diagnoses Not on filedocumented in this encounter Additional Health Concerns Assessment Noted Time PHQ-9 Depression Total Score: 0 01/10/20 2:38 PM EST documented as of this encounter Care Teams Senior Sustainability Advisor Relationship Specialty Start Date End Date Chante Yusuf NP [address] [place] [address] PCP - General Family Medicine 10/13/23 Veronica Snow Wildlife BiologistAws Software Development Engineer 09/15/24 [facility] 09/16/24 documented as of this encounter
--- OUTSIDE RECORDS SUMMARY | 2025-03-08 15:03 | XMS_ITS | Encounter Summary ---
Author Organization [employer] Address [address] [facility] 7t [place] [address] Care Team Providers Care Journeyman Operator Assistant Name Role Phone Tamiko Aceves Primary Care Provider [phone] Maddy Ahumada MD Primary Care Pro vider Chante Yusuf NP Primary Care Provider [phone] Reason for Visit * Reason Onset Date Comments Other 06/23/2023 Encounter Details Date Type Department Care Team (Late st Contact Info) Description 06/23/2023 Telephone [facility] MEDICINE [address] [place] [address] Tamiko Aceves, P D DRIVER [address] [facility] [place] [address] Other Social History Tobacco Use Types Packs/Day Years [...] encounter Miscellaneous Notes * Telephone Encounter - Claire Thomsa RN - 07/22/2023 1:21 PM EDT Referral with face sheet, last provider notes and medication list given to S VNA services. * Telephone Encounter - Claire Thomas RN - 07/14/2023 9:16 AM EDT T/C to [phone] for below message, Lizbeth inform that provider is not in office, waiting for referral to be sign by provider. * Telephone Encounter - Karlos Guadalupe - 07/14/2023 8:58 AM EDT Tc from lizbeth with [facility] requesting status on referral for VNA services. Please contact Lizbeth at [phone] * Telephone Encounter - Claire Thomas RN - 07/03/2023 3:04 PM EDT Incoming call from [facility] Lizbeth, is requesting VNA referral for pt. For medication management. Please review and advise. * Telephone Encounter - Shanelle Vale - 07/03/2023 2:51 PM EDT Tc from [facility] returning call. Please contact at [phone] * Telephone Encounter - Claire Thomas RN - 07/02/2023 9:46 AM EDT T/C to [phone] to Lizbeth for below message, No answer. LVM to call back on [phone]. * Telephone Encounter - Edmund Barraza - 07/01/2023 12:20 PM EDT Tc from [facility] returning call. Please contact at [phone] * Telephone Encounter - Claire Thomas RN - 07/01/2023 11:57 AM EDT T/C to [phone] to [facility] for below message, No answer. LVM to call back on [phone]. * Telephone Encounter - Edmund Barraza - 06/26/2023 4:36 PM EDT Tc from [facility] requesting status on referral for VNA services, states would like for pt to be referred to VNA services that are close to pt home location. Please contact at [phone] * Telephone Encounter - Delmi Wren - 06/23/2023 10:12 AM EDT Tc from Lizbeth at [facility] requesting a referral for VNA services. Patient is non compliant with medications and not acting like herself missing appts and not letting Lizbeth help her. Lizbeth is concerned with patients mental health and not taking the proper medications. Any further questions please call [phone]. documented in this encounter Plan of Treatment Upcoming Encounters Date Type Department Care Team (Late st Contact Info) Description 03/14/2025 1:30 PM EDT Telemedicine [facility] MEDICINE [address] [place] [address] Micki Olea, PharmD [address] [place], [place] [phone] documented as of this encounter Visit Diagnoses Not on filedocumented in this encounter Additional Health Concerns Assessment Noted Time PHQ-9 Depression Total Score: 0 01/10/20 23 2:38 PM EST documented as of this encounter Care Teams Journeyman Operator Assistant Relationship Specialty Start Date End Date Tamiko Aceves FNP PCP - General Family Medicine 07/01/22 07/26/23 Maddy Ahumada MD [address] [place] [address] PCP - General Internal Medicine 07/27/23 10/12/23 Chante Yusuf NP [address] [place] [address] PCP - General Family Medicine 10/13/23 Veronica Snow Bowling Ball EngraverFootwear Sales Leader 09/15/24 [facility] 09/16/24 documented as of this encounter
--- OUTSIDE RECORDS SUMMARY | 2025-03-08 15:03 | XMS_ITS | Encounter Summary ---
Author Organization [employer] Address [address] [facility] 7t [place] [address] Care Team Providers Care Timber Framer Name Role Phone Chante Yusuf KWAKU Primary Care Provider [phone] Reason for Referral * Consultation (Routine) - Authorized Specialty Diagnoses / Procedures Referred By Tana hanley Referred To Contact Pharmacy Diagnoses Type 2 diabetes mellitus with other specified complication, without long-term current use of insulin (CMS/HCC) Liliya Britton MD [address] [place] [address] Phone: tel: fax: Referral ID Status Reason Start Date Expiration Date Visits Requested Visits Authorized [id number] Authorized Consult and Treat 08/21/2024 08/21/2025 6 6 Encounter Details Date Type Department Care Team ([facility] st Contact Info) Description 08/21/[address] [facility] MEDICINE [address] [place] [address] [phone] Liliya Britton MD [address] [place], [place] [phone] Type 2 diabetes mellitus with other specified complication, without long-term current use of insulin (CMS/HCC) (Primary Dx) Social History Tobacco Use Types Packs/Day Years [...] Info) Description 03/14/2025 1:[address] [facility] MEDICINE [address] [place] [address] Micki Olea, PharmD [address] [place] [address] Scheduled Referrals Name Type Priority Associated Diagnoses Orde r Schedule Referral to Pharmacy CDTM Outpatient Referral Routine Type 2 diabetes mellitus with other specified complication, without long-term current use of insulin (CMS/HCC) Ordered: 08/21/2024 documented as of this encounter Visit Diagnoses Diagnosis Type 2 diabetes mellitus with other specified complication, without long-term current use of insulin (CMS/HCC)- Primary documented in this encounter Additional Health Concerns Assessment Noted Time PHQ-9 Depression Total Score: 24 024 10:37 AM EST documented as of this encounter Care Teams Timber Framer Relationship Specialty Start Date End Date Chante Yusuf NP [address] [place] [address] PCP - General Family Medicine 10/13/23 Veronica Snow Line PilotInflated Ball Molder 09/15/24 [facility] 09/16/24 documented as of this encounter
--- OUTSIDE RECORDS SUMMARY | 2025-03-08 15:03 | XMS_ITS | Encounter Summary ---
Author Organization [employer] Address [address] [facility] 7t [place] [address] Care Team Providers Care Wood Floor Layer Name Role Phone Tamiko Aceves Primary Care Provider [phone] Maddy Ahumada MD Primary Care Pro vider Chante Yusuf NP Primary Care Provider [phone] Reason for Visit * Reason Onset Date Comments PT1 Forms 02/23/2023 Encounter Details Date Type Department Care Team (Late st Contact Info) Description 02/23/[address] [facility] MEDICINE [address] [place] [address] Tamiko Aceves, SPICE BLENDER [address] [facility] [place] [address] PT1 Forms Social History Tobacco Use Types Packs/Day Years [...] encounter Miscellaneous Notes * Telephone Encounter - Lnida Landeros - 04/07/2023 11:52 AM EDT Patient will recieve approval / denial letter via mail. PT-1 Request [id number] Pending - [facility] PT-1 Request [id number] Authorized - [address] [address] PT-1 Request [id number] Authorized - [facility] - [address] [place] [address] * Telephone Encounter - Zackery Gant - 02/23/2023 11:56 AM EDT Tc from pt requesting to renew PT1 forms for some main locations: PT1 Name of facility: [facility] Specialty: ALL FUTURE APPT's Location: [address] [place] [address] Date: n/a Time: n/a fax: n/a Phone: n/a wheelchair: n/a Security And Compliance Analyst: n/a PT1 Name of facility: [facility] Specialty: ALL FUTURE APPT's Location: [address] [place] [address] Date: n/a Time: n/a fax: n/a Phone: n/a wheelchair: n/a Security And Compliance Analyst: n/a PT1 Name of facility: [facility] Specialty: ALL FUTURE APPT's Location: [address] [place] [address] Date: n/a Time: n/a fax: n/a Phone: n/a wheelchair: n/a Security And Compliance Analyst: n/a documented in this encounter Plan of Treatment Upcoming Encounters Date Type Department Care Team ([facility] st Contact Info) Description 03/14/2025 1:30 PM EDT Telemedicine [facility] MEDICINE [address] [place] [address] Micki Olea, Rashawn [address] [place] [address] documented as of this encounter Visit Diagnoses Not on filedocumented in this encounter Additional Health Concerns Assessment Noted Time PHQ-9 Depression Total Score: 0 01/10/20 23 2:38 PM EST documented as of this encounter Care Teams Wood Floor Layer Relationship Specialty Start Date End Date Tamiko Aceves FNP PCP - General Family Medicine 07/01/22 07/26/23 Maddy Ahumada MD [address] [place] [address] PCP - General Internal Medicine 07/27/23 10/12/23 Chante Yusuf NP [address] [place] [address] PCP - General Family Medicine 10/13/23 Veronica Snow Tibco DeveloperCorn Sheller Operator 09/15/24 [facility] 09/16/24 documented as of this encounter
--- OUTSIDE RECORDS SUMMARY | 2025-03-08 15:03 | XMS_ITS | Encounter Summary ---
Author Organization [employer] Address [address] [place] [address] 7t [place] [address] Care Team Providers Care Stationary Engineer Refrigeration Name Role Phone Tamiko Aceves Primary Care Provider [phone] Maddy Ahumada MD Primary Care Pro vider Chante Yusuf NP Primary Care Provider [phone] Encounter Details Date Type Department Care Team (Latest Contact Info) Description 05/13/[address] [facility] CONVERSIONS Dental, Provider, DDS Social History Tobacco Use Types Packs/Day Years Used Date Smoking Tobacco: Never Assessed Comments Unknown Sex and Gender Information Value [...] [facility] [address] [place] [address] Micki Olea, PharmD [address] [place] [address] documented as of this encounter Visit Diagnoses Not on filedocumented in this encounter Care Teams Stationary Engineer Refrigeration Relationship Specialty Start Date End Date Tamiko Aceves FNP PCP - General Family Medicine 07/01/22 07/26/23 Maddy Ahumada MD [address] [place] [address] PCP - General Internal Medicine 07/27/23 10/12/23 Chante Yusuf NP [address] [place] [address] PCP - General Family Medicine 10/13/23 Veronica Snow PediatricianComplaint Inspector 09/15/24 [facility] 09/16/24 documented as of this encounter
--- OUTSIDE RECORDS SUMMARY | 2025-03-08 15:03 | XMS_ITS | Encounter Summary ---
Author Organization [employer] Address [address] [facility] [address] 7t [place] [address] Care Team Providers Care Cruise Guide Name Role Phone Chante Yusuf ROUGE SIFTER Primary Care Provider [phone] Reason for Visit * Reason Onset Date Comments CHW 12/25/2023 Encounter Details Date Type Department Care Team ([facility] st Contact Info) Description 12/25/2023 Telephone [facility] MEDICINE [address] [place] [address] Chante Yusuf NP [address] [place] [address] CHW Social History Tobacco Use Types Packs/Day Years [...] Miscellaneous Notes * Telephone Encounter - Zackery Huerta Gant - 12/25/2023 3:30 PM EST Tc from pt returning call from message below. [facility] to [facility] in person requesting assistance with SDOH. Patient's name and were confirmed. CHW Bernard Taylor met with patient in private space. CHW performed SDOH screen and patient screened positive for housing insecurities. Patient stating [facility], but has no help resource to move. Have no family here. CHW referred patient to [facility] [facility] and provided some contect number with [employer]. Some PVTA passes was providedtoday. Patient agree to follow up calling the resources was given to her today. Patient educated onextended clinic hours on Mondays through Wednesdays, and Walk-In Urgent Care Located in [facility]. Patient provided with after-hours line for [facility], , which offer night time triage service and option to transfer to air conditioning coil assembler provider if needed. documented in this encounter Plan of Treatment Upcoming Encounters Date Type Department Care Team (Late st Contact Info) Description 03/14/2025 1:30 PM EDT Telemedicine [facility] MEDICINE [address] [place] [address] Micki Olea, Rashawn [address] [place] [address] documented as of this encounter Visit Diagnoses Not on filedocumented in this encounter Additional Health Concerns Assessment Noted Time PHQ-9 Depression Total Score: 24 024 10:37 AM EST documented as of this encounter Care Teams Cruise Guide Relationship Specialty Start Date End Date Chante Yusuf NP [address] [place] [address] PCP - General Family Medicine 10/13/23 Veronica Snow Residential Property ManagerVending Attendant 09/15/24 [facility] 09/16/24 documented as of this encounter
--- OUTSIDE RECORDS SUMMARY | 2025-03-08 15:03 | XMS_ITS | Encounter Summary ---
Author Organization [employer] Address 75 [facility] 7t [place] [address] Care Team Providers Care Jacquard Plate Maker Name Role Phone KetanTamiko mari Irma RETAIL DISTRICT MANAGER Primary Care Provider [phone] Maddy Ahumada MD Primary Care Pro vider Chante Yusuf NP Primary Care Provider [phone] Reason for Visit * Reason Onset Date Comments Letter Request 12/16/2022 The pt requested a letter for her landlord, because she wants to be allowed to keep an emotional support animal. She stated that she wants to be able to keep a dog, but she does not have one yet, because she doesn't have permission at this time. Encounter Details Date Type Department Care Team (Late st Contact Info) Description 12/16/2022 Telephone [facility] MEDICINE [address] [place] [address] Tamiko Aceves [address] [place] [address] Letter Request (The pt requested a letter for her landlord, because she wants to be allowed to keep an emotional support animal. She stated that she wants to be able to keep a dog, but she does not have one yet, because she doesn't have permission at this time.) Social History Tobacco Use Types Packs/Day Years [...] suspected to have Coronavirus/COVID-19? No / Unsure 12/12/2022 9:25 AM EST documented as of this encounter Plan of Treatment Upcoming Encounters Date Type Department Care Team (Late st Contact Info) Description 03/14/2025 1:30 PM EDT Telemedicine [facility] MEDICINE [address] [place] [address] Micki Olea, AnastaciaD [address] [place], [place] [phone] documented as of this encounter Visit Diagnoses Not on filedocumented in this encounter Care Teams Jacquard Plate Maker Relationship Specialty Start Date End Date Tamiko Aceves FNP PCP - General Family Medicine 07/01/22 07/26/23 Maddy Ahumada MD [address] [place] [address] PCP - General Internal Medicine 07/27/23 10/12/23 Chante Yusuf NP [address] [place] [address] PCP - General Family Medicine 10/13/23 Veronica Snow Aviation NeuropsychologistMeteorology Faculty Member 09/15/24 [facility] 09/16/24 documented as of this encounter
--- OUTSIDE RECORDS SUMMARY | 2025-03-08 15:03 | XMS_ITS | Encounter Summary ---
Author Organization [employer] Address 75 [facility] 7t [place] [address] Care Team Providers Care Material Control Specialist Name Role Phone Maddy Ahumada MD Primary Care Pro vider Chante Yusuf NP Primary Care Provider [phone] Reason for Visit * Reason Onset Date Comments Call Back Request 09/01/2023 Encounter Details Date Type Department Care Team ([facility] st Contact Info) Description 09/01/2023 Telephone [facility] MEDICINE [address] [place], [place] [phone] Maddy Ahumada MD [address] [place] [address] Call Back Request Social History Tobacco Use Types Packs/Day [...] encounter Miscellaneous Notes * Telephone Encounter - Serenity Regan - 09/01/2023 12:49 PM EDT Tc from [facility] requesting a call back in regards orders to treat foot, Skyla is also asking how can she treat the area on pt. Please call [facility] [phone] documented in this encounter Plan of Treatment Upcoming Encounters Date Type Department Care Team (Late st Contact Info) Description 03/14/2025 1:30 PM EDT Telemedicine [facility] MEDICINE [address] [place] [address] Micki Olea, AnastaciaD [address] [place] [address] documented as of this encounter Visit Diagnoses Not on filedocumented in this encounter Additional Health Concerns Assessment Noted Time PHQ-9 Depression Total Score: 0 01/10/20 23 2:38 PM EST documented as of this encounter Care Teams Material Control Specialist Relationship Specialty Start Date End Date Maddy Ahumada MD [address] [place] [address] PCP - General Internal Medicine 07/27/23 10/12/23 Chante Yusuf NP [address] [place] [address] PCP - General Family Medicine 10/13/23 Veronica Snow Lead Case ManagerCv Tech 09/15/24 [facility] 09/16/24 documented as of this encounter
--- OUTSIDE RECORDS SUMMARY | 2025-03-08 15:03 | XMS_ITS | Encounter Summary ---
Author Organization [employer] Address 75 [facility] 7t [place] [address] Care Team Providers Care Transition Program Manager Name Role Phone Maddy Ahumada MD Primary Care Pro vider Chante Yusuf NP Primary Care Provider [phone] Reason for Visit * Reason Onset Date Comments FYI 09/09/2023 OCCUPATIONAL THERAPY 09/09/2023 Encounter Details Date Type Department Care Team (Late st Contact Info) Description 09/09/2023 Telephone [facility] MEDICINE [address] [place], [place] [phone] Maddy Ahumada MD [address] [place] [address] FYI ; OCCUPATIONAL THERAPY Social History Tobacco Use Types Packs/Day Years [...] * Telephone Encounter - Zackery Gant - 09/09/2023 2:32 PM EST Tc from Rhiannon with Occupational Therapy reporting that on last visit with pt which was Thursday morning pt agreed on appt for Today but Rhiannon reports she tried reaching pt twice and no luck pt was unreachable. If any questions may contact Rhiannon at [phone] documented in this encounter Plan of Treatment Upcoming Encounters Date Type Department Care Team (Late st Contact Info) Description 03/14/2025 1:30 PM EDT Telemedicine [facility] MEDICINE [address] [place], [place] [phone] Micki Olea, PharmD [address] [place] [address] documented as of this encounter Visit Diagnoses Not on filedocumented in this encounter Additional Health Concerns Assessment Noted Time PHQ-9 Depression Total Score: 0 01/10/20 2:38 PM EST documented as of this encounter Care Teams Transition Program Manager Relationship Specialty Start Date End Date Maddy Ahumada MD [address] [place] [address] PCP - General Internal Medicine 07/27/23 10/12/23 Chante Yusuf NP [address] [place] [address] PCP - General Family Medicine 10/13/23 Veronica Snow Manager EndoscopyWeb Site Administrator 09/15/24 [facility] 09/16/24 documented as of this encounter
--- OUTSIDE RECORDS SUMMARY | 2025-03-08 15:03 | XMS_ITS | Encounter Summary ---
Author Organization [employer] Address [address] [place] [address] Care Team Providers Care Mine Engineering Manager Name Role Phone Chante Yusuf COMPUTER SERVICE TECHNICIAN Primary Care Provider [phone] Reason for Visit * Reason Onset Date Comments PT-1 10/17/2024 Encounter Details Date Type Department Care Team ([facility] st Contact Info) Description 10/17/2024 Telephone [facility] [address] [place] [address] Chante Yusuf NP [address] [place] [address] PT-1 Social History Tobacco Use Types Packs/Day Years [...] encounter Miscellaneous Notes * Telephone Encounter - Tone Lux - 10/17/2024 2:26 PM EST Tc from pt calling in regards to PT-1. Pt is unable to make it to dental appt due to pt-1 not having enough visits but pt is requesting for a request to be sent to approve more visits per month for her to make it to the appt. If any questions you can contact pt at [phone]. (Syriac Speaker) documented in this encounter Plan of Treatment Upcoming Encounters Date Type Department Care Team (Late st Contact Info) Description 03/14/2025 1:30 PM EDT Telemedicine [facility] [address] [place] [address] Micki Olea, PharmD [address] [place] [address] documented as of this encounter Visit Diagnoses Not on filedocumented in this encounter Additional Health Concerns Assessment Noted Time PHQ-9 Depression Total Score: 14 024 11:15 AM EST documented as of this encounter Care Teams Mine Engineering Manager Relationship Specialty Start Date End Date Chante Yusuf NP [address] [place] [address] PCP - General Family Medicine 10/13/23 Veronica Snow Candle PourerManager Legal 09/15/24 [facility] 09/16/24 documented as of this encounter
--- OUTSIDE RECORDS SUMMARY | 2025-03-08 15:03 | XMS_ITS | Encounter Summary ---
Author Organization [employer] Address [address] [place] [address] [address] [place] [address] Care Team Providers Care Co Supervisor Grounds And Landscape Name Role Phone Tamiko Aceves Primary Care Provider [phone] Maddy Ahumada MD Primary Care Pro vider Chante Yusuf NP Primary Care Provider [phone] Encounter Details Date Type Department Care Team (Latest Contact Info) Description 11/20/2020 Abstract [facility] CONVERSIONS Dental, Provider, DDS Social History Tobacco [...] Info) Description 03/14/2025 1:30 PM EDT Telemedicine [facility] MEDICINE [address] [place] [address] Micki Olea, PharmD [address] [place] [address] documented as of this encounter Visit Diagnoses Not on filedocumented in this encounter Care Teams Co Supervisor Grounds And Landscape Relationship Specialty Start Date End Date Tamiko Aceves FNP PCP - General Family Medicine 07/01/22 07/26/23 Maddy Ahumada MD [address] [place] [address] PCP - General Internal Medicine 07/27/23 10/12/23 Chante Yusuf NP [address] [place] [address] PCP - General Family Medicine 10/13/23 Veronica Snow Safety Grooving Machine OperatorMusic Rehabilitation Therapist 09/15/24 [facility] 09/16/24 documented as of this encounter
== END 2025-03-08 13:46 | disposition home or self-care (01) ==
LOC: HO.US 13:45
PROVIDERS: Visit Provider Nurse Practitioner Primary Care
DX: R59.0 Localized enlarged lymph nodes (principal)
CPT/HCPCS: 76857

== ENCOUNTER → 2025-03-08 13:49 | Outpatient (BNV) | payer MEDICAID, SELFPAY | PROVIDERS: Visit Provider Radiology Diagnostic Radiology | DX: R59.0 Localized enlarged lymph nodes (principal) | CPT/HCPCS: 76857 ==

== ENCOUNTER 2025-04-18 18:52 | Emergency (ER) | payer MEDICAID, SELFPAY ==
--- NOTE | ~2025-04-18 | CT_ITS ---
CLINICAL HISTORY: epigastric pain CT Abdomen and Pelvis W Contrast COMPARISON: CT/REG/SR - CT ABDOMEN PELVIS W IV CON - 12/14/23 14:55 EST FINDINGS: Small hiatal hernia. Diffusely hypodense liver consistent with hepatic steatosis. Hepatomegaly. Normal spleen. Normal kidneys. Normal adrenal glands. Normal pancreas. Status post cholecystectomy. No abnormal biliary dilation. No evidence of bowel obstruction. Mild thickening of the fischer of the colon, most pronounced in the ascending colon. No pneumatosis. No evidence of acute appendicitis. Mild diffuse bladder wall thickening. Status post hysterectomy. No ascites. No pneumoperitoneum. No lymphadenopathy. No acute fracture. Degenerative changes in the spine at L5-S1. No abdominal aortic aneurysm. Rectus diastasis. IMPRESSION: Colonic wall thickening, which could be due to underdistention or colitis. Possible cystitis. Nonemergent/incidental findings above. This document has been electronically signed by: Pito Gregory MD on 04/18/2025 22:14:19
[2025-04-18 18:59] VITALS: BP 143/91; PULSE 110; TEMP 36.1; O2SAT 98; BMI 33.1
[2025-04-18 19:06] VITALS: BP 132/89; PULSE 105; RESP 18; O2SAT 96
--- NOTE | 2025-04-18 19:44 | ECG_ITS ---
Test Reason : CP Blood Pressure : */* mmHG Vent. Rate : 101 BPM Atrial Rate : 101 BPM P-R Int : 134 ms QRS Dur : 88 ms QT Int : 438 ms P-R-T Axes : 35 44 35 degrees QTcB Int : 567 ms Sinus tachycardia Prolonged QT Abnormal ECG When compared with ECG of 14-Dec-2023 12:17, QT has lengthened Referred By: Becky Whiteside Electronically Signed By: Iglesia Prado
--- NOTE | 2025-04-18 19:48 | ED.ABDPAIN ---
HPI - Abdominal Pain General Chief Complaint: Abdominal Pain Stated Complaint: abd pain , chest paim hx six days, epigastric? Time Seen by Provider: 04/18/25 19:15 History of Present Illness HPI narrative: History of cholecystectomy history of hysterectomy presented today with having abdominal pain that is epigastric. Associated with nausea vomiting. Extreme. Ongoing for the last 6 days. Patient is still drinking alcohol. There is no fever no chills. There is no pain on urination. Patient is from home. Related Data Home Medications ?Medication ?Instructions ?Recorded ?Confirmed alprazolam 1 mg tablet 1 mg PO BID 04/03/21 08/16/24 metformin 500 mg tablet 500 mg PO BID 10/21/22 08/16/24 citalopram 10 mg tablet 10 mg PO QAM 07/17/23 08/16/24 hydroxyzine pamoate 25 mg capsule 25 mg PO BEDTIME PRN Anxiety 07/17/23 08/16/24 albuterol sulfate 90 mcg/actuation 2 puff inhalation Q4H PRN 07/18/23 08/16/24 aerosol inhaler (Ventolin HFA) Shortness Of Breath Or Wheezing loratadine 10 mg tablet 10 mg PO QAM PRN Allergy Symptoms 07/18/23 08/16/24 trazodone 100 mg tablet 200 mg PO BEDTIME PRN Insomnia 12/28/23 08/16/24 docusate sodium 100 mg capsule 100 mg PO BID PRN Constipation 06/21/24 08/16/24 fluticasone propionate 50 2 spray intranasal DAILY PRN 06/21/24 08/16/24 mcg/actuation nasal Allergy Symptoms spray,suspension Previous Rx's ?Medication ?Instructions ?Recorded walker (Ultra-Light Rollator misc) #1 ea 07/23/23 4x4 sterile gaze #20 ea 07/28/23 Zuleyma rolls #20 ea 07/28/23 Normal saline #1 ea 09/10/23 bisacodyl 5 mg tablet,delayed 20 mg (4 x 5 mg) PO ONCE 1 day #4 08/26/24 release (Dulcolax (bisacodyl)) tabs famotidine 20 mg tablet (Pepcid) 20 mg PO BEDTIME 90 days #90 tabs 08/26/24 pantoprazole 40 mg tablet,delayed 40 mg PO DAILY #90 tabs 08/26/24 release polyethylene glycol 3350 17 238 g PO ONCE #238 grams 08/26/24 gram/dose oral powder (Miralax) sennosides 8.6 mg tablet (Natural 17.2 mg (2 x 8.6 mg) PO BEDTIME 08/26/24 Senna Laxative) PRN constipation #60 tabs ondansetron 4 mg disintegrating 4 mg PO Q8H #10 tabs 04/19/25 tablet Allergies Allergy/AdvReac Type Severity Reaction Status Date / Time No Known Allergies Allergy Verified 04/18/25 19:04 Review of Systems Review of Systems Positive abdominal pain Yes all other systems are reviewed and are negative PMFSH Past Medical History Attestation statement: The following information was validated with the patient. Medical History Incarcerated umbilical hernia (07/01/24) Insomnia Sciatica Psychogenic nonepileptic seizure Seizure-like activity Vitamin D deficiency Smoker PTSD (post-traumatic stress disorder) Microalbuminuria due to type 2 diabetes mellitus Anxiety Depression Migraine Mass of shoulder region History of alcohol abuse Calcified granuloma of lung Falls Diabetes GERD (gastroesophageal reflux disease) Elevated cholesterol HTN (hypertension) Morbid obesity Abdominal pain DAVID (obstructive sleep apnea) Asthma Drowsiness Fatigue Surgical History Hx of foot surgery History of esophagogastroduodenoscopy (EGD) History of cholecystectomy History of hysterectomy Family History Family History Paternal Grandfather Liver cancer Maternal Grandfather Prostate cancer Social History Social History Household Members: None Housing: Apartment Are you a primary vision care associate to a significant other at home: No Do you presently have visiting nurse or other home services: No Alcohol intake: current Alcohol intake frequency: does not drink Alcohol type: hard liquor Patient Tobacco Use Status: Current everyday Tobacco user Tobacco use type: Cigarette Cigarette Packs Per Day: 3 Cigarettes Per Day: 3 Smoked in Last 30 Days: Yes Use of substances other than those prescribed or required for medical reasons: No Advance Directives: No Advance Directives Information Provided: No service: No Physical Exam ED Vital Signs: Vital Signs - 24 hr 04/18/25 18:59 04/18/25 19:06 04/18/25 21:28 Temperature 97.0 F 97.8 F Pulse Rate 105 H 89 Respiratory Rate 18 15 Blood Pressure 132/89 106/67 Pulse Oximetry 96 93 Oxygen Delivery Method Room Air Room Air 04/18/25 21:36 04/18/25 23:19 Temperature 97.9 F Pulse Rate 94 80 Respiratory Rate 16 Blood Pressure 116/65 124/79 Pulse Oximetry 96 Oxygen Delivery Method Room Air BMI result Body Mass Index 33.1 Appearance: Alert. Oriented X3. No acute distress. Eyes: Pupils equal, round and reactive to light. ENT: Pharynx normal. Neck: Normal inspection. Neck supple. No lymph nodes noted. No crepitus CVS: Normal heart rate and rhythm. Pulses normal. Normal S1 and S2 Respiratory: No respiratory distress. Breath sounds normal. No Wheezing. No rales Abdomen: Soft and nontender. No rigidity. No distention. good BS x4 Skin: Skin warm and dry. Normal skin color. Normal skin turgor. Extremities: No lower extremity edema. Neurovascular intact to all extremities. No Lacerations. No Rash Neuro: Oriented X 3. No motor deficit. No sensory deficit. Moving all extermities. No slurred speech Course Reevaluation(s) Reevaluation #1: Patient improved after electrolyte repletion. Ambulatory with a steady gait. Stable for discharge and outpatient follow-up. Time: 02:06 Medical Decision Making Lab Data 04/18/25 19:45 04/18/25 20:25 Labs: Lab Results 04/18/25 04/18/25 Range/Units 19:45 20:25 WBC 12.3 H (4.8-10.8) X10*3/uL RBC 5.21 (4.20-5.50) X10*6/uL Hgb 15.9 (12.0-16.0) g/dl Hct 45.0 (37.0-47.0) % MCV 86.4 (80.0-98.0) fL MCH 30.5 (27.0-33.0) pg MCHC 35.3 H (31.0-35.0) g/dl RDW 15.0 (11.0-16.0) % Plt Count 157 L D (160-400) X10*3/uL MPV 12.0 (9.4-12.3) fL Immature Gran % (Auto) 0.2 (0.0-0.4) % Neut % (Auto) 66.8 (45-73) % Lymph % (Auto) 26.0 (20-40) % [place] % (Auto) 5.7 (2-11) % Eos % (Auto) 0.6 (0-4) % Baso % (Auto) 0.7 (0-2) % Lymph # (Auto) 3.2 (1.2-4.9) X10*3/uL [place] # (Auto) 0.7 (0.1-1.2) X10*3/uL Eos # (Auto) 0.1 (0.0-0.4) X10*3/uL Baso # (Auto) 0.1 (0.0-0.2) X10*3/uL Abs Immat Gran (auto) 0.03 (0.00-0.03) X10*3/uL Absolute Neuts (auto) 8.2 (2.0-8.3) x10*3/uL Absolute Nucleated RBC 0.000 (0.0-0.012) X10*3/uL Nucleated RBC % (auto) 0.0 (0.0-0.2) /100WBC Sodium 141 (135-145) mmol/L Potassium 2.9 L* (3.3-5.1) mmol/L Chloride 99 (96-108) mmol/L Carbon Dioxide 21 L (22-29) mmol/L Anion Gap 24 H (12-20) BUN 13 (9-16) mg/dL Creatinine 0.64 (0.5-1.4) mg/dL Estim Creat Clear Calc 129.2 Estimated GFR > 60 Random Glucose 116 H (60-115) mg/dL Calcium 7.9 L D (8.4-10.2) mg/dL Magnesium 1.6 (1.6-2.6) mg/dL Total Bilirubin 1.3 H (0.0-1.0) mg/dL AST 197 H (5-31) U/L ALT 99 H (0-31) U/L Alkaline Phosphatase 133 H (39-117) U/L Troponin I High Sens < 2.7 (<3.5-17.0) ng/L Total Protein 7.2 (6.5-8.0) g/dL Albumin 4.1 (3.5-5.0) g/dL Lipase 12 (8-78) U/L Ethyl Alcohol 92 mg/dL Radiology Impression Discussion of test interpretation with radiology: I have reviewed the radiologist's reading. Radiologist Impression: CT Abdomen and Pelvis W Contrast COMPARISON: CT/REG/SR - CT ABDOMEN PELVIS W IV CON - 12/14/23 14:55 EST FINDINGS: Small hiatal hernia. Diffusely hypodense liver consistent with hepatic steatosis. Hepatomegaly. Normal spleen. Normal kidneys. Normal adrenal glands. Normal pancreas. Status post cholecystectomy. No abnormal biliary dilation. No evidence of bowel obstruction. Mild thickening of the fischer of the colon, most pronounced in the ascending colon. No pneumatosis. No evidence of acute appendicitis. Mild diffuse bladder wall thickening. Status post hysterectomy. No ascites. No pneumoperitoneum. No lymphadenopathy. No acute fracture. Degenerative changes in the spine at L5-S1. No abdominal aortic aneurysm. Rectus diastasis. IMPRESSION: Colonic wall thickening, which could be due to underdistention or colitis. Possible cystitis. Nonemergent/incidental findings above. This document has been electronically signed by: Pito Gregory MD on 04/18/2025 22:14:19 Medications Administered Discontinued Medications Generic Name Dose Route Start Last Admin Trade Name Freq PRN Reason Stop Dose Admin Diphenhydramine HCl 25 mg 04/18/25 21:27 04/18/25 21:31 Diphenhydramine Hcl 50 Mg/Ml Vial IVPUSH 04/18/25 21:28 25 mg ONCE ONE Administration Hydromorphone HCl 0.5 mg 04/18/25 19:44 04/18/25 19:52 Hydromorphone Hcl 0.5 Mg/0.5 Ml Syringe IVPUSH 04/18/25 19:45 0.5 mg ONCE ONE Administration Protocol Sodium Chloride 1,000 mls @ 999 mls/hr 04/18/25 19:45 04/19/25 00:28 Ns IV 04/18/25 20:45 Infused .Q1H1M PRANEETH Infusion Sodium Chloride 1,000 mls @ 999 mls/hr 04/18/25 19:45 04/19/25 00:28 Ns IV 04/18/25 20:45 Infused .Q1H1M PRANEETH Infusion Potassium Chloride 10 meq in 100 mls @ 100 mls/hr 04/18/25 21:00 04/19/25 02:04 Potassium Chloride/H20 IV 04/18/25 22:59 Infused Q1H PRANEETH Infusion Magnesium Sulfate 2 gm in 50 mls @ 150 mls/hr 04/18/25 21:22 04/19/25 00:28 Magnesium Sulfate/H2o IV 04/18/25 21:41 Infused ONCE ONE Infusion Iohexol 85 ml 04/18/25 21:12 04/18/25 21:13 Iohexol 350 Mg/Ml 100 Ml Infus..Btl IV 04/18/25 21:13 85 ml ONCE ONE Administration Metoclopramide HCl 10 mg 04/18/25 21:27 04/18/25 21:32 Metoclopramide Hcl 10 Mg/2 Ml Vial IVPUSH 04/18/25 21:28 10 mg ONCE ONE Administration Ondansetron HCl 4 mg 04/18/25 19:44 04/18/25 19:52 Ondansetron Hcl 4 Mg/2 Ml Vial IVPUSH 04/18/25 19:45 4 mg ONCE ONE Administration Potassium Chloride 40 meq 04/18/25 20:55 04/18/25 21:23 Potassium Chloride Packet 20 Meq Packet PO 04/18/25 20:56 40 meq ONCE ONE Administration Discharge Plan Discharge Clinical Impression: Hypokalemia, Hypomagnesemia, Alcohol use disorder, Nausea & vomiting Patient Disposition: Home, Self-Care Instructions: Abuse of Alcohol (ED), Hypokalemia (ED), Hypomagnesemia (ED) Prescriptions: New ondansetron 4 mg tablet,disintegrating 4 mg PO Q8H Qty: 10 0RF No Action (DME) 4x4 sterile gaze See Rx Instructions .Route .MEDSUPPLY Qty: 20 3RF Rx Instructions: As directed (DME) Zuleyma rolls 4 inch See Rx Instructions .Route .MEDSUPPLY Qty: 20 3RF Rx Instructions: As directed (DME) Normal saline 500 cc See Rx Instructions .Route .MEDSUPPLY Qty: 1 0RF Rx Instructions: Normal saline wet to dry dressing every other day citalopram 10 mg tablet 10 mg PO QAM hydroxyzine pamoate 25 mg capsule 25 mg PO BEDTIME PRN (Reason: Anxiety) albuterol sulfate [Ventolin HFA] 90 mcg/actuation HFA aerosol inhaler 2 puff inhalation Q4H PRN (Reason: Shortness Of Breath Or Wheezing) loratadine 10 mg tablet 10 mg PO QAM PRN (Reason: Allergy Symptoms) (DME) Ultra-Light Rollator Misc See Rx Instructions .ROUTE .MEDSUPPLY Qty: 1 0RF Rx Instructions: As directed docusate sodium 100 mg capsule 100 mg PO BID PRN (Reason: Constipation) fluticasone propionate 50 mcg/actuation spray,suspension 2 spray intranasal DAILY PRN (Reason: Allergy Symptoms) alprazolam 1 mg tablet 1 mg PO BID metformin 500 mg tablet 500 mg PO BID trazodone 100 mg tablet 200 mg PO BEDTIME PRN (Reason: Insomnia) sennosides [Natural Senna Laxative] 8.6 mg tablet 17.2 mg PO BEDTIME PRN (Reason: constipation) Qty: 60 3RF famotidine [Pepcid] 20 mg tablet 20 mg PO BEDTIME 90 Days Qty: 90 3RF pantoprazole 40 mg tablet,delayed release (DR/EC) 40 mg PO DAILY Qty: 90 2RF Rx Instructions: take one tablet half an hour before breakfast bisacodyl [Dulcolax (bisacodyl)] 5 mg tablet,delayed release (DR/EC) 20 mg PO ONCE 1 Days Qty: 4 0RF Rx Instructions: take 4 tabs at noon the day before your colonoscopy polyethylene glycol 3350 [Miralax] 17 gram/dose powder 238 g PO ONCE Qty: 238 0RF Rx Instructions: As directed by gastroenterology department at [facility] Print Language: Cymraes
[2025-04-18 19:50] LABS: MANUAL DIFF FLAG NO
[2025-04-18 19:51] LABS: Basophils Absolute Auto 0.1 X10*3/uL (0.0-0.2); Basophils Percent Auto 0.7 % (0-2); Eosinophils Absolute Auto 0.1 X10*3/uL (0.0-0.4); Eosinophils Percent Auto 0.6 % (0-4); Hemoglobin 15.9 g/dl (12.0-16.0); Imm Gran Abs Auto 0.03 X10*3/uL (0.00-0.03); Imm Gran Pct Auto 0.2 % (0.0-0.4); Lymphocytes Absolute Auto 3.2 X10*3/uL (1.2-4.9); Mean Corpuscular HGB Conc 35.3 g/dl (31.0-35.0); Mean Corpuscular Hemoglobin 30.5 pg (27.0-33.0); Mean Corpuscular Volume 86.4 fL (80.0-98.0); Monocytes Absolute Auto 0.7 X10*3/uL (0.1-1.2); Monocytes Percent Auto 5.7 % (2-11); Neutrophils Absolute Auto 8.2 x10*3/uL (2.0-8.3); Neutrophils Percent Auto 66.8 % (45-73); Platelet Count 157 X10*3/uL (160-400); Red Blood Count 5.21 X10*6/uL (4.20-5.50); White Blood Count 12.3 X10*3/uL (4.8-10.8)
[2025-04-18] MEDS: 0.9 % Sodium Chloride 1,000 ML 999 ML IV ×2 (19:51→19:52)
[2025-04-18] MEDS: HYDROmorphone HCl 0.5 MG/0.5 ML SYRINGE IVPUSH (19:52)
[2025-04-18] MEDS: ondansetron HCL 4 MG/2 ML VIAL IVPUSH (19:52)
--- OUTSIDE RECORDS SUMMARY | 2025-04-18 20:07 | XMS_ITS | Encounter Summary ---
Author Organization [employer] Address [address] [facility] [address] [place] [address] Care Team Providers Care Content Director Name Role Phone Chante Yusuf BRAKE LINER Primary Care Provider [phone] Encounter Details Date Type Department Care Team (Late st Contact Info) Description 08/19/2024 Orders Only [facility] [address] [place] [address] Keyana Vasquez PharmD [address] [place] [address] Social History Tobacco Use Types Packs/Day Years [...] Care Team (Late st Contact Info) Description 04/26/2025 3:00 PM EDT Medication Management [facility] [address] [place] [address] Micki Olea, PharmD [address] [place] [phone] 05/01/2025 9:15 AM EDT Office Visit [facility] [address] [place] [address] Maddy Craig MD [address] [place] [phone] documented as of this encounter Visit Diagnoses Not on filedocumented in this encounter Additional Health Concerns Assessment Noted Time PHQ-9 Depression Total Score: 24 024 10:37 AM EST documented as of this encounter Care Teams Content Director Relationship Specialty Start Date End Date Chante Yusuf NP [address] [place] [address] PCP - General Family Medicine 10/13/23 Veronica Snow Script WriterTemporary Help Agency Referral Clerk 09/15/24 [facility] documented as of this encounter
[2025-04-18 20:46] LABS: Ethanol 92 mg/dL
[2025-04-18 20:54] LABS: Alanine Aminotransferase 99 U/L (0-31); Albumin Level 4.1 g/dL (3.5-5.0); Alkaline Phosphatase 133 U/L (39-117); Anion Gap 24 (12-20); Aspartate Amino Transferase 197 U/L (5-31); Bilirubin Total 1.3 mg/dL (0.0-1.0); Blood Urea Nitrogen 13 mg/dL (9-16); Calcium 7.9 mg/dL (8.4-10.2); Carbon Dioxide 21 mmol/L (22-29); Chloride 99 mmol/L (96-108); Creatinine Clr Calc Pharmacy 129.2; Estimated Glomerular Filt Rate > 60; Glucose Random 116 mg/dL (60-115); Potassium 2.9 mmol/L (3.3-5.1); Sodium 141 mmol/L (135-145); Total Protein 7.2 g/dL (6.5-8.0)
[2025-04-18 20:59] LABS: Troponin-I High Sensitivity < 2.7 ng/L (<3.5-17.0)
[2025-04-18 21:13] LABS: Lipase 12 U/L (8-78); Magnesium 1.6 mg/dL (1.6-2.6)
[2025-04-18] MEDS: iohexoL 350 MG/ML 100 ML INFUS..BTL 85 ML IV (21:13)
[2025-04-18] MEDS: Potassium Chloride/H20 10 MEQ/100 ML PIGGYBACK 100 MEQ IV (21:23)
[2025-04-18] MEDS: Potassium Chloride Packet 20 MEQ PACKET 40 MEQ PO (21:23)
[2025-04-18 21:28] VITALS: BP 106/67; PULSE 89; RESP 15; TEMP 36.6; O2SAT 93
[2025-04-18] MEDS: diphenhydrAMINE HCL 50 MG/ML VIAL 25 MG IVPUSH (21:31)
[2025-04-18] MEDS: Metoclopramide HCl 10 MG/2 ML VIAL IVPUSH (21:32)
[2025-04-18 21:36] VITALS: BP 116/65; PULSE 94
[2025-04-18] MEDS: Magnesium Sulfate/H2O 2 GM/50 ML PIGGYBACK IV (22:47)
[2025-04-18 23:19] VITALS: BP 124/79; PULSE 80; RESP 16; TEMP 36.6; O2SAT 96
[2025-04-19] MEDS: Potassium Chloride/H20 10 MEQ/100 ML PIGGYBACK 100 MEQ IV (00:28)
[2025-04-19 02:22] VITALS: BP 130/82; PULSE 96; RESP 20; TEMP 36.7; O2SAT 97
== END 2025-04-19 02:25 | disposition home or self-care (01) ==
PROVIDERS: Emergency Medicine Emergency Medical Services; Emergency Provider Emergency Medicine
DX: E87.6 Hypokalemia (principal); E83.42 Hypomagnesemia; R11.2 Nausea with vomiting, unspecified; F10.10 Alcohol abuse, uncomplicated; Y90.4 Blood alcohol level of 80-99 mg/100 ml; R10.13 Epigastric pain; E11.9 Type 2 diabetes mellitus without complications; I10 Essential (primary) hypertension; E78.5 Hyperlipidemia, unspecified; F17.210 Nicotine dependence, cigarettes, uncomplicated; Z79.84 Long term (current) use of oral hypoglycemic drugs; Z79.899 Other long term (current) drug therapy
CPT/HCPCS: 36415; 74177; 80053; 80307; 83690; 83735; 84484; 85025; 93005; 96361; 96374; 96375; 99285; J1171; J1200; J2405; J2765; J3475; J3480; Q9967

== ENCOUNTER → 2025-04-18 19:44 | Outpatient (BNV) | payer MEDICAID, SELFPAY | PROVIDERS: Emergency Provider Emergency Medicine; Visit Provider Radiology Diagnostic Radiology | DX: K63.89 Other specified diseases of intestine (principal) | CPT/HCPCS: 74177 ==

== ENCOUNTER → 2025-04-18 19:44 | Outpatient (BNV) | payer MEDICAID, SELFPAY | PROVIDERS: Emergency Provider Emergency Medicine; Visit Provider Internal Medicine Cardiovascular Disease | DX: R00.0 Tachycardia, unspecified (principal) | CPT/HCPCS: 93010 ==

== ENCOUNTER 2025-05-01 08:03 | Outpatient (REF) | payer MEDICAID, SELFPAY ==
--- OUTSIDE RECORDS SUMMARY | 2025-05-01 08:06 | XMS_ITS | Encounter Summary ---
Author Organization [employer] Address [address] [facility] [address] [place] [address] Care Team Providers Care Sql Application Developer Name Role Phone Chatne Yusuf GLOBAL COMPENSATION MANAGER Primary Care Provider [phone] Micki Olea PharmD Unavailable [phone] Encounter Details Date Type Department Care Team (Late st Contact Info) Description 08/19/2024 Orders Only [facility] [address] [place] [address] Keyana Vasquez PharmD [address] [place] [address] Social History Tobacco Use Types Packs/Day Years [...] Care Team (Late st Contact Info) Description 05/01/2025 9:15 AM EDT Office Visit [facility] [address] [place] [address] Maddy Craig MD [address] [place] [address] 05/22/2025 10:30 AM EDT Medication Management [facility] [address] [place] [address] Micki Olea PharmD [address] [place] [address] documented as of this encounter Visit Diagnoses Not on filedocumented in this encounter Additional Health Concerns Assessment Noted Time PHQ-9 Depression Total Score: 24 024 10:37 AM EST documented as of this encounter Care Teams Sql Application Developer Relationship Specialty Start Date End Date Chante Yusuf NP [address] [place] [address] PCP - General Family Medicine 10/13/23 Micki Olea PharmD [address] [place] [address] Pharmacist Pharmacy 04/26/25 Veronica Snow Pressure Vessel InspectorGaming Manager 09/15/24 [facility] 09/16/24 documented as of this encounter
[2025-05-01 11:54] LABS: Alanine Aminotransferase 102 U/L (0-31); Alkaline Phosphatase 87 U/L (39-117); Anion Gap 13 (12-20); Aspartate Amino Transferase 76 U/L (5-31); Bilirubin Direct 0.2 mg/dL (0.0-0.5); Bilirubin Total 0.3 mg/dL (0.0-1.0); Blood Urea Nitrogen 12 mg/dL (9-16); Calcium 9.1 mg/dL (8.4-10.2); Carbon Dioxide 26 mmol/L (22-29); Chloride 102 mmol/L (96-108); Cholesterol 162 mg/dL (<200); Creatinine Urine 113.58 mg/dL; Estimated Glomerular Filt Rate > 60; Glucose Random 223 mg/dL (60-115); HDL Cholesterol 39 mg/dL (>40); LDL Cholesterol Calculated 101 mg/dL (<100); Microalbumin Urine < 5.0 mg/L; Potassium 3.7 mmol/L (3.3-5.1); Sodium 137 mmol/L (135-145); Total Protein 6.9 g/dL (6.5-8.0); Triglycerides 110 mg/dL (<150)
[2025-05-01 12:04] LABS: Syphilis Screen Nonreactive (Nonreactive)
[2025-05-01 12:07] LABS: HBS Num1 0.25 mIU/mL (0-7.99); HBc Num1 0.13 S/CO (0.00-0.79); HBsAGNum1 0.59 S/CO (0.00-0.99); Hepatitis B Core Antibody Nonreactive (Nonreactive); Hepatitis B Surface Antigen Negative (Negative); ~Hepatitis B Surface Antibody NONREACTIVE (Nonreactive)
[2025-05-01 12:12] LABS: Vitamin B12 450 pg/mL (200-900)
[2025-05-01 12:13] LABS: TSH reflex Free T4 5.83 uIU/mL (0.32-4.0)
[2025-05-01 12:57] LABS: Free T4 (Free Thyroxine) 0.96 ng/dL (0.71-1.85)
[2025-05-01 13:41] LABS: Reflex LDLD? No
[2025-05-02 09:18] LABS: Follicle Stimulating Hormone 37.8 mIU/mL; Lutenizing Hormone 25.3 mIU/mL
[2025-05-04 08:43] LABS: Hepatitis A Antibody IgG Nonreactive (Nonreactive); ~Hepatitis A Antibody IgG 0.32 S/CO (0.00-0.99)
[2025-05-04 11:58] LABS: TS Negative Control Passed; TS Panel A 0; TS Panel B 0; TS Positive Control Passed; TSpotTB Negative (Negative)
[2025-05-10 03:29] LABS: Estradiol Ultra Sensitive 9 pg/mL
== END 2025-05-01 08:04 | disposition home or self-care (01) ==
LOC: HO.HHCL 08:03
PROVIDERS: PCP Nurse Practitioner; Visit Provider Nurse Practitioner
DX: L65.9 Nonscarring hair loss, unspecified (principal); E11.69 Type 2 diabetes mellitus with other specified complication; R23.2 Flushing; K76.0 Fatty (change of) liver, not elsewhere classified; E78.00 Pure hypercholesterolemia, unspecified; Z00.00 Encounter for general adult medical examination without abnormal findings; F17.200 Nicotine dependence, unspecified, uncomplicated
CPT/HCPCS: 36415; 80048; 80061; 80076; 82570; 82607; 82670; 83001; 83002; 84439; 84443; 86481; 86704; 86706; 86708; 86780; 87340

== ENCOUNTER 2025-05-24 15:21 | Outpatient (AMB) | payer MEDICAID, SELFPAY ==
--- NOTE | 2025-05-24 15:26 | MHC.OFFVIS ---
Vital Signs 05/24/25 15:28 Height 5 ft 7 in Weight 213 lb BMI 33.4 BP 96/60 Blood Pressure Location Rt brachial Position Sitting Pulse 98 Pulse Source Pulse Oximeter Pulse Oximetry (%) 96 Oxygen Delivery Method Room Air Intake Visit Reasons: 30 m. GERD mgmt. ED FUV. Intake Note: Est pt for mgmt of [facility] w/ abd pain. ED admission 04/2025. CC: C.O. chronic sx mgmt. Pt had CT scan done via ED. Pt denies any significant changes. Requests refill of senna at this time. Plate Stacker Required: Yes Plate Stacker Services: Plate Stacker Present Plate Stacker Name: [facility] (Provider Only) Information Interpreted: clinical only Accompanied by: Self / Same As Patient Allergies No Known Allergies Allergy (Verified 05/24/25 15:27) HPI HPI 30 m. GERD mgmt. ED FUV.: Details: LAST VISIT: GERD (gastroesophageal reflux disease) IBS (irritable bowel syndrome) Chronic idiopathic constipation Postprandial abdominal bloating Screen for colon cancer Plan Continue pantoprazole in the morning and famotidine at bedtime. Avoid dietary triggers and late night snacking. Staying upright for minimum 3 hours after meals discussed with patient. Patient will be starting GLP 1 today and weekly every Thursday. She will have follow-up appointment with her PCP next month to evaluate how she is doing. Patient denies any melena, hematochezia, unintentional weight loss or ribbon like stools. Message sent to surgical schedulers to schedule upper endoscopy and colonoscopy. Patient will return in 2 months to discuss the prep. Continue taking Senokot. Increase fluid intake and activity to promote better bowel motility. Patient is agreeable to current plan of care and verbalizes understanding of instructions. She was given the opportunity to ask questions and all questions answered. ? Thank you for allowing me to participate in her care New sennosides (Natural Senna Laxative) 17.2 mg (2 x 8.6 mg) PO BEDTIME PRN 60 tabs 3RF constipation bisacodyl (Dulcolax (bisacodyl)) take 4 tabs at noon the day before your colonoscopy 20 mg (4 x 5 mg) PO ONCE 4 tabs 0RF 1 day Z12.11 polyethylene glycol 3350 (Miralax) As directed by gastroenterology department at [facility] 238 grams PO ONCE 238 grams 0RF Z12.11 Refilled famotidine (Pepcid) 20 mg PO BEDTIME 90 tabs 3RF 90 days K21.9 pantoprazole take one tablet half an hour before breakfast 40 mg PO DAILY 90 tabs 2RF K21.9 TODAY'S VISIT: Patient is here today for follow-up. Patient was seen in the ER back in April for epigastric pain and nausea and vomiting. Mild leukocytosis, transaminitis. CT scan showed underdistended bowel, hepatomegaly and increased echogenicity of the liver. Patient continues with abdominal pain and epigastric pain. Reports that acid reflux has been controlled with pantoprazole and famotidine. She does however report epigastric pain and bloating postprandially. Patient reports that she is unable to move her bowels tried MiraLax and senna on and off. Patient denies melena, hematochezia, unintentional weight loss or ribbon like stools. Patient reports that she is unable to lose much weight although when reviewing patient is losing small amount of weight gradually. Currently is not on any weight loss medication. Was supposed to start on something in if not taking it. Currently patient denies any nausea or vomiting. Denies any dyspepsia, dysphagia or odynophagia. REPLACED BY [facility] Medical History (Updated 05/24/25 @ 18:44 by Kasey Butts, [facility]) NAFL (nonalcoholic fatty liver) Hepatomegaly Transaminitis Incarcerated umbilical hernia (07/01/24) Insomnia Sciatica Psychogenic nonepileptic seizure Seizure-like activity Vitamin D deficiency Smoker PTSD (post-traumatic stress disorder) Microalbuminuria due to type 2 diabetes mellitus Anxiety Depression Migraine Mass of shoulder region History of alcohol abuse Calcified granuloma of lung Falls Diabetes GERD (gastroesophageal reflux disease) Elevated cholesterol HTN (hypertension) Morbid obesity Abdominal pain DAVID (obstructive sleep apnea) Asthma Drowsiness Fatigue Surgical History Hx of foot surgery History of esophagogastroduodenoscopy (EGD) History of cholecystectomy History of hysterectomy Family History Paternal Grandfather Liver cancer Maternal Grandfather Prostate cancer Social History Household Members: None Housing: Apartment Are you a primary critical care nurse practitioner to a significant other at home: No Do you presently have visiting nurse or other home services: No Alcohol intake: current Alcohol intake frequency: does not drink Alcohol type: hard liquor Patient Tobacco Use Status: Current everyday Tobacco user Tobacco use type: Cigarette Cigarette Packs Per Day: 3 Cigarettes Per Day: 3 service: No Review of Systems Const Denies weight gain and Denies weight loss ENT Reports no additional complaints, Denies dysphagia and Denies odynophagia Card Reports no additional complaints Resp Reports no additional complaints GI Reports abdominal pain (epigastric), Denies belching, Denies melena, Reports bloating, Denies change in bowel habits, Reports constipation, Denies dysphagia, Denies excessive flatus, Denies dyspepsia, Reports heartburn, Denies diarrhea, Reports loose stools, Denies nausea, Denies odynophagia and Denies vomiting Reports no additional complaints Musc Reports no additional complaints Neuro Reports no additional complaints Psych Reports no additional complaints Endo Reports no additional complaints Physical Exam Vital Signs: Last Vital Signs Pulse 98 05/24/25 15:28 BP 96/60 05/24/25 15:28 Pulse Ox 96 05/24/25 15:28 Oxygen Delivery Method Room Air 05/24/25 15:28 BMI result Body Mass Index 33.4 Const General: healthy appearing, no acute distress and well developed Nutritional Appearance: obese Orientation/consciousness: patient oriented x3 Resp Effort & Inspection: normal respiratory effort, able to speak in complete sentences, no tracheal deviation and symmetric chest movement Auscultation: clear to auscultation bilaterally Cardio Rate: regular rate GI Inspection: Yes normal to inspection, No distended and Yes obesity Palpation (GI): Soft to palpation, not firm, nontender and No hepatosplenomegaly present Auscultation: normal bowel sounds General: Yes no CVA tenderness Back/Spine/Pelvis Back: no CVA tenderness Skin General skin exam: elasticity normal, turgor normal and dry skin Neuro General: patient oriented x3 Psych Appearance: grossly normal Mental Status: mental status grossly normal Results Reviewed Results Reviewed: Laboratory Tests 07/31/21 09/06/24 04/18/25 10:52 09:55 20:25 AST 37 H 197 H ALT 49 H 99 H Alkaline Phosphatase Anti-Mitochondrial Ab NEGATIVE Anti-Smooth Muscle Ab <20 Hepatitis A IgG Ab Hep Bs Antigen Hep Bs Antibody Hep B Core Total Ab 05/01/25 08:11 AST 76 H ALT 102 H Alkaline Phosphatase 87 Anti-Mitochondrial Ab Anti-Smooth Muscle Ab Hepatitis A IgG Ab Nonreactive Hep Bs Antigen Negative Hep Bs Antibody NONREACTIVE Hep B Core Total Ab Nonreactive CT SCAN OF ABDOMEN AND PELVIS 04/18/2025 FINDINGS: Small hiatal hernia. Diffusely hypodense liver consistent with hepatic steatosis. Hepatomegaly. Normal spleen. Normal kidneys. Normal adrenal glands. Normal pancreas. Status post cholecystectomy. No abnormal biliary dilation. No evidence of bowel obstruction. Mild thickening of the fischer of the colon, most pronounced in the ascending colon. No pneumatosis. No evidence of acute appendicitis. Mild diffuse bladder wall thickening. Status post hysterectomy. No ascites. No pneumoperitoneum. No lymphadenopathy. No acute fracture. Degenerative changes in the spine at L5-S1. No abdominal aortic aneurysm. Rectus diastasis. IMPRESSION: Colonic wall thickening, which could be due to underdistention or colitis. Possible cystitis. Nonemergent/incidental findings above. Assessment & Plan Assessment & Plan (1) Abdominal pain: Code(s): R10.9 - Unspecified abdominal pain Category: Medical Qualifiers: Abdominal location: periumbilical Qualified Code(s): R10.33 - Periumbilical pain (2) GERD (gastroesophageal reflux disease): Code(s): K21.9 - Gastro-esophageal reflux disease without esophagitis Category: Medical Qualifiers: Esophagitis presence: esophagitis presence not specified Qualified Code(s): K21.9 - Gastro-esophageal reflux disease without esophagitis (3) Transaminitis: Code(s): R74.01 - Elevation of levels of liver transaminase levels Category: Medical (4) Hepatomegaly: Code(s): R16.0 - Hepatomegaly, not elsewhere classified Category: Medical (5) NAFL (nonalcoholic fatty liver): Code(s): K76.0 - Fatty (change of) liver, not elsewhere classified Category: Medical Plan Will check lipase, liver panel, liver fibrosis panel, will repeat ultrasound liver elastography. Will check H pylori. He will continue taking PPI and H2 steven. Patient will start taking Dulcolax daily. Increase fluid intake and activity to promote better bowel motility. Patient was encouraged to change her diet. Eat small amounts more often. Recommended low-fat, low carb, low-salt and high-protein diet. Patient will follow-up in 5 weeks to discuss going for colonoscopy and upper endoscopy. She is agreeable to this plan and verbalizes understanding of instructions. She was given the opportunity to ask questions and all questions answered. Thank you for allowing me to participate in her care Orders: Orders Lipase Today R10.9 - Unspecified abdominal pain Liver Panel Today R74.01 - Elevation of levels of liver transaminase levels H pylori Ag Stool Today K21.9 - Gastro-esophageal reflux disease without esophagitis Liver Fibrosis Pnl Today K76.0 - Fatty (change of) liver, not elsewhere classified US abdomen garcia w elastography Today K76.0 - Fatty (change of) liver, not elsewhere classified Medications: New bisacodyl (Dulcolax (bisacodyl)) 10 mg (2 x 5 mg) PO BEDTIME 180 tabs 4RF Coding Level of Care Code Est Pt Level 4 (38402) Complex EM visit Add On G2211 Diagnoses Periumbilical abdominal pain R10.33 Abdominal location: periumbilical Gastroesophageal reflux disease, unspecified whether esophagitis present K21.9 Esophagitis presence: esophagitis presence not specified Transaminitis R74.01 Hepatomegaly R16.0 NAFL (nonalcoholic fatty liver) K76.0 Time Spent (min) 40 Comment 25 minutes spent with patient and additional 15 minutes spent reviewing her records
[2025-05-24 15:28] VITALS: BP 96/60; PULSE 98; O2SAT 96; BMI 33.4
--- OUTSIDE RECORDS SUMMARY | 2025-05-24 15:44 | XMS_ITS | Encounter Summary ---
Author Organization [employer] Address [address] [facility] [address] [place] [address] Care Team Providers Care Learning Disabilities Resource Teacher Name Role Phone Chante Yusuf INVESTMENT BROKER Primary Care Provider [phone] Micki Olea PharmD Unavailable [phone] Encounter Details Date Type Department Care Team (Late st Contact Info) Description 08/19/2024 Orders Only [facility] MEDICINE [address] [place] [address] Keyana Vasquez PharmD [address] [place] [address] Social History Tobacco Use Types Packs/Day Years [...] Care Team (Late st Contact Info) Description 06/22/2025 2:00 PM EDT Clinical Support [address] [address] 06/28/2025 9:00 AM EDT Medication Management [address] [address] Micki Olea, PharmD [address] [place] [id number] documented as of this encounter Visit Diagnoses Not on filedocumented in this encounter Additional Health Concerns Assessment Noted Time PHQ-9 Depression Total Score: 24 024 10:37 AM EST documented as of this encounter Care Teams Learning Disabilities Resource Teacher Relationship Specialty Start Date End Date Chante Yusuf NP [address] [place] [id number] PCP - General Family Medicine 10/13/23 iMcki Olea, PharmD [address] [place] [id number] Pharmacist Pharmacy 04/26/25 Veronica Snow Pricing CoordinatorClothing Presser 09/15/24 [facility] 09/16/24 documented as of this encounter
--- OUTSIDE RECORDS SUMMARY | 2025-05-24 15:44 | XMS_ITS | Clinical Summary ---
Author Organization [facility] Address [address] [place] [id number] Care Team Providers Care Post Tronic Machine Operator Name Role Phone Unavailable Primary Care Provider Unavailabl e Surgical History Surgery Date Site/Laterality Comments HYSTERECTOMY 12/16/2012 PROCEDURE: HISTORICAL VAGINAL HYSTERECTOMY W/O BSO; COMMENT: bleeding, pain, dyspareunia. Partial L oophorectomy CHOLECYSTECTOMY PROCEDURE: HISTORICAL CHOLECYSTECTOMY; COMMENT: laparoscopic TUBAL LIGATION PROCEDURE: HISTORICAL TUBAL LIGATION ENDOMETRIAL ABLATION 2011 PROCEDURE: AK ENDOMETRIAL ABLTJ THERMAL W/O HYSTEROSCOPIC GUID; COMMENT: Novasure CYSTOSCOPY PROCEDURE: AK CYSTOURETHROSCOPY BLADDER SURGERY 2014 PROCEDURE: HISTORICAL BLADDER SURGERY; COMMENT: mid-urethral sling, Dr. Quesada, for incontinence Medical History Medical History Date Comments Major depression in partial remission ([facility] V24) DX:Major depression in parti al remission (HCC); COMMENT: dr magno heller Asthma DX:Asthma Back pain, chronic DX:Back pain, chronic Tobacco use DX:Tobacco use History of opioid abuse ([facility] V24, [facility] V28) DX:History of opioid abuse ( HCC); COMMENT: on suboxone Drug withdrawal seizure ([facility] V24, [facility] V28) 03/2019 DX:Drug withdrawal seizure ( HCC); [...] 5 Years) and At-Risk Patients (6 to 49 Years) (2 of 2 - PCV) 08/15/2017 08/15/2016 Breast Cancer Screening 04/09/2019 04/09/2017 Colorectal Cancer Screening: Colonoscopy 10/05/2022 HIV Screening 10/05/2022 Hepatitis C Screening 10/05/2022 Social Influencers of Health Screening 10/05/2022 COVID-19 Vaccine (1 - 2023-2 5 season) 2024 Depression Screening 11/02/2024 Influenza Vaccine (#1) 2025 08/16/2015 DTaP,Tdap,and Td Vaccines (2 - Td or [...] projections were obtained along with a true 90 mediolateral view of the right breast. Exaggerated CC views were also obtained bilaterally. CAD software was used with images interpretation. Findings: The breasts are composed of fatty and fibroglandular tissue. No suspicious mass, architectural distortion or suspicious calcifications [...] risk category Low (<15%) Procedure Note Emily Carter, - 12/04/2023 This is a summary report. The complete report is available in thepatient's medical record. If you cannot access the medical record, pleasecontact the sending organization for a detailed fax or copy. Bilateral digital diagnostic mammogram Indication: Right breast pain with possible palpable mass found byclinician. Comparison: None available. Technique: Bilateral CC and MLO projections were obtained along with atrue 90 mediolateral view of the right breast. Exaggerated [...]
== END 2025-05-24 15:59 | disposition home or self-care (01) ==
LOC: HO.HGI 15:22
PROVIDERS: Visit Provider Nurse Practitioner Family
DX: R10.33 Periumbilical pain (principal); K21.9 Gastro-esophageal reflux disease without esophagitis; R74.01 Elevation of levels of liver transaminase levels; R16.0 Hepatomegaly, not elsewhere classified; K76.0 Fatty (change of) liver, not elsewhere classified
CPT/HCPCS: 99214

== ENCOUNTER 2025-05-24 15:21 | Outpatient (REF) | payer MEDICAID, SELFPAY ==
[2025-05-24 17:16] LABS: Alanine Aminotransferase 163 U/L (0-31); Albumin Level 4.4 g/dL (3.5-5.0); Alkaline Phosphatase 98 U/L (39-117); Aspartate Amino Transferase 230 U/L (5-31); Lipase 32 U/L (8-78); Total Protein 7.8 g/dL (6.5-8.0)
[2025-05-25 07:03] LABS: Follicle Stimulating Hormone 38.3 mIU/mL
[2025-05-25 08:00] LABS: Syphilis Screen Nonreactive (Nonreactive)
[2025-06-02 02:53] LABS: FIB-ALT 128 U/L (6-29); FIB-Alpha-2-Macroglobulin 188 mg/dL (106-279); FIB-Apolipoprotein A1 130 mg/dL (101-198); FIB-GGT 161 U/L (3-55); FIB-Haptoglobin 162 mg/dL (43-212); FIB-Total Bilirubin 0.3 mg/dL (0.2-1.2); Liver Fibrosis Score 0.21; Liver Fibrosis Stage F0; Nec Inflam Act Grade A3; Nec Inflam Act Score 0.63
[2025-06-05 08:49] LABS: Estradiol Ultra Sensitive 4 pg/mL
== END 2025-05-24 15:22 | disposition home or self-care (01) ==
LOC: HO.LAB 15:21
PROVIDERS: Absent Provider Nurse Practitioner; PCP Nurse Practitioner; Visit Provider Nurse Practitioner Family
DX: L65.9 Nonscarring hair loss, unspecified (principal); R23.2 Flushing; R10.9 Unspecified abdominal pain; R74.01 Elevation of levels of liver transaminase levels; K76.0 Fatty (change of) liver, not elsewhere classified; R10.33 Periumbilical pain; K21.9 Gastro-esophageal reflux disease without esophagitis; R16.0 Hepatomegaly, not elsewhere classified
CPT/HCPCS: 36415; 80076; 81596; 82670; 83001; 83002; 83690; 84443; 86780; 99212

== ENCOUNTER 2025-07-10 14:24 | Outpatient (REF) | payer MEDICAID, SELFPAY ==
--- OUTSIDE RECORDS SUMMARY | 2025-07-10 14:00 | XMS_ITS | Encounter Summary ---
Author Organization [employer] Address [address] [facility] [address] [place] [address] Care Team Providers Care Sales Warehouse Driver Name Role Phone Chante Yusuf SALES REPRESENTATIVE RAW FIBERS Primary Care Provider [phone] Micki Olea PharmD Unavailable [phone] Reason for Visit * Reason Comments Immunizations Encounter Details Date Type Department Care Team (Latest Contact Info) Description 07/10/2025 2:00 PM EDT Clinical Support [facility] [address] [place], [place] [phone] Delores Chong RN Encounter for immunization Social History Tobacco Use Types Packs/Day Years Used Date Smoking Tobacco: Every Day Cigarettes Smokeless Tobacco: Never Alcohol Use Standard Drinks/Week Comments Not Currently 0 (1 standard drink = 0.6 oz pur e alcohol) Depression Answer Date Recorded Patient Health Questionnaire-9 Score 22 05/22/2025 Patient Health Questionnaire-9 Score 22 05/22/2025 Last PHQ-9: Questionnaire Data Not on file 0 05/22/2025 Housing Stability Answer Date Recorded What is your housing situation today? I have hubert george 04/24/[address] you li ve. Do you have problems with any of the following? None of the above 04/24/2025 Food Insecurity Answer Date Recorded Within the past 12 months, y ou worried that your food would run out before you got money to buy more: Never True 04/24/2025 Within the past 12 months,th e food you bought just didn't last and you didn't have enough money to get more: Never True Transportation Answer Date Recorded In the past 12 months, has l ack of transportation kept you from medical appts, meetings, work or from getting things needed for daily living? No 04/24/2025 Utilities Answer Date Recorded In the past 12 months, has t he electric, gas, oil or water company threatened to shut off services in your home? No 10/03/2024 Depression Answer Date Recorded Patient Health Questionnaire-2 Score 5 05/22/2025 Internet Access Answer Date Recorded Internet Access Q1 Yes 04/24/2025 Internet Access Q2 My internet/Wi-Fi ac cess is not consistent or reliable 04/24/2025 Comments Unknown Sex and Gender Information Value Date Recorded Sex Assigned at Female 09/01/2022 10:26 AM EDT Legal Sex Female 10:26 AM EDT Gender Identity Female 09/01/2022 10:26 AM EDT Sexual Orientation Straight 09/01/2022 10 :26 AM EDT documented as of this encounter Progress Notes * Delores Chong RN - 07/10/2025 2:00 PM EDT S: Funmilayo Valdovinos is here to receive the second dose of their Heplisav-B vaccine. Pt denies anyside effects to previous injection. Pt reports PCP was supposed to prescribe them something for their menopausal sx and that they stilldon't feel good. Pt reports it's been over two months and they finally went grocery shopping yesterday. Per PCP iscussed with patient that her symptoms could also be due to inappropriate thyroid function. Repeat TSH was ordered 05/22 but not completed. Please advise she complete that test AMY to help guide next steps. Also, assess her current use of the medication celexa. Thanks . Pt strongly advised to complete blood work after visit so that PCP can determine the next steps. Pt reports that due to PT-1 they cannot do the blood work after the nurse visit but they will come another day to complete it. O: Hepatitis B 0.5ml, administered to left deltoid. Injection was tolerated well. No adverse reaction noted. Immunization History Administered Date(s) Administered HepB-CpG 05/22/2025, 07/10/2025 Influenza injectable quadrivalent preservative free 07/19/2018, 10/22/2021 Influenza, IIV3, injectable 11/29/2007, 12/31/2020 Influenza, injectable, quadrivalent, preservative free, pediatric 08/16/2015 Influenza, seasonal, injectable, preservative free 07/13/2016 Moderna Covid-19 Vaccine 12+ 02/22/2021, 03/22/2021, 11/28/2021 Pneumococcal Polysaccharide PPSV23 11/29/2007, 08/15/2016, 04/01/2018 Tdap 11/10/2016, 11/04/2018, 04/25/2020, 08/30/2023 A: Encounter for Immunization. P: Pt advised to complete their thyroid labs first before PCP can prescribe them anything. Pt advised PCP does not have any sooner appointments available and to attend their scheduled appointments. Pt advised if they become asymptomatic they're always welcome to attend our [facility] during their businesshours. Pt is to follow up with PCP as needed. Delores Chong RN documented in this encounter Plan of Treatment Upcoming Encounters Date Type Department Care Team (Late st Contact Info) Description 07/25/2025 2:30 PM EDT Medication Management [facility] MEDICINE [address] [place] [address] Micki Olea, PharmD [address] [place] [address] 08/04/2025 2:30 PM EDT Office Visit [facility] MEDICINE [address] [place] [address] Chante Yusuf NP [address] [place] [address] 08/18/2025 9:00 AM EDT Office Visit [facility] OPTOMETRY [address] [place] [address] TarLizbeth flowers, OD [address] [place] [address] documented as of this encounter Visit Diagnoses Diagnosis Encounter for immunization documented in this encounter Additional Health Concerns Assessment Noted Time PHQ-9 Depression Total Score: 22 05/22/ 025 3:14 PM EDT documented as of this encounter Care Teams Sales Warehouse Driver Relationship Specialty Start Date End Date Chante Yusuf NP [address] [place] [address] PCP - General Family Medicine 10/13/23 Micki Olea, Rashawn [address] [place] [address] Pharmacist Pharmacy 04/26/25 Veronica Snow Carcass SplitterRebar Bender 09/15/24 [facility] 09/16/24 documented as of this encounter
--- OUTSIDE RECORDS SUMMARY | 2025-07-10 16:48 | XMS_ITS | Encounter Summary ---
Author Organization [employer] Address 75 [facility] 7t [place] [address] Care Team Providers Care Armature Winder Repair Name Role Phone Chante Yusuf AGENT SPA DESK Primary Care Provider [phone] Micki Olea PharmD Unavailable Encounter Details Date Type Department Care Team (Late st Contact Info) Description 05/19/2025 Orders [address] [facility] MEDICINE [address] [place], [place] [phone] Chante Yusuf NP 230 [place], [place] [phone] Subclinical hypothyroidism (Primary Dx) Social History Tobacco Use Types [...] AM EDT documented as of this encounter Functional Status * Over the past 2 weeks, how often have you been bothered by any of the following problems? Question Answer Date of Assessment Author Patient Health Questionnaire -2 Score 5 05/22/2025 3:14 PM EDT Jamie Morales MA * Little interest or pleasure in doing things Answer Date of Assessment Author Nearly every day 05/22/2025 3:14 PM EDT Jamie Morales MA * Feeling down, depressed, or hopeless Answer Date of Assessment Author More than half the days 05/22/2025 3:14 PM EDT Jamie Teresa MA * Trouble falling or staying asleep, or sleeping too much Answer Date of Assessment Author Nearly every day 05/22/2025 3:14 PM EDT Jamie Morales MA * Feeling tired or having little energy Answer Date of Assessment Author Nearly every day 05/22/2025 3:14 PM EDT Jamie Morales MA * Poor appetite or overeating Answer Date of Assessment Author Nearly every day 05/22/2025 3:14 PM EDT Jamie Morales MA * Feeling bad about yourself - or that you are a failure or have let yourself or your family down Answer Date of Assessment Author More than half the days 05/22/2025 3:14 PM EDT Jamie Teresa MA * Trouble concentrating on things, such as reading the newspaper or watching television Answer Date of Assessment Author Nearly every day 05/22/2025 3:14 PM EDT Jamie Morales MA * Moving or speaking so slowly that other people could have noticed? Or the opposite - being so fidgety or restless that you have been moving around a lot more than usual. Answer Date of Assessment Author More than half the days 05/22/2025 3:14 PM EDT Jamie Teresa MA * Thoughts that you would be better off or hurting yourself in some way Answer Date of Assessment Author Several days 05/22/2025 3:14 PM EDT Jamie Morales MA * Patient Health Questionnaire-9 Score Answer Date of Assessment Author 05/22/2025 3:14 PM EDT Jamie Morales MA * How difficult have these problems made it for you to do your work, take care of things at home, or get along with other people? Answer Date of Assessment Author Extremely difficult 05/22/2025 3:14 PM EDT Jamie Hall MA documented as of this encounter Plan of Treatment Upcoming Encounters Date Type Department Care Team (Late st Contact Info) Description 07/25/2025 2:30 PM EDT Medication Management [facility] MEDICINE [address] [place] [address] Micki Olea, AnastaciaD 230 [place] [address] 08/04/2025 2:30 PM EDT Office Visit [facility] MED[facility]INE 230 [place] [address] Chante Yusuf, KWAKU 230 [place] [address] 08/18/2025 9:00 AM EDT Office Visit [facility] OPTOMETRY 267 [place] [address] Lizbeth Mosquera, OD 267 [place] [address] Scheduled Orders Name Type Priority Associated Diagnoses Orde r Schedule TSH W/Reflex to FT4 Lab Routine Subclinical hypothyroidism Expected: 05/19/2025 (Approximate), Expires: 05/19/2026 documented as of this encounter Visit Diagnoses Diagnosis Subclinical hypothyroidism- Primary Other specified acquired hypothyroidism documented in this encounter Additional Health Concerns Assessment Noted Time PHQ-9 Depression Total Score: 14 024 11:15 AM EST documented as of this encounter Care Teams Armature Winder Repair Relationship Specialty Start Date End Date Chante Yusuf NP 230 [place] [address] PCP - General Family Medicine 10/13/23 Micki Olea PharmD 230 [place] [address] Pharmacist Pharmacy 04/26/25 Veronica Snow Liquefaction SupervisorLiteracy Specialist 09/15/24 [facility] 09/16/24 documented as of this encounter
--- OUTSIDE RECORDS SUMMARY | 2025-07-10 16:48 | XMS_ITS | Encounter Summary ---
Author Organization [employer] Address [address] [facility] [address] 7t [place] [address] Care Team Providers Care Personnel Psychologist Name Role Phone Tamiko Aceves TUBE AND MANIFOLD BUILDER Primary Care Provider Maddy Chaney MD Primary Care Pro vider Chante Yusuf NP Primary Care Provider [phone] Micki Olea PharmD Unavailable [phone] Reason for Visit * Reason Onset Date [...] (Late st Contact Info) Description 12/16/2022 Telephone [facility] 230 [place], [place] [phone] Tamiko Aceves FNP Letter Request (The pt requested a letter [...] Description 07/25/2025 2:30 PM EDT Medication Management [facility] [address] [place] [address] Micki Olea PharmD [address] [place] [address] 08/04/2025 2:30 PM EDT Office Visit [facility] [address] [place] [address] Chante Yusuf NP [address] [place] [address] 08/18/2025 9:00 AM EDT Office Visit [facility] OPTOMETRY [address] [place] [address] Lizbeth Mosquera, OD [address] [place] [address] documented as of this encounter Visit Diagnoses Not on filedocumented in this encounter Care Teams Personnel Psychologist Relationship Specialty Start Date End Date Tamiko Aceves FNP PCP - General Family Medicine 07/01/22 07/26/23 Maddy Ahumada MD [address] [place] [address] PCP - General Internal Medicine 07/27/23 10/12/23 Chante Yusuf NP [address] [place] [address] PCP - General Family Medicine 10/13/23 Micki Olea PharmD [address] [place] [address] Pharmacist Pharmacy 04/26/25 Veronica Snow Statistical Methods ProfessorAccount Services Associate 09/15/24 [facility] 09/16/24 documented as of this encounter
--- OUTSIDE RECORDS SUMMARY | 2025-07-10 16:48 | XMS_ITS | Encounter Summary ---
Author Organization [employer] Address 75 [facility] 7t [place] [address] Care Team Providers Care Skein Straightener Name Role Phone Tamiko Aceves Primary Care Provider Maddy Chaney MD Primary Care Pro vider Chante Yusuf NP Primary Care Provider [phone] Micki Olea PharmD Unavailable [phone] Reason for Visit * Reason Onset Date Comments PT1 Forms 02/23/2023 Encounter Details Date Type Department Care Team (Late st Contact Info) Description 02/23/2023 Telephone [facility] 230 [place] [address] Tamiko Aceves FNP PT1 Forms Social History Tobacco Use Types [...] encounter Miscellaneous Notes * Telephone Encounter - Linda Landeros - 04/07/2023 11:52 AM EDT Patient will recieve approval / denial letter via mail. PT-1 Request [id number] Pending - [facility] PT-1 Request [id number] Authorized - [facility] [address] [facility] [address] PT-1 Request [id number] Authorized - [facility] - [address] [facility] [address] * Telephone Encounter - Zackery Gant - 02/23/2023 11:56 AM EDT Tc from pt requesting to renew PT1 forms for some main locations: PT1 Name of facility: [facility] Specialty: ALL FUTURE APPT's Location: 230 [place] [address] Date: n/a Time: n/a fax: n/a Phone: n/a wheelchair: n/a Senior Health Consultant: n/a PT1 Name of facility: [facility] Specialty: ALL FUTURE APPT's Location: 575 [place] [address] Date: n/a Time: n/a fax: n/a Phone: n/a wheelchair: n/a Senior Health Consultant: n/a PT1 Name of facility: [facility] Specialty: ALL FUTURE APPT's Location: 175 [place], [place] Date: n/a Time: n/a fax: n/a Phone: n/a wheelchair: n/a Senior Health Consultant: n/a documented in this encounter Plan of Treatment Upcoming Encounters Date Type Department Care Team ([facility] Contact Info) Description 07/25/2025 2:30 PM EDT Medication Management [facility] [address] [place], [place] [phone] Micki Olea, Rashawn 230 [place] [address] 08/04/2025 2:30 PM EDT Office Visit [facility] 230 [place] [address] Chante Yusuf NP 230 [place] [address] 08/18/2025 9:00 AM EDT Office Visit [facility] OPTOMETRY 267 [place] [address] Tarka Lizbeth, OD 267 [place] [address] documented as of this encounter Visit Diagnoses Not on filedocumented in this encounter Additional Health Concerns Assessment Noted Time PHQ-9 Depression Total Score: 0 01/10/20 2:38 PM EST documented as of this encounter Care Teams Skein Straightener Relationship Specialty Start Date End Date Tamiko Aceves FNP PCP - General Family Medicine 07/01/22 07/26/23 Maddy Ahumada MD [address] [place] [address] PCP - General Internal Medicine 07/27/23 10/12/23 Chante Yusuf NP [address] [place] [address] PCP - General Family Medicine 10/13/23 Micki Olea PharmD [address] [place] [address] Pharmacist Pharmacy 04/26/25 Veronica Snow Church OfficialPrint Decorator 09/15/24 [facility] 09/16/24 documented as of this encounter
--- OUTSIDE RECORDS SUMMARY | 2025-07-10 16:48 | XMS_ITS | Encounter Summary ---
Author Organization [employer] Address 75 [facility] 7t [place] [address] Care Team Providers Care Signwriter Name Role Phone Chante Yusuf MUSIC AGENT Primary Care Provider [phone] Micki Olea PharmD Unavailable [phone] Reason for Referral * Consultation (Routine) - Authorized Specialty Diagnoses / Procedures Referred By Contac t Referred To Contact Pharmacy Diagnoses Type 2 diabetes mellitus with hyperlipidemia (CMS/HCC) (CMS/HCC) Liliya Britton MD [address] [place] [address] Phone: tel: fax: Referral ID Status Reason Start Date Expiration Date Visits Requested Visits Authorized [id number] Authorized Consult and Treat 01/13/2025 01/13/2026 6 6 Encounter Details Date Type Department Care Team (Late st Contact Info) Description 01/13/2025 Orders Only [facility]INE [address] [place] [address] [phone] Liliya Britton MD [address] [place] [address] [phone] Microalbuminuria due to type 2 diabetes mellitus [...] Description 07/25/2025 2:30 PM EDT Medication Management [facility] [address] [place] [address] Micki Olea, Rashawn 230 [place] [address] 08/04/2025 2:30 PM EDT Office Visit [facility] [address] [place] [address] [phone] Chante Yusuf NP 230 [place] [address] 08/18/2025 9:00 AM EDT Office Visit [facility] OPTOMETRY 267 [place] [address] Lizbeth Mosquera, OD 267 [place] [address] Scheduled Referrals Name Type Priority Associated Diagnoses [...] documented as of this encounter Care Teams Signwriter Relationship Specialty Start Date End Date Chante Yusuf NP 230 [place] [address] PCP - General Family Medicine 10/13/23 Micki Olea PharmD 230 [place] [address] Pharmacist Pharmacy 04/26/25 Veronica Snow Sales And Management TraineeCustomer Service Representative 09/15/24 [facility] 09/16/24 documented as of this encounter
--- OUTSIDE RECORDS SUMMARY | 2025-07-10 16:48 | XMS_ITS | Encounter Summary ---
Author Organization [employer] Address 75 [facility] 7t [place] [address] Care Team Providers Care Air Traffic Controller Center Name Role Phone Chante Yusuf NEUROCRITICAL CARE PHYSICIAN Primary Care Provider [phone] Micki Olea PharmD Unavailable [phone] Reason for Referral * Consultation (Routine) - Canceled Specialty Diagnoses / Procedures Referred By Contac t Referred To Contact Pharmacy Diagnoses Type 2 diabetes mellitus with other specified complication, without long-term current use of insulin (CMS/HCC) Liliya Britton MD 230 [place] [address] Phone: tel: fax: Referral ID Status Reason Start Date Expiration Date V isits Requested Visits Authorized [id number] Canceled Consult and Treat 08/21/2024 08/21/2025 6 6 Encounter Details Date Type Department Care Team (Late st Contact Info) Description 08/21/2024 Orders Only [facility] 230 [place], [place] [phone] Liliya Britton MD [address] [place], [place] [phone] Type 2 diabetes mellitus with other specified [...] Description 07/25/2025 2:30 PM EDT Medication Management [facility] [address] [place] [address] Micki Olea, PharmD 230 [place] [address] 08/04/2025 2:30 PM EDT Office Visit [facility] [address] [place] [address] Chante Yusuf NP 230 [place] [address] 08/18/2025 9:00 AM EDT Office Visit [facility] OPTOMETRY 267 [place] [address] Lizbeth Mosquera, OD 267 [place] [address] Scheduled Referrals Name Type Priority Associated Diagnoses [...] Assessment Noted Time PHQ-9 Depression Total Score: 024 10:37 AM EST documented as of this encounter Care Teams Air Traffic Controller Center Relationship Specialty Start Date End Date Chante Yusuf NP 230 [place] [address] PCP - General Family Medicine 10/13/23 Micki Olea PharmD 230 [place] [address] Pharmacist Pharmacy 04/26/25 Veronica Snow Delivery Room SupervisorHand Shaper 09/15/24 [facility] 09/16/24 documented as of this encounter
--- OUTSIDE RECORDS SUMMARY | 2025-07-10 16:48 | XMS_ITS | Encounter Summary ---
Author Organization [employer] Address 75 [facility] 7t [place] [address] Care Team Providers Care Duralumin Mechanic Name Role Phone Chante Yusuf MAGNETIC TAPE WINDER Primary Care Provider [phone] Micki Olea PharmD Unavailable [phone] Encounter Details Date Type Department Care Team (Late st Contact Info) Description 08/19/2024 Orders Only [facility] 230 [place] [address] Keyana Vasquez, PharmD [address] [place] [address] Social History Tobacco Use Types Packs/Day Years [...] Description 07/25/2025 2:30 PM EDT Medication Management [facility] [address] [place] [address] Micki Olea PharmD 230 [place] [address] 08/04/2025 2:30 PM EDT Office Visit [facility] [address] [place] [address] Chante Yusuf NP 230 [place] [address] 08/18/2025 9:00 AM EDT Office Visit [facility] OPTOMETRY 267 [place] [address] TarLizbeth flowers, OD 267 [place] [address] documented as of this encounter Visit Diagnoses Not on filedocumented in this encounter Additional Health Concerns Assessment Noted Time PHQ-9 Depression Total Score: 24 024 10:37 AM EST documented as of this encounter Care Teams Duralumin Mechanic Relationship Specialty Start Date End Date Chante Yusuf NP 230 [place] [address] PCP - General Family Medicine 10/13/23 Puia, Micki, PharmD 230 [place] [address] Pharmacist Pharmacy 04/26/25 Veronica Snow Pharmacy ConsultantTiler 09/15/24 [facility] 09/16/24 documented as of this encounter
--- OUTSIDE RECORDS SUMMARY | 2025-07-10 16:48 | XMS_ITS | Encounter Summary ---
Author Organization [employer] Address 75 [facility] 7t [place] [address] Care Team Providers Care Home Sales Service Professional Name Role Phone Chante Yusuf OPTO MECHANICAL ENGINEER Primary Care Provider [phone] Micki Olea PharmD Unavailable [phone] Encounter Details Date Type Department Care Team (Latest Contact Info) Description 07/10/2025 Travel Social History Tobacco Use Types Packs/Day Years [...] Description 07/25/2025 2:30 PM EDT Medication Management [facility] MEDICINE [address] [place] [address] Micki Olea PharmD 230 [place] [address] 08/04/2025 2:30 PM EDT Office Visit [facility] 230 [place] [address] Chante Yusuf NP 230 [place] [address] 08/18/2025 9:00 AM EDT Office Visit [facility] OPTOMETRY 267 [place] [address] Tarka, Lizbeth, OD 267 [place] [address] documented as of this encounter Visit Diagnoses Not on filedocumented in this encounter Additional Health Concerns Assessment Noted Time PHQ-9 Depression Total Score: 22 025 3:14 PM EDT documented as of this encounter Care Teams Home Sales Service Professional Relationship Specialty Start Date End Date Chante Yusuf NP [address] [place] [address] PCP - General Family Medicine 10/13/23 Micki Olea PharmD [address] [place] [address] Pharmacist Pharmacy 04/26/25 Veronica Snow Gut SnatcherHobbing Machine Operator 09/15/24 [facility] 09/16/24 documented as of this encounter
--- OUTSIDE RECORDS SUMMARY | 2025-07-10 16:48 | XMS_ITS | Encounter Summary ---
Author Organization [employer] Address 75 [facility] 7t [place] [address] Care Team Providers Care Human Services Manager Name Role Phone Maddy Ahumada MD Primary Care Pro vider Chante Yusuf NP Primary Care Provider [phone] Micki Olea PharmD Unavailable [phone] Reason for Visit * Reason Onset Date Comments Call Back Request 09/01/2023 Encounter Details Date Type Department Care Team ([facility] st Contact Info) Description 09/01/2023 Telephone [facility] 230 [place], [place] [phone] Maddy Ahumada MD 230 [place], [place] [phone] Call Back Request Social History Tobacco Use [...] - 09/01/2023 12:49 PM EDT Tc from [facility] requesting a call back in regards orders to treat foot, Skyla is also asking how can she treat the area on pt. Please call [facility] [phone] documented in this encounter Plan of Treatment Upcoming Encounters Date Type Department Care Team (Late st Contact Info) Description 07/25/2025 2:30 PM EDT Medication Management [facility] [address] [place] [address] Micki Olea, PharmD 230 [place] [address] 08/04/2025 2:30 PM EDT Office Visit [facility] 230 [place] [address] Chante Yusuf, KWAKU 230 [place] [address] 08/18/2025 9:00 AM EDT Office Visit [facility] OPTOMETRY 267 [place] [address] Lizbeth Mosquera, OD 267 [place] [address] documented as of this encounter Visit Diagnoses Not on filedocumented in this encounter Additional Health Concerns Assessment Noted Time PHQ-9 Depression Total Score: 0 01/10/20 23 2:38 PM EST documented as of this encounter Care Teams Human Services Manager Relationship Specialty Start Date End Date Maddy Ahumada MD [address] [place] [address] PCP - General Internal Medicine 07/27/23 10/12/23 Chante Yusuf NP [address] [place] [address] PCP - General Family Medicine 10/13/23 Micki Olea PharmD [address] [place] [address] Pharmacist Pharmacy 04/26/25 Veronica Snow Conference InterpreterLip Reading Teacher 09/15/24 [facility] 09/16/24 documented as of this encounter
--- OUTSIDE RECORDS SUMMARY | 2025-07-10 16:48 | XMS_ITS | Encounter Summary ---
Author Organization [employer] Address 75 [facility] 7t [place] [address] Care Team Providers Care Airborne Sensor Specialist Name Role Phone Tamiko Aceves VETERINARY POULTRY INSPECTOR Primary Care Provider Maddy Chaney MD Primary Care Pro vider Chante Yusuf NP Primary Care Provider [phone] Micki Olea PharmD Unavailable [phone] Encounter Details Date Type Department Care Team (Latest Contact Info) Description 11/20/2020 Abstract [facility] CONVERSIONS Dental, Provider, DDS Social History [...] Upcoming Encounters Date Type Department Care Team ( st Contact Info) Description 07/25/2025 2:30 PM EDT Medication Management [facility] [address] [place] [address] Puia, Micki, PharmD 230 [place] [address] 08/04/2025 2:30 PM EDT Office Visit [facility] [address] [place] [address] Chante Yusuf NP 230 [place] [address] 08/18/2025 9:00 AM EDT Office Visit [facility] 267 [place] [address] Lizbeth Mosquera, OD 267 [place] [address] documented as of this encounter Visit Diagnoses Not on filedocumented in this encounter Care Teams Airborne Sensor Specialist Relationship Specialty Start Date End Date Tamiko Aceves FNP PCP - General Family Medicine 07/01/22 07/26/23 Maddy Ahumada MD 230 [place] [address] PCP - General Internal Medicine 07/27/23 10/12/23 Chante Yusuf NP 230 [place] [address] PCP - General Family Medicine 10/13/23 Micki Olea PharmD 230 [place] [address] Pharmacist Pharmacy 04/26/25 Veronica Snow Architect InternshipEbd Teacher 09/15/24 [facility] 09/16/24 documented as of this encounter
--- OUTSIDE RECORDS SUMMARY | 2025-07-10 16:48 | XMS_ITS | Encounter Summary ---
Author Organization [facility] Address [address] [place] [address] Care Team Providers Care Manager Track Name Role Phone Tamiko Aceves REAL ESTATE LEGAL ASSISTANT Primary Care Provider Maddy Chaney MD Primary Care Pro vider Chante Yusuf NP Primary Care Provider [phone] Micki Olea PharmD Unavailable [phone] Reason for Visit * Reason Onset Date Comments Other 06/23/2023 Encounter Details Date Type Department Care Team (Late st Contact Info) Description 06/23/2023 Telephone [facility] [address], [place] [phone] Tamiko Aceves FNP Other Social History Tobacco Use Types Packs/Day [...] Miscellaneous Notes * Telephone Encounter - Claire Thomas RN - 07/22/2023 1:21 PM EDT Referral with face sheet, last provider notes and medication list given to [facility] services. * Telephone Encounter - Claire Thomas RN - 07/14/2023 9:16 AM EDT T/C to [phone] for below message, Lizbeth inform that provider is not in office, waiting for referral to be sign by provider. * Telephone Encounter - Karlos Guadalupe - 07/14/2023 8:58 AM EDT Tc from [facility] requesting status on referral for VNA services. Please contact Lizbeth at [phone] * Telephone Encounter - Claire Thomas RN - 07/03/2023 3:04 PM EDT Incoming call from [facility], is requesting VNA referral for pt. For medication management. Please review and advise. * Telephone Encounter - Shanelle Vale - 07/03/2023 2:51 PM EDT Tc from [facility] returning call. Please contact at [phone] * Telephone Encounter - Claire Thomas RN - 07/02/2023 9:46 AM EDT T/C to [phone] to Lizbeth for below message, No answer. LVM to call back on [phone]. * Telephone Encounter - Edmund Barraza - 07/01/2023 12:20 PM EDT Tc from [facility] returning call. Please contact at [phone] * Telephone Encounter - Claire Thomas RN - 07/01/2023 11:57 AM EDT T/C to [phone] to [facility] for below message, No answer. LVM to call back on [phone]. * Telephone Encounter - Edmund Barraza - 06/26/2023 4:36 PM EDT Tc from [facility] requesting status on referral for VNA services, states would like for pt to be referred to VNA services that are close to pt home location. Please contact at [phone] * Telephone Encounter - Delmi Wren - 06/23/2023 10:12 AM EDT Tc from [facility] at [facility] requesting a referral for VNA services. Patient is non compliant with medications and not acting like herself missing appts and not letting Lizbeth help her. Lizbeth is concerned with patients mental health and not taking the proper medications. Any further questions please call [phone]. documented in this encounter Plan of Treatment Upcoming Encounters Date Type Department Care Team (Late st Contact Info) Description 07/25/2025 2:30 PM EDT Medication Management [facility] [address] [place] [address] Micki Olea, PharmD [address] [place], [place] [phone] 08/04/2025 2:30 PM EDT Office Visit [facility] [address] [place] [address] Chante Yusuf NP [address] [place] [address] 08/18/2025 9:00 AM EDT Office Visit [facility] [address] [place] [address] Lizbeth Mosquera, OD [address] [place] [address] documented as of this encounter Visit Diagnoses Not on filedocumented in this encounter Additional Health Concerns Assessment Noted Time PHQ-9 Depression Total Score: 0 01/10/20 2:38 PM EST documented as of this encounter Care Teams Manager Track Relationship Specialty Start Date End Date Tamiko Aceves FNP PCP - General Family Medicine 07/01/22 07/26/23 Maddy Ahumada MD [address] [place] [id number] PCP - General Internal Medicine 07/27/23 10/12/23 Chante Yusuf NP [address] [place] [id number] PCP - General Family Medicine 10/13/23 Micki Olea PharmD [address] [place] [phone] Pharmacist Pharmacy 04/26/25 Veronica Snow [facility] 09/15/24 [facility] 09/16/24 documented as of this encounter
--- OUTSIDE RECORDS SUMMARY | 2025-07-10 16:48 | XMS_ITS | Clinical Summary ---
Author Organization [employer] Address [address] [place] [address] Care Team Providers Care Accounts Payable Payroll Coordinator Name Role Phone Chante Yusuf SALES STRATEGY MANAGER Primary Care Provider [phone] PuMicki saucedo PharmD Unavailable [phone] Allergies Active Allergy Reactions Criticality Noted Date Comments Rosuvastatin Diarrhea 05/10/2020 Medications * This document contains information received from the source organization and may not represent a complete record from that organization. traZODone (Desyrel) 100 MG tablet TAKE 2 TABLETS BY MOUTH AT BEDTIME NEEDED 023 Active Blood Glucose Monitoring Suppl (FreeStyle Lite) w/Device kitIndications:Ty pe 2 diabetes mellitus with other specified complication, without long-term current use of insulin ([facility]) 1 each 2 times daily. 1 kit 023 Active loratadine (Claritin) 10 MG tabletIndications :Seasonal allergic rhinitis, unspecified trigger Take 1 tablet (10 mg) by mouth in the morning. 90 tablet 3 024 Active Additional Information Patient taking differently:10 mg OralDaily PRN, Reported on 04/26/2025 fluticasone (Flonase) 50 MCG/ACT nasal sprayIndications: Seasonal allergic rhinitis, unspecified trigger SHAKE LIQUID AND USE 1 TO 2 SPRAYS IN EACH NOSTRIL EVERY DAY NEEDED 48 g 024 Active albuterol 108 (90 Base) MCG/ACT inhalerIndication s:Moderate persistent asthma without complication Inhale 2 puffs every 4 (four) hours. 18 g 3 024 Active ALPRAZolam (Xanax) 0.5 MG tablet Take [...] 50 mg by mouth at bedtime. Active atorvastatin (Lipitor) 20 MG tabletIndications :Mixed hyperlipidemia TAKE 1 TABLET(20 MG) BY MOUTH IN THE MORNING 90 tablet 1 Active Alcohol Swabs (Alcohol Prep) 70 % padsIndications:T ype 2 diabetes mellitus with other specified complication, without long-term current use of insulin ([facility]) USE TWICE DAILY WITH TESTING 100 each 11 Active zolpidem (Ambien) 5 MG tablet Take 5 mg by mouth at bedtime. Active nicotine (Nicoderm, Step 2) 14 MG/24HR patchIndications: Smoker Apply 1 patch, as directed, every 24 hours. May remove at bedtime if needed & replace the next morning. Rotate application site. 42 patch Active nicotine (Nicoderm, Step 3) 7 MG/24HR patchIndications: Smoker Apply 1 patch, as directed, every 24 hours. May remove at bedtime if needed & replace the next morning. Rotate application site. 14 patch 2 Active nicotine polacrilex (Commit) 4 MG lozengeIndication s:Smoker Dissolve 1 lozenge, as directed, every 1-2 hours as needed for cravings. Max 20 lozenges per 24 hours. 100 lozenge 5 Active thiamine (Vitamin B-1) 100 MG tablet Take 1 tablet (100 mg) by mouth Once per day. 90 tablet 3 Active Semaglutide,0.25 or 0.5MG/DOS, (Ozempic, 0.25 or 0.5 MG/DOSE,) 2 MG/3ML solution pen-injector Inject 0.5 mg under the skin 1 (one) time per week. 3 mL 5 025 Active baclofen (Lioresal) 10 MG tabletIndications :Neck pain Take one tablet TID PRN 30 tablet 025 Active metFORMIN (Glucophage) 500 MG tabletIndications :Type 2 diabetes mellitus with other specified complication, without long-term current use of insulin (CMS/HCC) TAKE 1 TABLET BY MOUTH TWICE DAILY WITH THE MORNING AND EVENING MEAL 180 tablet 025 Active Bisacodyl EC 5 MG EC tablet Take 10 mg by mouth at bedtime. 025 Active senna (Senokot) 8.6 MG tablet Take 2 tablets by mouth if needed at bedtime for constipation. 024 2024 Discontinued(A lternate therapy) metFORMIN (Glucophage) 500 MG tabletIndications :Type 2 diabetes mellitus with other specified complication, without long-term current use of insulin (CMS/HCC) TAKE 1 TABLET BY MOUTH TWICE DAILY WITH THE MORNING AND EVENING MEAL 180 tablet 025 2024 Discontinued Active Problems Problem Noted Date Diagnosed Date [...] tablet 3 times a day. Filled by [facility]. Educated Pt not to miss doses Will [...] out for help Patient was seen by [facility] Assessment & Plan (06/14/2023 12:11 AM EDT): [...] Fell down the stairs 01/05/21 Evaluated at [facility] ED 01/18/21. CT maxillofacial WNL and [...] taken. Treatment pending Biopsy results. 07/30/22 - [facility] appt reviewed Endoscopy results. Send for Gastric emptying study. F/u 3 weeks Assessment & Plan (08/19/2024 12:31 PM EDT): -med refill provided per patient request -will discuss this further at next appointment Assessment & Plan (07/27/2023 6:25 PM EDT): Refill omeprazole Pt has continued GERD Encouraged pt to call [facility] for f/u appt F/u PRN History [...] Microalbuminuria due to type 2 diabetes mellitus ([facility]) 06/30/2022 Diabetes 06/30/2022 Overview (06/14/2023): Poorly controlled. [...] 50mg Statin: Lipitor 20mg Assessment & Plan (05/13/2025 7:32 AM EDT): -A1c above goal of <7%. POCT A1c 8.6% and glucose 288 mg/dL today -patient was being treated with semaglutide weekly injections and metformin, however it appears she has not been able to receive the medication. Will inquire of status from pharmacy and complete PA if that is the hindrance -continue metformin -discussed importance of exercise, stress management, low fat/low card diet Assessment & Plan (08/19/2024 1:44 PM EDT): [...] taking it. Will obtain fill history from [facility]. Discuss further at next visit -daily foot [...] Encounters Date Type Department Care Team Description 07/10/2025 2:00 PM EDT Clinical Support [facility] [address] [place] [phone] Delores Chong, RN Encounter for immunization 07/10/2025 Travel 06/28/2025 Telephone [facility] [address] [place] [address] Chante Yusuf NP Medication Question (Pt requesting medications for menopause. Pt stated pcp was going to prescribed medication for it. Pt is having a lot of menopause she stated that she feels weak and doesn't have energy to do anything ///) 06/27/[address] [address] Chante Yusuf NP Durable Medical Equipment 06/22/2025 Travel 06/14/[address] [address] Chante Yusuf NP Type 2 diabetes mellitus with other specified complication, without long-term current use of insulin (CMS/HCC) 05/31/[address] [address] Chante Yusuf NP Medication Question (Pt requesting medications for menopause. Pt stated pcp was going to prescribed medication for it. ) 05/24/2025 Orders Only [address] [address] Chante Yusuf NP 05/22/2025 2:30 PM EDT Office Visit [address] [address] Chante Yusuf NP Encounter for immunization (Primary Dx); Type 2 diabetes mellitus with other specified complication, without long-term current use of insulin ([facility]); Dietary counseling; Exercise counseling; Neck pain 05/22/2025 Travel 05/19/2025 Orders Only [address] [address] Chante Yusuf NP Subclinical hypothyroidism (Primary Dx) 05/19/[address] [address] Chante Yusuf NP CHART PREP 05/17/[address] [address] Chante Yusuf NP requesting call back 05/15/2025 Patient Outreach [facility] [address] [place], [place] [phone] Chante Yusuf NP Pre-visit Planning (SDOH was already completed) 05/13/2025 Results Follow-Up [address] [address] Chante Yusuf NP POCT Glucose, POCT HGB A1C, TSH W/Reflex to FT4, Additional followed-up results: 5 05/01/2025 Orders Only [facility] [address] [place] [address] Chante Yusuf NP 04/26/[address] [address] Chante Yusuf NP 04/26/[address] [address] Chante Yusuf NP Labs (I informed the patient that Tspot labs have been ordered. She has a PE scheduled on 05/01/25, and may go to the lab the day of her appointment. She verbalized understanding.) 04/26/2025 Travel 04/26/[address] [address] Delores Chong RN 04/24/2025 Patient Outreach [facility] [address] [place], [place] [phone] Chanet Yusuf NP Pre-visit Planning (SDOH negative, Tobacco screening positive.) 04/21/2025 Results Follow-Up [address] [address] Farnaz Poole, JORGE [employer] 04/18/2025 Orders Only GENERIC EXTERNAL DATA DEPARTMENT Provider, Generic External Data from Last 3 Months Immunizations Immunization Administration Dates Next Due HepB-CpG 07/10/2025,05/22/2025 Influenza injectable quadriv alent preservative free 10/22/2021,07/19/2018 [...] Sign Reading Time Taken Comments Blood Pressure 122/80 05/22/2025 2:21 PM EDT Pulse 95 05/22/2025 2:21 PM EDT Temperature 36.8 C (98.2 F) 05/22/2025 2:21 PM EDT Respiratory Rate 23 05/22/2025 2:21 PM EDT Oxygen Saturation 97% 05/22/2025 2:21 PM EDT Inhaled Oxygen Concentration - - Weight 97.5 kg (215 lb) 05/22/2025 2:21 PM EDT Height 170.2 cm (5' 7 ) 05/22/2025 2:21 PM EDT Body Mass Index 33.67 05/22/2025 2:21 PM EDT Plan of Treatment Upcoming Encounters Date Type Department Care Team (Late st Contact Info) Description 07/25/2025 2:30 PM EDT Medication Management [facility] [address] [place] [address] Micki Olea, PharmD [address] [place] [address] 08/04/2025 2:30 PM EDT Office Visit [facility] [address] [place] [address] Chante Yusuf NP [address] [place] [address] 08/18/2025 9:00 AM EDT Office Visit [facility] [address] [place] [address] Lizbeth Mosquera, OD [address] [place] [address] Health Maintenance Due Date Last Done Comments CT Colonography 1978 Colonoscopy 1978 Colorectal Cancer Screening 1978 FIT DNA/Cologuard 1978 FIT 1978 FOBT 1978 Sigmoidoscopy 1978 Eye Exam 1988 Family Planning (PISQ) 1993 Hepatitis A Vaccines (1 of 2 - Risk 2-dose series) 1997 Pap Smear 1999 HPV/Cotest 2008 Pneumococcal Vaccine: Pediatrics (0 to 5 Years) and At-Risk Patients (6 to 49) Years (2 of 2 - PCV) 04/01/2019 04/01/2018, 08/15/2016, 11/29/2007 Mammogram 09/16/2021 09/16/2019 Dental Prophylaxis 03/07/2025 09/06/2024, 0 06/17/2017, 12/26/2015 Dental Oral Exam 03/29/2025 09/28/2024, , 06/10/2016, Additional history exists Dental X-Ray: Full Mouth 05/14/2025 05/13/2022 COVID-19 Vaccine ( season) 2025 11/28/2021, 03/22/2021, 02/22/2021 Influenza Vaccine (#1) 2025 , 12/31/2020, 07/19/2018, Additional history exists Diabetes: Foot Exam 08/19/2025 08/19/2024, 08/19/2024, 08/19/2024, Additional history exists Diabetes: Hemoglobin A1C 08/22/2025 025, 02/13/2025, 08/19/2024, Additional history exists Dental X-Ray: Bitewings 09/07/2025 09/06/20 24, 05/13/2022, 06/17/2017, Additional history exists Alcohol/Substance Use Screening 10/03/2025 10/03/2024 Depression Monitoring 11/22/2025 05/22/2025, 025 SDOH Screening 04/24/2026 04/24/2025 Lipid Panel 05/01/2026 05/01/2025, 11/0 03/2024, 12/03/2023, Additional history exists Disability Screening 05/22/2026 05/22/2025 Tobacco Screening 05/22/2026 05/22/2025 Zoster Vaccines (1 of 2) 2028 DTaP/Tdap/Td Vaccines (5 - Td or Tdap) 08/30/2033 08/30/2023, 04/25/2020, 11/04/2018, Additional history exists RSV Patients and Patients Aged 60 years or older (1 - 1-dose 75+ series) 2053 HIV Screening Completed 10/04/2024, 08/2 04/2022, 07/31/2021 Hepatitis C Screening Completed 10/04/2024 , 06/27/2022, 07/31/2021 Hepatitis B Vaccines Completed 07/10/2025, 05/22/20 Cervical Cancer Screening Discontinued HIB Vaccines Aged [...] Procedure Name Priority Date/Time Associated Diagnosis Comments ESTRADIOL Routine 05/24/2025 4:25 PM EDT LIVER FIBROSIS, FIBROTEST ACTITEST PANEL Routine 05/24/2025 4:25 PM EDT SYPHILIS SCREEN Routine 05/24/2025 4:25 PM EDT LH Routine 05/24/2025 4:25 PM EDT FSH Routine 05/24/2025 4:25 PM EDT POCT GLYCATED HEMOGLOBIN, TOTAL Routine 05/22/2025 2:28 PM EDT Type 2 diabetes mellitus with other specified complication, without long-term current use of insulin (CMS/HCC) POCT GLUCOSE Routine 05/22/2025 2:24 PM EDT Type 2 diabetes mellitus with other specified complication, without long-term current use of insulin (CMS/HCC) HEPATITIS A ANTIBODY, TOTAL Routine 05/01/2025 8:11 AM EDT T4, FREE Routine 05/01/2025 8:11 AM EDT HEPATITIS B SURFACE ANTIGEN, EIA Routine 05/01/2025 8:11 AM EDT HEPATITIS B CORE AB TOTAL Routine 05/01/2025 8:11 AM EDT HEPATITIS B SURFACE ANTIBODY, QUALITATIVE Routine 05/01/2025 8:11 AM EDT VITAMIN B12 Routine 05/01/2025 8:11 AM EDT LIPID PANEL WITH REFLEX TO DIRECT LDL Routine 05/01/2025 8:11 AM EDT BASIC METABOLIC PANEL Routine 05/01/2025 8:11 AM EDT HEPATIC FUNCTION PANEL Routine 8:11 AM EDT T-SPOT(R).TB Routine 05/01/2025 8:11 AM EDT Healthcare maintenance ALBUMIN, RANDOM URINE W/CREATININE Routine 05/01/2025 8:11 AM EDT Type 2 diabetes mellitus with other specified complication, without long-term current use of insulin (CMS/HCC) ESTRADIOL Routine 05/01/2025 8:11 AM EDT Hot flashes LH Routine 05/01/2025 8:11 AM EDT Hot flashes FSH Routine 05/01/2025 8:11 AM EDT Hot flashes SYPHILIS SCREEN Routine 05/01/2025 8:11 AM EDT Hair loss TSH W/REFLEX TO FT4 Routine 05/01/2025 8 :[address] ABDOMEN PELVIS W CONTRAST Routine 04/18/2025 10:14 PM EDT LIPASE Routine 04/18/2025 8:25 PM EDT MAGNESIUM Routine 04/18/2025 8:25 PM EDT HIGH SENSITIVITY TROPONIN I Routine 04/18/2025 8:25 PM EDT COMPREHENSIVE METABOLIC PANEL Routine 04/18/2025 8:25 PM EDT ETHANOL Routine 04/18/2025 8:25 PM EDT HEPATITIS C ANTIBODY ([facility]) Routine 10/04/2024 HIV ANTIBODY/ANTIGEN ([facility]) Routine 10/04/2024 PERIODIC ORAL EVALUATION - ESTABLISHED PATIENT Routine 09/28/2024 3:30 PM EST Encounter for dental examination Periodontal disease Teeth missing Full PROPHYLAXIS - ADULT Routine 09/06/2024 9:00 AM EST Dental plaque Dental calculus BITEWINGS - 4 RADIOGRAPHIC IMAGES Routine 09/06/2024 9:00 AM EST INTRAORAL - COMPLETE SERIES OF RADIOGRAPHIC IMAGES Routine 05/13/2022 12:00 AM EDT BI MAMMOGRAM SCREENING BILATERAL Routine 09/16/2019 11:33 AM EST from Last 3 Months or Most Recently Relevant to Health Maintenance Results * Syphilis Screen (05/24/2025 4:25 PM EDT) Only the most recent of2 resultswithin the time period is included. Pathologist [facility] Syphilis Screen Nonreactive Nonreactive [facility] 05/24/2025 4:25 PM EDT 05/24/2025 4:25 PM EDT Chante Yusuf SALES STRATEGY MANAGER LAB BLOOD ORDERABLES Final Resu lt [facility] [address], [place] [phone] * (ABNORMAL) Liver Fibrosis (HCV), FibroTest-ActiTest Panel (05/24/2025 4:25 PM EDT) Pathologist [facility] Liver Fibrosis Score 0.21 [facility] Liver Fibrosis Stage F0 [facility] Liver Fibrosis Interpretation SEE NOTE [facility] Comment:no fibrosisFibro Kendal t Score (f) Metavir Score f>=0 and f<=0.21 : F0 (no fibrosis)f>0.21 and f<=0.27 : F0-F1 (no fibrosis)f>0.27 and f<=0.31 : F1 (minimal fibrosis)f>0.31 and f<=0.48 : F1-F2 (minimal fibrosis)f>0.48 and f<=0.58 : F2 (moderate fibrosis)f>0.58 and f<=0.72 : F3 (advanced fibrosis)f>0.72 and f<=0.74 : F3-F4 (advanced fibrosis)f>0.74 and f<=1.00 : F4 (severe fibrosis) Nec Inflam Act Score 0.63 [facility] Nec Inflam Act Grade A3 [facility] Nec Inflam Act Interpretation SEE NOTE [facility] Comment:severe activityActiT est Score (a) Metavir Score a>=0 and a<=0.17 : A0 (no activity)a>0.17 and a<=0.29 : A0-A1 (no activity)a>0.29 and a<=0.36 : A1 (minimal activity)a>0.36 and a<=0.52 : A1-A2 (minimal activity)a>0.52 and a<=0.60 : A2 (significant activity)a>0.60 and a<=0.62 : A2-A3 (significant activity)a>0.62 and a<=1.00 : A3 (severe activity) FZL-Gkqny-2-Macroglo bulin 188 106 - 279 mg/dL [facility] FIB-Haptoglobin 162 43 - 212 mg/dL [facility] FIB-Apolipoprotein A1 130 101 - 198 mg/dL [facility] FIB-Total Bilirubin 0.3 0.2 - 1.2 mg/dL [facility] FIB-GGT 161(A) 3 - 55 U/L [facility] FIB-ALT 128(A) 6 - 29 U/L [facility] Reference ID [id number] [facility] Footnote SEE NOTE [facility] Comment: The reliability of results is dependent on compliance withthe preanalytical and analytical conditions recommended by[employer]. The tests have to be deferred for: acutehemolysis, acute hepatitis, acute inflammation, extrahepatic cholestasis. The advice of a specialist should besought for interpretation in chronic hemolysis and Gilbert'ssyndrome. The test interpretation is not validated in livertransplant patients. Isolated extreme values of one of thecomponents should lead to caution in interpreting theresults. In case of discordance between a biopsy result colton test, it is recommended to seek the advice of aspecialist. The causes of these discordances could be due toa flaw of the test or to a flaw in the biopsy: i.e. a liverbiopsy has a 33% variability rate for one fibrosis stage.FibroTest is interpretable for chronic hepatitis B and C,alcoholic and non alcoholic steatosis. ActiTest isinterpretable for chronic hepatitis B and C.The performance characteristics have been determined by[facility]. Ithas not been cleared or approved by the U.S. Food and DrugAdministration. Performance characteristics refer to theanalytical performance of the test.[employer], the associated logo, [employer] and all associated [employer] are theregistered trademarks of [employer]. All third partymarks - (R) and (TM) - are the property of their respectiveowners. (C) [id number] [employer]. Allrights reserved.THIS TEST WAS PERFORMED AT:[employer] [id number] [place] [address]MLKYXMIGUE WEAVER MD,PHD,[place] 05/24/2025 4:25 PM EDT 05/24/2025 4:25 PM EDT us Generic External Data Provider LAB BLOOD ORDERAB LES Final Result [facility] [address] [place] [phone] * Estradiol (05/24/2025 4:25 PM EDT) Only the most recent of2 resultswithin the time period is included. Estradiol Ultra Sensitive 4 pg/mL [facility] Comment:Female Reference Ran ges for Estradiol, Ultrasensitive (pg/mL): Follicular Phase: 39-375 Luteal Phase: 48-440 Postmenopausal Phase: < or = 10This test was developed and its analytical performancecharacteristics have been determined by [employer].It has not been cleared or approved by the FDA. This assayhas been validated pursuant to the CLIA regulations and isused for clinical purposes.THIS TEST WAS PERFORMED AT:[employer] [id number] [facility] [place] [address]JOIIVMIGUE WEAVER MD,PHD,[place] 05/24/2025 4:25 PM EDT 05/24/2025 4:25 PM EDT [facility] LAB BLOOD ORDERABLES Final Resu lt Performing Organization Address [facility] Co de Phone Number [facility] [address] [place] [phone] * LH (05/24/2025 4:25 PM EDT) Only the most recent of2 resultswithin the time period is included. Pathologist [facility] Lutenizing Hormone 35.0 mIU/mL [facility] Comment:Reference Range Foll icular Phase 1.9-12.5 Mid-Cycle Peak 8.7-76.3 Luteal Phase 0.5-16.9 Postmenopausal 10.0-54.7THIS TEST WAS PERFORMED AT:[employer] [address] [id number] CALLJEAS MD 05/24/2025 4:25 PM EDT 05/24/2025 4:25 PM EDT [facility] SALES STRATEGY MANAGER LAB BLOOD ORDERABLES Final Resu lt Performing Organization Address [facility]/ZIP Co de Phone Number [facility] [address] [place] [phone] * FSH (05/24/2025 4:25 PM EDT) Only the most recent of2 resultswithin the time period is included. Follicle Stimulating Hormone 38.3 mIU/mL [facility] Comment:Reference Range Foll icular Phase 2.5-10.2 Mid-cycle Peak 3.1-17.7 Luteal Phase 1.5- 9.1 Postmenopausal 23.0-116.3THIS TEST WAS PERFORMED AT:[id number] [place] [id number] CALLEJAS MD 05/24/2025 4:25 PM EDT 05/24/2025 4:25 PM EDT Chante Yusuf LAB BLOOD ORDERABLES Final Resu lt [facility] [address] [place] [address] [phone] * (ABNORMAL) POCT HGB A1C (05/22/2025 2:28 PM EDT) Pathologist [facility] Hemoglobin A1C 8.3(A) 4.0 - 5.7 % QC Media Lot # [id number] Lot# Expiration Date Blood 05/22/2025 2:28 PM EDT Chante Ronquillo SALES STRATEGY MANAGER POINT OF CARE TEST ENTER/EDIT O RDERABLES Final Result * POCT Glucose (05/22/2025 2:24 PM EDT) Pathologist [facility] Glucose Blood, POC 115 60 - 200 mg/dL QC Media Lot # [id number] Lot# Expiration Date 103,025 Blood Capillary blood specimen / Unknown 05/22/2025 2:24 PM EDT Chante Ronquillo SALES STRATEGY MANAGER POINT OF CARE TEST ENTER/EDIT O RDERABLES Final Result * T-SPOT??.TB (05/01/2025 8:11 AM EDT) Pathologist [facility] T Spot TB Negative Negative [facility] Comment:A negative test resu lt does not exclude the possibilityof exposure to or infection with Mycobacteriumtuberculosis (M. tuberculosis). Patients with recentexposure to TB infected individuals exhibiting anegative T-SPOT.TB result should be considered forretesting within 6 weeks or if other relevant clinicalsymptoms indicate. Results from T-SPOT.TB testing mustbe used in conjunction with each individual'sepidemiological history, current medical status,and results of other diagnostic evaluations.The T-SPOT.TB test is qualitative and results arereported as positive, borderline, or negative, giventhat the test controls perform as expected. In linewith the Centers for Disease Control and Prevention's2010 recommendation to report quantitative measurementsalongside the qualitative result, the laboratoryprovides spot counts for informational purposes only.The T-SPOT.TB test should not be interpreted as aquantitative test. TS PANEL A 0 [facility] TS PANEL B 0 [facility] Negative Control Passed [facility] Positive Control Passed [facility] Comment:For additional infor matgaro, please refer tohttp://education.[employer]/faq/XEA442(This link is being provided for informational/educational purposes only.)REPORT COMMENT:REC'D AT [facility] TEST WAS PERFORMED AT:[employer] [id number] [place] [address]XPTFHHKCAROLINA PELAYO MD,PHD 05/01/2025 8:11 AM EDT 05/01/2025 11:05 AM EDT us Chante Yusuf SALES STRATEGY MANAGER LAB BLOOD ORDERABLES Final Resu lt [facility] [address] [place] [phone] * (ABNORMAL) TSH W/Reflex to FT4 (05/01/2025 8:11 AM EDT) Pathologist [facility] TSH reflex Free T4 5.83(H) 0.32 - 4.0 uIU/mL [facility] Blood Venous blood specimen / Unknown 05/01/2025 8:11 AM EDT 05/01/2025 11:05 AM EDT Chante Yusuf SALES STRATEGY MANAGER LAB BLOOD ORDERABLES Final Resu lt Performing Organization Address [facility] Co de Phone Number [facility] [address] [place] [address] [phone] * (ABNORMAL) Lipid Panel with Reflex to Direct LDL (05/01/2025 8:11 AM EDT) Triglycerides 110 <150 mg/dL [facility] Comment:Desirable Triglyceri de: less than 150 mg/dLBorderline High Triglyceride 150-199 mg/dLHigh Triglyceride: 200-499 mg/dLVery High Triglyceride: greater than or equal to 5OO mg/dL Cholesterol 162 <200 mg/dL [facility] Comment:Desirable Cholestero l: less than 200 mg/dLBorderline High Cholesterol: 200-239 mg/dLHigh Cholesterol: greater than 239 mg/dL LDL Cholesterol Calculated 101(H) <100 mg/dL [facility] Comment:Desirable LDL: less than 100 mg/dLNear Optimal/Above Optimal LDL: 110- 129 mg/dLBorderline High LDL: 130-159 mg/dLHigh LDL: 160-189 mg/dLVery High LDL: greater than or equal to 190 mg/dL HDL Cholesterol 39(L) >40 mg/dL [facility] Comment:Desirable HDL: great er than 40 mg/dL Note: This HDL assay may give artificially low results in patients with liver disease. 05/01/2025 8:11 AM EDT 05/01/2025 11:05 AM EDT us Chante Yusuf SALES STRATEGY MANAGER LAB BLOOD ORDERABLES Final Resu lt Performing Organization Address [facility]/ZIP Co de Phone Number [facility] [address] [place] [phone] [phone] * Albumin, Random Urine W/Creatinine (05/01/2025 8:11 AM EDT) Creatinine, Urine 113.58 mg/dL [facility] Microalbumin Urine <5.0 mg/L [facility] Microalbum Creatinine Ratio Ur TNP <30 ug/mg cr [facility] Comment:Unable to calculate albumin/creatinine ratio due to lowmicroalbumin or creatinine result. Urine (Urine, Random) 05/01/2025 8:11 AM EDT 05/01/2025 10:58 AM EDT Chante Appra SALES STRATEGY MANAGER LAB URINE ORDERABLES Final Resu lt Performing Organization Address [facility] Co sc Phone Number [facility] [address] [place] [phone] * Hepatitis A Antibody, Total (05/01/2025 8:11 AM EDT) Hepatitis A Antibody IgG Nonreactive Nonreactive [facility] 05/01/2025 8:11 AM EDT 05/01/2025 11:05 AM EDT Chante Formerly [facility] SALES STRATEGY MANAGER LAB BLOOD ORDERABLES Final Resu lt Performing Organization Address [facility] de Phone Number [facility] [address] [place] [phone] * Hepatitis B surface antigen, EIA (05/01/2025 8:11 AM EDT) Hepatitis B Surface Ag Negative Negative [facility] 05/01/2025 8:11 AM EDT 05/01/2025 11:05 AM EDT [facility]ATEGY MANAGER LAB BLOOD ORDERABLES Final Resu lt Performing Organization Address [facility] Co de Phone Number [facility] [address] [place] [phone] * Hepatitis B Core Antibody, Total (05/01/2025 8:11 AM EDT) Hepatitis B Core Antibody Nonreactive Nonreactive [facility] 05/01/2025 8:11 AM EDT 05/01/2025 11:05 AM EDT [facility] SALES STRATEGY MANAGER LAB BLOOD ORDERABLES Final Resu lt Performing Organization Address [facility] Co de Phone Number [facility] [address] [place] [phone] * Hepatitis B Surface Antibody, Qualitative (05/01/2025 8:11 AM EDT) ~Hepatitis B Surface Antibody NONREACTIVE Nonreactive [facility] Comment:Nonreactive: < 8.00 mIU/mL 05/01/2025 8:11 AM EDT 05/01/2025 11:05 AM EDT [facility] SALES STRATEGY MANAGER LAB BLOOD ORDERABLES Final Resu lt Performing Organization Address [facility] de Phone Number [facility] [address] [place] [phone] * T4, Free (05/01/2025 8:11 AM EDT) Pathologist [facility] Free T4 (Free Thyroxine) 0.96 0.71 - 1.85 ng/dL [facility] 05/01/2025 8:11 AM EDT 05/01/2025 11:05 AM EDT [facility] SALES STRATEGY MANAGER LAB BLOOD ORDERABLES Final Resu lt Performing Organization Address [facility] de Phone Number [facility] [address] [place] [phone] * Vitamin B12 (05/01/2025 8:11 AM EDT) Pathologist [facility] Vitamin B12 450 200 - 900 pg/mL [facility] Comment:NORMAL 200-900 PG/ML INDETERMINATE 160-199 PG/ML DEFICIENT < 160 PG/ML 05/01/2025 8:11 AM EDT 05/01/2025 11:05 AM EDT us Chante Ronquillo SALES STRATEGY MANAGER LAB BLOOD ORDERABLES Final Resu lt Performing Organization Address [facility] de Phone Number [facility] [address] [place] [phone] * (ABNORMAL) Hepatic Function Panel (05/01/2025 8:11 AM EDT) Bilirubin, Total 0.3 0.0 - 1.0 mg/dL [facility] Bilirubin, Direct 0.2 0.0 - 0.5 mg/dL [facility] Aspartate Amino Transferase 76(H) 5 - 31 U/L [facility] Alanine Aminotransferase 102(H) 0 - 31 U/L [facility] Total Protein 6.9 6.5 - 8.0 g/dL [facility] Albumin Level 4.0 3.5 - 5.0 g/dL [facility] Alkaline Phosphatase 87 39 - 117 U/L [facility] 05/01/2025 8:11 AM EDT 05/01/2025 11:05 AM EDT Chante Ronquillo SALES STRATEGY MANAGER LAB BLOOD ORDERABLES Final Resu lt Performing Organization Address [facility] de Phone Number [facility] [address] [place] [phone] * (ABNORMAL) Basic Metabolic Panel (05/01/2025 8:11 AM EDT) Sodium 137 135 - 145 mmol/L [facility] Potassium 3.7 3.3 - 5.1 mmol/L [facility] Chloride 102 96 - 108 mmol/L [facility] Carbon Dioxide 26 22 - 29 mmol/L [facility] Anion Gap 13 12 - 20 [facility] Urea Nitrogen (BUN) 12 9 - 16 mg/dL [facility] Creatinine, Serum 0.61 0.5 - 1.4 mg/dL [facility] Estimated Glomerular Filt Rate >60 [facility] Comment:Chronic Kidney Disea se: Estimated GFR < 60 mL/min/[id number] Kidney Disease: Estimated GFR < 15 mL/min/1.73m2 Glucose 223(H) 60 - 115 mg/dL [facility] Calcium 9.1 8.4 - 10.2 mg/dL [facility] 05/01/2025 8:11 AM EDT 05/01/2025 11:05 AM EDT us Chante Yusuf SALES STRATEGY MANAGER LAB BLOOD ORDERABLES Final Resu lt Performing Organization Address City/State/[facility] Co de Phone Number [facility] [address] [place] [phone] * CT Abdomen Pelvis w/ Contrast (04/18/2025 10:14 PM EDT) Anatomical Region Laterality Modality Body, Pelvis, Abdomen Computed T omography 04/18/2025 10:1 4 PM EDT Narrative 04/18/2025 10:16 PM EDT [place] [address] CT Scan Report Signed Patient: Funmilayo Gilbert MR#: [id number] : 1980 Acct:[id number] Age/Sex: 45 / F ADM Date: 04/18/25 Loc: .ED Attending Dr: Ordering Physician: Becky Whiteside MD Date of Service: 04/18/25 Procedure(s): CT abdomen pelvis w IV con Accession Number(s): [id number] cc: [facility]; Becky Whiteside MD Report Number: [id number]: Total DLP = 788.00 mGy-cm CLINICAL HISTORY: epigastric pain CT Abdomen and Pelvis W Contrast COMPARISON: CT/REG/SR - CT ABDOMEN PELVIS W IV CON - 12/14/23 14:55 EST FINDINGS: Small hiatal hernia. Diffusely hypodense liver consistent with hepatic steatosis. Hepatomegaly. Normal spleen. Normal kidneys. Normal adrenal glands. Normal pancreas. Status post cholecystectomy. No abnormal biliary dilation. No evidence of bowel obstruction. Mild thickening of the fischer of the colon, most pronounced in the ascending colon. No pneumatosis. No evidence of acute appendicitis. Mild diffuse bladder wall thickening. Status post hysterectomy. No ascites. No pneumoperitoneum. No lymphadenopathy. No acute fracture. Degenerative changes in the spine at L5-S1. No abdominal aortic aneurysm. Rectus diastasis. IMPRESSION: Colonic wall thickening, which could be due to underdistention or colitis. Possible cystitis. Nonemergent/incidental findings above. This document has been electronically signed by: Pito Gregory MD on 04/18/2025 22:14:19 Dictated By: Pito Gregory MD Signed By: <Electronically signed by Pito Gregory MD in OV> 04/18/252214 DD/ 13 TD/TT: 04/18/252213 Fire Watchman: Procedure Note Donotuseinterpreter, Image - 04/18/[address] [place] [address] [address] Scan Report Signed Patient: Funmilayo Gilbert CMR#: [id number] : 1980Acct:[id number] Age/Sex: 45 / FADM Date: 04/18/25 Loc: HO.ED Attending Dr: Ordering Physician: Becky Whiteside MD Date of Service: 04/18/25 Procedure(s): CT abdomen pelvis w IV con Accession Number(s): [id number] cc: [facility]; Becky Whiteside MD Report Number: [id number]: Total DLP = 788.00 mGy-cm CLINICAL HISTORY: epigastric pain CT Abdomen and Pelvis W Contrast COMPARISON: CT/REG/SR - CT ABDOMEN PELVIS W IV CON - 12/14/23 14:55 EST FINDINGS: Small hiatal hernia. Diffusely hypodense liver consistent with hepatic steatosis. Hepatomegaly. Normal spleen. Normal kidneys. Normal adrenal glands. Normal pancreas. Status post cholecystectomy. No abnormal biliary dilation. No evidence of bowel obstruction. Mild thickening of the fischer of the colon, most pronounced in the ascending colon. No pneumatosis. No evidence of acute appendicitis. Mild diffuse bladder wall thickening. Status post hysterectomy. No ascites. No pneumoperitoneum. No lymphadenopathy. No acute fracture. Degenerative changes in the spine at L5-S1. No abdominal aortic aneurysm. Rectus diastasis. IMPRESSION: Colonic wall thickening, which could be due to underdistention or colitis. Possible cystitis. Nonemergent/incidental findings above. This document has been electronically signed by: Pito Gregory MD on 04/18/2025 22:14:19 Dictated By: Pito Gregory MD Signed By: <Electronically signed by Pito Gregory MD in OV> 04/18/252214 DD/ 13 TD/TT: 04/18/252213 Fire Watchman: [facility] External Provider IMG CT PROCEDURES Edited Result - Final * High Sensitivity Troponin I (04/18/2025 8:25 PM EDT) [facility] TROPONIN I HIGH SENSITIVITY <2.7 <3.5 - 17.0 ng/L [facility] Comment:The Hinson high sens itivity Troponin-I results should beused in conjunction with other diagnostic information suchas ECG, clinical observations and information, and patientsymptoms to aid in the diagnosis of NH. 04/18/2025 8:25 PM EDT 04/18/2025 8:29 PM EDT Generic External Data Provider LAB BLOOD ORDERAB LES Final Result [facility] [address] [place] [phone] * Ethanol (04/18/2025 8:25 PM EDT) [facility] ETHANOL (MG/DL) IN SER/PLAS 92 mg/dL [facility] Comment:Serum/plasma ethanol results are to be used formedical/treatment purposes only. 04/18/2025 8:25 PM EDT 04/18/2025 8:29 PM EDT us Generic External Data Provider LAB BLOOD ORDERAB LES Final Result Performing Organization Address [facility] de Phone Number [facility] [address] [place] [phone] * Magnesium (04/18/2025 8:25 PM EDT) Magnesium 1.6 1.6 - 2.6 mg/dL [facility] 04/18/2025 8:25 PM EDT 04/18/2025 8:29 PM EDT Generic External Data Provider LAB BLOOD ORDERAB LES Final Result Performing Organization Address [facility] Phone Number [facility] [address] [place] [phone] * Lipase (04/18/2025 8:25 PM EDT) Pathologist [facility] Lipase 12 8 - 78 U/L [facility] 04/18/2025 8:25 PM EDT 04/18/2025 8:29 PM EDT Generic External Data Provider LAB BLOOD ORDERAB LES Final Result Performing Organization Address [facility] de Phone Number [facility] [address] [place] [phone] * (ABNORMAL) Comprehensive Metabolic Panel (04/18/2025 8:25 PM EDT) Sodium 141 135 - 145 mmol/L [facility] Potassium 2.9(LL) 3.3 - 5.1 mmol/L [facility] Comment:Critical value for t est(s):POTS Results called to and readback by: KIRA Person calling: EDUARDOB Date: 04/18/2025Time:20:54 Chloride 99 96 - 108 mmol/L [facility] Carbon Dioxide 21(L) 22 - 29 mmol/L [facility] Anion Gap 24(H) 12 - 20 [facility] Urea Nitrogen (BUN) 13 9 - 16 mg/dL [facility] Creatinine, Serum 0.64 0.5 - 1.4 mg/dL [facility] Creatinine Clr Calc Pharmacy 129.2 [facility] Comment:Provided height and weight: 170.18 cm,95.9 kg.eGFR (calculated from the MDRD study equation) and eCrCl(calculated from the Cockcroft-Gault equation) are based ondifferent parameters and may not yield comparable results.If eCrCl result is absurd, please check patient'sheight/weight. Estimated Glomerular Filt Rate >60 [facility] Comment:Chronic Kidney Disea se: Estimated GFR < 60 mL/min/1.21g9Toifpd Kidney Disease: Estimated GFR < 15 mL/min/1.73m2 Glucose 116(H) 60 - 115 mg/dL [facility] Calcium 7.9(L) 8.4 - 10.2 mg/dL [facility] Bilirubin, Total 1.3(H) 0.0 - 1.0 mg/dL [facility] Aspartate Amino Transferase 197(H) 5 - 31 U/L [facility] Alanine Aminotransferase 99(H) 0 - 31 U/L [facility] Total Protein 7.2 6.5 - 8.0 g/dL [facility] Albumin Level 4.1 3.5 - 5.0 g/dL [facility] Alkaline Phosphatase 133(H) 39 - 117 U/L [facility] 04/18/2025 8:25 PM EDT 04/18/2025 8:29 PM EDT us Generic External Data Provider LAB BLOOD ORDERAB LES Final Result [facility] [address] [place] [phone] * Hepatitis C Antibody ([facility]) (10/04/2024) Hepatitis C Ab Nonreactive Blood 10/04/2024 Historical Provider LAB BLOOD ORDERABLES Whitney l Result * HIV Ab/Ag ([facility]) (10/04/2024) HIV Ag/Ab Nonreactive Blood 10/04/2024 Historical Provider LAB BLOOD ORDERABLES Edit ed Result - Final * Req: Mammogram (Screening); Bilateral (09/16/2019 11:33 AM EST) Anatomical Region Laterality Modality Breast Bilateral Mammography 09/16/2019 11:3 3 AM EST Narrative 09/19/2019 10:32 AM EST Refer to the Notes tab for result details [facility] Procedure: Req: Mammogram (Screening); Bilateral Procedure Note Provider, Madelin, - 01/24/2023 Refer to the Notes tab for result details [facility] Procedure: Req: Mammogram (Screening); Bilateral Jesi Robledo SALES STRATEGY MANAGER IMG BI PROCEDURES Final Result from Last 3 Months or Most Recently Relevant to Health Maintenance Insurance [facility] [place] AD[place] Care Teams Accounts Payable Payroll Coordinator Relationship Specialty Start Date End Date Chante Yusuf NP [address] [place] [address] PCP - General Family Medicine 10/13/23 Micki Olea PharmD [address] [place] [address] Pharmacist Pharmacy 04/26/25 Veronica Snow Communications Program ManagerLogistics Service Representative 09/15/24 [facility] Care 09/16/24
--- OUTSIDE RECORDS SUMMARY | 2025-07-10 16:48 | XMS_ITS | Clinical Summary ---
Author Organization [facility] Address [address] [place] [phone] Care Team Providers Care Filament Tester Name Role Phone Unavailable Primary Care Provider Unavailabl e Surgical History Surgery Date Site/Laterality Comments HYSTERECTOMY 12/16/2012 PROCEDURE: HISTORICAL VAGINAL HYSTERECTOMY W/O BSO; COMMENT: bleeding, pain, dyspareunia. Partial L oophorectomy CHOLECYSTECTOMY PROCEDURE: HISTORICAL CHOLECYSTECTOMY; COMMENT: laparoscopic TUBAL LIGATION PROCEDURE: HISTORICAL TUBAL LIGATION ENDOMETRIAL ABLATION 2011 PROCEDURE: MD ENDOMETRIAL ABLTJ THERMAL W/O HYSTEROSCOPIC GUID; COMMENT: Novasure CYSTOSCOPY PROCEDURE: MD CYSTOURETHROSCOPY BLADDER SURGERY 2014 PROCEDURE: HISTORICAL BLADDER SURGERY; COMMENT: mid-urethral sling, Dr. Quesada, for incontinence Medical History Medical History Date Comments Major depression in partial remission ([facility] V24) DX:Major depression in parti al remission (HCC); COMMENT: dr magno heller Asthma DX:Asthma Back pain, chronic DX:Back pain, chronic Tobacco use DX:Tobacco use History of opioid abuse ([facility] V24, [facility] V28) DX:History of opioid abuse ( HCC); COMMENT: on suboxone Drug withdrawal seizure ([facility] V24, [facility] V28) 03/2019 DX:Drug withdrawal seizure [...] 10/05/2022 Social Influencers of Health Screening 10/05/2022 Depression Screening 11/02/2024 COVID-19 Vaccine (1 - 2023-2 5 season) 2025 Influenza Vaccine (#1) 2025 08/16/2015 DTaP,Tdap,and Td [...]
--- OUTSIDE RECORDS SUMMARY | 2025-07-10 16:48 | XMS_ITS | Encounter Summary ---
Author Organization [employer] Address [address] [facility] [address]t [place] [address] Care Team Providers Care Business System Consultant Name Role Phone Chante Yusuf FLAT SORTER PROCESSOR Primary Care Provider [phone] Micki Olea PharmD Unavailable [phone] Reason for Visit * Reason Onset Date Comments OT Discharge 10/19/2023 Encounter Details Date Type Department Care Team ([facility] st Contact Info) Description 10/19/2023 Telephone [facility] MEDICINE [address] [place], [place] [phone] Chante Yusuf NP [address] [place] [address] OT Discharge Social History Tobacco Use Types [...] 2:58 PM EST Tc from Crystal with [facility] calling to inform PCP pt get discharge from Occupational Therapy on 10/16/2023. Any questions contact Crystal [phone] documented in this encounter Plan of Treatment Upcoming Encounters Date Type Department Care Team (Late st Contact Info) Description 07/25/2025 2:30 PM EDT Medication Management [facility] MEDICINE [address] [place] [address] Micki Olea, PharmD [address] [place] [address] 08/04/2025 2:30 PM EDT Office Visit [facility] MEDICINE [address] [place] [address] Chante Yusuf NP [address] [place] [address] 08/18/2025 9:00 AM EDT Office Visit [facility] OPTOMETRY [address] [place] [address] Lizbeth Mosquera, OD [address] [place] [address] documented as of this encounter Visit Diagnoses Not on filedocumented in this encounter Additional Health Concerns Assessment Noted Time PHQ-9 Depression Total Score: 0 01/10/20 23 2:38 PM EST documented as of this encounter Care Teams Business System Consultant Relationship Specialty Start Date End Date Chante Yusuf NP [address] [place] [address] PCP - General Family Medicine 10/13/23 Micki Olea PharmD [address] [place] [phone] Pharmacist Pharmacy 04/26/25 Veronica Snow E Business SpecialistRecruiter Account Manager 09/15/24 [facility] 09/16/24 documented as of this encounter
--- OUTSIDE RECORDS SUMMARY | 2025-07-10 16:48 | XMS_ITS | Encounter Summary ---
Author Organization [employer] Address [address] [facility] [address] [place] [address] Care Team Providers Care Webbing Supervisor Name Role Phone Maddy Ahumada MD Primary Care Pro vider Chante Yusuf NP Primary Care Provider [phone] Micki Olea PharmD Unavailable [phone] Reason for Visit * Reason Onset Date Comments FYI 09/09/2023 OCCUPATIONAL THERAPY 09/09/2023 Encounter Details Date Type Department Care Team (Late st Contact Info) Description 09/09/2023 Telephone [facility] MEDICINE [address] [place], [place] [phone] Maddy Ahumada MD [address] [place], [place] [phone] FYI ; OCCUPATIONAL THERAPY Social History Tobacco [...] If any questions may contact Rhiannon at [phone] documented in this encounter Plan of Treatment Upcoming Encounters Date Type Department Care Team (Late st Contact Info) Description 07/25/2025 2:30 PM EDT Medication Management [facility] MEDICINE [address] [place] [address] Micki Olea, PharmD [address] [place] [address] 08/04/2025 2:30 PM EDT Office Visit [facility] MEDICINE [address] [place] [address] Chante Yusuf NP [address] [place] [address] 08/18/2025 9:00 AM EDT Office Visit [facility] OPTOMETRY [address] [place] [address] Lizbeth Mosquera OD [address] [place] [address] documented as of this encounter Visit Diagnoses Not on filedocumented in this encounter Additional Health Concerns Assessment Noted Time PHQ-9 Depression Total Score: 0 01/10/20 23 2:38 PM EST documented as of this encounter Care Teams Webbing Supervisor Relationship Specialty Start Date End Date Maddy Ahumada MD [address] [place] [phone] PCP - General Internal Medicine 07/27/23 10/12/23 Chante Yusuf NP [address] [place] [address] [phone] PCP - General Family Medicine 10/13/23 Micki Olea PharmD [address] [place] [phone] Pharmacist Pharmacy 04/26/25 Veronica Snow Accounting OfficerLast Remodeler Repairer 09/15/24 [facility] 09/16/24 documented as of this encounter
--- OUTSIDE RECORDS SUMMARY | 2025-07-10 16:48 | XMS_ITS | Encounter Summary ---
Author Organization [employer] Address 75 [facility] 7t [place] [address] Care Team Providers Care Oil Gas And Pipe Tester Name Role Phone Tamiko Aceves [facility] Primary Care Provider Maddy Chaney MD Primary Care Pro vider Chante Yusuf NP Primary Care Provider [phone] Micki Olea PharmD Unavailable [phone] Reason for Visit * Reason Onset Date Comments Hospital Follow-up 05/18/2023 Encounter Details Date Type Department Care Team (Late st Contact Info) Description 05/18/2023 Telephone [facility] MEDICINE 230 [place], [place] [phone] Tamiko Aceves FNP Hospital Follow-up Social History Tobacco Use Types [...] * Telephone Encounter - Zackery Gant - 05/18/2023 3:11 PM EDT Tc from [facility] with [facility] care partners requesting a HDF follow up with provider. Pt was at [facility] on 05/13/2023 and discharge on 05/15/2023, pt was diagnose with Seizures and Dehydration due to a hernia. Please contact pt at [phone] Czech Speaker documented in this encounter Plan of Treatment Upcoming Encounters Date Type Department Care Team (Late st Contact Info) Description 07/25/2025 2:30 PM EDT Medication Management [facility] MEDICINE [address] [place] [address] Micki Olea PharmD 230 [place] [address] 08/04/2025 2:30 PM EDT Office Visit [facility] MEDICINE [address] [place] [address] Chante Yusuf NP 230 [place] [address] 08/18/2025 9:00 AM EDT Office Visit [facility] OPTOMETRY [address] [place] [address] Lizbeth Mosquera OD 267 [place] [address] documented as of this encounter Visit Diagnoses Not on filedocumented in this encounter Additional Health Concerns Assessment Noted Time PHQ-9 Depression Total Score: 0 01/10/20 23 2:38 PM EST documented as of this encounter Care Teams Oil Gas And Pipe Tester Relationship Specialty Start Date End Date Tamiko Aceves FNP PCP - General Family Medicine 07/01/22 07/26/23 Maddy Ahumada MD [address] [place] [address] PCP - General Internal Medicine 07/27/23 10/12/23 Chante Yusuf NP [address] [place] [address] PCP - General Family Medicine 10/13/23 Micki Olea, AnastaciaD [address] [place] [address] Pharmacist Pharmacy 04/26/25 Veronica Snow Flatwork SupervisorPattern Molder 09/15/24 [facility] 09/16/24 documented as of this encounter
--- OUTSIDE RECORDS SUMMARY | 2025-07-10 16:48 | XMS_ITS | Encounter Summary ---
Author Organization [employer] Address 75 [facility] 7t [place] [address] Care Team Providers Care Sql Architect Name Role Phone Tamiko Aceves CARBON COATING MACHINE OPERATOR Primary Care Provider Maddy Chaney MD Primary Care Pro vider Chante Yusuf NP Primary Care Provider [phone] Micki Olea PharmD Unavailable [phone] Reason for Visit * Reason Onset Date Comments Triage 02/23/2023 Encounter Details Date Type Department Care Team (Late st Contact Info) Description 02/23/[address] [facility] MEDICINE 230 [place], [place] [phone] Tamiko Aceves FNP Triage Social History Tobacco Use Types Packs/Day [...] No answer, Lvm to return call to [facility] triage line. Pt to follow up PRN. * Telephone Encounter - Julianna Pena RN - 02/23/2023 12:04 PM EDT Call returned to patient for triage. No answer LVM to return call to [facility] triage line. * Telephone Encounter - Zackery Gant - 02/23/2023 11:54 AM EDT Symptoms: Foot or Ankle Pain - Not From Injury, Foot or Ankle Swelling Outcome: Schedule an urgent appointment (within 1 hour) or talk to a nurse or provider soon Reason: Severe pain now The caller accepted this outcome Please contact pt at [phone] Sammarinese Speaker documented in this encounter Plan of Treatment Upcoming Encounters Date Type Department Care Team (Late st Contact Info) Description 07/25/2025 2:30 PM EDT Medication Management [facility] MEDICINE 230 [place] [address] Micki Olea, AnastaciaD 230 [place] [address] 08/04/2025 2:30 PM EDT Office Visit [facility] MEDICINE 230 [place] [address] Chante Yusuf NP 230 [place] [address] 08/18/2025 9:00 AM EDT Office Visit [facility] OPTOMETRY [address] [place] [address] Lizbeth Mosquera, OD [address] [place] [address] documented as of this encounter Visit Diagnoses Not on filedocumented in this encounter Additional Health Concerns Assessment Noted Time PHQ-9 Depression Total Score: 0 01/10/20 2:38 PM EST documented as of this encounter Care Teams Sql Architect Relationship Specialty Start Date End Date Tamiko Aceves FNP PCP - General Family Medicine 07/01/22 07/26/23 Maddy Ahumada MD 230 [place] [address] PCP - General Internal Medicine 07/27/23 10/12/23 Chante Yusuf NP [address] [place] [address] PCP - General Family Medicine 10/13/23 Micki Olea PharmD [address] [place] [address] Pharmacist Pharmacy 04/26/25 Veronica Snow Career Technology TeacherWarp Trucker 09/15/24 [facility] 09/16/24 documented as of this encounter
--- OUTSIDE RECORDS SUMMARY | 2025-07-10 16:48 | XMS_ITS | Encounter Summary ---
Author Organization [employer] Address 75 [facility] 7t [place] [address] Care Team Providers Care Crusher Supervisor Name Role Phone Chante Yusuf AWS ARCHITECT Primary Care Provider [phone] Micki Olea PharmD Unavailable [phone] Reason for Visit * Reason Onset Date Comments CHW 12/25/2023 Encounter Details Date Type Department Care Team ([facility] st Contact Info) Description 12/25/2023 Telephone [facility] MEDICINE 230 [place], [place] [phone] Chante Yusuf NP 230 [place] [address] CHW Social History Tobacco Use Types Packs/Day [...] * Telephone Encounter - Zackery Gant - 12/25/2023 3:30 PM EST Tc from pt returning call from message below. [facility] person requesting assistance with SDOH. Patient's name and were confirmed. CHW Bernard Taylor met with patient in private space. CHW performed SDOH screen and patient screened positive for housing insecurities. Patient stating [facility], but has no help resource to move. Have no family here. CHW referred patient to [employer] and provided some contect number with [employer]. Some PVTA passes was providedtoday. Patient agree to follow up calling the resources was given to her today. Patient educated onextended clinic hours on Mondays through Wednesdays, and Walk-In Urgent Care Located in [facility]. Patient provided with after-hours line for [facility], , which offer night time triage service and option to transfer to chip person provider if needed. documented in this encounter Plan of Treatment Upcoming Encounters Date Type Department Care Team (Late st Contact Info) Description 07/25/2025 2:30 PM EDT Medication Management [facility] MEDICINE 230 [place] [address] Micki Olea, PharmD 230 [place] [address] 08/04/2025 2:30 PM EDT Office Visit [facility] MEDICINE 230 [place] [address] Chante Yusuf NP 230 [place] [address] 08/18/2025 9:00 AM EDT Office Visit [facility] OPTOMETRY 267 [place] [address] Tarka, Lizbeth, OD 267 [place] [address] documented as of this encounter Visit Diagnoses Not on filedocumented in this encounter Additional Health Concerns Assessment Noted Time PHQ-9 Depression Total Score: 24 024 10:37 AM EST documented as of this encounter Care Teams Crusher Supervisor Relationship Specialty Start Date End Date Chante Yusuf NP [address] [place] [address] PCP - General Family Medicine 10/13/23 Micki Olea PharmD [address] [place] [address] Pharmacist Pharmacy 04/26/25 Veronica Snow Digital Account SupervisorCirculation Supervisor 09/15/24 [facility] 09/16/24 documented as of this encounter
--- OUTSIDE RECORDS SUMMARY | 2025-07-10 16:48 | XMS_ITS | Encounter Summary ---
Author Organization [employer] Address 75 [facility] 7t [place] [address] Care Team Providers Care Medical Writer Name Role Phone Tamiko Aceves TEACHER LIP READING Primary Care Provider Maddy Chaney MD Primary Care Pro vider Chante Yusuf NP Primary Care Provider [phone] Micki Olea PharmD Unavailable [phone] Encounter Details Date Type Department Care Team (Latest Contact Info) Description 05/13/2022 Abstract [facility] CONVERSIONS Dental, Provider, DDS Social History [...] 2:30 PM EDT Medication Management [facility] MEDICINE [address] [place] [address] Puia, Micki, PharmD 230 [place] [address] 08/04/2025 2:30 PM EDT Office Visit [facility] MEDICINE [address] [place] [address] Chante Yusuf NP 230 [place] [address] 08/18/2025 9:00 AM EDT Office Visit [facility] OPTOMETRY 267 [place] [address] Lizbeth Mosquera, OD 267 [place] [address] documented as of this encounter Visit Diagnoses Not on filedocumented in this encounter Care Teams Medical Writer Relationship Specialty Start Date End Date Tamiko Aceves FNP PCP - General Family Medicine 07/01/22 07/26/23 Maddy Ahumada MD 230 [place] [address] PCP - General Internal Medicine 07/27/23 10/12/23 Chante Yusuf NP 230 [place] [address] PCP - General Family Medicine 10/13/23 Micki Olea PharmD 230 [place] [address] Pharmacist Pharmacy 04/26/25 Veronica Snow News DirectorFire Control Mechanic 09/15/24 [facility] 09/16/24 documented as of this encounter
--- OUTSIDE RECORDS SUMMARY | 2025-07-10 16:48 | XMS_ITS | Encounter Summary ---
Author Organization [employer] Address 75 [facility] 7t [place] [address] Care Team Providers Care Central Supply Aide Name Role Phone Tamiko Aceves SUPERANNUATION CLERK Primary Care Provider Maddy Chaney MD Primary Care Pro vider Chante Yusuf NP Primary Care Provider [phone] Micki Olea PharmD Unavailable [phone] Reason for Visit * Reason Onset Date Comments Appointment Request 02/23/2023 Encounter Details Date Type Department Care Team (Late st Contact Info) Description 02/23/2023 Telephone [facility] MEDICINE 230 [place], [place] [phone] Tamiko Aceves FNP Appointment Request Social History Tobacco Use Types [...] has not transportation. Please contact pt at [phone] documented in this encounter Plan of Treatment Upcoming Encounters Date Type Department Care Team (Late st Contact Info) Description 07/25/2025 2:30 PM EDT Medication Management [facility] MEDICINE 230 [place] [address] Micki Olea PharmD 230 [place] [address] 08/04/2025 2:30 PM EDT Office Visit [facility] MEDICINE [address] [place] [address] Chante Yusuf NP 230 [place] [address] 08/18/2025 9:00 AM EDT Office Visit [facility] OPTOMETRY 267 [place] [address] Lizbeth Mosquera, OD 267 [place] [address] documented as of this encounter Visit Diagnoses Not on filedocumented in this encounter Additional Health Concerns Assessment Noted Time PHQ-9 Depression Total Score: 0 01/10/20 23 2:38 PM EST documented as of this encounter Care Teams Central Supply Aide Relationship Specialty Start Date End Date Tamiko Aceves FNP PCP - General Family Medicine 07/01/22 07/26/23 Maddy Ahumada MD [address] [place] [address] PCP - General Internal Medicine 07/27/23 10/12/23 Chante Yusuf NP [address] [place] [address], [place] [address] PCP - General Family Medicine 10/13/23 Micki Olea, AnastaciaD 230 [place] [address] Pharmacist Pharmacy 04/26/25 Veronica Snow Associate Director Career ServicesScarrer 09/15/24 [facility] 09/16/24 documented as of this encounter
--- OUTSIDE RECORDS SUMMARY | 2025-07-10 16:48 | XMS_ITS | Encounter Summary ---
Author Organization [employer] Address 75 [facility] 7t [place] [address] Care Team Providers Care Glassware Maker Name Role Phone Chante Yusuf SUMMER LAW ASSOCIATE Primary Care Provider [phone] Micki Olea PharmD Unavailable [phone] Reason for Visit * Reason Onset Date Comments PT-1 10/17/2024 Encounter Details Date Type Department Care Team ([facility] st Contact Info) Description 10/17/2024 Telephone [facility] MEDICINE 230 [place], [place] [phone] Chante Yusuf NP 230 [place] [address] PT-1 Social History Tobacco Use Types Packs/Day [...] Miscellaneous Notes * Telephone Encounter - Tone Wasserman - 10/17/2024 2:26 PM EST Tc from pt calling in regards to PT-1. Pt is unable to make it to dental appt due to pt-1 not having enough visits but pt is requesting for a request to be sent to approve more visits per month for her to make it to the appt. If any questions you can contact pt at [phone]. (Vietnamese Speaker) documented in this encounter Plan of Treatment Upcoming Encounters Date Type Department Care Team (Late st Contact Info) Description 07/25/2025 2:30 PM EDT Medication Management [facility] MEDICINE [address] [place] [address] Micki Olea, PharmD 230 [place] [address] 08/04/2025 2:30 PM EDT Office Visit [facility] MEDICINE [address] [place] [address] Chante Yusuf NP 230 [place] [address] 08/18/2025 9:00 AM EDT Office Visit [facility] OPTOMETRY [address] [place], [place] [phone] Lizbeth Mosquera, OD [address] [place] [address] documented as of this encounter Visit Diagnoses Not on filedocumented in this encounter Additional Health Concerns Assessment Noted Time PHQ-9 Depression Total Score: 14 024 11:15 AM EST documented as of this encounter Care Teams Glassware Maker Relationship Specialty Start Date End Date Chatne Yusuf NP 230 [place], [place] [phone] PCP - General Family Medicine 10/13/23 Micki Olea PharmD 230 [place], [place] [phone] Pharmacist Pharmacy 04/26/25 Veronica Snow Parole AgentPatient Care Technician 09/15/24 [facility] 09/16/24 documented as of this encounter
== END 2025-07-10 14:25 | disposition home or self-care (01) ==
LOC: HO.HHCL 14:24
PROVIDERS: PCP Nurse Practitioner; Visit Provider Nurse Practitioner
DX: Z13.89 Encounter for screening for other disorder (principal)

== ENCOUNTER 2025-07-25 13:42 | Outpatient (REF) | payer MEDICAID, SELFPAY ==
--- OUTSIDE RECORDS SUMMARY | 2025-07-25 16:50 | XMS_ITS | Encounter Summary ---
Author Organization [id number] Address [address] [facility] [address] 7t [place] [address] Care Team Providers Care Electric Distribution Checker Name Role Phone Tamiko Aceves HUMAN RESOURCES ADMIN Primary Care Provider Maddy Chaney MD Primary Care Pro vider Chante Yusuf NP Primary Care Provider [phone] Micki Olea PharmD Unavailable [phone] Reason for Visit * Reason Onset [...] (Late st Contact Info) Description 12/16/[address] [facility] MEDICINE 230 [place], [place] [phone] Tamiko Aceves FNP Letter Request (The pt [...] Care Team (Late st Contact Info) Description 08/04/2025 2:30 PM EDT Office Visit [facility] MEDICINE [address] [place] [address] Chante Yusuf NP [address] [place] [address] 08/18/2025 9:00 AM EDT Office Visit [facility] OPTOMETRY [address] [place] [address] TarkaLizbeth, OD [address] [place] [address] 09/05/2025 2:30 PM EST Medication Management [facility] MEDICINE [address] [place] [address] Micki Olea PharmD [address] [place] [address] documented as of this encounter Visit Diagnoses Not on filedocumented in this encounter Care Teams Electric Distribution Checker Relationship Specialty Start Date End Date Tamiko Aceves FNP PCP - General Family Medicine 07/01/22 07/26/23 Maddy Ahumada MD [address] [place] [address] PCP - General Internal Medicine 07/27/23 10/12/23 Chante Yusuf NP [address] [place] [address] PCP - General Family Medicine 10/13/23 Micki Olea, PharmD [address] [place] [address] Pharmacist Pharmacy 04/26/25 Veronica Snow Supervisor Filling And PackingAcid Correction Hand 09/15/24 [facility] 09/16/24 documented as of this encounter
--- OUTSIDE RECORDS SUMMARY | 2025-07-25 16:50 | XMS_ITS | Encounter Summary ---
Author Organization [employer] Address 75 [facility] 7t [place] [address] Care Team Providers Care Health Careers Instructor Name Role Phone Tamiko Aceves GREEN MARKETING ANALYST Primary Care Provider Maddy Chaney MD Primary Care Pro vider Chante Yusuf NP Primary Care Provider [phone] Micki Olea PharmD Unavailable [phone] Encounter Details Date Type Department Care Team (Latest Contact Info) Description 05/13/2022 Abstract [facility] CONVERSIONS Dental, Provider, DDS Social History [...] Care Team ( st Contact Info) Description 08/04/2025 2:30 PM EDT Office Visit [facility] MEDICINE 230 [place] [address] Chante Yusuf NP 230 [place] [address] 08/18/2025 9:00 AM EDT Office Visit [facility] OPTOMETRY 267 [place] [address] Lizbeth Mosquera, OD 267 [place] [address] 09/05/2025 2:30 PM EST Medication Management [facility] MEDICINE [address] [place] [address] Micki Olea PharmD [address] [place] [address] documented as of this encounter Visit Diagnoses Not on filedocumented in this encounter Care Teams Health Careers Instructor Relationship Specialty Start Date End Date Tamiko Aceves FNP PCP - General Family Medicine 07/01/22 07/26/23 Maddy Ahumada MD [address] [place] [address] PCP - General Internal Medicine 07/27/23 10/12/23 Chante Yusuf NP [address] [place] [address] PCP - General Family Medicine 10/13/23 Micki Olea, Rashawn [address] [place] [address] Pharmacist Pharmacy 04/26/25 Veronica Snow Entry Level Lab TechnicianClient Server Developer 09/15/24 [facility] 09/16/24 documented as of this encounter
--- OUTSIDE RECORDS SUMMARY | 2025-07-25 16:50 | XMS_ITS | Encounter Summary ---
Author Organization [employer] Address 75 [facility] 7t [place] [address] Care Team Providers Care Badger Distiller Operator Name Role Phone Tamiko Aceves FISH FARMER Primary Care Provider Maddy Chaney MD Primary Care Pro vider Chante Yusuf NP Primary Care Provider [phone] Micki Olea PharmD Unavailable [phone] Encounter Details Date Type Department Care Team (Latest Contact Info) Description 11/20/2020 Abstract [facility] CONVERSIONS Dental, Provider, DDS Social History [...] Description 08/04/2025 2:30 PM EDT Office Visit [facility] MEDICINE 230 [place] [address] Chante Yusuf NP 230 [place] [address] 08/18/2025 9:00 AM EDT Office Visit [facility] OPTOMETRY 267 [place] [address] Lizbeth Mosquera, OD 267 [place] [address] 09/05/2025 2:30 PM EST Medication Management [facility] MEDICINE [address] [place] [address] Micki Olea PharmD [address] [place] [address] documented as of this encounter Visit Diagnoses Not on filedocumented in this encounter Care Teams Badger Distiller Operator Relationship Specialty Start Date End Date Tamiko Aceves FNP PCP - General Family Medicine 07/01/22 07/26/23 Maddy Ahumada MD [address] [place] [address] PCP - General Internal Medicine 07/27/23 10/12/23 Chante Yusuf NP [address] [place] [address] PCP - General Family Medicine 10/13/23 Micki Olea, Rashawn [address] [place] [address] Pharmacist Pharmacy 04/26/25 Veronica Snow Can SoldererCosmetic Chemist 09/15/24 [facility] 09/16/24 documented as of this encounter
--- OUTSIDE RECORDS SUMMARY | 2025-07-25 16:50 | XMS_ITS | Clinical Summary ---
Author Organization [facility] Address [address] [place] [phone] Care Team Providers Care Community Living Specialist Name Role Phone Unavailable Primary Care Provider Unavailabl e Surgical History Surgery Date Site/Laterality Comments HYSTERECTOMY 12/16/2012 PROCEDURE: HISTORICAL VAGINAL HYSTERECTOMY W/O BSO; COMMENT: bleeding, pain, dyspareunia. Partial L oophorectomy CHOLECYSTECTOMY PROCEDURE: HISTORICAL CHOLECYSTECTOMY; COMMENT: laparoscopic TUBAL LIGATION PROCEDURE: HISTORICAL TUBAL LIGATION ENDOMETRIAL ABLATION 2011 PROCEDURE: [facility] ENDOMETRIAL ABLTJ THERMAL W/O HYSTEROSCOPIC GUID; COMMENT: [facility] CYSTOSCOPY PROCEDURE: [place] CYSTOURETHROSCOPY BLADDER SURGERY 2014 PROCEDURE: HISTORICAL BLADDER SURGERY; COMMENT: mid-urethral sling, Dr. Quesada, for incontinence Medical History Medical History Date Comments Major depression in partial remission ([facility] V24) DX:Major depression in parti al remission (HCC); COMMENT: dr magno heller Asthma DX:Asthma Back pain, chronic DX:Back pain, chronic Tobacco use DX:Tobacco use History of opioid abuse ([facility] V24, [facility] V28) DX:History of opioid abuse ( HCC); COMMENT: on suboxone Drug withdrawal seizure ([facility] V24, [facility] V28) 03/2019 DX:Drug withdrawal seizure ( HCC); [...] (2 - Td or Tdap) 11/10/2026 11/10/2016 RSV Immunization Adult Patie nts (1 - 1-dose 75+ series) 2053 HIB Vaccines Aged Out No longer eligi [...]
--- OUTSIDE RECORDS SUMMARY | 2025-07-25 16:50 | XMS_ITS | Encounter Summary ---
Author Organization [employer] Address 75 [facility] 7t [place] [address] Care Team Providers Care Poultry Hatchery Man Name Role Phone Chante Yusuf CAFE WORKER Primary Care Provider [phone] Micki Olea PharmD Unavailable [phone] Reason for Visit * Reason Onset Date Comments CHW 12/25/2023 Encounter Details Date Type Department Care Team ([facility] st Contact Info) Description 12/25/2023 Telephone [facility] MEDICINE 230 [place], [place] [phone] Chante Yusuf NP 230 [place] [address] CHW Social History Tobacco Use Types Packs/Day [...] Patient stating [facility], but has no help resource to move. Have no family here. CHW referred patient to [employer] [facility] and provided some contect number with [employer]. Some PVTA passes was providedtoday. Patient agree to follow up calling the resources was given to her today. Patient educated onextended clinic hours on Mondays through Wednesdays, and Walk-In Urgent Care Located in [facility]. Patient provided with after-hours line for [facility], , which offer night time triage service and option to transfer to director of conservation provider if needed. documented in this encounter Plan of Treatment Upcoming Encounters Date Type Department Care Team (Late st Contact Info) Description 08/04/2025 2:30 PM EDT Office Visit [facility] MEDICINE 230 [place] [address] Chante Yusuf NP 230 [place] [address] 08/18/2025 9:00 AM EDT Office Visit [facility] OPTOMETRY 267 [place] [address] PedritokristieLizbeth, OD [address] [place] [address] 09/05/2025 2:30 PM EST Medication Management [facility] MEDICINE 230 [place] [address] Micki Olea PharmD 230 [place] [address] documented as of this encounter Visit Diagnoses Not on filedocumented in this encounter Additional Health Concerns Assessment Noted Time PHQ-9 Depression Total Score: 24 024 10:37 AM EST documented as of this encounter Care Teams Poultry Hatchery Man Relationship Specialty Start Date End Date Chante Yusuf NP 230 [place] [address] PCP - General Family Medicine 10/13/23 Micki Olea PharmD [address] [place] [address] Pharmacist Pharmacy 04/26/25 Veronica Snow Scrap PickerSales Promotion Director 09/15/24 [facility] 09/16/24 documented as of this encounter
--- OUTSIDE RECORDS SUMMARY | 2025-07-25 16:50 | XMS_ITS | Encounter Summary ---
Author Organization [employer] Address [address] [place] [address] Care Team Providers Care [employer] Platemaker Name Role Phone Tamiko Aceves Primary Care Provider Maddy Chaney MD Primary Care Pro vider Chante Yusuf NP Primary Care Provider [phone] Micki Olea PharmD Unavailable [phone] Reason for Visit * Reason Onset Date Comments PT1 Forms 02/23/2023 Encounter Details Date Type Department Care Team (Late st Contact Info) Description 02/23/2023 Telephone [facility] MEDICINE [address] [place] [address] Tamiko Aceves FNP PT1 Forms Social History [...] / denial letter via mail. PT-1 Request [id number] Pending - [facility] PT-1 Request [id number] Authorized - [facility] [address] [facility] [address] PT-1 Request [id number] Authorized - [facility] - [address] [facility] [address] * Telephone Encounter - Zackery Gant - 02/23/2023 11:56 AM EDT Tc from pt requesting to renew PT1 forms for some main locations: PT1 Name of facility: [facility] Specialty: ALL FUTURE APPT's Location: [address] [place] [address] Date: n/a Time: n/a fax: n/a Phone: n/a wheelchair: n/a Water Pumper: n/a PT1 Name of facility: [facility] Specialty: ALL FUTURE APPT's Location: [address] [place] [address] Date: n/a Time: n/a fax: n/a Phone: n/a wheelchair: n/a Water Pumper: n/a PT1 Name of facility: [facility] Specialty: ALL FUTURE APPT's Location: [address] [place], [place] Date: n/a Time: n/a fax: n/a Phone: n/a wheelchair: n/a Water Pumper: n/a documented in this encounter Plan of Treatment Upcoming Encounters Date Type Department Care Team ([facility] Contact Info) Description 08/04/2025 2:30 PM EDT Office Visit [facility] MEDICINE [address] [place], [place] [phone] Chante Yusuf NP [address] [place] [address] 08/18/2025 9:00 AM EDT Office Visit [facility] OPTOMETRY [address] [place] [address] PedritokristieJackyLizbeth, OD [address] [place] [address] 09/05/2025 2:30 PM EST Medication Management [facility] MEDICINE [address] [place] [address] Micki Olea PharmD [address] [place] [address] documented as of this encounter Visit Diagnoses Not on filedocumented in this encounter Additional Health Concerns Assessment Noted Time PHQ-9 Depression Total Score: 0 01/10/20 2:38 PM EST documented as of this encounter Care Teams [employer] Relationship Specialty Start Date End Date Tamiko Aceves FNP PCP - General Family Medicine 07/01/22 07/26/23 Maddy Ahumada MD [address] [place] [id number] PCP - General Internal Medicine 07/27/23 10/12/23 Chante Yusuf NP [address] [place] [id number] PCP - General Family Medicine 10/13/23 Micki Olea PharmD [address] [place] [id number] Pharmacist Pharmacy 04/26/25 [employer] P[employer] Coordinator 09/15/24 [facility] Care 09/16/24 documented as of this encounter
--- OUTSIDE RECORDS SUMMARY | 2025-07-25 16:50 | XMS_ITS | Clinical Summary ---
Author Organization [employer] Address [address] [facility] [address] [facility] [address] [place] [address] Care Team Providers Care Hospice Social Worker Name Role Phone Chante Yusuf THEOLOGY TEACHER Primary Care Provider [phone] PuMicki saucedo PharmD Unavailable [phone] Allergies Active Allergy Reactions Criticality Noted Date Comments Rosuvastatin Diarrhea 05/10/2020 Medications * This document contains information received from the source organization and may not represent a complete record from that organization. traZODone (Desyrel) 100 MG tablet TAKE 2 TABLETS BY MOUTH AT BEDTIME NEEDED 11/12/19 23 Active Blood Glucose Monitoring Suppl (SportisticStyle Lite) w/Device kitIndications:Typ e 2 diabetes mellitus with other specified complication, without long-term current use of insulin ([facility]) 1 each 2 times daily. 1 kit 12/12/19 23 Active loratadine (Claritin) 10 MG tabletIndications: Seasonal allergic rhinitis, unspecified trigger Take 1 tablet (10 mg) by mouth in the morning. 90 tablet 3 01/18/20 24 Active Additional Information Patient taking differently:10 mg OralDaily PRN, Reported on 04/26/2025 fluticasone (Flonase) 50 MCG/ACT nasal sprayIndications:S easonal allergic rhinitis, unspecified trigger SHAKE LIQUID AND USE 1 TO 2 SPRAYS IN EACH NOSTRIL EVERY DAY NEEDED 48 g 05/04/20 24 Active albuterol 108 (90 Base) MCG/ACT inhalerIndications :Moderate persistent asthma without complication Inhale 2 puffs every 4 (four) hours. 18 g 3 08/19/20 24 Active ALPRAZolam (Xanax) 0.5 MG tablet Take 0.5 mg by mouth 2 times daily. 07/27/20 Active famotidine (Pepcid) 20 MG tablet Take 20 mg by mouth at bedtime. 06/18/20 Active hydrOXYzine HCl (Atarax) 10 MG tablet Take 10 mg by mouth if needed in the morning, at noon, and at bedtime. 07/26/20 Active pantoprazole (ProtoNix) 40 MG EC tablet Take 40 mg by mouth Once per day. 03/21/20 Active citalopram (CeleXA) 20 MG tablet Take 20 mg by mouth at bedtime. 07/28/20 Active QUEtiapine (SEROquel) 50 MG tablet Take 50 mg by mouth at bedtime. 07/28/20 Active atorvastatin (Lipitor) 20 MG tabletIndications: Mixed hyperlipidemia TAKE 1 TABLET(20 MG) BY MOUTH IN THE MORNING 90 tablet 1 01/17/20 Active Alcohol Swabs (Alcohol Prep) 70 % padsIndications:Ty pe 2 diabetes mellitus with other specified complication, without long-term current use of insulin ([facility]) USE TWICE DAILY WITH TESTING 100 each 11 02/16/20 Active zolpidem (Ambien) 5 MG tablet Take 5 mg by mouth at bedtime. 04/19/20 25 Active nicotine (Nicoderm, Step 2) 14 MG/24HR patchIndications:S deepti Apply 1 patch, as directed, every 24 hours. May remove at bedtime if needed & replace the next morning. Rotate application site. 42 patch 04/26/20 25 Active nicotine (Nicoderm, Step 3) 7 MG/24HR patchIndications:S deepti Apply 1 patch, as directed, every 24 hours. May remove at bedtime if needed & replace the next morning. Rotate application site. 14 patch 2 04/26/20 25 Active nicotine polacrilex (Commit) 4 MG lozengeIndications :Smoker Dissolve 1 lozenge, as directed, every 1-2 hours as needed for cravings. Max 20 lozenges per 24 hours. 100 lozenge 5 04/26/20 25 Active thiamine (Vitamin B-1) 100 MG tablet Take 1 tablet (100 mg) by mouth Once per day. 90 tablet 3 04/26/20 25 Active baclofen (Lioresal) 10 MG tabletIndications: Neck pain Take one tablet TID PRN 30 tablet 07/21/20 25 Active metFORMIN (Glucophage) 500 MG tabletIndications: Type 2 diabetes mellitus with other specified complication, without long-term current use of insulin (CMS/HCC) TAKE 1 TABLET BY MOUTH TWICE DAILY WITH THE MORNING AND EVENING MEAL 180 tablet 06/14/20 25 Active Bisacodyl EC 5 MG EC tablet Take 10 mg by mouth at bedtime. 05/24/20 25 Active Tirzepatide (Mounjaro) 5 MG/0.5ML solution auto-injector Inject 5 mg under the skin 1 (one) time per week. 2 mL 11 07/25/20 25 Active senna (Senokot) 8.6 MG tablet Take 2 tablets by mouth if needed at bedtime for constipation. 12/28/19 24 025 Discontin ued(Alter kyle therapy) Semaglutide,0.25 or 0.5MG/DOS, (Ozempic, 0.25 or 0.5 MG/DOSE,) 2 MG/3ML solution pen-injector Inject 0.5 mg under the skin 1 (one) time per week. 3 mL 5 04/26/20 25 025 Discontin ued(Alter kyle therapy) Active Problems Problem Noted Date Diagnosed Date [...] tablet 3 times a day. Filled by [facility]. Educated Pt not to miss doses [...] out for help Patient was seen by [facility] Assessment & Plan (06/14/2023 12:11 AM EDT): [...] Fell down the stairs 01/05/21 Evaluated at [facility] ED 01/18/21. CT maxillofacial WNL and [...] taken. Treatment pending Biopsy results. 07/30/22 - [facility] appt reviewed Endoscopy results. Send for Gastric emptying study. F/u 3 weeks Assessment & Plan (08/19/2024 12:31 PM EDT): -med refill provided per patient request -will discuss this further at next appointment Assessment & Plan (07/27/2023 6:25 PM EDT): Refill omeprazole Pt has continued GERD Encouraged pt to call [facility] for f/u appt F/u PRN History [...] Microalbuminuria due to type 2 diabetes mellitus ([facility]) 06/30/2022 Diabetes 06/30/2022 Overview (06/14/2023): Poorly controlled. [...] 50mg Statin: Lipitor 20mg Assessment & Plan (07/18/2025 12:40 PM EDT): -poorly controlled -referred to [facility] but missed appointments. She is strongly encouraged to maintain upcoming appointment -diet and lifestyle changes recommended -continue metformin and ozempic Assessment & Plan (05/13/2025 7:32 AM EDT): [...] taking it. Will obtain fill history from [facility]. Discuss further at next visit -daily foot [...] Encounters Date Type Department Care Team Description 07/25/2025 Travel 07/17/2025 Telephone [facility] [address] [place] [address] Delores Chong RN 07/14/2025 Refill [facility] [address] [place], [place] [phone] Chante Yusuf NP Mixed hyperlipidemia 07/10/2025 2:00 PM EDT Clinical Support [address] [address] Delores Chong, MARINA Encounter for immunization 07/10/2025 Travel 06/28/[address] [facility] [place] [address] Chante Yusuf NP Medication Question (Pt requesting medications for menopause. Pt stated pcp was going to prescribed medication for it. Pt is having a lot of menopause she stated that she feels weak and doesn't have energy to do anything ///) 06/27/[address] [address] Chante Yusuf NP Durable Medical Equipment 06/22/2025 Travel 06/14/[address] [address] Chante Yusuf NP Type 2 diabetes mellitus with other specified complication, without long-term current use of insulin (CMS/HCC) 05/31/[address] [address] Chante Yusuf NP Medication Question (Pt requesting medications for menopause. Pt stated pcp was going to prescribed medication for it. ) 05/24/2025 Orders Only [address] [address] Chante Yusuf NP 05/22/2025 2:30 PM EDT Office Visit [address] [address] Chante Yusuf NP Vasomotor symptoms due to menopause (Primary Dx); Type 2 diabetes mellitus with other specified complication, without long-term current use of insulin (CMS/HCC); Dietary counseling; Exercise counseling; Encounter for immunization; Neck pain; Subclinical hypothyroidism; Mass on back; Elevated liver enzymes 05/22/2025 Travel 05/19/2025 Orders Only [address] [address] Chante Yusuf NP Subclinical hypothyroidism (Primary Dx) 05/19/[address] [address] Chante Yusuf NP CHART PREP 05/17/[address] [address] Chante Yusuf NP requesting call back 05/15/2025 Patient Outreach [facility] [address] [place] [address] Chante Yusuf NP Pre-visit Planning (SDOH was already completed) 05/13/2025 Results Follow-Up [address] [address] Chante Yusuf NP POCT Glucose, POCT HGB A1C, TSH W/Reflex to FT4, Additional followed-up results: 5 05/01/2025 Orders Only [address] [address] Chante Yusuf NP 04/26/[address] [address] Chante Yusuf NP 04/26/[address] [address] Chante Yusuf NP Labs (I informed the patient that [facility] labs have been ordered. She has a PE scheduled on 05/01/25, and may go to the lab the day of her appointment. She verbalized understanding.) 04/26/2025 Travel 04/26/[address] [address] Delores Chong RN 04/24/2025 Patient Outreach [facility] [address] [place] [address] Chante Yusuf NP Pre-visit Planning (SDOH negative, Tobacco screening positive.) from Last 3 Months Immunizations Immunization Administration Dates Next Due HepB-CpG 07/10/2025,05/22/2025 Influenza injectable quadriv alent preservative free 10/22/2021,07/19/2018 Influenza, IIV3, injectable 12/31/2020, 8 Influenza, injectable, quadr ivalent, preservative free, pediatric 08/16/2015 Influenza, seasonal, injecta ble, preservative free 07/13/2016 Pneumococcal Polysaccharide PPSV23 04/01/2018,,11/29/2007 Tdap 08/30/2023,,11/04/2018,11/10 Family History Medical History Relation Name Comments [...] Description 08/04/2025 2:30 PM EDT Office Visit [facility] [address] [place] [address] Chante Yusuf, THEOLOGY TEACHER [address] [place] [address] 08/18/2025 9:00 AM EDT Office Visit [facility] [address] [place] [address] Tarka, Lizbeth, OD [address] [place] [address] 09/05/2025 2:30 PM EST Medication Management [facility] [address] [place] [address] PuiaNoemisa, PharmD [address] [place] [address] Health Maintenance Due Date Last Done Comments [...] Screening 04/24/2026 04/24/2025 Lipid Panel 05/01/2026 05/01/2025, 1103/2024, 12/03/2023, Additional history exists Disability Screening 05/22/2026 [...] complication, without long-term current use of insulin ([facility]) POCT GLUCOSE Routine 05/22/2025 2:24 PM EDT [...] 8:11 AM EDT HEPATIC FUNCTION PANEL Routine 05/01/2025 8:11 AM EDT T-SPOT(R).TB Routine 05/01/2025 8:11 [...] 05/01/2025 8 :11 AM EDT Hair loss HEPATITIS C ANTIBODY ([facility]) Routine 10/04/2024 HIV ANTIBODY/ANTIGEN ([facility]) Routine 10/04/2024 PERIODIC ORAL EVALUATION - ESTABLISHED [...] of2 resultswithin the time period is included. Syphilis Screen Nonreactive Nonreactive [facility] 05/24/2025 4:25 PM EDT 05/24/2025 4:25 PM EDT Chante Yusuf NP LAB BLOOD ORDERABLES Final Resu lt [facility] [address] [place] [address] [phone] * (ABNORMAL) Liver Fibrosis (HCV), FibroTest-ActiTest Panel (05/24/2025 4:25 PM EDT) Liver Fibrosis Score 0.21 [facility] Liver Fibrosis Stage F0 [facility] Liver Fibrosis Interpretation SEE NOTE [facility] Comment:no fibrosisFibro Kendal t Score [...] (severe fibrosis) Nec Inflam Act Score 0.63 [facility] Nec Inflam Act Grade A3 [facility] Nec Inflam Act Interpretation SEE NOTE [facility] Comment:severe activityActiT est Score (a) Metavir Score a>=0 and a<=0.17 : A0 (no activity)a>0.17 and a<=0.29 : A0-A1 (no activity)a>0.29 and a<=0.36 : A1 (minimal activity)a>0.36 and a<=0.52 : A1-A2 (minimal activity)a>0.52 and a<=0.60 : A2 (significant activity)a>0.60 and a<=0.62 : A2-A3 (significant activity)a>0.62 and a<=1.00 : A3 (severe activity) VIQ-Xhzdn-2-Macroglo bulin 188 106 - 279 mg/dL [facility] FIB-Haptoglobin 162 43 - 212 mg/dL [facility] FIB-Apolipoprotein A1 130 101 - 198 mg/dL [facility] FIB-Total Bilirubin 0.3 0.2 - 1.2 mg/dL [facility] FIB-GGT 161(A) 3 - 55 U/L [facility] FIB-ALT 128(A) 6 - 29 U/L [facility] Reference ID [id number] [facility] Footnote SEE NOTE [facility] Comment: The reliability of results [...] and C.The performance characteristics have been determined byXiaoyingCommunity [facility] of [facility]. Ithas not been cleared or approved by the U.S. Food and DrugAdministration. Performance characteristics refer to theanalytical performance of the test.[employer], the associated logo, [employer] and all associated [employer] batista are theregistered trademarks of [employer]. All third partymarks - (R) and (TM) - are the property of their respectiveowners. (C) 2558-8219 [employer]. Allrights reserved.THIS TEST WAS PERFORMED AT:[employer] [id number] [place] [address]WAYUQMIGUE WEAVER MD,PHD,[place] 05/24/2025 4:25 PM EDT 05/24/2025 4:25 PM EDT us Generic External Data Provider LAB BLOOD ORDERAB LES Final Result [facility] [address] [place] [phone] * Estradiol (05/24/2025 4:25 PM EDT) Only the most recent of2 resultswithin the time period is included. Estradiol Ultra Sensitive 4 pg/mL [facility] Comment:Female Reference Ran ges for Estradiol, Ultrasensitive (pg/mL): Follicular Phase: 39-375 Luteal Phase: 48-440 Postmenopausal Phase: < or = 10This test was developed and its analytical performancecharacteristics have been determined by [email or web address].It has not been cleared or approved by the FDA. This assayhas been validated pursuant to the CLIA regulations and isused for clinical purposes.THIS TEST WAS PERFORMED AT:[employer] [id number] [place] [address]GYXMEMIGUE WEAVER MD,PHD,[place] 05/24/2025 4:25 PM EDT 05/24/2025 4:25 PM EDT [facility] LAB BLOOD ORDERABLES Final Resu lt Performing Organization Address [facility] de Phone Number [facility] [address] [place] [phone] * LH (05/24/2025 4:25 PM EDT) Only the most recent of2 resultswithin the time period is included. Lutenizing Hormone 35.0 mIU/mL [facility] Comment:Reference Range Foll icular Phase 1.9-12.5 Mid-Cycle Peak 8.7-76.3 Luteal Phase 0.5-16.9 Postmenopausal 10.0-54.7THIS TEST WAS PERFORMED AT:[employer] [address] [address]VNGEMDAYNA CALLEJAS MD 05/24/2025 4:25 PM EDT 05/24/2025 4:[address] [facility] THEOLOGY TEACHER LAB BLOOD ORDERABLES Final Resu lt Performing Organization Address [facility] Co de Phone Number [facility] [address] [place] [phone] * FSH (05/24/2025 4:25 PM EDT) Only the most recent of2 resultswithin the time period is included. Follicle Stimulating Hormone 38.3 mIU/mL [facility] Comment:Reference Range Foll icular Phase 2.5-10.2 Mid-cycle Peak 3.1-17.7 Luteal Phase 1.5- 9.1 Postmenopausal 23.0-116.3THIS TEST WAS PERFORMED AT:[id number] [place] [id number] CALLEJAS MD 05/24/2025 4:25 PM EDT 05/24/2025 4:25 PM EDT [facility] LAB BLOOD ORDERABLES Final Resu lt [facility] [address] [place] [phone] * (ABNORMAL) POCT HGB A1C (05/22/2025 2:28 PM EDT) [facility] Hemoglobin A1C 8.3(A) 4.0 - 5.7 % QC Media Lot # [id number] Lot# Expiration Date Blood 05/22/2025 2:28 PM EDT [facility] POINT OF CARE TEST ENTER/EDIT O RDERABLES Final Result * POCT Glucose (05/22/2025 2:24 PM EDT) [facility] Glucose Blood, POC 115 60 - 200 mg/dL QC Media Lot # [id number] Lot# Expiration Date Blood Capillary blood specimen / Unknown 05/22/2025 2:24 PM EDT [facility] POINT OF CARE TEST ENTER/EDIT O RDERABLES Final Result * T-SPOT??.TB (05/01/2025 8:11 AM EDT) [facility] T Spot TB Negative Negative [facility] Comment:A negative test resu lt [...] as aquantitative test. TS PANEL A 0 [facility] TS PANEL B 0 [facility] Negative Control Passed [facility] Positive Control Passed [facility] Comment:For additional infor leeroy, please refer [email or web address]/faq/ZLK397(This link is being provided for informational/educational purposes only.)REPORT COMMENT:REC'D AT [facility] TEST WAS PERFORMED AT:[employer] [id number] [place] [address]EDTIRYJCAROLINA PELAYO MD,PHD 05/01/2025 8:11 AM EDT 05/01/2025 11:05 AM EDT Chante Yusuf THEOLOGY TEACHER LAB BLOOD ORDERABLES Final Resu lt [facility] [address] [place] [phone] * (ABNORMAL) TSH W/Reflex to FT4 (05/01/2025 8:11 AM EDT) TSH reflex Free T4 5.83(H) 0.32 - 4.0 uIU/mL [facility] Blood Venous blood specimen / Unknown 05/01/2025 8:11 AM EDT 05/01/2025 11:05 AM EDT [facility] LAB BLOOD ORDERABLES Final Resu lt Performing Organization Address [facility] Co de Phone Number [facility] [address] [place] [address] [phone] * (ABNORMAL) Lipid Panel with Reflex to Direct LDL (05/01/2025 8:11 AM EDT) Triglycerides 110 <150 mg/dL [facility] Comment:Desirable Triglyceri de: less than 150 mg/dLBorderline High Triglyceride 150-199 mg/dLHigh Triglyceride: 200-499 mg/dLVery High Triglyceride: greater than or equal to 5OO mg/dL Cholesterol 162 <200 mg/dL [facility] Comment:Desirable Cholestero l: less than 200 mg/dLBorderline High Cholesterol: 200-239 mg/dLHigh Cholesterol: greater than 239 mg/dL LDL Cholesterol Calculated 101(H) <100 mg/dL [facility] Comment:Desirable LDL: less than 100 mg/dLNear Optimal/Above Optimal LDL: 110- 129 mg/dLBorderline High LDL: 130-159 mg/dLHigh LDL: 160-189 mg/dLVery High LDL: greater than or equal to 190 mg/dL HDL Cholesterol 39(L) >40 mg/dL [facility] Comment:Desirable HDL: great er than 40 mg/dL Note: This HDL assay may give artificially low results in patients with liver disease. 05/01/2025 8:11 AM EDT 05/01/2025 11:05 AM EDT Chante Yg THEOLOGY TEACHER LAB BLOOD ORDERABLES Final Resu lt Performing Organization Address [facility]/ZIP Co de Phone Number [facility] [address] [place] [address] [phone] * Albumin, Random Urine W/Creatinine (05/01/2025 8:11 AM EDT) Creatinine, Urine 113.58 mg/dL [facility] Microalbumin Urine <5.0 mg/L [facility] Microalbum Creatinine Ratio Ur TNP <30 ug/mg cr [facility] Comment:Unable to calculate albumin/creatinine ratio due to lowmicroalbumin or creatinine result. Urine (Urine, Random) 05/01/2025 8:11 AM EDT 05/01/2025 10:[address] [facility] THEOLOGY TEACHER LAB URINE ORDERABLES Final Resu lt Performing Organization Address [facility] de Phone Number [facility] [address] [place] [phone] * Hepatitis A Antibody, Total (05/01/2025 8:11 AM EDT) Hepatitis A Antibody IgG Nonreactive Nonreactive [facility] 05/01/2025 8:11 AM EDT 05/01/2025 11:[address] [facility] THEOLOGY TEACHER LAB BLOOD ORDERABLES Final Resu lt Performing Organization Address [facility] de Phone Number [facility] [address] [place] [phone] * Hepatitis B surface antigen, EIA (05/01/2025 8:11 AM EDT) Hepatitis B Surface Ag Negative Negative [facility] 05/01/2025 8:11 AM EDT 05/01/2025 11:[address] [facility] THEOLOGY TEACHER LAB BLOOD ORDERABLES Final Resu lt Performing Organization Address [facility] de Phone Number [facility] [address] [place] [phone] * Hepatitis B Core Antibody, Total (05/01/2025 8:11 AM EDT) Hepatitis B Core Antibody Nonreactive Nonreactive [facility] 05/01/2025 8:11 AM EDT 05/01/2025 11:05 AM EDT us Chante Yusuf THEOLOGY TEACHER LAB BLOOD ORDERABLES Final Resu lt Performing Organization Address [facility] de Phone Number [facility] [address] [place] [phone] * Hepatitis B Surface Antibody, Qualitative (05/01/2025 8:11 AM EDT) ~Hepatitis B Surface Antibody NONREACTIVE Nonreactive [facility] Comment:Nonreactive: < 8.00 mIU/mL 05/01/2025 8:11 AM EDT 05/01/2025 11:05 AM EDT us Chante Yusuf THEOLOGY TEACHER LAB BLOOD ORDERABLES Final Resu lt Performing Organization Address [facility] de Phone Number [facility] [address] [place] [phone] * T4, Free (05/01/2025 8:11 AM EDT) Free T4 (Free Thyroxine) 0.96 0.71 - 1.85 ng/dL [facility] 05/01/2025 8:11 AM EDT 05/01/2025 11:05 AM EDT us Chante Yusuf THEOLOGY TEACHER LAB BLOOD ORDERABLES Final Resu lt Performing Organization Address [facility] de Phone Number [facility] [address] [place] [phone] * Vitamin B12 (05/01/2025 8:11 AM EDT) Vitamin B12 450 200 - 900 pg/mL [facility] Comment:NORMAL 200-900 PG/ML INDETERMINATE 160-199 PG/ML DEFICIENT < 160 PG/ML 05/01/2025 8:11 AM EDT 05/01/2025 11:05 AM EDT Chante Ronquillo THEOLOGY TEACHER LAB BLOOD ORDERABLES Final Resu lt Performing Organization Address [facility]/ZIP Co de Phone Number [facility] [address] [place] [address] [phone] * (ABNORMAL) Hepatic Function Panel (05/01/2025 8:11 AM EDT) Pathologist [facility] Bilirubin, Total 0.3 0.0 - 1.0 mg/dL [facility] Bilirubin, Direct 0.2 0.0 - 0.5 mg/dL [facility] Aspartate Amino Transferase 76(H) 5 - 31 U/L [facility] Alanine Aminotransferase 102(H) 0 - 31 U/L [facility] Total Protein 6.9 6.5 - 8.0 g/dL [facility] Albumin Level 4.0 3.5 - 5.0 g/dL [facility] Alkaline Phosphatase 87 39 - 117 U/L [facility] 05/01/2025 8:11 AM EDT 05/01/2025 11:05 AM EDT Chante Ronquillo THEOLOGY TEACHER LAB BLOOD ORDERABLES Final Resu lt Performing Organization Address [facility] Co de Phone Number [facility] [address] [place] [phone] * (ABNORMAL) Basic Metabolic Panel (05/01/2025 8:11 AM EDT) Pathologist [facility] Sodium 137 135 - 145 mmol/L [facility] Potassium 3.7 3.3 - 5.1 mmol/L [facility] Chloride 102 96 - 108 mmol/L [facility] Carbon Dioxide 26 22 - 29 mmol/L [facility] Anion Gap 13 12 - 20 [facility] Urea Nitrogen (BUN) 12 9 - 16 mg/dL [facility] Creatinine, Serum 0.61 0.5 - 1.4 mg/dL [facility] Estimated Glomerular Filt Rate >60 [facility] Comment:Chronic Kidney Disea se: Estimated GFR < 60 mL/min/1.67q1Dhpgav Kidney Disease: Estimated GFR < 15 mL/min/1.73m2 Glucose 223(H) 60 - 115 mg/dL [facility] Calcium 9.1 8.4 - 10.2 mg/dL [facility] 05/01/2025 8:11 AM EDT 05/01/2025 11:05 AM EDT Chante Yusuf NP LAB BLOOD ORDERABLES Final Resu lt [facility] [address] [place] [phone] [phone] * Hepatitis C Antibody ([facility]) (10/04/2024) Hepatitis C Ab Nonreactive Blood 10/04/2024 Result [facility] Historical Provider LAB BLOOD ORDERABLES Whitney l Result * HIV Ab/Ag ([facility]) (10/04/2024) HIV Ag/Ab Nonreactive Blood 10/04/2024 Result [facility] Historical Provider LAB BLOOD ORDERABLES Edit ed [...] Procedure: Req: Mammogram (Screening); Bilateral Jesi Robledo THEOLOGY TEACHER IMG BI PROCEDURES Final Result from Last 3 Months or Most Recently Relevant to Health Maintenance Insurance [facility] C3 DENTAL-[facility] MEDICAID STAND ADULT Care Teams Hospice Social Worker Relationship Specialty Start Date End Date Chante Yusuf NP [address] [place] [address] PCP - General Family Medicine 10/13/23 Micki Olea, AnastaciaD 230 [place] [address] Pharmacist Pharmacy 04/26/25 Veronica Snow Identity Management ConsultantCut To Length Operator 09/15/24 [facility] 09/16/24
--- OUTSIDE RECORDS SUMMARY | 2025-07-25 16:50 | XMS_ITS | Encounter Summary ---
Author Organization [employer] Address 75 [facility] 7t [place] [address] Care Team Providers Care Round Boner Name Role Phone Chante Yusuf CLOAK ROOM ATTENDANT Primary Care Provider [phone] Micki Olea PharmD Unavailable [phone] Reason for Referral * Consultation (Routine) - Canceled Specialty Diagnoses / Procedures Referred By Contac t Referred To Contact Pharmacy Diagnoses Type 2 diabetes mellitus with other specified complication, without long-term current use of insulin (CMS/HCC) Liliya Britton MD 230 [place] [address] Phone: tel: fax: Referral ID Status Reason Start Date Expiration Date V isits Requested Visits Authorized [id number] Canceled Consult and Treat 08/21/2024 08/21/2025 6 6 Encounter Details Date Type Department Care Team (Late st Contact Info) Description 08/21/2024 Orders Only [facility] MEDICINE 230 [place], [place] [phone] Liliya Britton MD 230 [place], [place] [phone] Type 2 diabetes mellitus with other specified [...] Description 08/04/2025 2:30 PM EDT Office Visit [facility] MEDICINE 230 [place] [address] Chante Yusuf NP 230 [place] [address] 08/18/2025 9:00 AM EDT Office Visit [facility] OPTOMETRY 267 [place] [address] Lizbeth Mosquera, OD [address] [place] [address] 09/05/2025 2:30 PM EST Medication Management [facility] MEDICINE 230 [place] [address] Micki Olea PharmD 230 [place] [address] Scheduled Referrals Name Type Priority Associated Diagnoses [...] documented as of this encounter Care Teams Round Boner Relationship Specialty Start Date End Date Chante Yusuf NP 230 [place] [address] PCP - General Family Medicine 10/13/23 Micki Olea PharmD 230 [place] [address] Pharmacist Pharmacy 04/26/25 Veronica Snow Team PhysicianChip Mucker 09/15/24 [facility] 09/16/24 documented as of this encounter
--- OUTSIDE RECORDS SUMMARY | 2025-07-25 16:50 | XMS_ITS | Encounter Summary ---
Author Organization [employer] Address 75 [facility] 7t [place] [address] Care Team Providers Care Leadite Man Name Role Phone Chante Yusuf FOOD RUNNER Primary Care Provider [phone] Micki Olea PharmD Unavailable [phone] Encounter Details Date Type Department Care Team (Late st Contact Info) Description 05/19/2025 Orders Only [facility] MEDICINE [address] [place], [place] [phone] Chante Yusuf NP [address] [place], [place] [phone] Subclinical hypothyroidism (Primary Dx) Social History Tobacco [...] Description 08/04/2025 2:30 PM EDT Office Visit [facility] MEDICINE [address] [place] [address] Chante Yusuf NP 230 [place] [address] 08/18/2025 9:00 AM EDT Office Visit [facility] OPTOMETRY 267 [place] [address] Lizbeth Mosquera, OD 267 [place] [address] 09/05/2025 2:30 PM EST Medication Management [facility] MEDICINE [address] [place] [address] Micki Olea, PharmD 230 [place] [address] Scheduled Orders Name Type Priority Associated Diagnoses [...] documented as of this encounter Care Teams Leadite Man Relationship Specialty Start Date End Date Chante Yusuf NP 230 [place] [address] PCP - General Family Medicine 10/13/23 Micki Olea PharmD 230 [place] [address] Pharmacist Pharmacy 04/26/25 Veronica Snow Director Clinical ResearchPhysician Practice Coordinator 09/15/24 [facility] 09/16/24 documented as of this encounter
--- OUTSIDE RECORDS SUMMARY | 2025-07-25 16:50 | XMS_ITS | Encounter Summary ---
Author Organization [employer] Address 75 [facility] 7t [place] [address] Care Team Providers Care Vineyardist Name Role Phone Tamiko Aceves [facility] Primary Care Provider Maddy Chaney MD Primary Care Pro vider Chante Yusuf NP Primary Care Provider [phone] Micki Olea PharmD Unavailable [phone] Reason for Visit * Reason Onset Date Comments Hospital Follow-up 05/18/2023 Encounter Details Date Type Department Care Team (Late st Contact Info) Description 05/18/2023 Telephone [facility] MEDICINE 230 [place], [place] [phone] Tamiko Aceves FNP Hospital Follow-up Social History [...] - 05/18/2023 3:11 PM EDT Tc from [facility] with [facility] requesting a HDF follow up with provider. Pt was at [facility] on 05/13/2023 and discharge on 05/15/2023, pt was diagnose with Seizures and Dehydration due to a hernia. Please contact pt at [phone] Luxembourger Speaker documented in this encounter Plan of Treatment Upcoming Encounters Date Type Department Care Team (Late st Contact Info) Description 08/04/2025 2:30 PM EDT Office Visit [facility] MEDICINE 230 [place] [address] Chante Yusuf NP 230 [place] [address] 08/18/2025 9:00 AM EDT Office Visit [facility] OPTOMETRY [address] [place] [address] Lizbeth Mosquera, OD 267 [place] [address] 09/05/2025 2:30 PM EST Medication Management [facility] MEDICINE 230 [place] [address] Micki Olea, PharmD 230 [place] [address] documented as of this encounter Visit Diagnoses Not on filedocumented in this encounter Additional Health Concerns Assessment Noted Time PHQ-9 Depression Total Score: 0 01/10/20 23 2:38 PM EST documented as of this encounter Care Teams Vineyardist Relationship Specialty Start Date End Date Tamiko Aceves FNP PCP - General Family Medicine 07/01/22 07/26/23 Maddy Ahumada MD [address] [place] [address] PCP - General Internal Medicine 07/27/23 10/12/23 Chante Yusuf NP [address] [place] [address] PCP - General Family Medicine 10/13/23 Micki Olea, AnastaciaD [address] [place] [address] Pharmacist Pharmacy 04/26/25 Veronica Snow Cured Meats SupervisorCutting Tool Sharpener 09/15/24 [facility] 09/16/24 documented as of this encounter
--- OUTSIDE RECORDS SUMMARY | 2025-07-25 16:50 | XMS_ITS | Encounter Summary ---
Author Organization [employer] Address 75 [facility] 7t [place] [address] Care Team Providers Care Health Care Facility Administrator Name Role Phone Maddy Ahumada MD Primary Care Pro vider Chante Yusuf NP Primary Care Provider [phone] Micki Olea PharmD Unavailable [phone] Reason for Visit * Reason Onset Date Comments Call Back Request 09/01/2023 Encounter Details Date Type Department Care Team ([facility] st Contact Info) Description 09/01/2023 Telephone [facility] MEDICINE 230 [place], [place] [phone] Maddy Ahumada MD 230 [place], [place] [phone] Call Back Request Social History Tobacco Use [...] - 09/01/2023 12:49 PM EDT Tc from [facility] requesting a call back in regards orders to treat foot, Skyla is also asking how can she treat the area on pt. Please call [facility] [phone] documented in this encounter Plan of Treatment Upcoming Encounters Date Type Department Care Team (Late st Contact Info) Description 08/04/2025 2:30 PM EDT Office Visit [facility] MEDICINE [address] [place] [address] Chante Yusuf, KWAKU 230 [place] [address] 08/18/2025 9:00 AM EDT Office Visit [facility] OPTOMETRY [address] [place] [address] Tarka, Lizbeth, OD 267 [place] [address] 09/05/2025 2:30 PM EST Medication Management [facility] MEDICINE 230 [place] [address] PuiaMicki, PharmD 230 [place] [address] documented as of this encounter Visit Diagnoses Not on filedocumented in this encounter Additional Health Concerns Assessment Noted Time PHQ-9 Depression Total Score: 0 01/10/20 23 2:38 PM EST documented as of this encounter Care Teams Health Care Facility Administrator Relationship Specialty Start Date End Date Maddy Ahumada MD [address] [place] [address] PCP - General Internal Medicine 07/27/23 10/12/23 Chante Yusuf NP [address] [place] [address] PCP - General Family Medicine 10/13/23 Micki Oela PharmD [address] [place] [address] Pharmacist Pharmacy 04/26/25 Veronica Snow Tanning Drum OperatorUser Experience Analyst 09/15/24 [facility] 09/16/24 documented as of this encounter
--- OUTSIDE RECORDS SUMMARY | 2025-07-25 16:50 | XMS_ITS | Encounter Summary ---
Author Organization [employer] Address 75 [facility] 7t [place] [address] Care Team Providers Care Knitting Supervisor Name Role Phone Chante Yusuf HOSIERY PAIRER Primary Care Provider [phone] Micki Olea PharmD Unavailable [phone] Reason for Visit * Reason Onset Date Comments PT-1 10/17/2024 Encounter Details Date Type Department Care Team ([facility] st Contact Info) Description 10/17/2024 Telephone [facility] MEDICINE 230 [place], [place] [phone] Chante Yusuf NP 230 [place] [address] PT-1 Social History Tobacco Use Types Packs/Day [...] any questions you can contact pt at [phone]. (Kiswahili Speaker) documented in this encounter Plan of Treatment Upcoming Encounters Date Type Department Care Team (Late st Contact Info) Description 08/04/2025 2:30 PM EDT Office Visit [facility] MEDICINE 230 [place] [address] Chante Yusuf NP 230 [place] [address] 08/18/2025 9:00 AM EDT Office Visit [facility] OPTOMETRY 267 [place] [address] Lizbeth Mosquera, OD 267 [place] [address] 09/05/2025 2:30 PM EST Medication Management [facility] MEDICINE 230 [place] [address] Micki Olea PharmD 230 [place] [address] documented as of this encounter Visit Diagnoses Not on filedocumented in this encounter Additional Health Concerns Assessment Noted Time PHQ-9 Depression Total Score: 14 024 11:15 AM EST documented as of this encounter Care Teams Knitting Supervisor Relationship Specialty Start Date End Date Chante Yusuf NP 230 [place], [place] [phone] PCP - General Family Medicine 10/13/23 Micki Olea, Rashawn 230 [place] [address] Pharmacist Pharmacy 04/26/25 Veronica Snow Human Resources LeaderBiometrics Consultant 09/15/24 [facility] 09/16/24 documented as of this encounter
--- OUTSIDE RECORDS SUMMARY | 2025-07-25 16:50 | XMS_ITS | Encounter Summary ---
Author Organization [employer] Address 75 [facility] 7t [place] [address] Care Team Providers Care Appliance Repair Technician Name Role Phone Chante Yusuf BUCKLE ASSEMBLER Primary Care Provider [phone] Micki Olea PharmD Unavailable [phone] Reason for Referral * Consultation (Routine) - Authorized Specialty Diagnoses / Procedures Referred By Contac t Referred To Contact Pharmacy Diagnoses Type 2 diabetes mellitus with hyperlipidemia (CMS/HCC) (CMS/HCC) Liliya Britton MD [address] [place] [address] Phone: tel: fax: Referral ID Status Reason Start Date Expiration Date Visits Requested Visits Authorized [id number] Authorized Consult and Treat 01/13/2025 01/13/2026 6 6 Encounter Details Date Type Department Care Team (Late st Contact Info) Description 01/13/[address] [facility] MEDICINE [address] [place] [address] [phone] Liliya Britton MD [address] [place] [address] [phone] Microalbuminuria due to type 2 diabetes mellitus [...] Description 08/04/2025 2:30 PM EDT Office Visit [facility] MEDICINE 230 [place] [address] Chante Yusuf NP 230 [place] [address] 08/18/2025 9:00 AM EDT Office Visit [facility] OPTOMETRY [address] [place] [address] Lizbeth Mosquera OD [address] [place] [address] 09/05/2025 2:30 PM EST Medication Management [facility] MEDICINE [address] [place] [address] Micki Olea PharmD 230 [place] [address] Scheduled Referrals Name Type Priority Associated Diagnoses [...] documented as of this encounter Care Teams Appliance Repair Technician Relationship Specialty Start Date End Date Chante Yusuf NP 230 [place] [address] PCP - General Family Medicine 10/13/23 Micki Olea PharmD [address] [place] [address] Pharmacist Pharmacy 04/26/25 Veronica Snow Truck Sales RepresentativeHeat Pump Installer 09/15/24 [facility] 09/16/24 documented as of this encounter
--- OUTSIDE RECORDS SUMMARY | 2025-07-25 16:50 | XMS_ITS | Encounter Summary ---
Author Organization [employer] Address 75 [facility] 7t [place] [address] Care Team Providers Care Slackman Name Role Phone Tamiko Aceves FRONT WORKER Primary Care Provider Maddy Chaney MD Primary Care Pro vider Chnate Yusuf NP Primary Care Provider [phone] Micki Olea PharmD Unavailable [phone] Reason for Visit * Reason Onset Date Comments Triage 02/23/2023 Encounter Details Date Type Department Care Team (Late st Contact Info) Description 02/23/2023 Telephone [facility] MEDICINE 230 [place], [place] [phone] Tamiko cAeves FNP Triage Social History Tobacco Use Types [...] No answer, Lvm to return call to [facility] triage line. Pt to follow up PRN. * Telephone Encounter - Julianna Pena RN - 02/23/2023 12:04 PM EDT Call returned to patient for triage. No answer LVM to return call to [facility] triage line. * Telephone Encounter - Zackery Gant - 02/23/2023 11:54 AM EDT Symptoms: Foot or Ankle Pain - Not From Injury, Foot or Ankle Swelling Outcome: Schedule an urgent appointment (within 1 hour) or talk to a nurse or provider soon Reason: Severe pain now The caller accepted this outcome Please contact pt at [phone] Salvadorean Speaker documented in this encounter Plan of Treatment Upcoming Encounters Date Type Department Care Team (Late st Contact Info) Description 08/04/2025 2:30 PM EDT Office Visit [facility] MEDICINE 230 [place] [address] Chante Yusuf NP 230 [place] [address] 08/18/2025 9:00 AM EDT Office Visit [facility] OPTOMETRY 267 [place] [address] Lizbeth Mosquera OD 267 [place] [address] 09/05/2025 2:30 PM EST Medication Management [facility] MEDICINE 230 [place] [address] Micki Olea, PharmD [address] [place] [address] documented as of this encounter Visit Diagnoses Not on filedocumented in this encounter Additional Health Concerns Assessment Noted Time PHQ-9 Depression Total Score: 0 01/10/20 23 2:38 PM EST documented as of this encounter Care Teams Slackman Relationship Specialty Start Date End Date Tamiko Aceves FNP PCP - General Family Medicine 07/01/22 07/26/23 Maddy Ahumada MD [address] [place] [address] PCP - General Internal Medicine 07/27/23 10/12/23 Chante Yusuf NP [address] [place] [address] PCP - General Family Medicine 10/13/23 Micki Olea, Rashawn [address] [place] [address] Pharmacist Pharmacy 04/26/25 Veronica Snow Head Of EnglishOral Surgery Assistant 09/15/24 [facility] 09/16/24 documented as of this encounter
--- OUTSIDE RECORDS SUMMARY | 2025-07-25 16:50 | XMS_ITS | Encounter Summary ---
Author Organization [employer] Address 75 [facility] 7t [place] [address] Care Team Providers Care Social Work Coordinator Name Role Phone Tamiko Aceves BACK JOINER Primary Care Provider Maddy Chaney MD Primary Care Pro vider Chante Yusuf NP Primary Care Provider [phone] Micki Olea PharmD Unavailable [phone] Reason for Visit * Reason Onset Date Comments Appointment Request 02/23/2023 Encounter Details Date Type Department Care Team (Late st Contact Info) Description 02/23/2023 Telephone [facility] MEDICINE 230 [place], [place] [phone] Tamiko Aceves FNP Appointment Request Social History [...] has not transportation. Please contact pt at [phone] documented in this encounter Plan of Treatment Upcoming Encounters Date Type Department Care Team (Late st Contact Info) Description 08/04/2025 2:30 PM EDT Office Visit [facility] MEDICINE 230 [place] [address] Chante Yusuf NP 230 [place] [address] 08/18/2025 9:00 AM EDT Office Visit [facility] OPTOMETRY [address] [place] [address] Lizbeth Mosquera, OD 267 [place] [address] 09/05/2025 2:30 PM EST Medication Management [facility] MEDICINE 230 [place] [address] Micki Olea, PharmD 230 [place] [address] documented as of this encounter Visit Diagnoses Not on filedocumented in this encounter Additional Health Concerns Assessment Noted Time PHQ-9 Depression Total Score: 0 01/10/20 23 2:38 PM EST documented as of this encounter Care Teams Social Work Coordinator Relationship Specialty Start Date End Date Tamiko Aceves FNP PCP - General Family Medicine 07/01/22 07/26/23 Maddy Ahumada MD [address] [place] [address] PCP - General Internal Medicine 07/27/23 10/12/23 Chante Yusuf NP [address] [place] [address] [place] [address] PCP - General Family Medicine 10/13/23 Micki Olea, AnastaciaD 230 [place] [address] Pharmacist Pharmacy 04/26/25 Veronica Snow Brush StainerFile Clerk 09/15/24 [facility] 09/16/24 documented as of this encounter
--- OUTSIDE RECORDS SUMMARY | 2025-07-25 16:50 | XMS_ITS | Encounter Summary ---
Author Organization [employer] Address 75 [facility] 7t [place] [address] Care Team Providers Care General Office Dispatcher Name Role Phone Maddy Ahumada MD Primary Care Pro vider Chante Yusuf NP Primary Care Provider [phone] Micki Olea PharmD Unavailable [phone] Reason for Visit * Reason Onset Date Comments FYI 09/09/2023 OCCUPATIONAL THERAPY 09/09/2023 Encounter Details Date Type Department Care Team (Late st Contact Info) Description 09/09/2023 Telephone [facility] MEDICINE 230 [place], [place] [phone] Maddy Ahumada MD 230 [place], [place] [phone] FYI ; OCCUPATIONAL THERAPY Social History Tobacco [...] If any questions may contact Rhiannon at [phone] documented in this encounter Plan of Treatment Upcoming Encounters Date Type Department Care Team (Late st Contact Info) Description 08/04/2025 2:30 PM EDT Office Visit [facility] MEDICINE [address] [place] [address] Chante Yusuf NP 230 [place] [address] 08/18/2025 9:00 AM EDT Office Visit [facility] OPTOMETRY [address] [place] [address] Lizbeth Mosquera OD [address] [place] [address] 09/05/2025 2:30 PM EST Medication Management [facility] MEDICINE 230 [place] [address] Micki Olea, PharmD [address] [place] [address] documented as of this encounter Visit Diagnoses Not on filedocumented in this encounter Additional Health Concerns Assessment Noted Time PHQ-9 Depression Total Score: 0 01/10/20 23 2:38 PM EST documented as of this encounter Care Teams General Office Dispatcher Relationship Specialty Start Date End Date Maddy Ahumada MD [address] [place] [address] [phone] PCP - General Internal Medicine 07/27/23 10/12/23 Chante Yusuf NP [address] [place] [address] [phone] PCP - General Family Medicine 10/13/23 Micki Olea PharmD [address] [place] [address] [phone] Pharmacist Pharmacy 04/26/25 Veronica Snow Hogshead BuilderTreasury Management Sales Consultant 09/15/24 [facility] 09/16/24 documented as of this encounter
--- OUTSIDE RECORDS SUMMARY | 2025-07-25 16:50 | XMS_ITS | Encounter Summary ---
Author Organization [employer] Address 75 [facility] 7t [place] [address] Care Team Providers Care Fur Polisher Name Role Phone Chante Yusuf PARKING INSPECTOR Primary Care Provider [phone] Micki Olea PharmD Unavailable [phone] Encounter Details Date Type Department Care Team (Late st Contact Info) Description 08/19/2024 Orders Only [facility] MEDICINE 230 [place] [address] Keyana Vasquez, PharmD [address] [place] [address] Social History Tobacco Use Types Packs/Day Years [...] Description 08/04/2025 2:30 PM EDT Office Visit [facility] MEDICINE [address] [place] [address] Chante Yusuf NP 230 [place] [address] 08/18/2025 9:00 AM EDT Office Visit [facility] OPTOMETRY [address] [place] [address] Tarka, Lizbeth, OD 267 [place] [address] 09/05/2025 2:30 PM EST Medication Management [facility] [address] [place] [address] Micki Olea PharmD [address] [place] [address] documented as of this encounter Visit Diagnoses Not on filedocumented in this encounter Additional Health Concerns Assessment Noted Time PHQ-9 Depression Total Score: 24 024 10:37 AM EST documented as of this encounter Care Teams Fur Polisher Relationship Specialty Start Date End Date Chante Yusuf NP [address] [place] [address] PCP - General Family Medicine 10/13/23 Micki Olea, PharmD 230 [place] [address] Pharmacist Pharmacy 04/26/25 Veronica Snow Renovation Plant SupervisorSliding Joint Maker 09/15/24 [facility] 09/16/24 documented as of this encounter
--- OUTSIDE RECORDS SUMMARY | 2025-07-25 16:50 | XMS_ITS | Encounter Summary ---
Author Organization [employer] Address [address] [facility] 7t [place] [address] Care Team Providers Care Fire Management Specialist Name Role Phone Tamiko Aceves OTTER TRAWLER BOATSWAIN Primary Care Provider Maddy Chaney MD Primary Care Pro vider Chante Yusuf NP Primary Care Provider [phone] Micki Olea PharmD Unavailable [phone] Reason for Visit * Reason Onset Date Comments Other 06/23/2023 Encounter Details Date Type Department Care Team (Late st Contact Info) Description 06/23/2023 Telephone [facility] MEDICINE [address] [place], [place] [phone] Tamiko Aceves FNP Other Social History Tobacco [...] provider notes and medication list given to [facility] VNA services. * Telephone Encounter - Claire Thomas RN - 07/14/2023 9:16 AM EDT T/C to [phone] for below message, Lizbeth inform that provider is not in office, waiting for referral to be sign by provider. * Telephone Encounter - Karlos Guadalupe - 07/14/2023 8:58 AM EDT Tc from [facility] with [facility] requesting status on referral for VNA services. Please contact Lizbeth at [phone] * Telephone Encounter - Claire Thomas RN - 07/03/2023 3:04 PM EDT Incoming call from [facility], is requesting VNA referral for pt. For medication management. Please review and advise. * Telephone Encounter - Shanelle Vale - 07/03/2023 2:51 PM EDT Tc from [facility] returning call. Please contact at [phone] * Telephone Encounter - Claire Thomas RN - 07/02/2023 9:46 AM EDT T/C to [phone] to Lizbeth for below message, No answer. LVM to call back on [phone]. * Telephone Encounter - Edmund Barraza - 07/01/2023 12:20 PM EDT Tc from [facility] returning call. Please contact at [phone] * Telephone Encounter - Claire Thomas RN - 07/01/2023 11:57 AM EDT T/C to [phone] to [facility] for below message, No answer. LVM to call back on [phone]. * Telephone Encounter - Edmund Barraza - 06/26/2023 4:36 PM EDT Tc from [facility] requesting status on referral for VNA services, states would like for pt to be referred to VNA services that are close to pt home location. Please contact at [phone] * Telephone Encounter - Delmi Wren - 06/23/2023 10:12 AM EDT Tc from Lizbeth at [facility] requesting a referral for VNA services. Patient is non compliant with medications and not acting like herself missing appts and not letting Lizbeth help her. Lizbeth is concerned with patients mental health and not taking the proper medications. Any further questions please call [phone]. documented in this encounter Plan of Treatment Upcoming Encounters Date Type Department Care Team (Late st Contact Info) Description 08/04/2025 2:30 PM EDT Office Visit [facility] [address] [place] [address] Chante Yusuf NP 230 [place] [address] 08/18/2025 9:00 AM EDT Office Visit [facility] OPTOM[facility] [address] [place] [address] Lizbeth Mosquera, OD [address] [place] [address] 09/05/2025 2:30 PM EST Medication Management [facility] [address] [place] [address] Micki Olea PharmD 230 [place] [address] documented as of this encounter Visit Diagnoses Not on filedocumented in this encounter Additional Health Concerns Assessment Noted Time PHQ-9 Depression Total Score: 0 01/10/20 2:38 PM EST documented as of this encounter Care Teams Fire Management Specialist Relationship Specialty Start Date End Date Tamiko Aceves FNP PCP - General Family Medicine 07/01/22 07/26/23 Maddy Ahumada MD [address] [place] [address] PCP - General Internal Medicine 07/27/23 10/12/23 Chante Yusuf NP [address] [place] [address] PCP - General Family Medicine 10/13/23 Micki Olea PharmD [address] [place] [address] Pharmacist Pharmacy 04/26/25 Veronica Snow Water Resource ManagerButadiene Converter Helper 09/15/24 [facility] 09/16/24 documented as of this encounter
--- OUTSIDE RECORDS SUMMARY | 2025-07-25 16:50 | XMS_ITS | Encounter Summary ---
Author Organization [employer] Address [address] [facility] 7t [place] [address] Care Team Providers Care Billing Collections Specialist Name Role Phone Chante Yusuf SENIOR SALES ASSISTANT Primary Care Provider [phone] Micki Olea PharmD Unavailable [phone] Encounter Details Date Type Department Care Team (Latest Contact Info) Description 07/25/2025 Travel Social History Tobacco Use Types Packs/Day [...] Description 08/04/2025 2:30 PM EDT Office Visit [facility] MEDICINE [address] [place] [address] Chante Yusuf NP 230 [place] [address] 08/18/2025 9:00 AM EDT Office Visit [facility] OPTOMETRY [address] [place] [address] Tarka, Lizbeth, OD [address] [place] [address] 09/05/2025 2:30 PM EST Medication Management [facility] MEDICINE [address] [place] [address] Micki Olea, PharmD 230 [place] [address] documented as of this encounter Visit Diagnoses Not on filedocumented in this encounter Additional Health Concerns Assessment Noted Time PHQ-9 Depression Total Score: 22 025 3:14 PM EDT documented as of this encounter Care Teams Billing Collections Specialist Relationship Specialty Start Date End Date Chante Yusuf NP [address] [place] [address] PCP - General Family Medicine 10/13/23 Micki Olea, PharmD [address] [place] [address] Pharmacist Pharmacy 04/26/25 Veronica Snow International Student AdvisorSliver Machine Operator 09/15/24 [facility] 09/16/24 documented as of this encounter
--- OUTSIDE RECORDS SUMMARY | 2025-07-25 16:50 | XMS_ITS | Encounter Summary ---
Author Organization [employer] Address [address] [facility] 7t [place] [address] Care Team Providers Care Copyright Manager Name Role Phone Chante Yusuf BARN AND PROPERTY MANAGER Primary Care Provider [phone] Micki Olea PharmD Unavailable [phone] Reason for Visit * Reason Onset Date Comments OT Discharge 10/19/2023 Encounter Details Date Type Department Care Team ([facility] st Contact Info) Description 10/19/2023 Telephone [facility] MEDICINE 230 [place], [place] [phone] Chante Yusuf NP [address] [place] [address] OT Discharge Social History Tobacco Use Types [...] PM EST Tc from [place] with [facility] calling to inform PCP pt get discharge from Occupational Therapy on 10/16/2023. Any questions contact Crystal [phone] documented in this encounter Plan of Treatment Upcoming Encounters Date Type Department Care Team (Late st Contact Info) Description 08/04/2025 2:30 PM EDT Office Visit [facility] MEDICINE [address] [place] [address] Chante Yusuf NP [address] [place] [address] 08/18/2025 9:00 AM EDT Office Visit [facility] OPTOMETRY [address] [place], [place] [phone] Lizbeth Mosquera OD [address] [place] [address] 09/05/2025 2:30 PM EST Medication Management [facility] MEDICINE [address] [place] [address] Micki Olea, PharmD 230 [place] [address] documented as of this encounter Visit Diagnoses Not on filedocumented in this encounter Additional Health Concerns Assessment Noted Time PHQ-9 Depression Total Score: 0 01/10/20 23 2:38 PM EST documented as of this encounter Care Teams Copyright Manager Relationship Specialty Start Date End Date Chante Yusuf NP 230 [place] [address] PCP - General Family Medicine 10/13/23 Micki Olea PharmD [address] [place] [address] Pharmacist Pharmacy 04/26/25 Veronica Snow Revenue LiaisonSoup Mixer 09/15/24 [facility] 09/16/24 documented as of this encounter
--- OUTSIDE RECORDS SUMMARY | 2025-07-25 16:50 | XMS_ITS | Encounter Summary ---
Author Organization [employer] Address [address] [facility] 7t [place] [address] Care Team Providers Care Shark Biologist Name Role Phone Chante Yusuf NP Primary Care Provider [phone] Micki Olea PharmD Unavailable [phone] Reason for Visit * Reason Onset Date Comments Med Refill PT1 07/14/2025 Patient calling requesting PT1 RENEWAL Home Address verified: Y/N: Yes Provider name or facility name: Chante Yusuf Escort needed: Y/N: No Do you have a wheelchair: Y/N: No If yes- Manual or electric: NO Visits: (amount of visits) ( x monthly, weekly, daily) [facility] Encounter Details Date Type Department Care Team (Late st Contact Info) Description 07/14/2025 Refill [facility] [address] [place] [address] Chante Yusuf NP [address] [place] [address] Mixed hyperlipidemia Social History Tobacco Use Types Packs/Day Years Used Date Smoking Tobacco: Every Day Cigarettes Smokeless Tobacco: Never Alcohol Use Standard Drinks/Week Comments Not Currently 0 (1 standard drink = 0.6 oz pur e alcohol) Depression Answer Date Recorded Patient Health Questionnaire-9 Score 05/22/2025 Patient Health Questionnaire-9 Score 05/22/2025 Last PHQ-9: Questionnaire Data Not on [...] encounter Miscellaneous Notes * Telephone Encounter - Christina Wasserman - 07/25/2025 1:56 PM EDT Patient calling requesting PT1 RENEWAL Home Address verified: Y/N: Yes Provider name or facility name: Chante Yusuf Escort needed: Y/N: No Do you have a wheelchair: Y/N: No If yes- Manual or electric: NO Visits: (amount of visits) ( x monthly, weekly, daily) 6 times monthly Also for [facility]. documented in this encounter Plan of Treatment Upcoming Encounters Date Type Department Care Team ([facility] st Contact Info) Description 08/04/2025 2:30 PM EDT Office Visit [facility] MEDICINE 230 [place] [address] Chante Yusuf NP 230 [place] [address] 08/18/2025 9:00 AM EDT Office Visit [facility] OPTOMETRY [address] [place] [address] Lizbeth Mosquera, OD 267 [place] [address] 09/05/2025 2:30 PM EST Medication Management [facility] MEDICINE [address] [place] [address] Micki Olea PharmD 230 [place] [address] documented as of this encounter Visit Diagnoses Diagnosis Mixed hyperlipidemia documented in this encounter Additional Health Concerns Assessment Noted Time PHQ-9 Depression Total Score: 22 025 3:14 PM EDT documented as of this encounter Care Teams Shark Biologist Relationship Specialty Start Date End Date Chanet Yusuf NP [address] [place] [address] PCP - General Family Medicine 10/13/23 Micki Olea PharmD [address] [place] [address] Pharmacist Pharmacy 04/26/25 Veronica Snow [facility] Chief Financial OfficerBark Scaler 09/15/24 [facility] 09/16/24 documented as of this encounter
[2025-07-25 17:10] LABS: Microalbum/Creatinine Ratio Ur 6.3 ug/mg cr (<30)
== END 2025-07-25 13:43 | disposition home or self-care (01) ==
LOC: HO.HHCL 13:42
PROVIDERS: PCP Nurse Practitioner; Visit Provider Nurse Practitioner
DX: E11.69 Type 2 diabetes mellitus with other specified complication (principal)
CPT/HCPCS: 36415; 82043; 82570; 84443

== ENCOUNTER 2025-10-27 15:54 | Outpatient (REF) | payer MEDICAID, SELFPAY ==
--- NOTE | ~2025-10-27 | US_ITS ---
EXAMINATION: US CHEST HISTORY: evaluation of lump on left upper back COMPARISON: There are no prior studies available for comparison. FINDINGS: Sonographic examination of the palpable abnormality in the left upper back was performed. There is a 5.0 x 3.6 x 1.7 cm soft tissue mass in the subcutaneous fat corresponding to the palpable findings. US/US soft tissue chest IMPRESSION: 5.0 x 3.6 x 1.7 cm soft tissue mass in the left upper back corresponding to the palpable findings. This could be further evaluated with CT or MRI. Electronically signed by: Arnold Meza MD 10/30/2025 08:55 AM [facility]
--- OUTSIDE RECORDS SUMMARY | 2025-10-27 15:58 | XMS_ITS | Encounter Summary ---
Author Organization [employer] Address [address] [facility] 7t [place] [address] Care Team Providers Care Workday Senior Associate Name Role Phone Chante Yusuf EDUCATION RN Primary Care Provider [phone] Micki Olea PharmD Unavailable [phone] Reason for Visit * Reason Onset Date Comments CHW 12/25/2023 Encounter Details Date Type Department Care Team ([facility] st Contact Info) Description 12/25/2023 Telephone [facility] MEDICINE 230 [place], [place] [phone] Chante Yusuf NP 230 [place] [address] CHW Social History Tobacco Use Types Packs/Day [...] Patient [facility], but has no help resource to move. Have no family here. CHW referred patient to [facility] and provided some contect number with [employer]. Some PVTA passes was providedtoday. Patient agree to follow up calling the resources was given to her today. Patient educated onextended clinic hours on Mondays through Wednesdays, and Walk-In Urgent Care Located in [facility]. Patient provided with after-hours line for [facility], , which offer night time triage service and option to transfer to bench precision assembler provider if needed. documented in this encounter Plan of Treatment Upcoming Encounters Date Type Department Care Team (Late st Contact Info) Description 11/06/2025 11:30 AM EST Medication Management [facility] MEDICINE 230 [place] [address] Micki Olea, PharmD 230 [place] [address] 11/13/2025 9:15 AM EST Office Visit [facility] [place] [address] Chante Yusuf NP 230 [place] [address] 01/08/2026 11:30 AM EDT Office Visit [facility] [place] [address] Chante Yusuf NP 230 [place] [address] documented as of this encounter Visit Diagnoses Not on filedocumented in this encounter Additional Health Concerns Assessment Noted Time PHQ-9 Depression Total Score: 24 024 10:37 AM EST documented as of this encounter Care Teams Workday Senior Associate Relationship Specialty Start Date End Date [place] [address] PCP - General Family Medicine 10/13/23 Micki Olea PharmD [address] [place] [address] Pharmacist Pharmacy 04/26/25 Veronica Snow Anodizing Line OperatorAdministrative Support Manager 09/15/24 [facility] 09/16/24 documented as of this encounter
--- OUTSIDE RECORDS SUMMARY | 2025-10-27 15:58 | XMS_ITS | Encounter Summary ---
Author Organization [employer] Address [address] [facility] 7t [place] [address] Care Team Providers Care Corn Press Operator Name Role Phone Tamiko Aceves [facility] Primary Care Provider Maddy Chaney MD Primary Care Pro vider Chante Yusuf NP Primary Care Provider [phone] Micki Olea PharmD Unavailable [phone] Reason for Visit * Reason Onset Date Comments Hospital Follow-up 05/18/2023 Encounter Details Date Type Department Care Team (Late st Contact Info) Description 05/18/2023 Telephone [facility] MEDICINE 230 [place], [place] [phone] Tamiko Aceves FNP Hospital Follow-up Social History [...] - 05/18/2023 3:11 PM EDT Tc from [facility] with [facility] care partners requesting a HDF follow up with provider. Pt was at [facility] on 05/13/2023 and discharge on 05/15/2023, pt was diagnose with Seizures and Dehydration due to a hernia. Please contact pt at [phone] Greek Speaker documented in this encounter Plan of Treatment Upcoming Encounters Date Type Department Care Team (Late st Contact Info) Description 11/06/2025 11:30 AM EST Medication Management [address] [address] Micki Olea PharmD [address] [place] [address] 11/13/2025 9:15 AM EST Office Visit [address] [address] Chante Yusuf NP 230 [place] [address] 01/08/2026 11:30 AM EDT Office Visit [address] [address] Chante Yusuf NP [address] [place] [address] documented as of this encounter Visit Diagnoses Not on filedocumented in this encounter Additional Health Concerns Assessment Noted Time PHQ-9 Depression Total Score: 0 01/10/20 23 2:38 PM EST documented as of this encounter Care Teams Corn Press Operator Relationship Specialty Start Date End Date Tamiko Aceves FNP PCP - General Family Medicine 07/01/22 07/26/23 Maddy Ahumada MD [address] [place] [address] PCP - General Internal Medicine 07/27/23 10/12/23 Chante Yusuf NP [address] [place] [address] PCP - General Family Medicine 10/13/23 Micki Olea, PharmD [address] [place] [address] Pharmacist Pharmacy 04/26/25 Veronica Snow Security System EngineerRegulator Pin Inserter 09/15/24 [facility] 09/16/24 documented as of this encounter
--- OUTSIDE RECORDS SUMMARY | 2025-10-27 15:58 | XMS_ITS | Encounter Summary ---
Author Organization [employer] Address 75 [facility] 7t [place] [address] Care Team Providers Care Cadd Operator Name Role Phone Tamiko Aceves REACTOR SERVICE OPERATOR Primary Care Provider Maddy Chaney MD Primary Care Pro vider Chante Yusuf NP Primary Care Provider [phone] PuMicki saucedo PharmD Unavailable [phone] Encounter Details Date Type Department Care Team (Latest Contact Info) Description 11/20/2020 Abstract [facility] CONVERSIONS Dental, Provider, DDS Social History [...] Care Team ( st Contact Info) Description 11/06/2025 11:30 AM EST Medication Management [facility] MEDICINE [address] [place] [address] Puia, Micki, PharmD 230 [place] [address] 11/13/2025 9:15 AM EST Office Visit [facility] MEDICINE [address] [place] [address] Chante Yusuf NP 230 [place] [address] 01/08/2026 11:30 AM EDT Office Visit [facility] MEDICINE 230 [place] [address] Chante Yusuf NP 230 [place] [address] documented as of this encounter Visit Diagnoses Not on filedocumented in this encounter Care Teams Cadd Operator Relationship Specialty Start Date End Date Tamiko Aceves FNP PCP - General Family Medicine 07/01/22 07/26/23 Maddy Ahumada MD 230 [place] [address] PCP - General Internal Medicine 07/27/23 10/12/23 Chante Yusuf NP [address] [place] [address] PCP - General Family Medicine 10/13/23 Micki Olea PharmD [address] [place] [address] Pharmacist Pharmacy 04/26/25 Veronica Snow Sexual Assault Social WorkerTelephone Switchboard Operator 09/15/24 [facility] 09/16/24 documented as of this encounter
--- OUTSIDE RECORDS SUMMARY | 2025-10-27 15:58 | XMS_ITS | Encounter Summary ---
Author Organization [employer] Address [address] [facility] 7t [place] [address] Care Team Providers Care Shrub Grower Name Role Phone Maddy Ahumada MD Primary Care Pro vider Chante Yusuf NP Primary Care Provider [phone] Micki Olea PharmD Unavailable [phone] Reason for Visit * Reason Onset Date Comments FYI 09/09/2023 OCCUPATIONAL THERAPY 09/09/2023 Encounter Details Date Type Department Care Team (Late st Contact Info) Description 09/09/2023 Telephone [facility] MEDICINE 230 [place], [place] [phone] Maddy Ahumada MD 230 [place], [place] [phone] FYI ; OCCUPATIONAL THERAPY Social History Tobacco [...] If any questions may contact Rhiannon at [phone] documented in this encounter Plan of Treatment Upcoming Encounters Date Type Department Care Team (Late st Contact Info) Description 11/06/2025 11:30 AM EST Medication Management [address] [address] Micki Olea, PharmD 230 [place] [address] 11/13/2025 9:15 AM EST Office Visit [address] [address] Chante Yusuf NP 230 [place] [address] 01/08/2026 11:30 AM EDT Office Visit [address] [address] Chante Yusuf NP 230 [place] [address] documented as of this encounter Visit Diagnoses Not on filedocumented in this encounter Additional Health Concerns Assessment Noted Time PHQ-9 Depression Total Score: 0 01/10/20 23 2:38 PM EST documented as of this encounter Care Teams Shrub Grower Relationship Specialty Start Date End Date Maddy Ahumada MD [address] [place] [address] PCP - General Internal Medicine 07/27/23 10/12/23 Chante Yusuf NP [address] [place] [phone] PCP - General Family Medicine 10/13/23 Micki Olea PharmD [address] [place] [address] Pharmacist Pharmacy 04/26/25 Veronica Snow Clinical Research PhysicianManager Of Data 09/15/24 [facility] 09/16/24 documented as of this encounter
--- OUTSIDE RECORDS SUMMARY | 2025-10-27 15:58 | XMS_ITS | Encounter Summary ---
Author Organization [employer] Address [address] [facility] 7t [place] [address] Care Team Providers Care Dry Room Operator Name Role Phone Chante Yusuf SEQUINS SPOOLER Primary Care Provider [phone] Micki Olea PharmD Unavailable [phone] Reason for Visit * Reason Onset Date Comments PT1 10/24/2025 Encounter Details Date Type Department Care Team ([facility] st Contact Info) Description 10/24/2025 Telephone [facility] [address] [place], [place] [phone] Chante Yusuf NP [address] [place] [address] PT1 Social History Tobacco Use Types Packs/Day Years Used Date Smoking Tobacco: Every Day Cigarettes Smokeless Tobacco: Never Alcohol Use Standard Drinks/Week Comments Not Currently 0 (1 standard drink = 0.6 oz pur e alcohol) Alcohol Answer Date Recorded How often do you have a drink containing alcohol ? 0 10/09/2025 How many drinks containing a lcohol do you have on a typical day when you are drinking? 0 10/09/2025 How often do you have six or more drinks on one occasion? 0 10/09/2025 Depression Answer Date Recorded Patient Health Questionnaire-9 [...] Answer Date Recorded Internet Access Q1 Yes 10/04/2025 Internet Access Q2 Not on file 10/04/2025 Comments Unknown Sex and Gender Information Value Date Recorded Sex Assigned at Female 09/01/2022 10:26 AM EDT Legal Sex Female 10:26 AM EDT Gender Identity Female 09/01/2022 10:26 AM EDT Sexual Orientation Straight 09/01/2022 10 :26 AM EDT documented as of this encounter Miscellaneous Notes * Telephone Encounter - Delvis Dior - 10/24/2025 12:17 PM EST Patient calling requesting PT1 Home Address verified: Y/N: Yes Provider name or facility name: [address] [facility] 4th [address] [facility] [address] Escort needed: Y/N: No Do you have a wheelchair: Y/N: No Visits: 2x month ) Patient calling requesting PT1 Home Address verified: Y/N: Yes Provider name or facility name:[address] [facility] 2[address] [facility] [address] Escort needed: Y/N: No Do you have a wheelchair: Y/N: No Visits: (2x month ) documented in this encounter Plan of Treatment Upcoming Encounters Date Type Department Care Team ([facility] st Contact Info) Description 11/06/2025 11:30 AM EST Medication Management [facility] [address] [place], [place] [phone] Micki Olea, PharmD 230 [place] [address] 11/13/2025 9:15 AM EST Office Visit [address] [address] Chante Yusuf, SEQUINS SPOOLER [address] [place] [address] 01/08/2026 11:30 AM EDT Office Visit [address] [address] Chante Yusuf NP [address] [place] [address] documented as of this encounter Goals Goal Patient Goal Type Associated Problems Recent Progress Patient-Stated? Author Help patients manage their type 2 diabetes Care Plan Help patients manage their type 2 diabetes No Edel Casillas LPN Patient has chronic kidney disease Care Plan Patient has chronic kidney disease No Edel Casillas LPN Patient has chronic kidney disease Care Plan Patient has chronic kidney disease No Jamie Morales, [place] Patient has chronic kidney disease Care Plan Patient has chronic kidney disease No Solitario, Camila, OD Patient has chronic kidney disease Care Plan Patient has chronic kidney disease No Solitario, Camila, OD Patient has chronic kidney disease Care Plan Patient has chronic kidney disease No Jamie Morales, [place] Patient has chronic kidney disease Care Plan Patient has chronic kidney disease No Puia, Micki, PharmD Patient has chronic kidney disease Care Plan Patient has chronic kidney disease No Delvis Dior Patient has chronic kidney disease Care Plan Patient has chronic kidney disease No Bernard Taylor Patient has chronic kidney disease Care Plan Patient has chronic kidney disease No Puia, Micki, PharmD Patient has chronic kidney disease Care Plan Patient has chronic kidney disease No Puia, Micki, PharmD Patient has chronic kidney disease Care Plan Patient has chronic kidney disease No Puia, Micki, PharmD documented as of this encounter Visit Diagnoses Not on filedocumented in this encounter Additional Health Concerns Active Problems Noted Date Diagnosed Date Help patients manage their type 2 diabetes 10/03 Patient has chronic kidney disease 10/03/2025 Patient has chronic kidney disease 10/09/2025 Patient has chronic kidney disease 10/17/2025 Patient has chronic kidney disease 10/17/2025 Patient has chronic kidney disease 10/19/2025 Patient has chronic kidney disease 10/23/2025 Patient has chronic kidney disease 10/24/2025 Patient has chronic kidney disease 10/24/2025 Patient has chronic kidney disease 10/24/2025 Patient has chronic kidney disease 10/24/2025 Patient has chronic kidney disease 10/24/2025 Assessment Noted Time PHQ-9 Depression Total Score: 025 3:14 PM EDT documented as of this encounter Care Teams Dry Room Operator Relationship Specialty Start Date End Date Chante Yusuf NP [address] [place] [address] PCP - General Family Medicine 10/13/23 Micki Olea PharmD [address] [place] [address] Pharmacist Pharmacy 04/26/25 Veronica Snow Sequins SpoolerCognos Administrator 09/15/24 [facility] 09/16/24 documented as of this encounter
--- OUTSIDE RECORDS SUMMARY | 2025-10-27 15:58 | XMS_ITS | Encounter Summary ---
Author Organization [employer] Address [address] [facility] 7t [place] [address] Care Team Providers Care Morgue Technician Name Role Phone Chante Yusuf DIRECTOR OF CONSERVATION Primary Care Provider [phone] Micki Olea PharmD Unavailable [phone] Reason for Referral * Consultation (Routine) - Authorized Specialty Diagnoses / Procedures Referred By Contac t Referred To Contact Pharmacy Diagnoses Type 2 diabetes mellitus with hyperlipidemia (HCC) Liliya Britton MD [address] [place] [address] Phone: tel: fax: Referral ID Status Reason Start Date Expiration Date Visits Requested Visits Authorized [id number] Authorized Consult and Treat 01/13/2025 01/13/2026 6 6 Encounter Details Date Type Department Care Team ([facility] st Contact Info) Description 01/13/2025 Orders Only [facility] MEDICINE [address] [place] [phone] Liliya Britton MD [address] [place], [place] [phone] Microalbuminuria due to type 2 diabetes mellitus [...] Description 11/06/2025 11:30 AM EST Medication Management [facility] [address] [place] [phone] Micki Olea PharmD 230 [place] [address] 11/13/2025 9:15 AM EST Office Visit [facility] [address] [place] [address] Chante Yusuf NP 230 [place] [address] 01/08/2026 11:30 AM EDT Office Visit [facility] [place] [address] Chante Yusuf NP 230 [place] [address] Scheduled Referrals Name Type Priority Associated Diagnoses Orde r Schedule Referral to Pharmacy CDTM Outpatient Referral Routine Type 2 diabetes mellitus with hyperlipidemia (CMS/HCC) (CMS/HCC) Ordered: 01/13/2025 documented as of this encounter Visit Diagnoses Diagnosis Microalbuminuria due to type 2 diabetes mellitus (HCC)- Primary Type 2 diabetes mellitus with hyperlipidemia (HCC) documented in this encounter Additional Health Concerns Assessment Noted Time PHQ-9 Depression Total Score: 14 024 11:15 AM EST documented as of this encounter Care Teams Morgue Technician Relationship Specialty Start Date End Date [place] [address] PCP - General Family Medicine 10/13/23 Micki Olea PharmD [address] [place] [address] Pharmacist Pharmacy 04/26/25 Veronica Snow Sanitation WorkerMiddle Card Tender 09/15/24 [facility] 09/16/24 documented as of this encounter
--- OUTSIDE RECORDS SUMMARY | 2025-10-27 15:58 | XMS_ITS | Encounter Summary ---
Author Organization [employer] Address [address] [facility] 7t [place] [address] Care Team Providers Care Business Applications Developer Name Role Phone Chante Yusuf GROMMET WORKER Primary Care Provider [phone] Micki Olea PharmD Unavailable [phone] Reason for Visit * Reason Onset Date Comments OT Discharge 10/19/2023 Encounter Details Date Type Department Care Team ([facility] st Contact Info) Description 10/19/2023 Telephone [facility] 230 [place], [place] [phone] Chante Yusuf NP [address] [place] [address] OT Discharge Social History Tobacco Use Types [...] EST Tc from [facility] with [facility] calling to inform PCP pt get discharge from Occupational Therapy on 10/16/2023. Any questions contact [place] [phone] documented in this encounter Plan of Treatment Upcoming Encounters Date Type Department Care Team (Late st Contact Info) Description 11/06/2025 11:30 AM EST Medication Management [facility] [address] [place] [address] Micki Olea, PharmD 230 [place] [address] 11/13/2025 9:15 AM EST Office Visit [facility] [address] [place] [address] Chante Yusuf NP 230 [place] [address] 01/08/2026 11:30 AM EDT Office Visit [address] [address] Chante Yusuf NP [address] [place] [address] documented as of this encounter Visit Diagnoses Not on filedocumented in this encounter Additional Health Concerns Assessment Noted Time PHQ-9 Depression Total Score: 0 01/10/20 23 2:38 PM EST documented as of this encounter Care Teams Business Applications Developer Relationship Specialty Start Date End Date Chante Yusuf NP 230 [place] [address] PCP - General Family Medicine 10/13/23 Micki Olea PharmD 230 [place] [address] Pharmacist Pharmacy 04/26/25 Veronica Snow Marketing Services CoordinatorIndustrial Staff Nurse 09/15/24 [facility] 09/16/24 documented as of this encounter
--- OUTSIDE RECORDS SUMMARY | 2025-10-27 15:58 | XMS_ITS | Encounter Summary ---
Author Organization [employer] Address [address] [facility] 7t [place] [address] Care Team Providers Care Manager Medical Device Name Role Phone Chante Yusuf NP Primary Care Provider [phone] Micki Olea PharmD Unavailable [phone] Reason for Visit * Reason Onset Date Comments Med Refill PT1 07/14/2025 Patient calling requesting PT1 RENEWAL Home Address verified: Y/N: Yes Provider name or facility name: Chante Yusuf Escort needed: Y/N: No Do you have a wheelchair: Y/N: No If yes- Manual or electric: NO Visits: (amount of visits) ( x monthly, weekly, daily) 6 times monthlyAlso for [facility]. Encounter Details Date Type Department Care Team (Late st Contact Info) Description 07/14/2025 Refill [facility] [address] [place] [address] Chante Yusuf NP [address] [place] [address] Mixed hyperlipidemia Social History Tobacco Use Types [...] weekly, daily) 6 times monthly Also for [facility]. documented in this encounter Plan of Treatment Upcoming Encounters Date Type Department Care Team ([facility] st Contact Info) Description 11/06/2025 11:30 AM EST Medication Management [facility] MEDICINE 230 [place] [address] Micki Olea, AnastaciaD [address] [place] [address] 11/13/2025 9:15 AM EST Office Visit [facility] MEDICINE [address] [place] [address] Chante Yusuf NP 230 [place] [address] 01/08/2026 11:30 AM EDT Office Visit [facility]INE [address] [place] [address] Chante Yusuf NP [address] [place] [address] documented as of this encounter Visit Diagnoses Diagnosis Mixed hyperlipidemia documented in this encounter Additional Health Concerns Assessment Noted Time PHQ-9 Depression Total Score: 22 07/ 025 3:14 PM EDT documented as of this encounter Care Teams Manager Medical Device Relationship Specialty Start Date End Date Chante Yusuf NP [address] [place] [address] PCP - General Family Medicine 10/13/23 Micki Olea PharmD [address] [place] [address] Pharmacist Pharmacy 04/26/25 Veronica Snow Java Flex DeveloperFlower Shop Manager 09/15/24 [facility] 09/16/24 documented as of this encounter
--- OUTSIDE RECORDS SUMMARY | 2025-10-27 15:58 | XMS_ITS | Encounter Summary ---
Author Organization [employer] Address [address] [facility] 7t [place] [address] Care Team Providers Care Senior Sales Director Name Role Phone Chante Yusuf DIRECTOR OF STRATEGIC PROGRAMS Primary Care Provider [phone] Micki Olea PharmD Unavailable [phone] Encounter Details Date Type Department Care Team (Late st Contact Info) Description 08/19/2024 Orders Only [facility] 230 [place] [address] Keyana Vasquez, PharmD [address] [place] [address] Social History Tobacco Use Types Packs/Day Years [...] 11/06/2025 11:30 AM EST Medication Management [address] [address] Micki Olea PharmD [address] [place] [address] 11/13/2025 9:15 AM EST Office Visit [address] [address] Chante Yuusf NP [address] [place] [address] 01/08/2026 11:30 AM EDT Office Visit [address] [address] Chante Yusuf NP [address] [place] [address] documented as of this encounter Visit Diagnoses Not on filedocumented in this encounter Additional Health Concerns Assessment Noted Time PHQ-9 Depression Total Score: 24 024 10:37 AM EST documented as of this encounter Care Teams Senior Sales Director Relationship Specialty Start Date End Date Chante Yusuf NP [address] [place] [address] PCP - General Family Medicine 10/13/23 PuiaMicki PharmD [address] [place] [address] Pharmacist Pharmacy 04/26/25 Veronica Snow Business Process LeadMetal Stamping Machine Operator 09/15/24 [facility] 09/16/24 documented as of this encounter
--- OUTSIDE RECORDS SUMMARY | 2025-10-27 15:58 | XMS_ITS | Encounter Summary ---
Author Organization [employer] Address [address] [facility] 7t [place] [address] Care Team Providers Care Printed Circuit Board Panels Trimmer Name Role Phone Chante Yusuf BODY SERVICE TEAM MEMBER Primary Care Provider [phone] Micki Olea PharmD Unavailable [phone] Reason for Referral * Consultation (Routine) - Canceled Specialty Diagnoses / Procedures Referred By Contac t Referred To Contact Pharmacy Diagnoses Type 2 diabetes mellitus with other specified complication, without long-term current use of insulin ([facility]) Liliya Britton MD 230 [place] [address] Phone: tel: fax: Referral ID Status Reason Start Date Expiration Date V isits Requested Visits Authorized [id number] Canceled Consult and Treat 08/21/2024 08/21/2025 6 6 Encounter Details Date Type Department Care Team (Late st Contact Info) Description 08/21/2024 Orders Only [facility] 230 [place], [place] [phone] Liliya Britton MD 230 [place], [place] [phone] Type 2 diabetes mellitus with other specified complication, without long-term current use of insulin ([facility]/HCC) (Primary Dx) Social History Tobacco Use Types [...] is your housing situation today? I have hbuert george 08/18/[address] you [...] Description 11/06/2025 11:30 AM EST Medication Management [address] [address] Micki Olea, PharmD [address] [place] [address] 11/13/2025 9:15 AM EST Office Visit [address] [address] Chante Yuusf NP 230 [place] [address] 01/08/2026 11:30 AM EDT Office Visit [address] [place] [address] Chante Yusuf NP 230 [place] [address] Scheduled Referrals Name Type Priority Associated Diagnoses Orde r Schedule Referral to Pharmacy CDTM Outpatient Referral Routine Type 2 diabetes mellitus with other specified complication, without long-term current use of insulin ([facility]/HCC) Ordered: 08/21/2024 documented as of this encounter Visit Diagnoses Diagnosis Type 2 diabetes mellitus with other specified complication, without long-term current use of insulin ([facility])- Primary documented in this encounter Additional Health Concerns Assessment Noted Time PHQ-9 Depression Total Score: 024 10:37 AM EST documented as of this encounter Care Teams Printed Circuit Board Panels Trimmer Relationship Specialty Start Date End Date Chante Yusuf NP 230 [place] [address] PCP - General Family Medicine 10/13/23 Micki Olea, Rashawn [address] [place] [address] Pharmacist Pharmacy 04/26/25 Veronica Snow Keel Press OperatorC Application Developer 09/15/24 [facility] 09/16/24 documented as of this encounter
--- OUTSIDE RECORDS SUMMARY | 2025-10-27 15:58 | XMS_ITS | Encounter Summary ---
Author Organization [employer] Address [address] [facility] [address] 7t [place] [address] Care Team Providers Care Waterworks Pump Station Operator Name Role Phone Tamiko Aceves TURNING MACHINE OPERATOR Primary Care Provider Maddy Chaney MD Primary Care Pro vider Chante Yusuf NP Primary Care Provider [phone] Micki Olea PharmD Unavailable [phone] Reason for Visit * Reason Onset [...] (Late st Contact Info) Description 12/16/2022 Telephone [facility] 230 [place], [place] [phone] Tamiko Aceves FNP Letter Request (The pt [...] Description 11/06/2025 11:30 AM EST Medication Management [address] [address] Micki Olea PharmD [address] [place] [address] 11/13/2025 9:15 AM EST Office Visit [address] [address] Chante Yusuf NP [address] [place] [address] 01/08/2026 11:30 AM EDT Office Visit [address] [address] Chante Yusuf NP [address] [place] [address] documented as of this encounter Visit Diagnoses Not on filedocumented in this encounter Care Teams Waterworks Pump Station Operator Relationship Specialty Start Date End Date Tamiko Aceves FNP PCP - General Family Medicine 07/01/22 07/26/23 Maddy Ahumada MD [address] [place] [address] PCP - General Internal Medicine 07/27/23 10/12/23 Chante Yusuf NP [address] [place] [address] PCP - General Family Medicine 10/13/23 Micki Olea, PharmD [address] [place] [address] [place] [address] Pharmacist Pharmacy 04/26/25 Veronica Snow InvestorBoat Repairer 09/15/24 [facility] 09/16/24 documented as of this encounter
--- OUTSIDE RECORDS SUMMARY | 2025-10-27 15:58 | XMS_ITS | Encounter Summary ---
Author Organization [employer] Address [address] [facility] 7t [place] [address] Care Team Providers Care Board Lining Machine Operator Name Role Phone Chante Yusuf CHIEF RESOURCE OFFICER Primary Care Provider [phone] Micki Olea PharmD Unavailable [phone] Reason for Visit * Reason Onset Date Comments PT-1 10/17/2024 Encounter Details Date Type Department Care Team ([facility] st Contact Info) Description 10/17/2024 Telephone [facility] 230 [place], [place] [phone] Chante Yusuf NP 230 [place] [address] PT-1 Social History Tobacco Use Types Packs/Day [...] any questions you can contact pt at [phone]. (Syriac Speaker) documented in this encounter Plan of Treatment Upcoming Encounters Date Type Department Care Team (Late st Contact Info) Description 11/06/2025 11:30 AM EST Medication Management [facility] [address] [place] [address] Micki Olea, AnastaciaD 230 [place] [address] 11/13/2025 9:15 AM EST Office Visit [facility] [address] [place] [address] Chante Yusuf NP 230 [place] [address] 01/08/2026 11:30 AM EDT Office Visit [facility] 230 [place], [place] [phone] Chante Yusuf NP 230 [place] [address] documented as of this encounter Visit Diagnoses Not on filedocumented in this encounter Additional Health Concerns Assessment Noted Time PHQ-9 Depression Total Score: 14 024 11:15 AM EST documented as of this encounter Care Teams Board Lining Machine Operator Relationship Specialty Start Date End Date Chante Yusuf NP 230 [place], [place] [phone] PCP - General Family Medicine 10/13/23 Micki Olea PharmD [address] [place] [address] Pharmacist Pharmacy 04/26/25 Veronica Snow Outside Residential Sales ProfessionalCash Reconciliation Specialist 09/15/24 [facility] 09/16/24 documented as of this encounter
--- OUTSIDE RECORDS SUMMARY | 2025-10-27 15:58 | XMS_ITS | Encounter Summary ---
Author Organization [employer] Address [address] [facility] 7t [place] [address] Care Team Providers Care Cross Tie Maker Name Role Phone Maddy Ahumada MD Primary Care Pro vider Chante Yusuf NP Primary Care Provider [phone] Micki Olea PharmD Unavailable [phone] Reason for Visit * Reason Onset Date Comments Call Back Request 09/01/2023 Encounter Details Date Type Department Care Team ([facility] st Contact Info) Description 09/01/2023 Telephone [facility] 230 [place], [place] [phone] Maddy Ahumada MD 230 [place], [place] [phone] Call Back Request Social History Tobacco Use [...] - 09/01/2023 12:49 PM EDT Tc from [facility] requesting a call back in regards orders to treat foot, Skyla is also asking how can she treat the area on pt. Please call [facility] [phone] documented in this encounter Plan of Treatment Upcoming Encounters Date Type Department Care Team (Late st Contact Info) Description 11/06/2025 11:30 AM EST Medication Management [address] [address] Micki Olea, PharmD [address] [place] [address] 11/13/2025 9:15 AM EST Office Visit [address] [address] Chante Yusuf NP [address] [place] [address] 01/08/2026 11:30 AM EDT Office Visit [address] [address] Chante Yusuf NP [address] [place] [address] documented as of this encounter Visit Diagnoses Not on filedocumented in this encounter Additional Health Concerns Assessment Noted Time PHQ-9 Depression Total Score: 0 01/10/20 23 2:38 PM EST documented as of this encounter Care Teams Cross Tie Maker Relationship Specialty Start Date End Date Maddy Ahumada MD [address] [place] [address] PCP - General Internal Medicine 07/27/23 10/12/23 Chante Yusuf NP [address] [place] [address] PCP - General Family Medicine 10/13/23 Micki Olea PharmD [address] [place] [address] Pharmacist Pharmacy 04/26/25 Veronica Snow Gliding Pilot InstructorRehab Physician 09/15/24 [facility] 09/16/24 documented as of this encounter
--- OUTSIDE RECORDS SUMMARY | 2025-10-27 15:58 | XMS_ITS | Encounter Summary ---
Author Organization [employer] Address [address] [facility] 7t [place] [address] Care Team Providers Care Maintenance Inspector Name Role Phone Chante Yusuf KWAKU Primary Care Provider [phone] Micki Olea PharmD Unavailable [phone] Encounter Details Date Type Department Care Team ([facility] st Contact Info) Description 10/24/2025 Telephone [facility] MEDICINE 230 [place] [address] Micki Olea, PharmD 230 [place] [address] Social History Tobacco Use Types Packs/Day Years [...] encounter Miscellaneous Notes * Telephone Encounter - Micki Olea PharmD - 10/24/2025 1:00 PM EST Outgoing call to patient. She was rescheduled by call center from today to tomorrow afternoon but this was done in error. Medical team is closing early for the holiday. Outgoing call to patient to reschedule CDTM from tomorrow to another day. No answer. M requestingreturn call to CHW team at [phone]. Will ask CHWs to call again later. documented in this encounter Plan of Treatment Upcoming Encounters Date Type Department Care Team (Late st Contact Info) Description 11/06/2025 11:30 AM EST Medication Management [facility] MEDICINE [address] [place] [address] Micki Olea PharmD 230 [place], [place] [phone] 11/13/2025 9:15 AM EST Office Visit [facility] MEDICINE [address] [place] [address] Chante Yusuf NP 230 [place] [address] 01/08/2026 11:30 AM EDT Office Visit [address] [address] Chante Yusuf NP [address] [place] [address] documented as of this encounter Goals Goal [...] Patient has chronic kidney disease No Jamie Morales MA Patient has chronic kidney disease Care Plan Patient has chronic kidney disease No SolitarioDuran gilesn, OD Patient has chronic kidney disease Care Plan Patient has chronic kidney disease No Solitario, Camila, OD Patient has chronic kidney disease Care Plan Patient has chronic kidney disease No Jamie Morales MA Patient has chronic kidney disease Care [...] documented as of this encounter Care Teams Maintenance Inspector Relationship Specialty Start Date End Date Chante Yusuf NP 230 [place] [address] PCP - General Family Medicine 10/13/23 Micki Olea PharmD [address] [place] [address] Pharmacist Pharmacy 04/26/25 Veroniac Snow Community FacilitatorTravel Accommodation Inspector 09/15/24 [facility] 09/16/24 documented as of this encounter
--- OUTSIDE RECORDS SUMMARY | 2025-10-27 15:58 | XMS_ITS | Encounter Summary ---
Author Organization [employer] Address [address] [facility] 7t [place] [address] Care Team Providers Care Software Engineering Associate Manager Name Role Phone Tamiko Aceves PIPELINE INTEGRITY ENGINEER Primary Care Provider Maddy Chaney MD Primary Care Pro vider Chante Yusuf NP Primary Care Provider [phone] Micki Olea PharmD Unavailable [phone] Reason for Visit * Reason Onset Date Comments Appointment Request 02/23/2023 Encounter Details Date Type Department Care Team (Late st Contact Info) Description 02/23/2023 Telephone [facility] MEDICINE 230 [place] [address] Tamiko Aceves FNP Appointment Request Social History [...] has not transportation. Please contact pt at [phone] documented in this encounter Plan of Treatment Upcoming Encounters Date Type Department Care Team (Late st Contact Info) Description 11/06/2025 11:30 AM EST Medication Management [address] [address] Micki Olea PharmD [address] [place] [address] 11/13/2025 9:15 AM EST Office Visit [address] [address] Chante Yusuf NP [address] [place] [address] 01/08/2026 11:30 AM EDT Office Visit [address] [address] Chante Yusuf NP [address] [place] [address] documented as of this encounter Visit Diagnoses Not on filedocumented in this encounter Additional Health Concerns Assessment Noted Time PHQ-9 Depression Total Score: 0 01/10/20 23 2:38 PM EST documented as of this encounter Care Teams Software Engineering Associate Manager Relationship Specialty Start Date End Date Tamiko Aceves FNP PCP - General Family Medicine 07/01/22 07/26/23 Maddy Ahumada MD [address] [place] [address] PCP - General Internal Medicine 07/27/23 10/12/23 Chante Yusuf NP [address] [place] [address] PCP - General Family Medicine 10/13/23 Micki Olea, AnastaciaD 230 [place] [address] Pharmacist Pharmacy 04/26/25 Veronica Snow Folder Stitcher OperatorRiding Teacher 09/15/24 [facility] 09/16/24 documented as of this encounter
--- OUTSIDE RECORDS SUMMARY | 2025-10-27 15:58 | XMS_ITS | Encounter Summary ---
Author Organization [employer] Address [address] [facility] 7t [place] [address] Care Team Providers Care Registered Client Associate Name Role Phone Tamiko Aceves COMPLAINT INVESTIGATIONS OFFICER Primary Care Provider Maddy Chaney MD Primary Care Pro vider Chante Yusuf NP Primary Care Provider [phone] PuMicki saucedo PharmD Unavailable [phone] Encounter Details Date Type Department Care Team (Latest Contact Info) Description 05/13/[address] [facility] CONVERSIONS Dental, Provider, DDS Social [...] Description 11/06/2025 11:30 AM EST Medication Management [facility] MEDICINE [address] [place] [address] Puia, Micki, PharmD 230 [place] [address] 11/13/2025 9:15 AM EST Office Visit [facility] MEDICINE [address] [place] [address] Chante Yusuf NP 230 [place] [address] 01/08/2026 11:30 AM EDT Office Visit [facility] MEDICINE 230 [place] [address] Chante Yusuf NP 230 [place] [address] documented as of this encounter Visit Diagnoses Not on filedocumented in this encounter Care Teams Registered Client Associate Relationship Specialty Start Date End Date Tamiko Aceves FNP PCP - General Family Medicine 07/01/22 07/26/23 Maddy Ahumada MD 230 [place] [address] PCP - General Internal Medicine 07/27/23 10/12/23 Chante Yusuf NP [address] [place] [address] PCP - General Family Medicine 10/13/23 Micki Olea PharmD [address] [place] [address] Pharmacist Pharmacy 04/26/25 Veronica Snow Griddle AttendantCardiopulmonary Supervisor 09/15/24 [facility] 09/16/24 documented as of this encounter
--- OUTSIDE RECORDS SUMMARY | 2025-10-27 15:58 | XMS_ITS | Encounter Summary ---
Author Organization [employer] Address [address] [facility] 7t [place] [address] Care Team Providers Care Cotton Converter Name Role Phone Chante Yusuf BATCH UNLOADER Primary Care Provider [phone] Micki Olea PharmD Unavailable [phone] Reason for Visit * Reason Comments Care Coordination CHW outreach for SDO H PT-1 and food needs-LVM Encounter Details Date Type Department Care Team (Latest Contact Info) Description 10/24/2025 Patient Outreach [facility] MEDICINE 230 [place] [address] Chante Yusuf NP 230 [place] [address] Care Coordination (CHW outreach for SDOH PT-1 and food needs-LVM ) Social History Tobacco Use Types Packs/Day Years [...] as of this encounter Progress Notes * Bernard Taylor - 10/24/2025 12:48 PM EST CHW Bernard Taylor, placed outbound call to patient for assistance with SDOH as a referral was placed by the provider. Patient had screened positive for the following SDOH housing insecurities. Patient did not answer at this time. Patient's name and were not confirmed. CHW left detailed message and provided contact information requesting return call for more assistance. documented in this encounter Plan of Treatment Upcoming Encounters Date Type Department Care Team (Late st Contact Info) Description 11/06/2025 11:30 AM EST Medication Management [facility] MEDICINE 230 [place] [address] Micki Olea, PharmD 230 [place], [place] [phone] 11/13/2025 9:15 AM EST Office Visit [address] [address] Chante Yusuf NP 230 [place] [address] 01/08/2026 11:30 AM EDT Office Visit [address] [address] Chante Yusuf NP 230 [place] [address] documented as of this encounter Goals Goal [...] documented as of this encounter Care Teams Cotton Converter Relationship Specialty Start Date End Date Chante Yusuf NP 230 [place] [address] PCP - General Family Medicine 10/13/23 Micki Olea PharmD 230 [place] [address] Pharmacist Pharmacy 04/26/25 Veronica Snow Tank ErectorYarn Washer 09/15/24 [facility] Care 09/16/24 documented as of this encounter
--- OUTSIDE RECORDS SUMMARY | 2025-10-27 15:58 | XMS_ITS | Encounter Summary ---
Author Organization [employer] Address 75 [facility] 7t [place] [address] Care Team Providers Care Merchandise Collector Name Role Phone Tamkio Aceves DIRECTOR RADIATION ONCOLOGY Primary Care Provider Maddy Chaney MD Primary Care Pro vider Chante Yusuf NP Primary Care Provider [phone] Micki Olea PharmD Unavailable [phone] Reason for Visit * Reason Onset Date Comments Triage 02/23/2023 Encounter Details Date Type Department Care Team (Late st Contact Info) Description 02/23/2023 Telephone [facility] MEDICINE 230 [place], [place] [phone] Tamiko Aceves FNP Triage Social History Tobacco [...] No answer, Lvm to return call to [facility] triage line. Pt to follow up PRN. * Telephone Encounter - Julianna Pena RN - 02/23/2023 12:04 PM EDT Call returned to patient for triage. No answer LVM to return call to [facility] triage line. * Telephone Encounter - Zackery Gant - 02/23/2023 11:54 AM EDT Symptoms: Foot or Ankle Pain - Not From Injury, Foot or Ankle Swelling Outcome: Schedule an urgent appointment (within 1 hour) or talk to a nurse or provider soon Reason: Severe pain now The caller accepted this outcome Please contact pt at [phone] Cuban Speaker documented in this encounter Plan of Treatment Upcoming Encounters Date Type Department Care Team (Late st Contact Info) Description 11/06/2025 11:30 AM EST Medication Management [facility] MEDICINE [address] [place] [address] Micki Olea, PharmD 230 [place] [address] 11/13/2025 9:15 AM EST Office Visit [address] [address] Chante Yusuf NP 230 [place] [address] 01/08/2026 11:30 AM EDT Office Visit [address] [address] Chante Yusuf NP 230 [place] [address] documented as of this encounter Visit Diagnoses Not on filedocumented in this encounter Additional Health Concerns Assessment Noted Time PHQ-9 Depression Total Score: 0 01/10/20 23 2:38 PM EST documented as of this encounter Care Teams Merchandise Collector Relationship Specialty Start Date End Date Tamiko Aceves FNP PCP - General Family Medicine 07/01/22 07/26/23 Maddy Ahumada MD 230 [place] [address] PCP - General Internal Medicine 07/27/23 10/12/23 Chante Yusuf NP [address] [place] [address] PCP - General Family Medicine 10/13/23 Micki Olea PharmD [address] [place] [address] Pharmacist Pharmacy 04/26/25 Veronica Snow Office Clerk AssistantLaboratory Director 09/15/24 [facility] 09/16/24 documented as of this encounter
--- OUTSIDE RECORDS SUMMARY | 2025-10-27 15:58 | XMS_ITS | Clinical Summary ---
Author Organization [address] [place] [address] Address [address] [place] [address] Phone Care Team Providers Care Woodyard Operator Name Role Phone YgChante beal KWAKU Primary Care Provider [phone] Surgical History Surgery Date Site/Laterality Comments HYSTERECTOMY 12/16/2012 PROCEDURE: HISTORICAL VAGINAL HYSTERECTOMY W/O BSO; COMMENT: bleeding, pain, dyspareunia. Partial L oophorectomy CHOLECYSTECTOMY PROCEDURE: HISTORICAL CHOLECYSTECTOMY; COMMENT: laparoscopic TUBAL LIGATION PROCEDURE: HISTORICAL TUBAL LIGATION ENDOMETRIAL ABLATION 2011 PROCEDURE: OK ENDOMETRIAL ABLTJ THERMAL W/O HYSTEROSCOPIC GUID; COMMENT: Novasure CYSTOSCOPY PROCEDURE: OK CYSTOURETHROSCOPY BLADDER SURGERY 2014 PROCEDURE: HISTORICAL BLADDER SURGERY; COMMENT: mid-urethral sling, Dr. Quesada, for incontinence Medical History Medical History Date Comments Major depression in partial remission ([facility] V24) DX:Major depression in parti al remission (HCC); COMMENT: dr magno heller Asthma DX:Asthma Back pain, chronic DX:Back pain, chronic Tobacco use DX:Tobacco use History of opioid abuse ([facility] V24, [facility] V28) DX:History of opioid abuse ( [facility]); COMMENT: on suboxone Drug withdrawal seizure ([facility] V24, [facility] V28) 03/2019 DX:Drug withdrawal seizure ( HCC); [...] on file Sexual Orientation Not on file Last Filed Vital Signs Vital Sign Reading [...] Health Maintenance Due Date Last Done Comments Colorectal Cancer Screening: Colonoscopy 1978 Hepatitis A Vaccines (1 of 2 - Risk 2-dose series) 1997 Hepatitis B Vaccines (1 of 3 - 19+ 3-dose series) 1997 Pneumococcal Vaccine: Pediat rics (0 to 5 Years) and At-Risk Patients (6 to 49 Years) (2 of 2 - PCV) 08/15/2017 08/15/2016 Breast Cancer Screening 04/09/2019 04/09/2017 HIV Screening 10/05/2022 Hepatitis C Screening 10/05/2022 Social Influencers of Health Screening 10/05/2022 Depression Screening 11/02/2024 COVID-19 Vaccine (1 - 2024-2 6 season) 2025 Influenza Vaccine (#1) 2025 08/16/2015 [...] or Most Recently Relevant to Health Maintenance Care Teams Woodyard Operator Relationship Specialty Start Date End Date Chante Yusuf NP [address] [place] [phone] PCP - General 09/06/25
--- OUTSIDE RECORDS SUMMARY | 2025-10-27 15:58 | XMS_ITS | Encounter Summary ---
Author Organization [employer] Address 75 [facility] 7t [place] [address] Care Team Providers Care Hearing Health Technician Name Role Phone Chante Yusuf GYMNASTIC COACH Primary Care Provider [phone] Micki Olea PharmD Unavailable Encounter Details Date Type Department Care Team (Late st Contact Info) Description 05/19/2025 Orders Only [facility] MEDICINE 230 [place], [place] [phone] Chante Yusuf NP 230 [place], [place] [phone] Subclinical hypothyroidism (Primary Dx) Social History Tobacco [...] Description 11/06/2025 11:30 AM EST Medication Management [address] [address] Micki Olea, PharmD 230 [place] [address] 11/13/2025 9:15 AM EST Office Visit [address] [address] Chante Yusuf, KWAKU 230 [place] [address] 01/08/2026 11:30 AM EDT Office Visit [address] [address] Chante Yusuf, KWAKU 230 [place] [address] documented as of this encounter Procedures Procedure Name Priority Date/Time Associated Diagnosis Comments TSH W/REFLEX TO FT4 Routine 07/25/2025 2:41 PM EDT Subclinical hypothyroidism documented in this encounter Results * TSH W/Reflex to FT4 (07/25/2025 2:41 PM EDT) TSH reflex Free T4 3.62 0.32 - 4.0 uIU/mL [facility] Blood Venous blood specimen / Unknown 07/25/2025 2:41 PM EDT 07/25/2025 4:22 PM EDT us Chante Yusuf GYMNASTIC COACH LAB BLOOD ORDERABLES Final Resu lt [facility] [address] [place] [address] [phone] documented in this encounter Visit Diagnoses Diagnosis Subclinical hypothyroidism- Primary Other specified acquired hypothyroidism documented in this encounter Additional Health Concerns Assessment Noted Time PHQ-9 Depression Total Score: 14 024 11:15 AM EST documented as of this encounter Care Teams Hearing Health Technician Relationship Specialty Start Date End Date Chante Yusuf NP 230 [place] [address] PCP - General Family Medicine 10/13/23 Micki Olea PharmD 230 [place] [address] Pharmacist Pharmacy 04/26/25 Veronica Snow Script GirlBoiler Mechanic 09/15/24 [facility] 09/16/24 documented as of this encounter
--- OUTSIDE RECORDS SUMMARY | 2025-10-27 15:58 | XMS_ITS | Encounter Summary ---
Author Organization [email or web address] Address 75 [facility] 7t [place] [address] Care Team Providers Care Esters And Emulsifiers Supervisor Name Role Phone Tamiko Aceves Primary Care Provider Maddy Chaney MD Primary Care Pro vider Chante Yusuf NP Primary Care Provider [phone] Micki Olea PharmD Unavailable [phone] Reason for Visit * Reason Onset Date Comments PT1 Forms 02/23/2023 Encounter Details Date Type Department Care Team (Late st Contact Info) Description 02/23/2023 Telephone [facility] MEDICINE 230 [place] [address] Tamiko Aceves FNP PT1 Forms Social History [...] / denial letter via mail. PT-1 Request [id number] Pending - [facility] PT-1 Request [id number] Authorized - [facility] [address] [facility] [address] PT-1 Request [id number] Authorized - [facility] - [address] [facility] [address] * Telephone Encounter - Zackery Gant - 02/23/2023 11:56 AM EDT Tc from pt requesting to renew PT1 forms for some main locations: PT1 Name of facility: [facility] Specialty: ALL FUTURE APPT's Location: [address] [place] [address] Date: n/a Time: n/a fax: n/a Phone: n/a wheelchair: n/a Clinical Informatics Specialist: n/a PT1 Name of facility: [facility] Specialty: ALL FUTURE APPT's Location: [address] [place] [address] Date: n/a Time: n/a fax: n/a Phone: n/a wheelchair: n/a Clinical Informatics Specialist: n/a PT1 Name of facility: [facility] Specialty: ALL FUTURE APPT's Location: [address] [place], [place] Date: n/a Time: n/a fax: n/a Phone: n/a wheelchair: n/a Clinical Informatics Specialist: n/a documented in this encounter Plan of Treatment Upcoming Encounters Date Type Department Care Team ([facility] Contact Info) Description 11/06/2025 11:30 AM EST Medication Management [facility] MEDICINE [address] [place], [place] [phone] Micki Olea, Rashawn 230 [place] [address] 11/13/2025 9:15 AM EST Office Visit [address] [address] Chante Yusuf NP [address] [place] [address] 01/08/2026 11:30 AM EDT Office Visit [address] [address] Chante Yusuf NP [address] [place] [address] documented as of this encounter Visit Diagnoses Not on filedocumented in this encounter Additional Health Concerns Assessment Noted Time PHQ-9 Depression Total Score: 0 01/10/20 23 2:38 PM EST documented as of this encounter Care Teams Esters And Emulsifiers Supervisor Relationship Specialty Start Date End Date Tamiko Aceves FNP PCP - General Family Medicine 07/01/22 07/26/23 Maddy Ahumada MD [address] [place] [address] PCP - General Internal Medicine 07/27/23 10/12/23 Chante Yusuf NP [address] [place] [address] PCP - General Family Medicine 10/13/23 Micki Olea PharmD [address] [place] [address] Pharmacist Pharmacy 04/26/25 Veronica Snow Fisher Dip NetDirector Of Slot Operations 09/15/24 [facility] 09/16/24 documented as of this encounter
--- OUTSIDE RECORDS SUMMARY | 2025-10-27 15:58 | XMS_ITS | Clinical Summary ---
Author Organization [employer] Address [address] [facility] 7t [place] [address] Care Team Providers Care Mapper Name Role Phone Chante Yusuf WOOD SHOP TEACHER Primary Care Provider [phone] PuMicki saucedo PharmD Unavailable [phone] Allergies Active Allergy Reactions Criticality Noted Date Comments Rosuvastatin Diarrhea 05/10/2020 Medications * This document contains information received from the source organization and may not represent a complete record from that organization. traZODone (Desyrel) 100 MG tablet TAKE 2 TABLETS BY MOUTH AT BEDTIME NEEDED 11/12/19 23 Active Blood Glucose Monitoring Suppl (FreeStyle Lite) w/Device kitIndications:T ype 2 diabetes mellitus with other specified complication, without long-term current use of insulin (HCC) 1 each 2 times daily. 1 kit 12/12/19 23 Active loratadine (Claritin) 10 MG tabletIndication s:Seasonal allergic rhinitis, unspecified trigger Take 1 tablet (10 mg) by mouth in the morning. 90 tablet 3 01/18/20 24 Active Additional Information Patient taking differently:10 mg OralDaily PRN, Reported on 04/26/2025 fluticasone (Flonase) 50 MCG/ACT nasal sprayIndications :Seasonal allergic rhinitis, unspecified trigger SHAKE LIQUID AND USE 1 TO 2 SPRAYS IN EACH NOSTRIL EVERY DAY NEEDED 48 g 05/04/20 24 Active albuterol 108 (90 Base) MCG/ACT inhalerIndicatio ns:Moderate persistent asthma without complication Inhale 2 puffs every 4 (four) hours. 18 g 3 08/19/20 24 Active ALPRAZolam (Xanax) 0.5 MG tablet Take 0.5 mg by mouth 2 times daily. 07/27/20 24 Active famotidine (Pepcid) 20 MG tablet Take 20 mg by mouth at bedtime. 06/18/20 24 Active hydrOXYzine HCl (Atarax) 10 MG tablet Take 10 mg by mouth if needed in the morning, at noon, and at bedtime. 07/26/20 24 Active pantoprazole (ProtoNix) 40 MG EC tablet Take 40 mg by mouth Once per day. 03/21/20 24 Active citalopram (CeleXA) 20 MG tablet Take 20 mg by mouth at bedtime. 07/28/20 24 Active Alcohol Swabs (Alcohol Prep) 70 % padsIndications: Type 2 diabetes mellitus with other specified complication, without long-term current use of insulin ([facility]) USE TWICE DAILY WITH TESTING 100 each 11 02/16/20 25 Active zolpidem (Ambien) 5 MG tablet Take 5 mg by mouth at bedtime. 04/19/20 25 Active thiamine (Vitamin B-1) 100 MG tablet Take 1 tablet (100 mg) by mouth Once per day. 90 tablet 3 04/26/20 25 Active baclofen (Lioresal) 10 MG tabletIndication s:Neck pain Take one tablet TID PRN 30 tablet 05/22/20 25 Active Bisacodyl EC 5 MG EC tablet Take 10 mg by mouth at bedtime. 05/24/20 25 Active glucose blood (FREESTYLE LITE) test stripIndications :Type 2 diabetes mellitus with other specified complication, without long-term current use of insulin ([facility]) Use to test blood sugar 1 times daily 50 strip 07/27/20 25 Active FreeStyle lancetsIndicatio ns:Type 2 diabetes mellitus with other specified complication, without long-term current use of insulin ([facility]) 1 each by Other route Once per day. Use to test blood sugar once daily as directed 100 each 3 07/27/20 25 026 Active PARoxetine (Paxil) 10 MG tabletIndication s:Vasomotor symptoms due to menopause Take 1 tablet (10 mg) by mouth in the morning. 30 tablet 1 08/04/20 25 Active semaglutide (Ozempic, 1 MG/DOSE,) 4 MG/3ML solution pen-injectorIndi cations:Type 2 Diabetes Mellitus Inject 1 mg under the skin 1 (one) time per week. 3 mL 11 09/05/20 Active nicotine (Nicoderm, Step 3) 7 MG/24HR patchIndications :Smoker Apply 1 patch, as directed, every 24 hours. May remove at bedtime if needed & replace the next morning. Rotate application site. 14 patch 2 09/05/20 Active metFORMIN (Glucophage) 500 MG tabletIndication s:Type 2 diabetes mellitus with other specified complication, without long-term current use of insulin (HCC) TAKE 1 TABLET BY MOUTH TWICE DAILY WITH THE MORNING AND EVENING MEAL 180 tablet 1 09/05/20 Active ketoconazole (NIZOral) 2 % shampooIndicatio ns:Seborrheic dermatitis of scalp Apply topically 2 (two) times a week. Apply shampoo to wet scalp, leave on for 5 mins before rinsing thoroughly 120 mL 10/12/20 Active QUEtiapine (SEROquel) 100 MG tablet Take 100 mg by mouth at bedtime. 10/11/20 25 Active QUEtiapine (SEROquel) 50 MG tablet Take 50 mg by mouth at bedtime. 07/28/20 025 Discontin ued(Alter kyle therapy) Active Problems Problem Noted Date Diagnosed Date Healthcare maintenance 12/30/2024 Leg edema, left 08/25/2024 Encounter for screening mamm ogram for malignant neoplasm of breast 02/25/2024 Assessment & Plan (09/03/2025 6:28 AM EST): Orders: BI Mammogram Screening Tomosynthesis Bilateral; Future Assessment & Plan (08/19/2024 1:37 PM EDT): [...] 1 month or sooner PRN Seizure-like activity (CMS/HCC) 01/12/2023 Overview (05/18/2023): Hx of seizure activity. None in childhood Most likely d/t benzodiazepine withdrawal Continues alprazolam 1mg, 1 tablet 3 times a day. Filled by [facility]. Educated Pt not to miss doses Will [...] and alprazolam Poorly controlled Assessment & Plan (10/10/2025 10:34 AM EST): Assessment & Plan (10/12/2023 4:42 PM EST): Patient history with PTSD Close f/u with psychiatrist and tapered down xanax Patient feels safe at home and is able to reach out for help Patient was seen by [facility] Assessment & Plan (06/14/2023 12:11 AM [...] Fell down the stairs 01/05/21 Evaluated at [facility] ED 01/18/21. CT maxillofacial WNL and cervical spine showed no fracture. Fall may have been related to seizure caused by benzodiazepine withdrawal Calcified granuloma of lung 07/04/2022 Overview (01/12/2023): Healed per chest x-ray radiology interpretation on 01/18/21 Gastroesophageal reflux disease 07/04/2022 Overview (01/12/2023): 07/23/22 - EGD performed by Dr. Doss showed possible gastritis and/or gastroparesis. Biopsies taken. Treatment pending Biopsy results. 07/30/22 - [facility] appt reviewed Endoscopy results. Send for Gastric emptying study. F/u 3 weeks Assessment & Plan (08/19/2024 12:31 PM EDT): -med refill provided per patient request -will discuss this further at next appointment Assessment & Plan (07/27/2023 6:25 PM EDT): Refill omeprazole Pt has continued GERD Encouraged pt to call [facility] for f/u [...] Microalbuminuria due to type 2 diabetes mellitus 06/30/2022 Assessment & Plan (09/03/2025 6:28 AM EST): -diabetes mellitus being managed by [facility] Rashawn Sweet Orders: POCT Hgb A1c POCT Glucose Diabetes 06/30/2022 Overview (06/14/2023): Poorly controlled. Not [...] 50mg Statin: Lipitor 20mg Assessment & Plan (10/10/2025 10:34 AM EST): Orders: POCT Glucose Assessment & Plan (07/18/2025 12:40 PM EDT): [...] taking it. Will obtain fill history from [employer]. Discuss further at next visit -daily foot [...] Noted Date Diagnosed Date Resolved Date Seizures (CMS/HCC) 01/12/2023 Sleep apnea 12/12/2022 01/12/2023 Encounters Date Type Department Care Team Description 10/24/[address] [address] Micki Olea PharmD 10/24/2025 Patient Outreach [address] [address] Chante Yusuf NP Care Coordination (CHW outreach for SDOH PT-1 and food needs-LVM ) 10/24/[address] [address] Chante Yusuf NP PT1 10/19/[address] [address] Chante Yusuf NP December10/17/2025 Outside Procedure [facility] [address] [place] [address] Solitario, Camila, OD Presbyopia (Primary Dx) 10/09/2025 2:30 PM EST Office Visit [facility] [place] [address] Chante Yusuf NP Vasomotor symptoms due to menopause (Primary Dx); Type 2 diabetes mellitus with other specified complication, without long-term current use of insulin ([facility]); Seborrheic dermatitis of scalp; Alopecia areata; Mixed anxiety and depressive disorder; Breast pain in female 10/09/2025 9:45 AM EST Office Visit [facility] [address] [place] [address] SolitarioDurann, OD Myopia, bilateral (Primary Dx) 10/09/2025 Travel 10/03/2025 Telephone [facility] [address] [place] [address] Chante Yusuf NP 09/06/2025 Orders Only [facility] [address] [place] [address] Chante Yusuf NP Pain of both breasts (Primary Dx) 09/05/2025 Travel 09/04/2025 Telephone [facility] [address] [place] [address] Chante Yusuf NP 08/31/2025 Telephone [facility] [address] [place] [address] Chante Yusuf NP Chart Prep 08/18/2025 9:00 AM EDT Office Visit [facility] [address] [place] [address] Lizbeth Mosquera, OD Type 2 diabetes mellitus without ophthalmic manifestations (HCC) (Primary Dx); Myopia, bilateral 08/18/2025 Travel 08/04/2025 2:30 PM EDT Office Visit [facility] [address] [place] [address] Chante Yusuf NP Vasomotor symptoms due to menopause (Primary Dx); Microalbuminuria due to type 2 diabetes mellitus (HCC); Encounter for screening mammogram for malignant neoplasm of breast; Screening for colon cancer; Ingrown toenail of both feet; S/P hysterectomy 08/04/2025 Travel 08/03/2025 Results Follow-Up [facility] [address] [place] [address] Chante Yusuf NP FSH, LH, Syphilis Screen, Additional followed-up results: 2 08/03/2025 Results Follow-Up [facility] [address] [place] [address] Chante Yusuf NP Albumin, Random Urine W/Creatinine 08/03/2025 Telephone [facility] [address] [place] [address] Chante Yusuf NP CHARTPREP 07/28/[address] [address] Cahnte Yusuf NP PT1-Submitted from Last 3 Months Immunizations Immunization Administration Dates Next Due Hep A, Adult 09/05/2025 HepB-CpG 07/10/2025,05/22/2025 Influenza injectable quadriv alent preservative free 10/22/2021,07/19/2018 Influenza, IIV3, injectable 12/31/2020, 8 Influenza, injectable, quadr ivalent, preservative free, pediatric 08/16/2015 Influenza, seasonal, injecta ble, preservative free 07/13/2016 Pneumococcal Conjugate PCV 20 09/05/2025 Pneumococcal Polysaccharide PPSV23 04/01/2018,,11/29/2007 Tdap 08/30/2023, 0,11/04/2018,11/10 [...] Sign Reading Time Taken Comments Blood Pressure 100/80 10/09/2025 2:58 PM EST Pulse 96 10/09/2025 2:58 PM EST Temperature 37.1 C (98.7 F) 10/09/2025 2:58 PM EST Respiratory Rate 20 10/09/2025 2:58 PM EST Oxygen Saturation 96% 08/04/2025 2:57 PM EDT Inhaled Oxygen Concentration - - Weight 96.5 kg (212 lb 12.8 oz) 10/09/2025 2:58 PM EST Height 170.2 cm (5' 7 ) 10/09/2025 2:58 PM EST Body Mass Index 33.33 10/09/2025 2:58 PM EST Plan of Treatment Upcoming Encounters Date Type Department Care Team (Late st Contact Info) Description 11/06/2025 11:30 AM EST Medication Management [facility] [address] [place] [address] Micki Olea, PharmD [address] [place] [address] 11/13/2025 9:15 AM EST Office Visit [address] [address] Chante Yusuf NP [address] [place] [address] 01/08/2026 11:30 AM EDT Office Visit [address] [address] Chante Yusuf NP [address] [place] [address] Health Maintenance Due Date Last Done Comments CT Colonography 1978 Colonoscopy 1978 Colorectal Cancer Screening 1978 FIT DNA/Cologuard 1978 FIT 1978 FOBT 1978 Sigmoidoscopy 1978 Family Planning (PISQ) 1993 Pap Smear 1999 HPV/Cotest 2008 Mammogram 09/16/2021 09/16/2019 Dental Prophylaxis 03/07/2025 09/06/2024, 0 06/17/2017, 12/26/2015 Dental Oral Exam 03/29/2025 09/28/2024, , 06/10/2016, Additional history exists Dental X-Ray: Full Mouth 05/14/2025 05/13/2022, 05/02 COVID-19 Vaccine ( season) 2025 11/28/2021, 03/22/2021, 02/22/2021 Influenza Vaccine (#1) 2025 , 12/31/2020, 07/19/2018, Additional history exists Dental X-Ray: Bitewings 09/07/2025 09/06/20 24, 05/13/2022, 06/17/2017, Additional history exists Diabetes: Hemoglobin A1C 11/04/2025 025, 05/22/2025, 02/13/2025, Additional history exists Depression Monitoring 11/22/2025 05/22/2025, 025 Hepatitis A Vaccines (2 of 2 - Risk 2-dose series) 03/05/2026 09/05/2025 SDOH Screening 04/24/2026 04/24/2025 Lipid Panel 05/01/2026 05/01/2025, 11/0 03/2024, 12/03/2023, Additional history exists Disability Screening 05/22/2026 05/22/2025 Diabetes: Foot Exam 08/04/2026 08/04/2025, 08/04/2025, 08/04/2025, Additional history exists Alcohol/Substance Use Screening 10/09/2026 10/09/2025 Tobacco Screening 10/10/2026 10/10/2025 Eye Exam 08/18/2027 08/18/2025, 08/02, 08/18/2025, Additional history exists Zoster Vaccines (1 of 2) 2028 DTaP/Tdap/Td Vaccines (5 - Td or Tdap) 08/30/2033 08/30/2023, 04/25/2020, 11/04/2018, Additional history exists RSV Patients and Patients Aged 60 years or older (1 - 1-dose 75+ series) 2053 HIV Screening Completed 10/04/2024, 06/03, 07/31/2021 Hepatitis C Screening Completed 10/04/2024 , 06/27/2022, 07/31/2021 Hepatitis B Vaccines Completed 07/10/2025, 05/22/20 25 Pneumococcal Vaccine: Pediatrics (0 to 5 Years) and At-Risk Patients (6 to 49) Years Completed 09/05/2025, 04/01/2018, 08/15/2016, Additional history exists Cervical Cancer Screening Discontinued HIB Vaccines Aged [...] on patient's age to complete this topic Goals Goal Patient Goal Type Associated Problems [...] chronic kidney disease No Puia, Micki, PharmD Procedures Procedure Name Priority Date/Time Associated Diagnosis Comments POCT GLUCOSE (CPT-36881) Routine 10/09/2025 2:59 PM EST Type 2 diabetes mellitus with other specified complication, without long-term current use of insulin (HCC) POCT GLYCATED HEMOGLOBIN, TOTAL Routine 08/04/2025 3:01 PM EDT Microalbuminuria due to type 2 diabetes mellitus (HCC) POCT GLUCOSE (CPT-55725) Routine 08/04/2025 2:58 PM EDT Microalbuminuria due to type 2 diabetes mellitus (HCC) LIPID PANEL WITH REFLEX TO DIRECT LDL Routine 05/01/2025 8:11 AM EDT HEPATITIS C ANTIBODY (ME DP) Routine 10/04/2024 HIV ANTIBODY/ANTIGEN (ME DP) Routine 10/04/2024 PERIODIC ORAL EVALUATION - ESTABLISHED [...] Recently Relevant to Health Maintenance Results * POCT Glucose (10/09/2025 2:59 PM EST) Only the most recent of2 resultswithin the time period is included. Glucose Blood, POC 156 60 - 200 mg/dL QC Media Lot # [id number] Lot# Expiration Date , Blood Capillary blood specimen / Unknown 10/09/2025 2:59 PM EST [facility] POINT OF CARE TEST ENTER/EDIT O RDERABLES Final Result * (ABNORMAL) POCT Hgb A1c (08/04/2025 3:01 PM EDT) Hemoglobin A1C 7.3(A) 4.0 - 5.7 % QC Media Lot # [id number] Lot# Expiration Date [id number] Blood 08/04/2025 3:01 PM EDT [facility] POINT OF CARE TEST ENTER/EDIT O RDERABLES Final Result * (ABNORMAL) Lipid Panel with Reflex to Direct LDL (05/01/2025 8:11 AM EDT) Triglycerides 110 <150 mg/dL [facility] Comment:Desirable Triglyceri de: less than 150 mg/dLBorderline High Triglyceride 150-199 mg/dLHigh Triglyceride: 200-499 mg/dLVery High Triglyceride: greater than or equal to 5OO mg/dL Cholesterol 162 <200 mg/dL [facility] Comment:Desirable Cholestero l: less than 200 mg/dLBorderline High Cholesterol: 200-239 mg/dLHigh Cholesterol: greater than 239 mg/dL LDL Cholesterol Calculated 101(H) <100 mg/dL [facility] Comment:Desirable LDL: less than 100 mg/dLNear Optimal/Above Optimal LDL: 110- 129 mg/dLBorderline High LDL: 130-159 mg/dLHigh LDL: 160-189 mg/dLVery High LDL: greater than or equal to 190 mg/dL HDL Cholesterol 39(L) >40 mg/dL [facility] Comment:Desirable HDL: great er than 40 mg/dL Note: This HDL assay may give artificially low results in patients with liver disease. 05/01/2025 8:11 AM EDT 05/01/2025 11:05 AM EDT Chante Yusuf NP LAB BLOOD ORDERABLES Final Resu lt [facility] [address] [place] [address] [phone] * Hepatitis C Antibody ([facility]) (10/04/2024) Hepatitis C Ab Nonreactive Blood 10/04/2024 Historical Provider LAB BLOOD ORDERABLES Whitney l Result * HIV Ab/Ag ([facility]) (10/04/2024) HIV Ag/Ab Nonreactive Blood 10/04/2024 Historical Provider LAB BLOOD ORDERABLES Edit ed Result - Final * Req: Mammogram (Screening); Bilateral (09/16/2019 11:33 AM EST) Anatomical Region Laterality Modality Breast Bilateral Mammography 09/16/2019 11:3 3 AM EST Narrative 09/19/2019 10:32 AM EST Refer to the Notes tab for result details [facility] Procedure: Req: Mammogram (Screening); Bilateral Procedure Note ProviderMadelin MD - 01/24/2023 Refer to the Notes tab for result details [facility] Procedure: Req: Mammogram (Screening); Bilateral Jesi Robledo WOOD SHOP TEACHER IMG BI PROCEDURES Final Result from Last 3 Months or Most Recently Relevant to Health Maintenance Additional Health Concerns Active Problems Noted Date [...] 10/24/2025 Patient has chronic kidney disease 10/24/2025 Insurance [place] [id number] [place] [phone] [facility] MEDICAID [facility] Care Teams Mapper Relationship Specialty Start Date End Date Chante Yusuf NP [address] [place] [address] PCP - General Family Medicine 10/13/23 Micki Olea, Rashawn [address] [place] [address] Pharmacist Pharmacy 04/26/25 Veronica Snow Manager Of ClinicalParimutuel Ticket Checker 09/15/24 [facility] 09/16/24
--- OUTSIDE RECORDS SUMMARY | 2025-10-27 15:59 | XMS_ITS | Encounter Summary ---
Author Organization [employer] Address [address] [facility] 7[address] [place] [address] Care Team Providers Care Sales Audit Clerk Name Role Phone Tamiko Aceves ROUTE RELIEF DRIVER Primary Care Provider Maddy Chaney MD Primary Care Pro vider Chante Yusuf NP Primary Care Provider [phone] Micki Olea PharmD Unavailable [phone] Reason for Visit * Reason Onset Date Comments Other 06/23/2023 Encounter Details Date Type Department Care Team (Late st Contact Info) Description 06/23/2023 Telephone [facility] [address] [place], [place] [phone] Tamiko Aceves FNP Other Social History Tobacco [...] provider notes and medication list given to [facility] VNA services. * Telephone Encounter - Claire Thomas RN - 07/14/2023 9:16 AM EDT T/C to [phone] for below message, Lizbeth inform that provider is not in office, waiting for referral to be sign by provider. * Telephone Encounter - Karlos Guadalupe - 07/14/2023 8:58 AM EDT Tc from [facility] with [facility] requesting status on referral for VNA services. Please contact Lizbeth at [phone] * Telephone Encounter - Claire Thomas RN - 07/03/2023 3:04 PM EDT Incoming call from [facility] is requesting VNA referral for pt. For medication management. Please review and advise. * Telephone Encounter - Shanelle Vale - 07/03/2023 2:51 PM EDT Tc from [facility] returning call. Please contact at [phone] * Telephone Encounter - Claire Thomas RN - 07/02/2023 9:46 AM EDT T/C to [phone] to Lizbeth for below message, No answer. LVM to call back on [phone]. * Telephone Encounter - Edmund Barraza - 07/01/2023 12:20 PM EDT Tc from [facility] returning call. Please contact at [phone] * Telephone Encounter - Claire Thomas RN - 07/01/2023 11:57 AM EDT T/C to [phone] to [facility] for below message, No answer. LVM to call back on [phone]. * Telephone Encounter - Edmund Barraza - 06/26/2023 4:36 PM EDT Tc from [facility] requesting status on referral for VNA services, states would like for pt to be referred to VNA services that are close to pt home location. Please contact at [phone] * Telephone Encounter - Delmi Wren - 06/23/2023 10:12 AM EDT Tc from Lizbeth at [facility] requesting a referral for VNA services. Patient is non compliant with medications and not acting like herself missing appts and not letting Lizbeth help her. Lizbeth is concerned with patients mental health and not taking the proper medications. Any further questions please call [phone]. documented in this encounter Plan of Treatment Upcoming Encounters Date Type Department Care Team (Late st Contact Info) Description 11/06/2025 11:30 AM EST Medication Management [facility] [address] [place] [address] Micki Olea, PharmD [address] [place], [place] [phone] 11/13/2025 9:15 AM EST Office Visit [address] [address] Ch[place] [address] 01/08/2026 11:30 AM EDT Office Visit [address] [address] Ch[place] [address] documented as of this encounter Visit Diagnoses Not on filedocumented in this encounter Additional Health Concerns Assessment Noted Time PHQ-9 Depression Total Score: 0 01/10/20 2:38 PM EST documented as of this encounter Care Teams Sales Audit Clerk Relationship Specialty Start Date End Date Tamiko Aceves FNP PCP - General Family Medicine 07/01/22 07/26/23 Maddy Ahumada MD [address] [place] [address] PCP - General Internal Medicine 07/27/23 10/12/23 Chante Yusuf NP [address] [place] [address] PCP - General Family Medicine 10/13/23 Micki Olea PharmD [address] [place] [phone] Pharmacist Pharmacy 04/26/25 Veronica Snow Head Insulation Board Saw OperatorProfessor Of Forest Planning 09/15/24 [facility] 09/16/24 documented as of this encounter
== END 2025-10-27 15:55 | disposition home or self-care (01) ==
LOC: HO.US 15:54
PROVIDERS: PCP Nurse Practitioner; Visit Provider Nurse Practitioner
DX: R22.2 Localized swelling, mass and lump, trunk (principal)
CPT/HCPCS: 76604

== ENCOUNTER → 2025-10-27 16:00 | Outpatient (BNV) | payer MEDICAID, SELFPAY | PROVIDERS: PCP Nurse Practitioner; Visit Provider Radiology Diagnostic Radiology | DX: R22.2 Localized swelling, mass and lump, trunk (principal) | CPT/HCPCS: 76604 ==